=== PATIENT | male | born 1940 | race Caucasian/White ===

== ENCOUNTER 2023-11-01 04:02 | Emergency (ER) | payer MEDICARE, SELFPAY ==
[2023-11-01] VITALS (15 sets, daily range): BP systolic 126–143; BP diastolic 62–70; PULSE 60–68; RESP 14–20; TEMP 36.4–36.8; O2SAT 96–100
--- NOTE | ~2023-11-01 | XR_ITS ---
Supine and upright views of the abdomen Clinical history: Abdominal pain Findings: Bowel gas pattern is nonspecific. No evidence for obstruction or free air. No abnormal mass lesion or calcification is seen. Pelvic surgical clips are noted. Left hip arthroplasty in place. Impression: Nonspecific bowel gas pattern. Reviewed, dictated and finalized at [facility]. ET COVERER Impression: Nonspecific bowel gas pattern.
--- NOTE | ~2023-11-01 | XR_ITS ---
Clinical Indication: Chest pain AP and lateral views of the chest: Comparison: None Findings: The lungs are clear, without evidence of focal consolidation or pleural effusion. Cardiome diastinal silhouette is within normal limits. Bones and soft tissues are unremarkable. Impression: Clear lungs. Possible COPD. Reviewed, dictated and finalized at location . NING FRAME FIXER Impression: Clear lungs. Possible COPD.
--- NOTE | 2023-11-01 04:07 | ECG_ITS ---
Measurements Intervals [place] Rate: 66 P: 84 [place]: 183 QRS: 44 QRSD: 104 T: 67 QT: 358 QTc: 377 Interpretive Statements SINUS RHYTHM WITH OCCASIONAL SUPRAVENTRICULAR PREMATURE COMPLEXES NONSPECIFIC T-WAVE ABNORMALITY ABNORMAL ECG NO PREVIOUS ECG AVAILABLE FOR COMPARISON Electronically Signed On 11-01-2023 7:32:24 FIXED INCOME TRADING VICE PRESIDENT by Fabian Burch M.D.
[2023-11-01 04:43] LABS: Basophils Absolute Auto 0.1 K/mm3 (0.0-0.1); Basophils Percent Auto 1.1 % (0.2-1.2); Eosinophils Absolute Auto 0.2 K/mm3 (0-0.3); Eosinophils Percent Auto 2.3 % (0-4.4); Hematocrit 37.7 % (42.0-52.0); Hemoglobin 11.9 g/dL (14.0-18.0); Immature Granulocyte Absolute 0.06 K/mm3 (0.00-0.031); Immature Granulocyte Percent A 0.6 % (0-0.5); Lymphocytes Absolute Auto 1.16 K/mm3 (0.9-3.2); Lymphocytes Percent Auto 12.3 % (18.3-44.2); Mean Corpuscular HGB Conc 31.6 g/dl (32-36); Mean Corpuscular Hemoglobin 31.3 pg (26-34); Mean Corpuscular Volume 99.2 fl (80-100); Mean Platelet Volume 9.6 fl (7.4-10.4); Monocytes Absolute Auto 1.1 K/mm3 (0.1-0.6); Monocytes Percent Auto 11.1 % (2.6-8.5); Neutrophils Absolute Auto 6.9 K/mm3 (1.3-6.7); Neutrophils Percent Auto 72.6 % (45.5-73.1); Platelet Count Result 396 k/mm3 (150-375); Red Cell Distribution Width 14.5 % (11.5-14.5); White Blood Count 9.5 K/mm3 (4.5-10.0)
[2023-11-01 04:54] LABS: INR 1.2; Prothrombin Time 15.4 Seconds (11.1-14.7)
[2023-11-01 04:55] LABS: Partial Thromboplastin Time 32.6 SECONDS (22.3-36.8)
--- NOTE | 2023-11-01 05:08 | ED.GENADULT ---
HPI - General Adult General Chief complaint: Chest Pain <Prabhu Sigala MD - Last Filed: 11/01/23 07:29> Stated complaint: CHEST PAIN - NOW RESOLVED <Prabhu Sigala MD - Last Filed: 11/01/23 07:29> Time Seen by Provider: 11/01/23 04:04 <Prabhu Sigala MD - Last Filed: 11/01/23 07:29> History of Present Illness HPI narrative: patient is an 83-year-old male who presents ER with epigastric pain/chest pain. Began 2 hours prior to arrival. Resolved on its own. It was radiating to his back. Currently 02/01. No fevers or chills or sweats. Denies previous cardiac issues. Patient has felt quite gassy since then. Currently Having flatulence in the room. reports pain is continuing to improve. No diaphoresis/nausea/ vomiting/dyspnea. <Prabhu Sigala MD - Last Filed: 11/01/23 07:29> Related Data Allergies/adverse reactions: Allergies Allergy/AdvReac Type Severity Reaction Status Date / Time atorvastatin Allergy Unknown Verified 11/01/23 04:46 duloxetine Allergy Unknown Verified 11/01/23 04:46 <Prabhu Sigala MD - Last Filed: 11/01/23 07:29> Review of Systems Review of Systems: All systems reviewed & are unremarkable except as noted in HPI and below <Prabhu Sigala MD - Last Filed: 11/01/23 07:29> Constitutional: Constitutional: Denies chills, Denies fatigue and Denies fever(s) <Prabhu Sigala MD - Last Filed: 11/01/23 07:29> ENT: Reports system reviewed and no additional complaints, except as documented <Prabhu Sigala MD - Last Filed: 11/01/23 07:29> Cardiovascular: Cardiovascular: Reports chest pain, Denies rapid heart rate and Denies radiating jaw, neck or arm pain <Prabhu Sigala MD - Last Filed: 11/01/23 07:29> Respiratory: Respiratory: Reports no additional respiratory complaints <Prabhu Sigala MD - Last Filed: 11/01/23 07:29> Gastrointestinal: Gastrointestinal: Reports abdominal pain, Reports bloating, Denies diarrhea, Denies nausea and Denies vomiting <Prabhu Sigala MD - Last Filed: 11/01/23 07:29> Genitourinary: Genitourinary: Reports no additional male genitourinary complaints <Prabhu Sigala MD - Last Filed: 11/01/23 07:29> PMFSH Past Medical History Medical History: Medical History (Updated 11/01/23 @ 08:19 by Humberto Orellana MD) Chronic diastolic heart failure Hyperlipidemia Hypertension Paroxysmal A-fib Prostate cancer <Prabhu Sigala MD - Last Filed: 11/01/23 07:29> Surgical History Surgical History: Surgical History (Updated 11/01/23 @ 05:11 by Prabhu Sigala MD) History of hip replacement <Prabhu Sigala MD - Last Filed: 11/01/23 07:29> Exam Narrative: GENERAL: Well-appearing, well-nourished, and in no acute distress. HEAD: Normocephalic, atraumatic. ENT: Mucous membranes moist. NECK: Supple. CHEST: Clear to auscultation. No respiratory distress. HEART: Regular rate and rhythm. Normal peripheral pulses. ABDOMEN: Soft, nontender, nondistended. EXTREMITIES: Normal range of motion. No edema. SKIN: Warm, dry, no rash. NEURO: Alert and oriented x3. PSYCH: Normal mood and affect. <Prabhu Sigala MD - Last Filed: 11/01/23 07:29> Course Course Emergency Course: 0700: care transferred to Dr. Orellana. Awaiting 2nd troponin. First troponin negative. Patient seems to have a lot of flatulence that is likely causing his discomfort. He has no pain at this time. <Prabhu Sigala MD - Last Filed: 11/01/23 07:29> Reevaluation(s) Reevaluation #1: The patient care was signed out to me with a delta troponin pending. Repeat troponin was not elevated. Patient is afebrile with no leukocytosis and a stable hemoglobin. INR is 1.2. CMP is similar to his previous. Chest x-ray was cleared with evidence of COPD. Abdominal x-ray shows a nonspecific bowel gas pattern. Patient is currently pain free. Patient was encouraged close follow-up with his primary care physic
[2023-11-01 05:12] LABS: Troponin I 0.012 ng/mL (0.000-0.034)
[2023-11-01] MEDS: SIMETHICONE 125 MG CHEW TAB PO (05:22)
[2023-11-01 05:30] LABS: Alanine Aminotransferase 11 U/L (6-50); Albumin Level 4.1 g/dL (3.5-5.1); Alkaline Phosphatase 65 U/L (38-126); Anion Gap 9 mmol/L (8-16); Aspartate Amino Transferase 28 U/L (17-59); Bilirubin,Total 0.6 mg/dL (0.2-1.3); Blood Urea Nitrogen 28 mg/dL (9-20); Calcium 8.8 mg/dL (8.4-10.2); Carbon Dioxide 22 mmol/L (22-30); Chloride 104 mmol/L (98-107); Estimated CRCL calculation 43 ml/min; Estimated Glomerular Filt Rate 49; Glucose 108 mg/dL (65-110); Potassium 4.3 mmol/L (3.4-5.0); Sodium 135 mmol/L (137-145)
--- NOTE | 2023-11-01 07:12 | PC.NURSE ---
Report to ANGEL Hernandez
[2023-11-01 07:41] LABS: Troponin I < 0.012 ng/mL (0.000-0.034)
--- NOTE | 2023-11-01 08:38 | PC.NURSE ---
multiple attempts to call report to Dwight Chang answered phone and transferred call to nurses station, no answer
== END 2023-11-01 10:00 ==
PROVIDERS: Emergency Provider Emergency Medicine; PCP Family Medicine
DX: R07.9 Chest pain, unspecified (principal); R10.13 Epigastric pain; I11.0 Hypertensive heart disease with heart failure; I50.32 Chronic diastolic (congestive) heart failure; I48.0 Paroxysmal atrial fibrillation; E78.5 Hyperlipidemia, unspecified; Z85.46 Personal history of malignant neoplasm of prostate; Z96.649 Presence of unspecified artificial hip joint; R94.31 Abnormal electrocardiogram [ECG] [EKG]; R91.8 Other nonspecific abnormal finding of lung field
CPT/HCPCS: 36415; 71046; 74018; 80053; 84484; 85025; 85610; 85730; 93005; 99284; A9270

== ENCOUNTER 2025-01-27 01:01 | Day surgery (SDC) | payer MEDICARE, SELFPAY ==
[2025-01-26 10:26] VITALS: BMI 26.6
[2025-01-27 08:56] VITALS: BP 101/62; PULSE 72; RESP 18; TEMP 36.1; O2SAT 98
[2025-01-27] MEDS: LACTATED RINGERS 1,000 ML 150 ML IV CONT (09:13)
--- NOTE | 2025-01-27 09:23 | WPDANESEPPF ---
Anes - Initial Pre Proc Eval Procedure: Operation Date: 01/27/25 09:45 Proposed Procedures p Colonoscopy - Bulmaro Rand MD Date/Time: 01/27/25 09:23 Surgeon: Bulmaro Rand MD Pre Op Diagnosis: IBS Patient Data Age: 85 Gender: M Height: 1.88 m Weight: 92.2 kg Last Vital Signs Temp 36.1 C L 01/27/25 08:56 Pulse 72 01/27/25 08:56 Resp 18 01/27/25 08:56 BP 101/62 01/27/25 08:56 Pulse Ox 98 01/27/25 08:56 O2 Del Method Room Air 01/27/25 08:56 Allergies Allergy/AdvReac Type Severity Reaction Status Date / Time atorvastatin Allergy Unknown Verified 01/27/25 08:54 duloxetine Allergy Unknown Verified 01/27/25 08:54 Home Medications ?Medication ?Instructions ?Recorded ?Confirmed ?Type Acidophilus 1 cap PO DAILY 01/20/25 01/27/25 History STOOL SOFTNER 100 mg PO DAILY PRN constipation 01/20/25 01/20/25 History acetaminophen 650 mg 650 mg PO Q12H PRN pain 01/20/25 01/20/25 History tablet,extended release apixaban 5 mg tablet (Eliquis) 5 mg PO Q12H 01/20/25 01/27/25 History cyanocobalamin (vitamin B-12) 2,500 mcg PO DAILY 01/20/25 01/27/25 History 2,500 mcg sublingual lozenge ergocalciferol (vitamin D2) 1,250 1,250 mcg PO WEEKLY 01/20/25 01/27/25 History mcg (50,000 unit) capsule furosemide 40 mg tablet 40 mg PO DAILY 01/20/25 01/27/25 History loteprednol etabonate 0.5 % eye 1 drp EACH EYE TID 01/20/25 01/27/25 History drops,suspension magnesium oxide 400 mg PO DAILY 01/20/25 01/27/25 History melatonin 5 mg tablet 5 mg PO HS PRN sleep 01/20/25 01/20/25 History meloxicam 7.5 mg tablet 7.5 mg PO DAILY PRN pain 01/20/25 01/20/25 History metolazone 5 mg tablet 5 mg PO DAILY 01/20/25 01/27/25 History potassium chloride 20 mEq 80 meq PO DAILY 01/20/25 01/27/25 History tablet,extended release(part/cryst) riboflavin (vitamin B2) 100 mg 300 mg PO DAILY 01/20/25 01/27/25 History tablet sennosides 8.6 mg capsule (senna) 8.6 mg PO HS 01/20/25 01/27/25 History simethicone 125 mg chewable tablet 125 mg PO BID PRN EXCESSIVE 01/20/25 01/20/25 History (Gas Relief (simethicone)) FLATULENCE sodium chloride 0.65 % nasal spray 1 spray intranasal BID PRN dry 01/20/25 01/20/25 History aerosol (Deep Sea Nasal) nasal passages Patient hx anesthesia problems: none Family hx anesthesia problems: none Results Review: All pre-operative results and documents have been reviewed as part of the pre-operative evaluation. [facility] Past Medical History Medical History Chronic diastolic heart failure Prostate cancer Hyperlipidemia Hypertension Paroxysmal A-fib Surgical History Surgical History History of hip replacement Social History Social History Smoking status: Never smoker Alcohol intake: current Substance use: current Living arrangements: assisted living Spiritual care concerns: No Anes - Eval Final PreProcedure Day of Procedure 01/27/25 09:23 Patient weight: overweight Heart: tachycardia Lungs: clear to auscultation Airway: Mallampati scale class II Neurological: alert and oriented ASA classification: III Emergent: no Anesthetic plan: proceed Results Review: All pre-operative results and documents have been reviewed as part of the pre-operative evaluation. Informed Consent: The patient's anesthetic plan and its attendant risks and benefits were discussed with the patient/family-son. DNR wishes were discussed at length. Patient want no CPR or intubation or life-saving measures. Questions were solicited and answers provided to the satisfaction of the patient/family/POA.
--- NOTE | 2025-01-27 09:59 | PM.IMHP ---
H&P: HPI History of Present Illness Date/Time: 01/27/25 09:59 Chief Complaint: Abdominal pain. Narrative: The patient has a history of intermittent pressure-type abdominal pain preferably in the lower quadrants. There is no change in bowel habits, although he is chronically constipated requiring laxatives almost all his life. He had colonoscopy since the past but does not recall when was the last 1. Review of Systems Review of Systems: All systems reviewed & are unremarkable except as noted in HPI and below PMFSH Past Medical History Medical History Chronic diastolic heart failure Prostate cancer Hyperlipidemia Hypertension Paroxysmal A-fib Surgical History Surgical History History of hip replacement Social History Social History Smoking status: Never smoker Alcohol intake: current Substance use: current Living arrangements: assisted living Spiritual care concerns: No Meds Home Medications and Allergies Home Medications ?Medication ?Instructions ?Recorded ?Confirmed ?Type Acidophilus 1 cap PO DAILY 01/20/25 01/27/25 History STOOL SOFTNER 100 mg PO DAILY PRN constipation 01/20/25 01/20/25 History acetaminophen 650 mg 650 mg PO Q12H PRN pain 01/20/25 01/20/25 History tablet,extended release apixaban 5 mg tablet (Eliquis) 5 mg PO Q12H 01/20/25 01/27/25 History cyanocobalamin (vitamin B-12) 2,500 mcg PO DAILY 01/20/25 01/27/25 History 2,500 mcg sublingual lozenge ergocalciferol (vitamin D2) 1,250 1,250 mcg PO WEEKLY 01/20/25 01/27/25 History mcg (50,000 unit) capsule furosemide 40 mg tablet 40 mg PO DAILY 01/20/25 01/27/25 History loteprednol etabonate 0.5 % eye 1 drp EACH EYE TID 01/20/25 01/27/25 History drops,suspension magnesium oxide 400 mg PO DAILY 01/20/25 01/27/25 History melatonin 5 mg tablet 5 mg PO HS PRN sleep 01/20/25 01/20/25 History meloxicam 7.5 mg tablet 7.5 mg PO DAILY PRN pain 01/20/25 01/20/25 History metolazone 5 mg tablet 5 mg PO DAILY 01/20/25 01/27/25 History potassium chloride 20 mEq 80 meq PO DAILY 01/20/25 01/27/25 History tablet,extended release(part/cryst) riboflavin (vitamin B2) 100 mg 300 mg PO DAILY 01/20/25 01/27/25 History tablet sennosides 8.6 mg capsule (senna) 8.6 mg PO HS 01/20/25 01/27/25 History simethicone 125 mg chewable tablet 125 mg PO BID PRN EXCESSIVE 01/20/25 01/20/25 History (Gas Relief (simethicone)) FLATULENCE sodium chloride 0.65 % nasal spray 1 spray intranasal BID PRN dry 01/20/25 01/20/25 History aerosol (Deep Sea Nasal) nasal passages Allergies Allergy/AdvReac Type Severity Reaction Status Date / Time atorvastatin Allergy Unknown Verified 01/27/25 08:54 duloxetine Allergy Unknown Verified 01/27/25 08:54 Vital Signs Vital Signs - 24 hr 01/27/25 08:56 Temperature 97 F L Pulse Rate 72 Respiratory Rate 18 Blood Pressure 101/62 Pulse Oximetry 98 Oxygen Delivery Room Air Exam Const: General: cooperative and healthy appearing Resp: Effort & Inspection: normal respiratory effort and able to speak in complete sentences Auscultation: clear to auscultation bilaterally Cardio: Rate: regular rate Rhythm: regular rhythm GI: Inspection: normal to inspection GI Palp: No No hepatosplenomegaly present Auscultation: normal bowel sounds Rectal Exam: deferred Skin: General skin exam: normal color Psych: Appearance: grossly normal Mental Status: mental status grossly normal Assessment and Plan Assessment and plan (1) Abdominal pain: Code(s): R10.9 - Unspecified abdominal pain Status: Acute Assessment and Plan: The patient is deemed a good candidate for the procedure. Consent signed. Will proceed.
[2025-01-27 10:30] VITALS: BP 94/63; PULSE 107; RESP 23; O2SAT 95
[2025-01-27 10:40] VITALS: BP 101/67; PULSE 120; RESP 25; O2SAT 97
[2025-01-27 10:50] VITALS: BP 105/72; PULSE 102; RESP 26; O2SAT 95
== END 2025-01-27 11:09 | disposition home or self-care (01) ==
PROVIDERS: PCP Family Medicine; Visit Provider Internal Medicine Gastroenterology
PROC: 0DJD8ZZ Inspection of Lower Intestinal Tract, Via Natural or Artificial Opening Endoscopic (ICD-10-PCS; CPT 45378; principal; 2025-01-27 09:45)
DX: K64.8 Other hemorrhoids (principal); K57.30 Diverticulosis of large intestine without perforation or abscess without bleeding; E78.5 Hyperlipidemia, unspecified; I11.0 Hypertensive heart disease with heart failure; I50.30 Unspecified diastolic (congestive) heart failure; I48.91 Unspecified atrial fibrillation; Z79.01 Long term (current) use of anticoagulants; Z98.890 Other specified postprocedural states; Z85.46 Personal history of malignant neoplasm of prostate
CPT/HCPCS: 45378; J2003; J2704; J7120

== ENCOUNTER 2025-03-09 06:45 | Outpatient (CLI) | payer MEDICARE, SELFPAY ==
--- NOTE | ~2025-03-09 | CT_ITS ---
CT of the Abdomen and Pelvis: Indication: Abdominal pain Technique: 2.5 mm axial scans were obtained through the abdomen and pelvis following intravenous adm inistration of 100 cc of Omnipaque 350. Dose reduction technique was used on this scan by utilizing a utomated exposure control and iterative reconstruction technique. The dose-length product (DLP) was 6 20.62 mGy-cm. Findings: Scans through the lung bases are unremarkable. The liver, spleen, pancreas, gallbladder, adrenals and kidneys are within normal limits. There are atherosclerotic calcifications of the aorta. No lymphadenopathy. No bowel obstruction or bowel wall thickening. There is no evidence to suggest acute appendicitis. Images through the pelvis are degraded by streak artifact from left hip arthroplasty. Urinary bladder grossly unremarkable. No pelvic mass evident. No ascites. Impression: No significant abnormality seen. Reviewed, dictated and finalized at [facility]. Impression: No significant abnormality seen.
--- OUTSIDE RECORDS SUMMARY | 2025-03-09 06:49 | XMS_ITS | Encounter Summary ---
Author Organization [facility] Care Team Providers Care Editor Newspaper Name Role Phone Linn Mas MD Primary Care Provider [phone]- [phone] Encounter Details Date Type Department Care Team (Latest Contact Info) Description 01/21/2018 Orders Only [facility] ProviderJennifer MD [address] [place] [id number] Social History Tobacco Use Types Packs/Day Years Used Date Smoking Tobacco: Never Assessed Sex and Gender Information Value Date Recorded Sex Assigned at Not on file Legal Sex Male 8:17 PM COMMUNICATIONS PROFESSIONAL Gender Identity Not on file Sexual Orientation Not on file documented as of this encounter Plan of Treatment Not on file documented as of this encounter Procedures Procedure Name Priority Date/Time Associated Diagnosis Comments CARDIOLOGY REPORT 02/07/2018 12: 00 AM CDT CARDIOLOGY REPORT 01/17/2018 12: 00 AM COMMUNICATIONS PROFESSIONAL documented in this encounter Results * CARDIOLOGY REPORT (02/07/2018 12:00 AM CDT) Anatomical Region Laterality Modality Other Narrative 02/07/2018 12:00 AM CDT Ordered by an unspecified provider. Historical Provider [facility] PROCE DURES Final Result * CARDIOLOGY REPORT (01/17/2018 12:00 AM COMMUNICATIONS PROFESSIONAL) Anatomical Region Laterality Modality Other Narrative 01/17/2018 12:00 AM COMMUNICATIONS PROFESSIONAL Ordered by an unspecified provider. Historical Provider [facility] PROCE DURES Final Result documented in this encounter Visit Diagnoses Not on filedocumented in this encounter Additional Health Concerns Infection Onset Date Last Indicated Resolved Time COVID: Suspected 11/06/2021 11/06/2021 11/06/2021 1:29 PM COMMUNICATIONS PROFESSIONAL documented as of this encounter Care Teams Editor Newspaper Relationship Specialty Start Date End Date Linn Mas MD [address] [address] PCP - General 03/13/18 documented as of this encounter
--- OUTSIDE RECORDS SUMMARY | 2025-03-09 06:49 | XMS_ITS | Encounter Summary ---
Author Organization [facility] Facility Care Team Providers Care Biological Technician Name Role Phone Linn Mas MD Primary Care Provider [phone]- [phone] Encounter Details Date Type Department Care Team (Latest Contact Info) Description 11/07/2017 Orders Only [facility] ProviderJennifer MD [address] [place] [id number] Social History Tobacco Use Types Packs/Day Years Used Date Smoking Tobacco: Never Assessed Sex and Gender Information Value Date Recorded Sex Assigned at Not on file Legal Sex Male 8:17 PM BOOTH MANAGER Gender Identity Not on file Sexual Orientation Not on file documented as of this encounter Plan of Treatment Not on file documented as of this encounter Procedures Procedure Name Priority Date/Time Associated Diagnosis Comments CARDIOLOGY REPORT 12/27/2017 12: 00 AM BOOTH MANAGER documented in this encounter Results * CARDIOLOGY REPORT (12/27/2017 12:00 AM BOOTH MANAGER) Anatomical Region Laterality Modality Other Narrative 12/27/2017 12:00 AM BOOTH MANAGER Ordered by an unspecified provider. us Historical Provider [facility] CASIMIRO ARCEO Final Result documented in this encounter Visit Diagnoses Not on filedocumented in this encounter Additional Health Concerns Infection Onset Date Last Indicated Resolved Time COVID: Suspected 11/06/2021 11/06/2021 11/06/2021 1:29 PM BOOTH MANAGER documented as of this encounter Care Teams Biological Technician Relationship Specialty Start Date End Date Linn Mas MD [address] [place] [address] PCP - General 03/13/18 documented as of this encounter
--- OUTSIDE RECORDS SUMMARY | 2025-03-09 06:49 | XMS_ITS | Referral Summary ---
Author Organization [facility] at the [facility] Office Center Address [address] [place] [address] Care Team Providers Care Planner/Scheduler Name Role Phone Linn Mas MD Primary Care Provider [phone] Allergies Active Allergy Reactions Criticality Noted Date Comments Atorvastatin Hallucinations Medium 04/18/2021 Duloxetine Hallucinations Medium 07/15/2019 Medications amiodarone (PACERONE) 200 mg tabletIndications :Prevention of Recurrent Atrial Fibrillation Take 1 tablet (200 mg total) by mouth every morning 30 tablet 2 Active metoprolol XL (TOPROL-XL) 25 mg extended release tabletIndications :Atrial Arrhythmia Take 0.5 tablets (12.5 mg total) by mouth every morning 15 tablet 2 Active rosuvastatin (CRESTOR) 20 mg tabletIndications :hyperlipidemia Take 1 tablet (20 mg total) by mouth every morning 30 tablet 2 Active apixaban (Eliquis) 5 mg tabletIndications :atrial fibrillation Take 1 tablet (5 mg total) by mouth every 12 (twelve) hours 60 tablet 2 Active gabapentin (NEURONTIN) 300 mg capsuleIndication s:Neuropathic Pain Take 1 capsule (300 mg total) by mouth every morning 30 capsule 2 Active tamsulosin (FLOMAX) 0.4 mg extended release capsuleIndication s:benign prostatic hyperplasia with lower urinary tract sx Take 1 capsule (0.4 mg total) by mouth nightly 30 capsule 2 Active fluticasone propionate (FLONASE) 50 mcg/actuation nasal spray Administer 2 sprays into each nostril 2 (two) times a day 1 each 2 Active amoxicillin (AMOXIL) 500 mg tablet/capsuleInd ications:Prophyla xis, Medical Take 4 tablets one hour prior to procedure or dental cleaning. 4 tablet/capsu le 10 3 Active Active Problems Problem Noted Date Diagnosed Date Acute renal failure (ARF) 10/30/2021 Assessment & Plan (11/27/2021 10:42 AM DESIZING MACHINE OFFBEARER): Cr elevated from baseline - encouraged po fluid intake. Not on diuretics - monitor 11/07: Cr continues to improve, encouraged po intake 11/13: Cr now 1.2, improved. Continue to monitor 11/16: Cr stable at 1.2. monitor 11/27: Cr stable Anemia due to acute blood loss 10/30/2021 Assessment & Plan (11/27/2021 10:39 AM DESIZING MACHINE OFFBEARER): H/H is slowly improving - continue to montior with iron supplementation 11/07: h/h stable, monitor 11/13: H/H remains stable 11/16: Hg 9.5. monitor 11/27: stable, continue iron supplementation Throat dryness 10/25/2021 Back pain 10/16/2021 Assessment & Plan (11/18/2021 10:42 AM DESIZING MACHINE OFFBEARER): To left side. Likely from surgery. Will add lidoderm patch. 10/30: controlled - continue prn norco, scheduled tylenol 11/13: pain controlled, continue above regimen 11/16: back pain improved Closed left hip fracture, initial encounter 09/25 Lung nodule 06/20/2021 Carotid artery stenosis 06/20/2021 Family history of diabetes mellitus 06/20/2021 Benign neoplasm of colon 06/20/2021 Malignant tumor of prostate 06/20/2021 PAF (paroxysmal atrial fibrillation) 06/20/2021 Encounter for monitoring amiodarone therapy 05/26 Constipated 05/25/2021 Assessment & Plan (11/27/2021 10:38 AM DESIZING MACHINE OFFBEARER): Continue Miralax. Will give suppos if no BM by tonight. 10/25 BM regular 10/30: stable continue senna bid, miralax daily, MOM and suppository prn 11/07: pt has intermittant c/o, but does not always take the miralax - continue scheduled senna 11/13: Last BM documented 11/10, continue scheduled senna and prns available 11/16: had BM on 11/14 11/20: pt not happy with current bowel regimen - dc senna s, start colace, encouraged pt to take miralax daily as he does at home 11/27: improved, continue miralax Allergic rhinitis due to pollen 05/25/2021 Insomnia 02/22/2021 Assessment & Plan (11/27/2021 10:37 AM DESIZING MACHINE OFFBEARER): Will start Trazodone. Continue Ramelton. 10/30: pt sleeping better, continue scheduled trazodone 11/07: stable, continue trazodone 50mg and ramelteon nightly 11/13: overall stable. Continue above regimen 11/27/21: Pt wants to use only home melatonin at discharge Macrocytosis 07/21/2020 Serum creatinine raised 07/21/2020 Tattoo of skin 07/20/2020 Coronary arteriosclerosis 05/05/2020 Pleural plaque 05/05/2020 Fracture of pelvis 03/24/2020 Osteoarthritis of hip 03/24/2020 Closed nondisplaced fracture of left ilium 12/12 Idiopathic peripheral neuropathy 10/16/2019 Assessment & Plan (11/27/2021 10:38 AM DESIZING MACHINE OFFBEARER): Cont gabapentin 300 mg daily. F/u with neurology 10/30: overall stable, continue gabapentin 300mg daily 11/13: stable, continue gabapentin 300mg daily 11/20: stable, continue gabapentin 11/27/21: stable, continue gabapentin 300mg daily Headache 06/18/2019 Persistent atrial fibrillation 06/17/2019 Assessment & Plan (11/27/2021 10:36 AM DESIZING MACHINE OFFBEARER): S/P DC cardioversion, Dr. Odom in 2019. cont amiodarone 200mg, toprol XL 12.5 mg, crestor. On eliquis 5 mg bid. 10/30: HR controlled, continue amiodarone 200 mg daily, Toprol-XL 12.5 mg daily, Eliquis 11/07: HR lower but asymptomatic and unchanged. Continue amiodarone 200 mg daily, Toprol-XL 12.5 mg daily, Eliquis 11/13: HR high 50's-mid 60's. Continue amiodarone 200 mg daily, Toprol-XL 12.5 mg daily, Eliquis 11/16: cont amiodarone 200mg , toprol XL 12.5 mg, eliquis 11/20: HR lower but stable, pt asymptomatic. Continue amiodarone 200mg , toprol XL 12.5 mg, eliquis 11/27/21: HR controlled, continue amiodarone 200mg , toprol XL 12.5 mg, eliquis Assessment & Plan (06/17/2019 11:47 AM CDT): Maintaining sinus rhythm after remote cardioversion. Chads score 2. Continue Eliquis Essential hypertension 06/17/2019 Assessment & Plan (11/27/2021 10:38 AM DESIZING MACHINE OFFBEARER): BP controlled, pulse mildly low. Cont Toprol XL 12.5 mg daily. Monitor closely. 10/18: BP stable 10/23: BP stable, pulse fluctuates. No changes. 10/25: BP overall wnl, usually soft 10/30: BP stable - continue only low dose Toprol 11/07: BP controlled continue Toprol, amio 11/13: BP controlled, continue Toprol XL 12.5 mg daily, amiodarone 200mg daily 11/16: BP wnl. Cont same meds 11/20: stable, continue Toprol 11/27: stable, continue Toprol XL 12.5 mg daily, amiodarone 200mg daily Assessment & Plan (06/17/2019 11:47 AM CDT): Controlled. Continue current medication Aftercare following left hip joint replacement s urgery 06/17/2019 Assessment & Plan (11/27/2021 10:42 AM DESIZING MACHINE OFFBEARER): Pt is s/p Left total hip replacement per Dr. Patterson on 10/05/21. DVT prophylaxis with eliquis 5 mg bid. Cont pain mgx with Freeland 1 tab q4 prn. Wound care. PT/OT eval. 10/13: Staple removal 10/19. 10/16: Has been refusing therapy. Reports in too much pain but then not taking pain medication either. Have discussed importance of pain medication to help with ability to participate in therapy. Will schedule Tyl. Sarah to be removed 10/19, night nurse reports increased drainage but day nurse reports none when changed. Will monitor closely. If having increased drainage will hold off on removal. 10/18: Still having increased drainage from the incision site, will hold off staple removal foe couple of days. 10/23: No further drainage. Sarah can be removed from site today. Seems to be progressing therapy more. Pain more controlled. 10/25: sarah has been removed. Incision looks stable, with steri strips in place. Pain controlled. 10/30: stable, pain controlled with scheduled Tylenol, p.r.n. Freeland. Patient is making progress in therapy, we will monitor. Continues to have weight-bearing restrictions. F/U with Dr. Nick Post on 11/15/21 at 9:30am at [facility]: [facility] ([facility]), [address] [place] [address], [address], [place] [address]. 11/07: remains only 20 lbs. Pt feels he is getting depressed due to lack of progress that he contributes to WB restrictions. F/U with ortho rec after appt next week. Continue thera, pain control, DVT proph 11/13: pain controlled, continue in therapy. Hoping to get increased WB at f/u visit 11/15. Will f/u ortho rec 11/16: Had ortho f/u on 10/16, as per new orders can start ambulation, advance WBAT while using walker and when comfortable dc the walker or transition to cane. Cont hip strengthening exercises. F/u ortho prn or in 1 yr. 11/20: Pt now WBAT, will monitor progress in therapy. Pain is controlled. 11/27: Pt has been making progress, WBAT. The patient is ready for discharge 11/28. We will arrange home health PT, OT. F/U with surgeon prn Assessment & Plan (06/17/2019 11:47 AM CDT): Continue Eliquis 5 mg twice daily Overweight with body mass index (BMI) 25.0-29.9 01/06/2019 Vitamin B12 deficiency (non anemic) 09/30/2018 Parkinsonism 06/10/2018 Osteoarthritis 06/10/2018 Unsteady gait 06/10/2018 Impaired fasting glucose 03/19/2018 Asymmetric SNHL (sensorineural hearing loss) Imbalance 03/16/2018 Cardiomyopathy 03/11/2018 Microscopic hematuria 12/30/2017 Congestive heart failure 03/21/2017 Assessment & Plan (11/27/2021 10:39 AM DESIZING MACHINE OFFBEARER): Transthoracic echocardiogram, May 2019, preserved biventricular systolic function, no significant valvular disease. Continue Toprol XL 12.5 mg, Crestor 20 mg, amiodarone 200 mg[address] Follow[address] up with Dr. Lopez outpatient. 10/23: Remains compensated. No changes. 10/25: asymptomatic 10/30: compensated, no diuretics. Continue to monitor wt, lytes, renal function, edema 11/07: remains compensated, continue off diuretic 11/13: no edema/SOB. Continue to monitor wt, lytes, renal function, edema 11/16: compensating well 11/27: compensated, continue to monitor and f/u with cardiology Dyslipidemia 03/21/2017 Assessment & Plan (10/11/2021 8:11 AM DESIZING MACHINE OFFBEARER): Cont crestor Adenocarcinoma of prostate 07/14/2013 Assessment & Plan (10/12/2021 7:19 AM DESIZING MACHINE OFFBEARER): prostate ca with mets to ischium 2010 s/p rads and total prostatectomy. Is on Lupron IM every 6 months. Follows up with urologist Dr. Michele. Continue Flomax Resolved Problems Problem Noted Date Diagnosed Date Resolved Date Benign prostatic hyperplasia without urinary obstruction 06/20/2021 10/12/2021 Assessment & Plan (10/11/2021 8:10 AM DESIZING MACHINE OFFBEARER): Cont home med flomax 0.4 mg Vestibular migraine 10/15/2019 11/27/19 Assessment & Plan (11/20/2021 4:37 PM DESIZING MACHINE OFFBEARER): He was started per neurologist on Venlafaxine 37.5 mg, which he likely did not tolerated well due to dizziness SE. Started on Gabapentin 100mg and the plan was to increase the dose based on tolerance. Pt was also given Vit B2 400mg and Magnesium oxide, which pt considered was very effective. Asking now to be restarted on the same meds. Will start Mag oxide 400 mg daily and Vit B2 as non formulary, pt son will provide home supply. 10/25: Headache improved 10/30: Resolved. Scheduled mag-ox and vitamin b2 per patient request. Tolerating gabapentin 300mg q am 11/07: currently stable. Continue above regimen: mag-ox, vitamin b2, gabapentin 300mg q am 11/13: denies nj. Monitor 11/20: resolved Dizziness 06/17/2019 10/23/2021 Assessment & Plan (10/16/2021 11:03 AM DESIZING MACHINE OFFBEARER): Unsure of etiology. Labs stable. H&H mildly low. Continue to monitor closely. Will order orthostatics. 10/16: No reports today. Orthostats pending. Montior. Assessment & Plan (06/17/2019 11:46 AM CDT): Vestibular dizziness. Encouraged patient to try other non conventional therapies Immunizations Immunization Administration Dates Next Due Influenza, Quadrivalent, Hig h Dose, Preservative Free, Intrr 10/13/2021(),08/25/2021,08/23/2020 Influenza, Quadrivalent, Spl it, Intramuscular 08/17/2019,08/11/2018,08/01/2017,09/08 Influenza, Trivalent, Preser vative Free, Intramuscular 08/14/2016 Moderna SARS-CoV-2 Monovalen t Vaccination (12+ YRS) 2021,2021,12/27/2020 Pfizer SARS-CoV-2 Monovalent Vaccination (12+ Yrs) PURPLE 10/11/2021 Pneumococcal Conjugate PCV 13 09/08/2015 Pneumococcal Polysaccharide PPV23 01/18/2017 Tdap 03/17/2018 ZOSTER LIVE 05/21/2018,03/17/2018 ZOSTER Recombinant 05/21/2018,03/17/2018 Social History Tobacco Use Types Packs/Day Years Used Date Smoking Tobacco: Never Smokeless Tobacco: Never Alcohol Use Standard Drinks/Week Comments Not Currently 0 (1 standard drink = 0.6 oz pur e alcohol) In the past 4 to 5 per week AUDIT-C Answer Date Recorded Q1: How often do you have a drink containing alc ohol? Never 10/10/2021 Average Number of Drinks Not on file 021 Q3: How often do you have si x or more drinks on one occasion? Never 10/10/2021 Sex and Gender Information Value Date Recorded Sex Assigned at Not on file Legal Sex Male 8:17 PM DESIZING MACHINE OFFBEARER Gender Identity Not on file Sexual Orientation Not on file Occupation Industry Job Start Date Job End Date Retired Not on file Not on file Not on file Last Filed Vital Signs Vital Sign Reading Time Taken Comments Blood Pressure 155/80 11/28/2021 7:00 AM DESIZING MACHINE OFFBEARER Pulse 61 11/28/2021 7:00 AM DESIZING MACHINE OFFBEARER Temperature 36.4 C (97.6 F) 11/28/2021 7:00 AM DESIZING MACHINE OFFBEARER Respiratory Rate 20 11/28/2021 7:00 AM DESIZING MACHINE OFFBEARER Oxygen Saturation 93% 11/28/2021 7:00 AM DESIZING MACHINE OFFBEARER Inhaled Oxygen Concentration - - Weight 93.1 kg (205 lb 4 oz) 11/28/2021 5:21 AM DESIZING MACHINE OFFBEARER Height 188 cm (6' 2 ) 10/10/2021 5:10 PM DESIZING MACHINE OFFBEARER Body Mass Index 26.35 10/10/2021 5:10 PM DESIZING MACHINE OFFBEARER Plan of Treatment Not on file Medical Devices Implanted Type Area Jewel Hole Rough Opener Device Identifier Shelf Expiration Date Model / Serial / Lot [employer] [id number] 60mm Modular Cluster Hole Hip Cup Acetabular Trabecular Metal - S0 - [id number] Implanted:Qty: 1 on 10/05/2021 by Nick Post MD at [facility] Other - see comments Left: Hip [employer] [id number] 04/24/2023 [id number] / 0 / [id number] [employer] [id number] Trilogy 60mm 28mm 10.3mm Primary Modular Cup Liner Hip Standard - S0 - [id number] Implanted:Qty: 1 on 10/05/2021 by Nick Post MD at [facility] Other - see comments Left: Hip [employer] [id number] 04/24/2023 [id number] / 0 / [id number] [employer] [id number] Trilogy 6.5mm 35mm Self Tap Screw Bone - S0 - [id number] Implanted:Qty: 1 on 10/05/2021 by Nick Post MD at [facility] Screw Left: Hip [employer] [id number] 07/31/2031 [id number] / 0 / [id number] [employer] [id number] Trilogy 6.5mm 35mm Self Tap Screw Bone - S0 - [id number] Implanted:Qty: 1 on 10/05/2021 by Nick Post MD at [facility] Screw Left: Hip [employer] [id number] 08/24/2029 [id number] / 0 / [id number] [employer] [id number] 28mm Hip +3.5mm [place] Femoral Cocr - [id number] Implanted:Qty: 1 on 10/05/2021 by Nick Post MD at [facility] Left: Hip [employer] [id number] 12/17/2030 [id number] / / [id number] [employer] [id number] 15mm 160mm Primary Press Fit Hip 14 43mm Oblique Straight Stem - [id number] Implanted:Qty: 1 on 10/05/2021 by Nick Post MD at [facility] Left: Hip [employer] [id number] 02/22/2030 [id number] / / [id number] Insurance MEDICARE [facility] MEDICARE MEDICARE [facility] MEDICARE [facility] Advance Directives For more information, please contact: [phone] Documents on File Type Date Recorded Patient Vice President Of Consulting Services Expl anation ADVANCE DIRECTIVE 10/12/2021 9:16 AM POLS T - Phys Order for PT Preferences ADVANCE DIRECTIVE 10/05/2021 11:42 AM Pow er of Lpn Or Medical Assistant-Medical ADVANCE DIRECTIVE 02/02/2020 12:00 AM TIMOTHY NG WILL * Full Code (Latest Code Status on File) Date Activated Date Inactivated Comments 10/10/2021 5:11 PM 11/28/2021 5:59 PM * Full Code Date Activated Date Inactivated Comments 10/05/2021 6:37 PM 10/10/2021 4:33 PM Care Teams Planner/Scheduler Relationship Specialty Start Date End Date Linn Mas MD [address] [facility] [address] [place] [address] PCP - General 03/13/18
--- OUTSIDE RECORDS SUMMARY | 2025-03-09 06:49 | XMS_ITS | Clinical Summary ---
Author Organization [facility] Address [address] [place] [address] Care Team Providers Care Professional Skateboarder Name Role Phone Linn Mas MD Primary Care Provider [phone] Allergies Active Allergy Reactions Criticality Noted Date Comments Atorvastatin Hallucinations Medium 04/18/2021 Duloxetine Hallucinations Medium 07/15/2019 Medications ELIQUIS 5 MG tablet Take 1 tablet (5 mg total) by mouth 2 (two) times daily. Active amiodarone 200 MG tablet Take 1 tablet (200 mg total) by mouth daily. START AFTER FINISHING WEEK OF 400mg twice daily 60 tablet 3 0 Active Additional Information Patient taking differently:200 mg Oral Daily,(No instructions reported), Reported on 09/12/2023 gabapentin 300 MG capsule Take 1 capsule (300 mg total) by mouth nightly at bedtime. 0 Active rosuvastatin 20 MG tablet Take 1 tablet (20 mg total) by mouth daily. 1 Active acetaminophen 500 MG tablet Take 1 tablet (500 mg total) by mouth 2 (two) times daily. Active Cyanocobalamin [address] 2,500 mcg under the tongue daily. Active magnesium oxide (MAG-OX) 400 MG tablet Take 1 tablet (400 mg total) by mouth nightly at bedtime. Active Senna (SENOKOT) 8.6 MG tablet Take 1 tablet (8.6 mg total) by mouth nightly as needed for Constipation. Active vitamin B-2 (RIBOFLAVIN) 100 MG tablet 3 tablets (300 mg total) daily. Active fludrocortisone (FLORINEF) 0.1 MG tablet Take 1 tablet (0.1 mg total) by mouth daily. 30 tablet 1 3 Active docusate sodium (COLACE) 100 MG capsule Take 1 capsule (100 mg total) by mouth 2 (two) times daily. 20 capsule 3 Active polyethylene glycol (GLYCOLAX) packet Take 240 mLs (17 g total) by mouth 2 (two) times daily. Dissolve powder in 240 mL water 20 each 3 Active tamsulosin (FLOMAX) 0.4 MG Cap Take 1 capsule (0.4 mg total) by mouth daily. 30 capsule 1 3 Active Active Problems Problem Noted Date Diagnosed Date Orthostasis 09/13/2023 Near syncope 09/12/2023 Chronic hypotension 01/17/2023 Carotid artery stenosis 06/20/2021 Coronary arteriosclerosis 05/05/2020 Hyperlipidemia, unspecified 12/18/2019 Malignant tumor of prostate ([facility]) Closed nondisplaced fracture of left ilium ([facility]) 12/12/2019 Vestibular migraine 10/15/2019 Essential hypertension 06/17/2019 Overview (12/18/2019): Last Assessment & Plan: Controlled. Continue current medication Persistent atrial fibrillation ([facility]) 06/17/2019 Overview (12/18/2019): Last Assessment & Plan: Maintaining sinus rhythm after remote cardioversion. Chads score 2. Continue Eliquis Vertigo 06/17/2019 Overview (12/18/2019): Last Assessment & Plan: Vestibular dizziness. Encouraged patient to try other non conventional therapies Parkinsonism ([facility]) 06/10/2018 Cardiomyopathy ([facility]) 03/11/2018 Microscopic hematuria 12/30/2017 Congestive heart failure ([facility]) 03/21 Overview (12/21/2022): Last Assessment & Plan: Transthoracic echocardiogram, May 2019, preserved biventricular systolic [...] monitor and f/u with cardiology Dyslipidemia 03/21/2017 Overview (12/21/2022): Last Assessment & Plan: Cont crestor Adenocarcinoma of prostate ([facility]) Resolved Problems Problem Noted Date Diagnosed Date Resolved Date Femur fracture 12/12/2019 12/12/2019 Immunizations Immunization Administration Dates Next Due COVID-19 Vaccine (Generic) 10/25/2021 Fluzone 6 Months+ Quad (0.5 mL Prefilled Syringe) 09/13/2023 Fluzone High Dose - >Age 65 (Prefilled Syringe) 08/23/2020 Influenza (Generic) 08/14/2016 Influenza Adult (Generic) 10/11/2021,,08/11/2018,2016,09/08/2015 MODERNA COVID-19 (12+) MRNA, LNP-S, PF, 100 MCG/ 0.5 ML DOSE 2021 Pneumococcal (Pneumovax 23) 01/18/2017 Pneumococcal (Prevnar 13) 09/08/2015 Tdap (Generic) 03/17/2018 Zoster (Zostavax) 82091 Unt/0.65Ml 05/21/2018, Family History Medical History Relation Comments No Known Problems Father No Known Problems Maternal Aunt No Known Problems Maternal Grandfather No Known Problems Maternal Grandmother No Known Problems Maternal Uncle Hypertension Mother No Known Problems Paternal Aunt No Known Problems Paternal Grandfather No Known Problems Paternal Grandmother No Known Problems Paternal Uncle Relation Status Comments Father Maternal Aunt Maternal Grandfather Maternal Grandmother Maternal Uncle Mother Paternal Aunt Paternal Grandfather Paternal Grandmother Paternal Uncle Social History Tobacco Use Types Packs/Day Years Used Date Smoking Tobacco: Former Smokeless Tobacco: Never Tobacco Cessation:Counseling Given: Not Answered Alcohol Use Standard Drinks/Week Comments No 0 (1 standard drink = 0.6 oz pur e alcohol) quit one year prior Humiliation, Afraid, Rape, and Kick questionnair e Answer Date Recorded Within the last year, have y ou been afraid of your partner or ex-partner? No 09/12/2023 Within the last year, have y ou been humiliated or emotionally abused in other ways by your partner or ex-partner? No Within the last year, have y ou been kicked, hit, slapped, or otherwise physically hurt by your partner or ex-partner? No 09/12/2023 Within the last year, have y ou been raped or forced to have any kind of sexual activity by your partner or ex-partner? No 09/12/2023 AUDIT-C Answer Date Recorded Frequency of Alcohol Consumption Never 12/12/2019 Average Number of Drinks Not on file 020 Frequency of Binge Drinking Not on file 11/25 Overall Financial Resource Strain (CARDIA) Answe r Date Recorded How hard is it for you to pa y for the very basics like food, housing, medical care, and heating? Not hard at all 09/12/2023 PHQ-2 Answer Date Recorded Patient Health Questionnaire-2 Score 0 12/06/2022 Hunger Vital Sign Answer Date Recorded Within the past 12 months, y ou worried that your food would run out before you got the money to buy more. Never true 09/12/20 23 Within the past 12 months, t he food you bought just didn't last and you didn't have money to get more. Never true 09/12/2023 PRAPARE - Transportation Answer Date Re corded In the past 12 months, has l ack of transportation kept you from medical appointments or from getting medications? No 08/25 In the past 12 months, has l ack of transportation kept you from meetings, work, or from getting things needed for daily living? No 09/12/2023 Housing Stability Vital Sign Answer Arjun e Recorded In the last 12 months, was t here a time when you were not able to pay the mortgage or rent on time? No 09/12/2023 In the last 12 months, how many places have you lived? 1 09/12/2023 In the last 12 months, was t here a time when you did not have a steady place to sleep or slept in a detention (including now)? No 09/12/2023 Sex and Gender Information Value Date Recorded Sex Assigned at Not on file Legal Sex Male 7:18 PM CDT Gender Identity Not on file Sexual Orientation Not on file Last Filed Vital Signs Vital Sign Reading Time Taken Comments Blood Pressure 142/68 09/25/2023 4:00 PM CDT Pulse 73 09/25/2023 4:00 PM CDT Temperature 36.7 C (98.1 F) 09/25/2023 4:00 PM CDT Respiratory Rate 16 09/25/2023 4:00 PM CDT Oxygen Saturation 98% 09/25/2023 4:00 PM CDT Inhaled Oxygen Concentration - - Weight 89.1 kg (196 lb 6.9 oz) 09/25/2023 4:41 A M CDT Height 188 cm (6' 2 ) 09/23/2023 4:13 PM CDT Body Mass Index 25.22 09/23/2023 4:13 PM CDT Plan of Treatment Health Maintenance Due Date Last Done Comments Annual Medicare Wellness Visit 2006 ASCVD LDL 01/12/2016 01/12/2015, 07/07/2014 RSV Immunization or 60+ Years (1 - 1-dose 75+ series) 01/27/2016 Zoster Vaccines (2 of 3) 07/16/2018 05/21/2018, 02/24 COVID-19 Vaccine ( season) 2024 10/25/2021, 10/11/2021, 2021, Additional history exists PHQ-2 (Physician [place]) 11/25/2024 DTaP, Tdap and Td Vaccines (2 - Td or Tdap) 03/17/2028 03/17/2018 Pneumococcal Vaccine: 50+ Years Completed 01/18/2017, 09/08/2015 Meningococcal B Vaccine Aged Out No l onger eligible based on patient's age to complete this topic Meningococcal Vaccine Aged Out No [place] eligible based on patient's age to complete this topic RSV Immunizations Under 20 Months Aged Out No longer eligible based on patient's age to complete this topic Goals Goal Patient Goal Type Associated Problems Recent Progress Patient-Stated? 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 Procedure Name Priority Date/Time Associated Diagnosis Comments LIPID PANEL WITH DIRECT LDL Routine 01/12/2015 11:05 AM PEACE OFFICER from Last 3 Months or Most Recently Relevant to Health Maintenance Results * (ABNORMAL) LIPID PANEL WITH DIRECT LDL (01/12/2015 11:05 AM PEACE OFFICER) CHOLESTEROL 209(H) 125 - 200 mg/dL [facility] TO EPIC CONVERSION HDL 101 > OR = 40 mg/dL [facility] TO EPIC CONVERSION TRIGLYCERIDES 91 <150 mg/dL [facility] TO EPIC CONVERSION LDL (CALCULATED) 90 <130 [facility] TO EPIC CONVERSION Comment: Result Comment: UNITS: mg/dL (calc) Desirable range <100 mg/dL for patients with CHD or diabetes and <70 mg/dL for diabetic patients with known heart disease. CHOL/HDL RATIO 2.1 < OR = 5.0 (calc) [facility] TO EPIC CONVERSION NON HDL CHOLESTEROL 108 [facility] TO EPIC CONVERSION Comment: Result Comment: UNITS: mg/dL (calc) Target for non-HDL cholesterol is 30 mg/dL higher than LDL cholesterol target. Test Performed at: [facility] [address] [place] [address] REJI MONZON DO,MPH 01/12/2015 11:0 5 AM PEACE OFFICER 01/12/2015 11:05 AM PEACE OFFICER Narrative [facility] TO EPIC CONVERSION - 01/12/2015 11:06 AM PEACE OFFICER Result Communication: No patient communication needed at this time us Generic Conversion Md [facility] Final R esult [facility] TO EPIC CONVERSION from Last 3 Months or Most Recently Relevant to Health Maintenance Insurance MEDICARE [employer] [facility] MEDICARE Advance Directives * Full Code (Latest Code Status on File) Date Activated Date Inactivated Comments 09/12/2023 12:21 PM 09/25/2023 9:45 PM * Full Code Date Activated Date Inactivated Comments 12/12/2019 10:57 AM 12/18/2019 3:48 PM Care Teams Professional Skateboarder Relationship Specialty Start Date End Date Linn Mas MD PCP - General 06/19/17
--- OUTSIDE RECORDS SUMMARY | 2025-03-09 06:49 | XMS_ITS | Clinical Summary ---
Author Organization [facility] at [facility] Address [address] [place] [address] Care Team Providers Care Clothing Man Name Role Phone Linn Mas MD Primary Care Provider [phone] Allergies Active Allergy Reactions Criticality Noted Date [...] 10/30/2021 Assessment & Plan (11/27/2021 10:42 AM RETAIL SALESPERSON): Cr elevated from baseline - encouraged po fluid intake. Not on diuretics - monitor 11/07: Cr continues to improve, encouraged po intake 11/13: Cr now 1.2, improved. Continue to monitor 11/16: Cr stable at 1.2. monitor 11/27: Cr stable Anemia due to acute blood loss 10/30/2021 Assessment & Plan (11/27/2021 10:39 AM RETAIL SALESPERSON): H/H is slowly improving - continue to montior with iron supplementation 11/07: h/h stable, monitor 11/13: H/H remains stable 11/16: Hg 9.5. monitor 11/27: stable, continue iron supplementation Throat dryness 10/25/2021 Back pain 10/16/2021 Assessment & Plan (11/18/2021 10:42 AM RETAIL SALESPERSON): To left side. Likely from surgery. Will [...] 05/25/2021 Assessment & Plan (11/27/2021 10:38 AM RETAIL SALESPERSON): Continue Miralax. Will give suppos if no [...] 02/22/2021 Assessment & Plan (11/27/2021 10:37 AM RETAIL SALESPERSON): Will start Trazodone. Continue [place]. 10/30: pt [...] 10/16/2019 Assessment & Plan (11/27/2021 10:38 AM RETAIL SALESPERSON): Cont gabapentin 300 mg daily. F/u with neurology 10/30: overall stable, continue gabapentin 300mg daily 11/13: stable, continue gabapentin 300mg daily 11/20: stable, continue gabapentin 11/27/21: stable, continue gabapentin 300mg daily Headache 06/18/2019 Persistent atrial fibrillation 06/17/2019 Assessment & Plan (11/27/2021 10:36 AM RETAIL SALESPERSON): S/P DC cardioversion, Dr. Oodm in 2019. cont amiodarone 200mg, toprol XL [...] 06/17/2019 Assessment & Plan (11/27/2021 10:38 AM RETAIL SALESPERSON): BP controlled, pulse mildly low. Cont Toprol [...] 06/17/2019 Assessment & Plan (11/27/2021 10:42 AM RETAIL SALESPERSON): Pt is s/p Left total hip replacement per Dr. Patterson on 10/05/21. DVT prophylaxis with eliquis 5 mg bid. Cont pain mgx with [place] 1 tab q4 prn. Wound care. PT/OT [...] stable, pain controlled with scheduled Tylenol, p.r.n. [place]. Patient is making progress in therapy, we will monitor. Continues to have weight-bearing restrictions. F/U with Dr. Nick Post on 11/15/21 at 9:30am at [facility]: [facility] ([facility]), [address] [place] [address], [address], [place] [address]. 11/07: remains only 20 lbs. Pt feels [...] 03/21/2017 Assessment & Plan (11/27/2021 10:39 AM RETAIL SALESPERSON): Transthoracic echocardiogram, May 2019, preserved biventricular systolic [...] 03/21/2017 Assessment & Plan (10/11/2021 8:11 AM RETAIL SALESPERSON): Cont crestor Adenocarcinoma of prostate 07/14/2013 Assessment & Plan (10/12/2021 7:19 AM RETAIL SALESPERSON): prostate ca with mets to ischium 2010 s/p rads and total prostatectomy. Is on Lupron IM every 6 months. Follows up with urologist Dr. Michele. Continue Flomax Resolved Problems Problem Noted Date Diagnosed Date Resolved Date Benign prostatic hyperplasia without urinary obstruction 06/20/2021 10/12/2021 Assessment & Plan (10/11/2021 8:10 AM RETAIL SALESPERSON): Cont home med flomax 0.4 mg Vestibular migraine 10/15/2019 11/27/19 Assessment & Plan (11/20/2021 4:37 PM RETAIL SALESPERSON): He was started per neurologist on Venlafaxine [...] 10/23/2021 Assessment & Plan (10/16/2021 11:03 AM RETAIL SALESPERSON): Unsure of etiology. Labs stable. H&H mildly [...] 03/17/2018 ZOSTER LIVE 05/21/2018,03/17/2018 ZOSTER Recombinant 05/21/2018,03/17/2018 Surgical History Surgery Date Site/Laterality Comments PROSTATECTOMY CARDIOVERSION 11/25/2019 - 12/25/2019 WISDOM TOOTH EXTRACTION COLONOSCOPY SKIN CANCER EXCISION back Medical History Medical History Date Comments Atrial fibrillation (HCC) Prostate cancer (HCC) Hypertension Hyperlipidemia Skin cancer HTN (hypertension) Family History Medical History Relation Name Comments Diabetes Father Lung cancer Father Dementia Mother Pulmonary fibrosis Mother Migraines Son Anesthesia problems Neg Hx Relation Name Status Comments Father Mother Son Social History Tobacco Use Types Packs/Day Years [...] on file Legal Sex Male 8:17 PM RETAIL SALESPERSON Gender Identity Not on file Sexual Orientation Not on file Occupation Industry Job Start Date Job End Date Retired Not on file Not on file Not on file Obstetrics History Last Filed Vital Signs Vital Sign Reading Time Taken Comments Blood Pressure 155/80 11/28/2021 7:00 AM RETAIL SALESPERSON Pulse 61 11/28/2021 7:00 AM RETAIL SALESPERSON Temperature 36.4 C (97.6 F) 11/28/2021 7:00 AM RETAIL SALESPERSON Respiratory Rate 20 11/28/2021 7:00 AM RETAIL SALESPERSON Oxygen Saturation 93% 11/28/2021 7:00 AM RETAIL SALESPERSON Inhaled Oxygen Concentration - - Weight 93.1 kg (205 lb 4 oz) 11/28/2021 5:21 AM RETAIL SALESPERSON Height 188 cm (6' 2 ) 10/10/2021 5:10 PM RETAIL SALESPERSON Body Mass Index 26.35 10/10/2021 5:10 PM RETAIL SALESPERSON Plan of Treatment Health Maintenance Due Date Last Done Comments Depression Screening 1941 Hepatitis B Screening 1958 Well Visit 65+ 2006 Fall Risk Assessment 11/27/2022 11/27/2021 Covid-19 Vaccine (2023-2 5 season) 2024 10/11/2021, 2021, 2021, Additional history exists Influenza Vaccine (Season Ended) 2025 08/25/2021, 08/23/2020, 08/17/2019, Additional history exists DTaP/Tdap/Td Vaccine (2 - Td or Tdap) 03/17/2028 03/17/2018 Pneumococcal vaccine 65+ Completed 01/18/2017, 08/25 Zoster Vaccine Completed 05/21/2018, 04/26, 03/17/2018, Additional history exists Medical Devices Implanted Type Area Industrial Engineering Intern Device Identifier Shelf Expiration Date Model / Serial / Lot [employer] [id number] 60mm Modular Cluster Hole Hip Cup Acetabular Trabecular Metal - S0 - [id number] Implanted:Qty: 1 on 10/05/2021 by Nick Post MD at [facility] Other - see comments Left: Hip [employer] [id number] 04/24/2023 [id number] / 0 / [id number] [employer] [id number] Trilogy 60mm 28mm 10.3mm Primary Modular Cup Liner Hip Standard - S0 - [id number] Implanted:Qty: 1 on 10/05/2021 by Nick Post MD at [facility] Other - see comments Left: Hip [employer] [id number] 04/24/2023 [id number] / 0 / [id number] [employer] [id number] Trilogy 6.5mm 35mm Self Tap Screw Bone - S0 - [id number] Implanted:Qty: 1 on 10/05/2021 by Nick Post MD at [facility] Screw Left: Hip [employer] [id number] 07/31/2031 [id number] / 0 / [id number] [employer] [id number] Trilogy 6.5mm 35mm Self Tap Screw Bone - S0 - [id number] Implanted:Qty: 1 on 10/05/2021 by Nick Post MD at [facility] Screw Left: Hip [employer] [id number] 08/24/2029 [id number] / 0 / [id number] [employer] [id number] 28mm Hip +3.5mm [place] Head Femoral Cocr - [id number] Implanted:Qty: 1 on 10/05/2021 by Nick Post MD at [facility] Left: Hip [employer] [id number] 12/17/2030 [id number] / / [id number] [employer] [id number] 15mm 160mm Primary Press Fit Hip 11/07 43mm Oblique Straight Stem - [id number] Implanted:Qty: 1 on 10/05/2021 by Nick Post MD at [facility] Left: Hip [employer] [id number] 02/22/2030 [id number] / / [id number] Insurance MEDICARE [facility] MEDICARE MEDICARE [facility] MEDICARE [facility]LY [facility] Advance Directives For more information, please contact: [phone] Documents on File Type Date Recorded Patient Route Driver Salesperson Expl anation ADVANCE DIRECTIVE 10/12/2021 9:16 AM POLS T - Phys Order for PT Preferences ADVANCE DIRECTIVE 10/05/2021 11:42 AM Pow er of Online Project Manager-Medical ADVANCE DIRECTIVE 02/02/2020 12:00 AM TIMOTHY LAURA WILL * Full Code (Latest Code Status on File) Date Activated Date Inactivated Comments 10/10/2021 5:11 PM 11/28/2021 5:59 PM * Full Code Date Activated Date Inactivated Comments 10/05/2021 6:37 PM 10/10/2021 4:33 PM Care Teams Clothing Man Relationship Specialty Start Date End Date Linn Mas MD [address] [place] [address] [facility] - General 03/13/18
--- OUTSIDE RECORDS SUMMARY | 2025-03-09 06:49 | XMS_ITS | Encounter Summary ---
Author Organization [facility] Facility Care Team Providers Care Warp Yarn Sorter Name Role Phone Linn Mas MD Primary Care Provider [phone]- [phone] Encounter Details Date Type Department Care Team (Latest Contact Info) Description 04/03/2017 Orders Only [facility] CLINCONV ProviderJennifer MD [address] [place] [id number] Social History Tobacco Use Types Packs/Day Years Used Date Smoking Tobacco: Never Assessed Sex and Gender Information Value Date Recorded Sex Assigned at Not on file Legal Sex Male 8:17 PM INSTALLER Gender Identity Not on file Sexual Orientation Not on file documented as of this encounter Plan of Treatment Not on file documented as of this encounter Procedures Procedure Name Priority Date/Time Associated Diagnosis Comments CARDIOLOGY REPORT 12/27/2017 12: 00 AM INSTALLER documented in this encounter Results * CARDIOLOGY REPORT (12/27/2017 12:00 AM INSTALLER) Anatomical Region Laterality Modality Other Narrative 12/27/2017 12:00 AM INSTALLER Ordered by an unspecified provider. us Historical Provider [facility] ARCEO Final Result documented in this encounter Visit Diagnoses Not on filedocumented in this encounter Additional Health Concerns Infection Onset Date Last Indicated Resolved Time COVID: Suspected 11/06/2021 11/06/2021 11/06/2021 1:29 PM INSTALLER documented as of this encounter Care Teams Warp Yarn Sorter Relationship Specialty Start Date End Date Linn Mas MD [address] [place] [address] PCP - General 03/13/18 documented as of this encounter
--- OUTSIDE RECORDS SUMMARY | 2025-03-09 06:49 | XMS_ITS ---
Author Name Maxwell Lucio Address [address] [place] [address] Phone [phone] Organization [facility] [employer] [facility] ices Address [address] [place] [address] Phone [phone] Care Team Providers Care Special Delivery Carrier Name Role Phone Maxwell Lucio Unavailable Functional Status Mental Status Allergies and Intolerances Encounters Immunizations Medications Problems Vital Signs Reason for Referral Past Medical History
--- OUTSIDE RECORDS SUMMARY | 2025-03-09 06:49 | XMS_ITS | Encounter Summary ---
Author Organization [facility] Facility Care Team Providers Care Outdoor Illuminating Engineer Name Role Phone Linn Mas MD Primary Care Provider [phone]- [phone] Encounter Details Date Type Department Care Team (Latest Contact Info) Description 03/19/2017 Orders Only [facility] CLINCONV ProviderJennifer MD [address] [place] [address] Social History Tobacco Use Types Packs/Day Years Used Date Smoking Tobacco: Never Assessed Sex and Gender Information Value Date Recorded Sex Assigned at Not on file Legal Sex Male 8:17 PM COUNTY JUDGE Gender Identity Not on file Sexual Orientation Not on file documented as of this encounter Plan of Treatment Not on file documented as of this encounter Procedures Procedure Name Priority Date/Time Associated Diagnosis Comments CARDIOLOGY REPORT 12/27/2017 12: 00 AM COUNTY JUDGE documented in this encounter Results * CARDIOLOGY REPORT (12/27/2017 12:00 AM COUNTY JUDGE) Anatomical Region Laterality Modality Other Narrative 12/27/2017 12:00 AM COUNTY JUDGE Ordered by an unspecified provider. us Historical Provider [facility] CASIMIRO ARCEO Final Result documented in this encounter Visit Diagnoses Not on filedocumented in this encounter Additional Health Concerns Infection Onset Date Last Indicated Resolved Time COVID: Suspected 11/06/2021 11/06/2021 11/06/2021 1:29 PM COUNTY JUDGE documented as of this encounter Care Teams Outdoor Illuminating Engineer Relationship Specialty Start Date End Date Linn Mas MD [address] [place] [address] PCP - General 03/13/18 documented as of this encounter
--- OUTSIDE RECORDS SUMMARY | 2025-03-09 06:49 | XMS_ITS | Encounter Summary ---
Author Organization [facility] Facility Care Team Providers Care Engine Boss Name Role Phone Linn Mas MD Primary Care Provider +1- [phone] Encounter Details Date Type Department Care Team (Latest Contact Info) Description 01/24/2018 Orders Only [facility] CLINCONV ProviderJennifer MD [address] [place] [address] Social History Tobacco Use Types Packs/Day Years Used Date Smoking Tobacco: Never Assessed Sex and Gender Information Value Date Recorded Sex Assigned at Not on file Legal Sex Male 8:17 PM ASSEMBLY ADJUSTER Gender Identity Not on file Sexual Orientation Not on file documented as of this encounter Plan of Treatment Not on file documented as of this encounter Procedures Procedure Name Priority Date/Time Associated Diagnosis Comments CARDIOLOGY REPORT 01/24/2018 12: 00 AM ASSEMBLY ADJUSTER documented in this encounter Results * CARDIOLOGY REPORT (01/24/2018 12:00 AM ASSEMBLY ADJUSTER) Anatomical Region Laterality Modality Other Narrative 01/24/2018 12:00 AM ASSEMBLY ADJUSTER Ordered by an unspecified provider. us Historical Provider [facility] CASIMIRO ARCEO Final Result documented in this encounter Visit Diagnoses Not on filedocumented in this encounter Additional Health Concerns Infection Onset Date Last Indicated Resolved Time COVID: Suspected 11/06/2021 11/06/2021 11/06/2021 1:29 PM ASSEMBLY ADJUSTER documented as of this encounter Care Teams Engine Boss Relationship Specialty Start Date End Date Linn Mas MD [address] [place] [address] PCP - General 03/13/18 documented as of this encounter
--- OUTSIDE RECORDS SUMMARY | 2025-03-09 06:49 | XMS_ITS | Encounter Summary ---
Author Organization [facility] Facility Care Team Providers Care Occupational Rehabilitation Aide Name Role Phone Linn Mas MD Primary Care Provider +1- [phone] Encounter Details Date Type Department Care Team (Latest Contact Info) Description 12/12/2017 Orders Only [facility] CLINCONV Provider, MD Jennifer [address] [place] [address] Social History Tobacco Use Types Packs/Day Years Used Date Smoking Tobacco: Never Assessed Sex and Gender Information Value Date Recorded Sex Assigned at Not on file Legal Sex Male 8:17 PM CLOTHING PATTERN PREPARER Gender Identity Not on file Sexual Orientation Not on file documented as of this encounter Plan of Treatment Not on file documented as of this encounter Procedures Procedure Name Priority Date/Time Associated Diagnosis Comments SCAN - LABS 01/21/2018 12:00 AM CLOTHING PATTERN PREPARER documented in this encounter Results * SCAN - LABS (01/21/2018 12:00 AM CLOTHING PATTERN PREPARER) Narrative 01/21/2018 12:00 AM CLOTHING PATTERN PREPARER Ordered by an unspecified provider. us Historical Provider Final Res ult documented in this encounter Visit Diagnoses Not on filedocumented in this encounter Additional Health Concerns Infection Onset Date Last Indicated Resolved Time COVID: Suspected 11/06/2021 11/06/2021 11/06/2021 1:29 PM CLOTHING PATTERN PREPARER documented as of this encounter Care Teams Occupational Rehabilitation Aide Relationship Specialty Start Date End Date Linn Mas MD [address] [place] [address] PCP - General 03/13/18 documented as of this encounter
[2025-03-09 07:11] LABS: Estimated Glomerular Filt Rate 34
== END 2025-03-09 06:46 | disposition home or self-care (01) ==
LOC: ANHIMG 06:48
PROVIDERS: Visit Provider Nurse Practitioner
DX: K58.9 Irritable bowel syndrome, unspecified (principal)
CPT/HCPCS: 74177; Q9967

== ENCOUNTER 2025-05-03 10:02 | Inpatient (IN) | payer MEDICARE, SELFPAY ==
[2025-05-03] VITALS (37 sets, daily range): BP systolic 90–144; BP diastolic 62–104; PULSE 83–145; RESP 13–28; TEMP 36.4–36.8; O2SAT 91–100; BMI 25.3
--- NOTE | ~2025-05-03 | XR_ITS ---
XR abdomen/kub 1V 05/05/2025 10:48 Indication: Constipation Procedure: KUB Comparison: 11/01/2023 Findings: Nonobstructive bowel gas pattern. Bowel gas limits evaluation for renal stones. There is a left hip arthroplasty. There is sclerosis of the left ischium and right femoral head, suspicious for metastatic disease. Consider prostate cancer. There are surgical clips in the pelvis. Moderate lumbar spondylosis. Impression: 1: Sclerotic lesions of the left ischium and right femoral head, suspicious for metastatic disease. R ecommend correlation with nuclear bone scan. Further evaluation for possible prostate cancer recommen ded. Reviewed, dictated and finalized at location B. Impression: 1: Sclerotic lesions of the left ischium and right femoral head, suspicious for metastatic disease. Recommend correlation with nuclear bone scan. Further eval uation for possible prostate cancer recommended.
--- NOTE | ~2025-05-03 | NM_ITS ---
EXAMINATION: NM bone scan whole body DATE: 05/06/2025 14:54 INDICATION: Sclerotic bone lesion with history of prostate cancer TECHNIQUE: 24.5 mCi Tc-99m HDP was administered intravenously. Delayed whole-body scintigrams were o btained. COMPARISON: KUB dated 05/05/[address] abdomen and pelvis dated 03/09/2025 FINDINGS: Photopenic defect at the left hip corresponding to a total hip arthroplasty. There is prominent incre ased bone uptake in the adjacent left ischial tuberosity which corresponds to the sclerotic lesion on prior CT which is suspicious for metastatic prostate cancer. There there is mild uptake in the regio n of a second subtle sclerotic lesion at the T12 vertebral body also suspicious for metastatic diseas e. Are couple foci of mild uptake at the anterior right seventh rib and posterior left 11th rib, both with corresponding old healed fractures. No other suspicious foci of abnormal bone uptake. IMPRESSION: 1. Prominent increased bone uptake at the left ischial tuberosity consistent with metastatic prostate cancer. 2. Second region of less intense uptake in the region of subtle sclerotic lesion in the T12 vertebral body, also suspicious for metastatic disease. Reviewed, dictated and finalized at location A. IMPRESSION: 1. Prominent increased bone uptake at the left ischial tuberosity consistent wi th metastatic prostate cancer. 2. Second region of less intense uptake in the region of subtle sclerotic lesio n in the T12 vertebral body, also suspicious for metastatic disease.
--- NOTE | ~2025-05-03 | MR_ITS ---
EXAMINATION: MR brain/brain stem wo/w con DATE: 05/09/2025 16:18 INDICATION: Vertigo. New onset atrial fibrillation with rapid ventricular response TECHNIQUE: Magnetic resonance imaging (MRI) of the brain and brainstem was performed without intraven ous contrast, utilizing standard sequences. COMPARISON: None. Reference is made to a CT examination of the brain dated 05/03/2025 FINDINGS: Small focus of abnormal signal intensity within the periventricular white matter of the body of the l eft lateral ventricle demonstrating increased signal intensity on diffusion-weighted imaging with dec reased signal intensity on ADC mapping, consistent with acute cerebral infarction. No abnormal signal intensity on the gradient echo imaging to suggest acute or subacute hemorrhage. Incidental notation is made of cavum septum pellucidum. Ventricles are otherwise enlarged, unchanged from previous CT examination. Scattered areas of increased T2 weighted signal intensity within the periventricular white matter con sistent with (likely) microvascular ischemic disease, in a patient of this age. IMPRESSION: Acute cerebral infarction involving the distribution of a small branch of the left middle cerebral ar te, as detailed above. No acute or subacute hemorrhage. Reviewed, dictated and finalized at location A. IMPRESSION: Acute cerebral infarction involving the distribution of a small branch of the l eft middle cerebral artery, as detailed above. No acute or subacute hemorrhage.
--- NOTE | ~2025-05-03 | CT_ITS ---
EXAMINATION: CT brain wo con DATE: 05/03/2025 12:59 INDICATION: Dizziness TECHNIQUE: Computed tomography (CT) of the head was performed without intravenous contrast. Sagittal and coronal reconstructions were performed. The mA was adjusted according to patient size. Iterative reconstruction technique was employed. The dose-length product was 605.33 mGy-cm. COMPARISON: None FINDINGS: No acute intracranial hemorrhage, acute infarction or abnormal extra axial fluid collection. There is mild scattered white matter hypoattenuation consistent with chronic small vessel ischemic disease. S ymmetric prominence of the sulci and ventricles consistent with moderateage-appropriate diffuse cereb ral volume loss. Normal anatomic variant cavum septum pellucidum and vergae. No mass/mass effect. Muc ous retention cyst in the left maxillary sinus. The orbits and mastoid air cells are normal. IMPRESSION: 1. No acute intracranial process. 2. Age-related changes including moderate diffuse volume loss and mild to moderate scattered white ma tter hypoattenuation consistent with chronic small vessel ischemic disease. Reviewed, dictated and finalized at location A. IMPRESSION: 1. No acute intracranial process. 2. Age-related changes including moderate diffuse volume loss and mild to moder ate scattered white matter hypoattenuation consistent with chronic small vessel ischemic disease.
--- NOTE | ~2025-05-03 | US_ITS ---
Procedure: Duplex Doppler examination of the bilateral carotids. Indication: Dizziness Technique: Real time, color-flow and pulse wave Doppler examination of the bilateral carotids was performed. Findings: Lau scale ultrasonography of the right neck demonstrated small plaques at the mid and distal common carotid artery. There was demonstration of normal color-flow and Doppler waveforms within the right c ommon, internal and external carotid arteries. The peak systolic velocities in the right common, inte rnal and external carotid arteries were demonstrated to be 73 cm/sec, 73 cm/sec and 73 cm/sec respect ively. The right ICA/CCA ratio was 1.0.The proximal right internal carotid artery demonstrates 0% last nosis relative to the normal distal artery lumen diameter. Lau scale sonography of the left neck demonstrated moderate plaque at the mid common carotid artery. There was demonstration of normal color-flow and wave forms within the left common, internal and ext ernal carotid arteries. The peak systolic velocities in the left common, internal and external caroti d arteries were demonstrated to be 81cm/sec, 69 cm/sec and 76 cm/sec respectively. The left ICA/CCA r atio was 0.9. The proximal left internal carotid artery demonstrates 0% stenosis relative to the norm al distal artery lumen diameter. There was antegrade flow demonstrated in the bilateral vertebral arteries. Impression: No hemodynamically significant stenosis of the bilateral internal carotid arteries. Antegrade flow in the bilateral vertebral arteries. Note: The methodology used is an indirect measurement validated against a direct method (such as the NASCET criteria) that compares diameters at the stenosis to the distal ICA. Reviewed, dictated and finalized at location . Impression: No hemodynamically significant stenosis of the bilateral internal carotid arter ies. Antegrade flow in the bilateral vertebral arteries. Note: The methodology used is an indirect measurement validated against a direct meth od (such as the NASCET criteria) that compares diameters at the stenosis to the distal ICA.
--- NOTE | ~2025-05-03 | XR_ITS ---
EXAMINATION: XR chest 1V DATE: 05/03/2025 13:11 INDICATION: Atrial fibrillation TECHNIQUE: frontal view of the chest was obtained. COMPARISON: Chest radiograph dated 11/01/2023 FINDINGS: There are few small bilateral calcified pulmonary nodules consistent with old granulomatous disease. In addition there is more linear calcified pleural plaques at the lateral left mid to lower lung zone . Linear discoid atelectasis at the right lung base projecting over the right hemidiaphragm. No other airspace opacities, pulmonary edema, pleural effusion or pneumothorax. Heart size within normal limi ts for AP technique with small bilateral paracardial fat pads. IMPRESSION: 1. No acute cardiopulmonary disease. Reviewed, dictated and finalized at location A.
--- NOTE | ~2025-05-03 | CT_ITS ---
Non-contrast CT scan of the Abdomen and Pelvis Clinical indication: Abdominal pain Technique: 2.5 mm axial scans were obtained through the abdomen and pelvis without intravenous or or al contrast. Dose reduction technique was used on this scan by utilizing automated exposure control a nd iterative reconstruction technique. The dose-length product (DLP) was 683.39 mGy-cm. COMPARISON: 03/09/2025 Findings: Images through the lung bases reveal small bilateral pleural effusions, right greater than left. There is no evidence of renal or ureteral calculi. The kidneys and the ureters are nondilated. The liver, spleen, pancreas, gallbladder, and adrenals appear normal. There are atherosclerotic calci fications of the aorta. . There is no evidence of bowel obstruction. Images through the pelvis are mildly degraded by streak artifact from left hip arthroplasty. There is no evidence of ascites or lymphadenopathy. Urinary bladder appears unremarkable. No pelvic mass evid ent. Impression: No acute abnormality in the abdomen or pelvis. Small bilateral pleural effusions, right greater than left. Reviewed, dictated and finalized at location . Impression: No acute abnormality in the abdomen or pelvis. Small bilateral pleural effusions, right greater than left.
--- NOTE | 2025-05-03 10:08 | ECG_ITS ---
Test Date: 2025-05-03 10:10:45 Measurements Intervals [place] Rate: 110 P: 0 WV: 0 QRS: 37 QRSD: 113 T: 0 QT: 251 QTc: 341 Interpretive Statements ATRIAL FIBRILLATION WITH RAPID VENTRICULAR RESPONSE WITH ABERRANT CONDUCTION OR VENTRICULAR PREMATURE COMPLEXES INTRAVENTRICULAR CONDUCTION DELAY ST-T WAVE ABNORMALITY IN ANTEROLAT/INF LEADS- CONSIDER ISCHEMIA BASELINE ARTIFACT- I, II, III, AVR, AVL, AVF, V1-V2 ABNORMAL ECG No previous ECG available for comparison Electronically Signed On 05-03-2025 10:18:10 CDT by Tanvir Dumont D.O.
--- OUTSIDE RECORDS SUMMARY | 2025-05-03 11:07 | XMS_ITS | Encounter Summary ---
Author Organization [facility] Facility Care Team Providers Care Hris Coordinator Name Role Phone Linn Mas MD Primary Care Provider +1- [phone] Encounter Details Date Type Department Care Team (Latest Contact Info) Description 01/24/2018 Orders Only [facility] CLINCONV ProviderJennifer MD [address] [place] [address] Social History Tobacco Use Types Packs/Day Years Used Date Smoking Tobacco: Never Assessed Sex and Gender Information Value Date Recorded Sex Assigned at Not on file Legal Sex Male 8:17 PM ORACLE SQL DEVELOPER Gender Identity Not on file Sexual Orientation Not on file documented as of this encounter Plan of Treatment Not on file documented as of this encounter Procedures Procedure Name Priority Date/Time Associated Diagnosis Comments CARDIOLOGY REPORT 01/24/2018 12: 00 AM ORACLE SQL DEVELOPER documented in this encounter Results * CARDIOLOGY REPORT (01/24/2018 12:00 AM ORACLE SQL DEVELOPER) Anatomical Region Laterality Modality Other Narrative 01/24/2018 12:00 AM ORACLE SQL DEVELOPER Ordered by an unspecified provider. Historical Provider [facility] CASIMIRO ARCEO Final Result documented in this encounter Visit Diagnoses Not on filedocumented in this encounter Additional Health Concerns Infection Onset Date Last Indicated Resolved Time COVID: Suspected 11/06/2021 11/06/2021 11/06/2021 1:29 PM ORACLE SQL DEVELOPER documented as of this encounter Care Teams Hris Coordinator Relationship Specialty Start Date End Date Linn Mas MD [address] [place] [address] PCP - General 03/13/18 documented as of this encounter
--- OUTSIDE RECORDS SUMMARY | 2025-05-03 11:07 | XMS_ITS | Encounter Summary ---
Author Organization [facility] Facility Care Team Providers Care Color Grinder Name Role Phone Linn Mas MD Primary Care Provider +1- [phone] Encounter Details Date Type Department Care Team (Latest Contact Info) Description 01/21/2018 Orders Only [facility] CLINCONV ProviderJennifer MD [address] [place] [address] Social History Tobacco Use Types Packs/Day Years Used Date Smoking Tobacco: Never Assessed Sex and Gender Information Value Date Recorded Sex Assigned at Not on file Legal Sex Male 8:17 PM GRANTS DIRECTOR Gender Identity Not on file Sexual Orientation Not on file documented as of this encounter Plan of Treatment Not on file documented as of this encounter Procedures Procedure Name Priority Date/Time Associated Diagnosis Comments CARDIOLOGY REPORT 02/07/2018 12: 00 AM CDT CARDIOLOGY REPORT 01/17/2018 12: 00 AM GRANTS DIRECTOR documented in this encounter Results * CARDIOLOGY REPORT (02/07/2018 12:00 AM CDT) Anatomical Region Laterality Modality Other Narrative 02/07/2018 12:00 AM CDT Ordered by an unspecified provider. us Historical Provider [facility] PROCE ADIS Final Result * CARDIOLOGY REPORT (01/17/2018 12:00 AM GRANTS DIRECTOR) Anatomical Region Laterality Modality Other Narrative 01/17/2018 12:00 AM GRANTS DIRECTOR Ordered by an unspecified provider. us Historical Provider [facility] C[facility] PROCE DURES Final Result documented in this encounter Visit Diagnoses Not on filedocumented in this encounter Additional Health Concerns Infection Onset Date Last Indicated Resolved Time COVID: Suspected 11/06/2021 11/06/2021 11/06/2021 1:29 PM GRANTS DIRECTOR documented as of this encounter Care Teams Color Grinder Relationship Specialty Start Date End Date Linn Mas MD [address] [facility] [address] [place] [address] PCP - General 03/13/18 documented as of this encounter
--- OUTSIDE RECORDS SUMMARY | 2025-05-03 11:07 | XMS_ITS | Encounter Summary ---
Author Organization [facility] Facility Care Team Providers Care Extension Work Director Name Role Phone Linn Mas MD Primary Care Provider +1- [phone] Encounter Details Date Type Department Care Team (Latest Contact Info) Description 12/12/2017 Orders Only [facility] CLINCONV ProviderJennifer MD [address] [place] [address] Social History Tobacco Use Types Packs/Day Years Used Date Smoking Tobacco: Never Assessed Sex and Gender Information Value Date Recorded Sex Assigned at Not on file Legal Sex Male 8:17 PM REFUELING RAMP SUPERVISOR Gender Identity Not on file Sexual Orientation Not on file documented as of this encounter Plan of Treatment Not on file documented as of this encounter Procedures Procedure Name Priority Date/Time Associated Diagnosis Comments SCAN - LABS 01/21/2018 12:00 AM REFUELING RAMP SUPERVISOR documented in this encounter Results * SCAN - LABS (01/21/2018 12:00 AM REFUELING RAMP SUPERVISOR) Narrative 01/21/2018 12:00 AM REFUELING RAMP SUPERVISOR Ordered by an unspecified provider. Historical Provider Final Res ult documented in this encounter Visit Diagnoses Not on filedocumented in this encounter Additional Health Concerns Infection Onset Date Last Indicated Resolved Time COVID: Suspected 11/06/2021 11/06/2021 11/06/2021 1:29 PM REFUELING RAMP SUPERVISOR documented as of this encounter Care Teams Extension Work Director Relationship Specialty Start Date End Date Linn Mas MD [address] [place] [address] PCP - General 03/13/18 documented as of this encounter
--- OUTSIDE RECORDS SUMMARY | 2025-05-03 11:07 | XMS_ITS | Encounter Summary ---
Author Organization [facility] Facility Care Team Providers Care Occ Therapist Name Role Phone Linn Mas MD Primary Care Provider +1- [phone] Encounter Details Date Type Department Care Team (Latest Contact Info) Description 11/07/2017 Orders Only [facility]G CLINCONV ProviderJennifer MD [address] [place] [address] Social History Tobacco Use Types Packs/Day Years Used Date Smoking Tobacco: Never Assessed Sex and Gender Information Value Date Recorded Sex Assigned at Not on file Legal Sex Male 8:17 PM HEAD OF PRECISION TARGETING Gender Identity Not on file Sexual Orientation Not on file documented as of this encounter Plan of Treatment Not on file documented as of this encounter Procedures Procedure Name Priority Date/Time Associated Diagnosis Comments CARDIOLOGY REPORT 12/27/2017 12: 00 AM HEAD OF PRECISION TARGETING documented in this encounter Results * CARDIOLOGY REPORT (12/27/2017 12:00 AM HEAD OF PRECISION TARGETING) Anatomical Region Laterality Modality Other Narrative 12/27/2017 12:00 AM HEAD OF PRECISION TARGETING Ordered by an unspecified provider. Historical Provider [facility] CASIMIRO ARCEO Final Result documented in this encounter Visit Diagnoses Not on filedocumented in this encounter Additional Health Concerns Infection Onset Date Last Indicated Resolved Time COVID: Suspected 11/06/2021 11/06/2021 11/06/2021 1:29 PM HEAD OF PRECISION TARGETING documented as of this encounter Care Teams Occ Therapist Relationship Specialty Start Date End Date Linn Mas MD [address] [place] [address] PCP - General 03/13/18 documented as of this encounter
--- OUTSIDE RECORDS SUMMARY | 2025-05-03 11:07 | XMS_ITS | Clinical Summary ---
Author Organization [facility] Address [address] [place] [address] Care Team Providers Care Sprinkler Fitter Apprentice Name Role Phone Linn Mas MD Primary Care Provider +1- [phone] Allergies Active Allergy Reactions Criticality Noted Date [...] 10/30/2021 Assessment & Plan (11/27/2021 10:42 AM PRUNER): Cr elevated from baseline - encouraged po fluid intake. Not on diuretics - monitor 11/07: Cr continues to improve, encouraged po intake 11/13: Cr now 1.2, improved. Continue to monitor 11/16: Cr stable at 1.2. monitor 11/27: Cr stable Anemia due to acute blood loss 10/30/2021 Assessment & Plan (11/27/2021 10:39 AM PRUNER): H/H is slowly improving - continue to montior with iron supplementation 11/07: h/h stable, monitor 11/13: H/H remains stable 11/16: Hg 9.5. monitor 11/27: stable, continue iron supplementation Throat dryness 10/25/2021 Back pain 10/16/2021 Assessment & Plan (11/18/2021 10:42 AM PRUNER): To left side. Likely from surgery. Will [...] 05/25/2021 Assessment & Plan (11/27/2021 10:38 AM PRUNER): Continue Miralax. Will give suppos if no BM by tongamal. 10/25 BM regular 10/30: stable continue senna [...] 02/22/2021 Assessment & Plan (11/27/2021 10:37 AM PRUNER): Will start Trazodone. Continue [place]. 10/30: pt [...] 10/16/2019 Assessment & Plan (11/27/2021 10:38 AM PRUNER): Cont gabapentin 300 mg daily. F/u with neurology 10/30: overall stable, continue gabapentin 300mg daily 11/13: stable, continue gabapentin 300mg daily 11/20: stable, continue gabapentin 11/27/21: stable, continue gabapentin 300mg daily Headache 06/18/2019 Persistent atrial fibrillation 06/17/2019 Assessment & Plan (11/27/2021 10:36 AM PRUNER): S/P DC cardioversion, Dr. Odom in 2019. [...] 06/17/2019 Assessment & Plan (11/27/2021 10:38 AM PRUNER): BP controlled, pulse mildly low. Cont Toprol [...] 06/17/2019 Assessment & Plan (11/27/2021 10:42 AM PRUNER): Pt is s/p Left total hip replacement per Dr. Patterson on 10/05/21. DVT prophylaxis with eliquis 5 mg bid. Cont pain mgx with [place] 1 tab q4 prn. Wound care. PT/OT [...] stable, pain controlled with scheduled Tylenol, p.r.n. [place]. Patient is making progress in therapy, we will monitor. Continues to have weight-bearing restrictions. F/U with Dr. Nick Post on 11/15/21 at 9:30am at [facility] 6[facility]: [facility] ([facility]), [address] [place] [address], [address], [place] [address]. 11/07: remains only 20 lbs. 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 Is on Lupron IM every 6 months. Follows up with urologist Dr. Michele. Continue Flomax Resolved Problems Problem Noted Date Diagnosed Date Resolved Date Benign prostatic hyperplasia without urinary obstruction 06/20/2021 10/12/2021 Assessment & Plan (10/11/2021 8:10 AM PRUNER): Cont home med flomax 0.4 mg Vestibular migraine 10/15/2019 11/27/19 Assessment & Plan (11/20/2021 4:37 PM PRUNER): He was started per neurologist on Venlafaxine [...] 10/23/2021 Assessment & Plan (10/16/2021 11:03 AM PRUNER): Unsure of etiology. Labs stable. H&H mildly [...] on file Legal Sex Male 8:17 PM PRUNER Gender Identity Not on file Sexual Orientation Not on file Occupation Industry Job Start Date Job End Date Retired Not on file Not on file Not on file Obstetrics History Last Filed Vital Signs Vital Sign Reading Time Taken Comments Blood Pressure 155/80 11/28/2021 7:00 AM PRUNER Pulse 61 11/28/2021 7:00 AM PRUNER Temperature 36.4 C (97.6 F) 11/28/2021 7:00 AM PRUNER Respiratory Rate 20 11/28/2021 7:00 AM PRUNER Oxygen Saturation 93% 11/28/2021 7:00 AM PRUNER Inhaled Oxygen Concentration - - Weight 93.1 kg (205 lb 4 oz) 11/28/2021 5:21 AM PRUNER Height 188 cm (6' 2) 10/10/2021 5:10 PM PRUNER Body Mass Index 26.35 10/10/2021 5:10 PM PRUNER Plan of Treatment Health Maintenance Due Date Last Done Comments Depression Screening 1940 Hepatitis B Screening 1958 Well Visit 65+ 2006 Fall Risk Assessment 11/27/2022 11/27/2021 Covid-19 Vaccine (5 - 2023-2 5 season) 2024 10/11/2021, 2021, 2021, Additional history exists Influenza Vaccine (Season Ended) 2025 08/25/2021, 08/23/2020, 08/17/2019, Additional history exists DTaP/Tdap/Td Vaccine (2 - Td or Tdap) 03/17/2028 03/17/2018 Pneumococcal vaccine 65+ Completed 01/18/2017, 08/25 Zoster Vaccine Completed 05/21/2018, 04/26, 03/17/2018, Additional history exists Medical Devices Implanted Type Area Cracking And Fanning Machine Operator Device Identifier Shelf Expiration Date Model / Serial / Lot [employer] [id number] 60mm Modular Cluster Hole Hip Cup Acetabular Trabecular Metal - S0 - [id number] Implanted:Qty: 1 on 10/05/2021 by Nick Post MD at [facility] Other - see comments Left: Hip [employer] [id number] 04/24/2023 [id number] / 0 / [id number] [employer] [id number] Trilogy 60mm 28mm 10.3mm Primary Modular Cup Liner Hip Standard - S0 - [id number] Implanted:Qty: 1 on 10/05/2021 by Nick Post MD at [facility] Other - see comments Left: Hip [employer] [id number] 04/24/2023 [id number] / 0 / [id number] [employer] [id number] Trilogy 6.5mm 35mm Self Tap Screw Bone - S0 - [id number] Implanted:Qty: 1 on 10/05/2021 by Nick Post MD at [facility] Screw Left: Hip [employer] [id number] 07/31/2031 [id number] / 0 / [id number] [employer] [id number] Trilogy 6.5mm 35mm Self Tap Screw Bone - S0 - [id number] Implanted:Qty: 1 on 10/05/2021 by Nick Post MD at [facility] Screw Left: Hip [employer] [id number] 08/24/2029 [id number] / 0 / [id number] [employer] [id number] 28mm Hip +3.5mm [place] Femoral Cocr - [id number] Implanted:Qty: 1 on 10/05/2021 by Nick Post MD at [facility] Left: Hip [employer] [id number] 12/17/2030 [id number] / / [id number] [employer] [id number] 15mm 160mm Primary Press Fit Hip 11/07 43mm Oblique Straight Stem - [id number] Implanted:Qty: 1 on 10/05/2021 by Nick Post MD at [facility] Left: Hip [employer] [id number] 02/22/2030 [id number] / / [id number] [place] [address] MEDICARE [facility] MEDICARE MEDICARE [facility] MEDICARE [facility] Advance Directives For more information, please contact: [phone] Documents on File Type Date Recorded Patient Review Manager Expl anation ADVANCE DIRECTIVE 10/12/2021 9:16 AM POLS T - Phys Order for PT Preferences ADVANCE DIRECTIVE 10/05/2021 11:42 AM Pow er of Heating And Ventilating Worker-Medical ADVANCE DIRECTIVE 02/02/2020 12:00 AM TIMOTHY SANCHEZ WILL * Full Code (Latest Code Status on File) Date Activated Date Inactivated Comments 10/10/2021 5:11 PM 11/28/2021 5:59 PM * Full Code Date Activated Date Inactivated Comments 10/05/2021 6:37 PM 10/10/2021 4:33 PM Care Teams Sprinkler Fitter Apprentice Relationship Specialty Start Date End Date Linn Mas MD [address] [place] [address] PCP - General 03/13/18
--- OUTSIDE RECORDS SUMMARY | 2025-05-03 11:07 | XMS_ITS | Encounter Summary ---
Author Organization [facility] Facility Care Team Providers Care Yard Driver Name Role Phone Linn Mas MD Primary Care Provider +1- [phone] Encounter Details Date Type Department Care Team (Latest Contact Info) Description 04/03/2017 Orders Only [facility] CLINCONV ProviderJennifer MD [address] [place] [address] Social History Tobacco Use Types Packs/Day Years Used Date Smoking Tobacco: Never Assessed Sex and Gender Information Value Date Recorded Sex Assigned at Not on file Legal Sex Male 8:17 PM GROUP EXERCISE MANAGER Gender Identity Not on file Sexual Orientation Not on file documented as of this encounter Plan of Treatment Not on file documented as of this encounter Procedures Procedure Name Priority Date/Time Associated Diagnosis Comments CARDIOLOGY REPORT 12/27/2017 12: 00 AM GROUP EXERCISE MANAGER documented in this encounter Results * CARDIOLOGY REPORT (12/27/2017 12:00 AM GROUP EXERCISE MANAGER) Anatomical Region Laterality Modality Other Narrative 12/27/2017 12:00 AM GROUP EXERCISE MANAGER Ordered by an unspecified provider. Historical Provider [facility] C[facility] CASIMIRO ARCEO Final Result documented in this encounter Visit Diagnoses Not on filedocumented in this encounter Additional Health Concerns Infection Onset Date Last Indicated Resolved Time COVID: Suspected 11/06/2021 11/06/2021 11/06/2021 1:29 PM GROUP EXERCISE MANAGER documented as of this encounter Care Teams Yard Driver Relationship Specialty Start Date End Date Linn Mas MD [address] [place] [address] PCP - General 03/13/18 documented as of this encounter
--- OUTSIDE RECORDS SUMMARY | 2025-05-03 11:07 | XMS_ITS ---
Author Name Auto Generated, Auto Generated Organization [facility] Address [address] [place] [address] Phone [phone] Care Team Providers Care Tipple Boss Name Role Phone Maxwell Lucio Unavailable Functional Status No Results Mental Status No Results Allergies and Intolerances Name Onset Date Reaction Severity duloxetine (Allergy) SatSep 26 02:08:00 EDT 202 3 atorvastatin (Allergy) SatSep 26 02:08:00 EDT 2 023 Encounters Program Name Primary Diagnosis Admission Date/Time Dis charge Date/Time [facility] SatSep 03 20:00:00 EDT 2023Oct 24 18:59:00 EST 2023 Assisted Living Area Hypertensive heart disease with heart failure SatOct 21 08:30:00 EST 2022 Immunizations Name Dates Status influenza, trivalent, adjuvanted SatSep 03 01:0 0:00 EDT 2023 Completed Medications Medication Directions Start Date End Date lubiprostone 24 mcg capsule 1 cap CAPSUL E Oral 2 Times Daily Indication: constipation ROLL FORMING SUPERVISOR supervision X1, X4 SatApril 20 01:00:00 EDT 2024 lactulose 10 gram/15 mL oral solution 30ml SOLUTION, ORAL Oral 1 Time Daily Indication: constipation ROLL FORMING SUPERVISOR supervision X1 SatApril 20 01:00:00 EDT 2024 simethicone 125 mg chewable tablet 125 mg 1 tab Oral 4 Times Daily Indication: excessive Gas/bloating ROLL FORMING SUPERVISOR supervision x1 x2 x3 x4 SatApril 07 01:00:00 EDT 2024 lubiprostone 24 mcg capsule 1 cap CAPSUL E Oral 2 Times Daily Indication: constipation ROLL FORMING SUPERVISOR supervision X1, X4 SatApril 01 01:00:00 EDT 2024April 07 07:34:00 EDT 2024 lactulose 10 gram/15 mL oral solution 30ml SOLUTION, ORAL Oral 1 Time Daily Indication: constipation ROLL FORMING SUPERVISOR supervision X1 SatMarch 31 01:00:00 EDT 2024April 07 07:34:00 EDT 2024 Linzess 290 mcg capsule 1 cap CAPSULE Or al 1 Time Daily Indication: constipation ROLL FORMING SUPERVISOR Supervision x1Per Joy Crooki SatApril 08 01:00:00 EDT 2024April 06 07:03:00 EDT 2024 Linzess 145 mcg capsule 2 caps CAPSULE O ral 1 Time Daily for 14 Days Indication: constipation ROLL FORMING SUPERVISOR Supervision x1Per Joy Crooki SatMarch 25 01:00:00 EDT 2024April 06 09:49:00 EDT 2024 Gas Relief (simethicone) 250 mg capsule 1 CAPSULE Oral 2 Times Daily Indication: excessive flatulence ROLL FORMING SUPERVISOR supervision X1, X4 SatMar 19 01:00:00 EDT 2024April 07 07:34:00 EDT 2024 polyethylene glycoL 3350 17 gram oral powder packet 17 gram POWDER IN PACKET (EA) Oral PRN 1 Time Daily Indication: constipation SatFeb 24 14:20:00 EDT 2024 simethicone 125 mg chewable tablet 1 tablet TABLET,CHEWABLE Oral 4 Times Daily Indication: excessive flatulence ROLL FORMING SUPERVISOR supervision x1 x2, x3, x4 Okay to keep at bedside SatFeb 24 14:21:00 EDT 2024Mar 19 02:20:00 EDT 2024 Linzess 145 mcg capsule 1 cap CAPSULE Or al 1 Time Daily Indication: constipation ROLL FORMING SUPERVISOR Supervision x1Per Joy Crooki SatFeb 24 01:00:00 EDT 2024Mar 24 18:38:00 EDT 2024 dicyclomine 10 mg capsule 1 capsule CAPS ULE Oral 3 Times Daily for 20 Days Indication: Irritable bowel syndrome ROLL FORMING SUPERVISOR supervision x1, x2, x4 SatFeb 16 01:00:00 EDT 2024Feb 24 14:23:00 EDT 2024 dicyclomine 10 mg capsule 1 capsule CAPS ULE Oral 3 Times Daily for 7 Days Indication: Irritable bowel syndrome ROLL FORMING SUPERVISOR supervision x1, x2, x4 SatFeb 09 01:00:00 EDT 2024Feb 16 00:59:00 EDT 2024 dicyclomine 10 mg capsule 1 capsule CAPS ULE Oral 3 Times Daily for 28 Days Indication: Irritable bowel syndrome ROLL FORMING SUPERVISOR supervision x1, x2, x4 SatFeb 04 01:00:00 EDT 2024Feb 07 14:54:00 EDT 2024 polyethylene glycoL 3350 17 gram/dose oral powder 17 gram POWDER (GRAM) Oral 1 Time Daily Indication: colonoscopy prep SatJan 26 16:00:00 EST 2024Jan 27 15:16:00 EST 2024 bisacodyL 5 mg tablet,delayed release 4 tabs TABLET, DELAYED RELEASE (ENTERIC COATED) Oral 1 Time Daily for 1 Day Indication: colonoscopy prep SatJan 26 16:00:00 EST 2024Jan 27 15:59:00 EST 2024 naproxen 500 mg tablet 1 tablet TABLET O ral PRN 2 Times Daily Indication: FOR PAIN 1 tablet(500mg) by mouth two times daily NEEDED SatDec 17 07:00:00 EST 2024 Mucus Relief ER 600 mg tablet, extended release 2 tabs TABLET, EXTENDED RELEASE 12 HR Oral 2 Times Daily for 14 Days Indication: ROLL FORMING SUPERVISOR supervision x1 x4 congestion SatDec 07 01:00:00 EST 2024Dec 21 00:59:00 EST 2024 mometasone 50 mcg/actuation nasal spray 1 spray each nostril AEROSOL, SPRAY WITH PUMP (ML) Intranasal 1 Time Daily for 30 Days Indication: allergies Nurse admin SatNov 12 01:00:00 EST 2023Dec 12 00:59:00 EST 2024 acetaminophen 500 mg tablet 1 tab TABLET Oral PRN 2 Times Daily Indication: pain nurse admin 1 tab BID PRN do not exceed 3G in 24 hour period SatNov 11 13:13:00 EST 2023 acetaminophen 500 mg tablet 1 tab TABLET Oral PRN 2 Times Daily Indication: pain nurse admin 1 tab BID PRN do not exceed 3G in 24 hour period SatNov 06 19:00:00 EST 2023Nov 11 13:25:00 EST 2023 ergocalciferol (vitamin D2) 1,250 mcg (50,000 unit) capsule 1 cap CAPSULE Oral 1 Time Weekly Indication: Vitamin deficiency ROLL FORMING SUPERVISOR supervision x1 on MondaysOct 19 01:00:00 EST 2023 magnesium 400 mg (as magnesium oxide) tablet 1 tablet TABLET Oral 1 Time Daily Indication: supplement ROLL FORMING SUPERVISOR supervision x1 SatSep 05 13:21:00 EDT 2023 Fluad Triv 2023-25(65y up)(PF) 45 mcg (15 mcg x 3)/0.5 mL IM syringe 1 SYRINGE (ML) Intramuscular 1 Time Daily for 1 Day Indication: Vaccine Sonia Sep 03 01:00:00 EDT 2023Sep 04 00:59:00 EDT 2023 Acidophilus capsule 1 cap CAPSULE Oral 1 Time Daily Indication: Probiotic ROLL FORMING SUPERVISOR supervision x 1 SatAug 31 01:00:00 EDT 2023 cyanocobalamin (vitamin B-12) 2,500 mcg tablet 1 tablet TABLET Oral 1 Time Daily Indication: supplement ROLL FORMING SUPERVISOR supervision x1 SatSep 01 09:00:00 EDT 2023 Eliquis 5 mg tablet 1 tablet TABLET Oral 2 Times Daily Indication: blood thinner ROLL FORMING SUPERVISOR supervision x1, x4 SatAug 31 15:00:00 EDT 2023 magnesium 400 mg (as magnesium oxide) tablet 1 tablet TABLET Oral 1 Time Daily Indication: supplement ROLL FORMING SUPERVISOR supervision x4 SatSep 01 01:00:00 EDT 2023Sep 05 13:22:00 EDT 2023 senna 8.6 mg tablet 1 tablet TABLET Oral PRN Hour Of Sleep Indication: Constipation SatSep 01 01:00:00 EDT 2023Feb 24 14:23:00 EDT 2024 Vitamin B-2 100 mg tablet 3 tablets TABL ET Oral 1 Time Daily Indication: supplement ROLL FORMING SUPERVISOR supervision x1 SatSep 01 01:00:00 EDT 2023 simethicone 125 mg chewable tablet 1 tablet TABLET,CHEWABLE Oral 2 Times Daily Indication: excessive flatulence ROLL FORMING SUPERVISOR supervision x2, x4 Okay to keep at bedside SatAug 31 14:31:00 EDT 2023Feb 24 14:23:00 EDT 2024 Blood Pressure Kit 1 KIT Other 2 Times Monthly Indication: Vital signs ROLL FORMING SUPERVISOR to obtain. SatAug 31 14:32:00 EDT 2023 melatonin 5 mg tablet 1 tab TABLET Oral PRN (Max 1 Doses) Indication: may have an additional 5mg dose daily PRN insomnia. SatAug 31 14:32:00 EDT 2023 Deep Sea Nasal 0.65 % spray aerosol 1 spray AEROSOL, SPRAY (ML) Intranasal - Both Nostrils PRN Indication: Nasal Dryness Saline Nasal Randolph at bedside 1 spray to each nostril to self administer PRN SatAug 31 14:33:00 EDT 2023 T.E.D. Anti-Embolism Stocking 1 pair EACH Other 2 Times Daily Indication: edema ROLL FORMING SUPERVISOR to apply KALIE hose in the AM and take off in the PM. SatAug 31 14:33:00 EDT 2023 acetaminophen ER 650 mg tablet,extended release 1 tablet TABLET, EXTENDED RELEASE Oral 2 Times Daily Indication: knee pain ROLL FORMING SUPERVISOR supervision x1, x4 SatAug 31 14:33:00 EDT 2023 furosemide 40 mg tablet 1 tablet TABLET Oral 1 Time Daily Indication: [place] supervision x1 SatSep 01 01:00:00 EDT 2023 Stool Softener 100 mg tablet 1 tab TABLE T Oral 1 Time Daily Indication: constipation ROLL FORMING SUPERVISOR Supervision x1 SatSep 01 01:00:00 EDT 2023Feb 24 14:23:00 EDT 2024 polyethylene glycoL 3350 17 gram oral powder packet 17 gram POWDER IN PACKET (EA) Oral 1 Time Daily Indication: constipation ROLL FORMING SUPERVISOR Supervision x1 SatSep 01 01:00:00 EDT 2023Feb 24 14:23:00 EDT 2024 metOLazone 5 mg tablet 1 tab TABLET Oral 1 Time Daily Indication: fluid retention ROLL FORMING SUPERVISOR supervision x 1 SatSep 01 01:00:00 EDT 2023 meloxicam 7.5 mg tablet 1 tab TABLET Ora l PRN Every 24 Hours Indication: pain ROLL FORMING SUPERVISOR Supervision x1 SatSep 01 01:00:00 EDT 2023 potassium chloride ER 20 mEq tablet,extended release(part/cryst) 4 tabs TABLET, EXT RELEASE, PARTICLES/CRYSTALS Oral 1 Time Daily Indication: hypokalemia ROLL FORMING SUPERVISOR supervision x14 tabs= 80mEq SatSep 01 01:00:00 EDT 2023 melatonin 5 mg tablet 1 tablet TABLET Or al 1 Time Daily Indication: insomnia SatAug 31 14:44:00 EDT 2023 simethicone 125 mg chewable tablet 1 tablet TABLET,CHEWABLE Oral PRN Every 12 Hours Indication: excessive flatulence may leave at bedside. SatAug 31 14:45:00 EDT 2023Feb 24 14:23:00 EDT 2024 loteprednol etabonate 0.5 % eye gel drops 1 gtt DROPS, GEL (GRAM) Both Eyes 3 Times Daily Indication: Dry / itchy eye Nurse to administer x1, x2, x4 SatAug 31 14:45:00 EDT 2023 loteprednol etabonate 0.5 % eye gel drops 1 gtt DROPS, GEL (GRAM) Both Eyes 3 Times Daily Indication: Dry / itchy eye Nurse to administer x1, x2, x4 SatAug 30 01:00:00 EDT 2023Aug 31 14:46:00 EDT 2023 simethicone 125 mg chewable tablet 1 tablet TABLET,CHEWABLE Oral PRN Every 12 Hours Indication: excessive flatulence may leave at bedside. SatAug 21 10:00:00 EDT 2023Aug 31 14:45:00 EDT 2023 melatonin 5 mg tablet 1 tablet TABLET Or al 1 Time Daily Indication: insomnia SatJul 30 09:00:00 EDT 2023Aug 31 14:45:00 EDT 2023 triamcinolone acetonide 0.1 % topical cream apply to back CREAM (GRAM) Topical PRN 2 Times Daily Indication: For Itchy Skin Apply to back Sat Jul 18 01:00:00 EDT 2023Aug 31 14:44:00 EDT 2023 triamcinolone acetonide 0.1 % topical cream apply to back CREAM (GRAM) Topical 2 Times Daily for 14 Days Indication: For Itchy Skin Apply to back BID x 14 days for itchy skin. SatJul 03 08:30:00 EDT 2023Jul 17 08:29:00 EDT 2023 Acidophilus capsule 1 cap CAPSULE Oral 1 Time Daily Indication: Probiotic ROLL FORMING SUPERVISOR supervision x 1 SatJul 03 01:00:00 EDT 2023Aug 31 14:44:00 EDT 2023 potassium chloride ER 20 mEq tablet,extended release(part/cryst) 4 tabs TABLET, EXT RELEASE, PARTICLES/CRYSTALS Oral 1 Time Daily Indication: hypokalemia ROLL FORMING SUPERVISOR supervision x14 tabs= 80mEq SatJul 01 01:00:00 EDT 2023Aug 31 14:44:00 EDT 2023 meloxicam 7.5 mg tablet 1 tab TABLET Ora l PRN Every 24 Hours Indication: pain ROLL FORMING SUPERVISOR Supervision x1 SatJun 25 13:17:00 EDT 2023Aug 31 14:44:00 EDT 2023 potassium chloride ER 20 mEq tablet,extended release(part/cryst) 4 tabs TABLET, EXT RELEASE, PARTICLES/CRYSTALS Oral 1 Time Daily Indication: hypokalemia ROLL FORMING SUPERVISOR supervision x14 tabs= 80mEq SatMay 27 01:00:00 EDT 2023Jun 25 13:14:00 EDT 2023 potassium chloride ER 20 mEq tablet,extended release(part/cryst) 2 TABLET, EXT RELEASE, PARTICLES/CRYSTALS Oral 1 Time Daily Indication: hypokalemia ROLL FORMING SUPERVISOR supervision x1 SatMay 23 07:00:00 EDT 2023May 26 20:04:00 EDT 2023 metOLazone 5 mg tablet 1 tab TABLET Oral 1 Time Daily Indication: fluid retention ROLL FORMING SUPERVISOR supervision x 1 SatMay 12 01:00:00 EDT 2023Aug 31 14:44:00 EDT 2023 predniSONE 20 mg tablet 1.5 tabs TABLET Oral 1 Time Daily for 5 Days Indication: Left knee pain ROLL FORMING SUPERVISOR supervision x130 mg Prednisone x 5 days ends 05/11May 07 01:00:00 EDT 2023May 12 00:59:00 EDT 2023 ice bag 1 bag EACH Topical P RN Every 2 Hours for 14 Days Indication: knee pain Ice to knee PRN q2h x 2 weeks SatMay 06 16:00:00 EDT 2023May 20 15:59:00 EDT 2023 simethicone 125 mg chewable tablet 1 tablet TABLET,CHEWABLE Oral 2 Times Daily Indication: excessive flatulence ROLL FORMING SUPERVISOR supervision x2, x4 SatApril 16 11:00:00 EDT 2023Aug 31 14:44:00 EDT 2023 meloxicam 7.5 mg tablet 1 tab TABLET Ora l 1 Time Daily Indication: pain ROLL FORMING SUPERVISOR Supervision x1 SatApril 10 01:00:00 EDT 2023Jun 25 13:18:00 EDT 2023 Stool Softener 100 mg tablet 1 tab TABLE T Oral 1 Time Daily Indication: constipation ROLL FORMING SUPERVISOR Supervision x1 SatMarch 27 01:00:00 EDT 2023Aug 31 14:44:00 EDT 2023 polyethylene glycoL 3350 17 gram oral powder packet 17 gram POWDER IN PACKET (EA) Oral 1 Time Daily Indication: constipation ROLL FORMING SUPERVISOR Supervision x1 SatMarch 27 01:00:00 EDT 2023Aug 31 14:44:00 EDT 2023 DEPO-MedroL 80 mg/mL suspension for injection 1 inj VIAL (ML) Intramuscular 1 Time Daily for 1 Day Indication: Arthritis MD to administer SatMar 23 01:00:00 EDT 2023Mar 24 00:59:00 EDT 2023 methylPREDNISolone acetate 80 mg/mL suspension for injection 1 inj VIAL (ML) Intramuscular 1 Time Daily for 1 Day Indication: Arthritis MD to administer SatMar 15 01:00:00 EDT 2023Mar 16 00:59:00 EDT 2023 lidocaine (PF) 20 mg/mL (2 %) intravenous solution 1 vial VIAL (ML) Intravenous 1 Time Daily for 1 Day Indication: pair with Methylprednisolone SatMar 15 01:00:00 EDT 2023Mar 13 18:13:00 EDT 2023 lidocaine (PF) 20 mg/mL (2 %) intravenous solution 1 vial VIAL (ML) Intramuscular 1 Time Daily for 1 Day Indication: pair with Methylprednisolone SatMar 15 01:00:00 EDT 2023Mar 16 00:59:00 EDT 2023 furosemide 40 mg tablet 1 TABLET Oral Ev jus Morning Indication: Swollen legs SatMar 10 09:00:00 EDT 2023Aug 31 14:44:00 EDT 2023 cetirizine 5 mg-pseudoephedrine ER 120 mg tablet,extended release,12hr 5-120 mg 1 TABLET, EXTENDED RELEASE 12 HR Oral 1 Time Daily Indication: congestion-nasal Nurse to administer @ Sonia Feb 26 17:00:00 EDT 2023 [facility] Jun 25 13:18:00 EDT 2023 acetaminophen ER 650 mg tablet,extended release 1 tablet TABLET, EXTENDED RELEASE Oral 2 Times Daily Indication: knee pain ROLL FORMING SUPERVISOR supervision x1, x4 SatFeb 27 01:00:00 EDT 2023Aug 31 14:44:00 EDT 2023 T.E.D. Anti-Embolism Stocking 1 pair EACH Other 2 Times Daily Indication: edema ROLL FORMING SUPERVISOR to apply KALIE hose in the AM and take off in the PM. SatFeb 14 01:00:00 EDT 2023Aug 31 14:44:00 EDT 2023 gabapentin 100 mg capsule 1 capsule CAPS ULE Oral 1 Time Daily for 4 Days Indication: neuropathy ROLL FORMING SUPERVISOR supervision x4 SatFeb 13 01:00:00 EDT 2023Feb 17 00:59:00 EDT 2023 gabapentin 100 mg capsule 2 capsules CAP CYNTHIA Oral 1 Time Daily for 4 Days Indication: neuropathy ROLL FORMING SUPERVISOR supervision x4 2 [id number] mg total SatFeb 17 01:00:00 EDT 2023Feb 20 03:16:00 EDT 2023 gabapentin 300 mg capsule 1 capsule CAPS ULE Oral 1 Time Daily Indication: neuropathy ROLL FORMING SUPERVISOR supervision x4 SatFeb 21 01:00:00 EDT 2023Feb 20 03:16:00 EDT 2023 ZyrTEC-D 5 mg-120 mg tablet,extended release 1 TABLET, EXTENDED RELEASE 12 HR Oral 1 Time Daily Indication: congestion-nasal ROLL FORMING SUPERVISOR supervision x1 SatFeb 06 01:00:00 EDT 2023Feb 26 19:38:00 EDT 2023 omeprazole 20 mg tablet,delayed release 1 TABLET, DELAYED RELEASE (ENTERIC COATED) Oral 1 Time Daily Indication: acid reflex ROLL FORMING SUPERVISOR to supervise SatFeb 06 01:00:00 EDT 2023Jun 25 13:18:00 EDT 2023 melatonin 5 mg tablet 1 tablet TABLET Or al 1 Time Daily Indication: For: Insomnia Give 1 tablet po @ 9pm for insomniaCNA Supervision @ 9pm SatJan 28 07:00:00 2023Jul 16 15:39:00 EDT 2023 meclizine 25 mg tablet 1 tablet TABLET O ral 4 Times Daily Indication: For: Dizziness Give 1 tablet po 4 times daily for dizziness.ROLL FORMING SUPERVISOR Admin for x1 x2 x3 x4 SatJan 18 07:00:00 2023Feb 06 18:10:00 EDT 2023 cetirizine 10 mg tablet 1 tablet TABLET Oral 1 Time Daily Indication: For; Nasal Congestion. Give 1 tablet po once daily for nasal congestion.ROLL FORMING SUPERVISOR Admin x1 Sat Jan 18 07:00:00 EST 2023Feb 08 11:03:00 EDT 2023 Deep Sea Nasal 0.65 % spray aerosol 1 spray AEROSOL, SPRAY (ML) Intranasal - Both Nostrils PRN Indication: Nasal Dryness Saline Nasal Randolph at bedside 1 spray to each nostril to self administer PRN Sat Jan 18 11:36:00 EST 2023Aug 31 14:44:00 EDT 2023 melatonin 5 mg tablet 1 tab TABLET Oral Hour Of Sleep Indication: Insomnia ROLL FORMING SUPERVISOR supervision x4 Hour of sleep SatDec 26 13:11:00 EST 2023Jan 27 23:48:00 EST 2023 melatonin 5 mg tablet 1 tab TABLET Oral PRN (Max 1 Doses) Indication: may have an additional 5mg dose daily PRN insomnia. SatDec 26 20:00:00 EST 2023Aug 31 14:44:00 EDT 2023 predniSONE 20 mg tablet 1 tab TABLET Ora l 1 Time Daily for 5 Days Indication: eustachian tube [id number] +10mg =30mg totalCNA Supervision x1 Belt Fixer SatDec 27 01:00:00 EST 2023Jan 01 00:59:00 EST 2023 predniSONE 10 mg tablet 1 tab TABLET Ora l 1 Time Daily for 5 Days Indication: eustachian tube [id number] +10mg =30mg totalCNA Supervision x1 Belt Fixer SatDec 27 01:00:00 EST 2023Jan 01 00:59:00 EST 2023 Scopolamine 1.5 mg (transdermal patch) 1 patch Transdermal Every 3 Days for 2 Weeks Indication: apply 1 patch behind the ear Q72 H for dizziness.will try 1-2 wks hold meclizine while using patch. Nurse administer SatDec 27 01:00:00 EST 2023Dec 26 21:01:00 EST 2023 scopolamine 1 mg over 3 days transdermal patch 1 patch PATCH,TRANSDERMAL 3 DAY Transdermal Every 3 Days for 2 Weeks Indication: apply 1 patch behind the ear Q72 H for dizziness.will try 1-2 wks hold meclizine while using patch. Nurse administer SatDec 27 21:00:00 EST 2023Jan 10 20:59:00 EST 2023 amoxicillin 875 mg-potassium clavulanate 125 mg tablet 1 TABLET Oral 2 Times Daily for 7 Days Indication: Sinusitis ROLL FORMING SUPERVISOR Supervision x1 x4 SatDec 21 01:00:00 EST 2023Dec 28 00:59:00 EST 2023 ramelteon 8 mg tablet 1 tab TABLET Oral PRN Hour Of Sleep Indication: insomnia SatDec 21 01:00:00 EST 2023Dec 26 13:12:00 EST 2023 amiodarone 200 mg tablet 1 tablet TABLET Oral 1 Time Daily Indication: Antiarrhythmic ROLL FORMING SUPERVISOR supervision x4 SatDec 13 01:00:00 EST 2023Dec 20 16:57:00 EST 2023 Cepacol Sore Throat-Cough 5 mg-7.5 mg lozenges 1 atb LOZENGE Oral PRN Every 1 Hour for 7 Days Indication: Sore Throat SatNov 27 15:47:00 EST 2023Dec 04 15:46:00 EST 2023 Nasal Decongestant (oxymetazoline) 0.05 % spray 2 sprays SPRAY, NON-AEROSOL (ML) Intranasal PRN Every 2 Hours Indication: nasal congestion SatNov 27 16:04:00 EST 2023Aug 31 14:31:00 EDT 2023 Daytime Cold and Flu Relief (phenylephrine) 5 mg-10 mg-325 mg capsule 2 caps CAPSULE Oral 2 Times Daily for 7 Days Indication: URI ROLL FORMING SUPERVISOR Supervision X1 x4 SatNov 28 01:00:00 EST 2023Dec 05 00:59:00 EST 2023 escitalopram 10 mg tablet 1 tab TABLET O ral 1 Time Daily Indication: antidepressant ROLL FORMING SUPERVISOR supervision x1 SatNov 12 01:00:00 EST 2022Dec 09 16:23:00 2023 simethicone 125 mg chewable tablet 1 tab TABLET,CHEWABLE Oral PRN 3 Times Daily Indication: flatulence nurse admin TID PRN SatNov 11 18:00:00 2022April 16 11:04:00 EDT 2023 acetaminophen 500 mg tablet 1 tab TABLET Oral PRN 2 Times Daily Indication: pain nurse admin 1 tab BID PRN do not exceed 3G in 24 hour period SatNov 11 18:00:00 2022Aug 31 14:31:00 EDT 2023 docusate sodium 100 mg tablet 1 tab TABLET Oral PRN 2 Times Daily Indication: constipation nurse admin BID PRN SatNov 11 18:00:00 2022Aug 31 14:31:00 EDT 2023 polyethylene glycoL 3350 17 gram oral powder packet 17 gram POWDER IN PACKET (EA) Oral PRN 2 Times Daily Indication: constipation nurse admin BID PRN SatNov 11 18:00:00 EST 2022Aug 31 14:31:00 EDT 2023 acetaminophen 325 mg tablet 2 tablets TA BLET Oral PRN Every 6 Hours for 10 Days Indication: For: Pain Give Tylenol 325mg 2 tablets every 6 hours PRN for pain times 10 days ONLY. SatOct 23 04:30:00 EST 2022Nov 02 04:29:00 EST 2022 docusate sodium 100 mg capsule 1 capsule CAPSULE Oral 2 Times Daily Indication: constipation ROLL FORMING SUPERVISOR supervision x1, x4 SatOct 21 15:00:00 2022Nov 11 18:11:00 EST 2022 polyethylene glycoL 3350 (bulk) powder 17 gram POWDER (GRAM) Oral 2 Times Daily Indication: constipation ROLL FORMING SUPERVISOR supervision x1, x4 SatOct 21 15:00:00 EST 2022Nov 11 18:11:00 EST 2022 acetaminophen 500 mg tablet 1 tablet TAB LET Oral 2 Times Daily Indication: pain Do not exceed 3GM/day. ROLL FORMING SUPERVISOR supervision x1, x4 SatOct 21 15:00:00 EST 2022Nov 11 18:11:00 EST 2022 cyanocobalamin (vitamin B-12) 2,500 mcg tablet 1 tablet TABLET Oral 1 Time Daily Indication: supplement ROLL FORMING SUPERVISOR supervision x1 SatOct 21 15:00:00 EST 2022Aug 31 14:31:00 EDT 2023 Eliquis 5 mg tablet 1 tablet TABLET Oral 2 Times Daily Indication: blood thinner ROLL FORMING SUPERVISOR supervision x1, x4 SatOct 21 15:00:00 EST 2022Aug 31 14:31:00 EDT 2023 gabapentin 300 mg capsule 1 capsule CAPS ULE Oral 1 Time Daily Indication: nerve pain ROLL FORMING SUPERVISOR supervision x4 SatOct 21 15:00:00 EST 2022Dec 20 16:57:00 EST 2023 magnesium 400 mg (as magnesium oxide) tablet 1 tablet TABLET Oral 1 Time Daily Indication: supplement ROLL FORMING SUPERVISOR supervision x4 SatOct 21 15:00:00 EST 2022Aug 31 14:31:00 EDT 2023 rosuvastatin 20 mg tablet 1 tablet TABLE T Oral 1 Time Daily Indication: cholesterol ROLL FORMING SUPERVISOR supervision x4 SatOct 21 15:00:00 EST 2022Jan 13 13:02:00 EST 2023 senna 8.6 mg tablet 1 tablet TABLET Oral PRN Hour Of Sleep Indication: Constipation SatOct 21 15:00:00 EST 2022Aug 31 14:31:00 EDT 2023 amiodarone 200 mg tablet 1 tablet TABLET Oral 1 Time Daily Indication: Antiarrhythmic ROLL FORMING SUPERVISOR supervision x1 SatOct 21 15:00:00 EST 2022Dec 13 01:40:00 EST 2023 riboflavin (vitamin B2) 100 mg tablet 3 tablets TABLET Oral 1 Time Daily Indication: supplement ROLL FORMING SUPERVISOR supervision x1 SatOct 21 15:00:00 EST 2022Aug 31 14:31:00 EDT 2023 meclizine 25 mg tablet 1 tablet TABLET O ral PRN Every 8 Hours Indication: dizziness SatOct 21 15:00:00 EST 2022Aug 31 14:31:00 EDT 2023 midodrine 5 mg tablet 1 tablet TABLET Or al PRN 3 Times Daily Indication: Anti hypotensiveGive if BP is less than 90/60 SatOct 21 15:00:00 EST 2022Aug 31 14:31:00 EDT 2023 potassium chloride ER 10 mEq capsule,extended release 1 capsule CAPSULE, EXTENDED RELEASE Oral 1 Time Daily Indication: replacement ROLL FORMING SUPERVISOR supervision x1 SatOct 21 15:00:00 EST 2022 Sat May 23 07:30:00 EDT 2023 Blood Pressure Kit 1 KIT Other 2 Times Monthly Indication: Vital signs ROLL FORMING SUPERVISOR to obtain. SatOct 21 15:00:00 EST 2022Aug 31 14:44:00 EDT 2023 Blood Pressure Cuff 1 EACH Other 1 Time Daily for 14 Days Indication: Blood pressure ROLL FORMING SUPERVISOR to obtain SatOct 22 01:00:00 EST 2022Nov 05 00:59:00 EST 2022 potassium chloride ER 10 mEq capsule,extended release 1 tab CAPSULE, EXTENDED RELEASE Oral 1 Time Daily Indication: replacement SatOct 19 09:00:00 EST 2022Oct 21 01:00:00 EST 2022 midodrine 5 mg tablet 1 TAB TABLET Oral PRN 3 Times Daily Indication: Anti hypotensive Give if BP is less than 90/60 SatOct 17 14:12:00 EST 2022Oct 21 01:00:00 EST 2022 midodrine 5 mg tablet 1 TAB TABLET Oral 3 Times Daily for 30 Days Indication: Anti hypotensive Give if BP is less than 90/60 SatOct 16 13:14:00 EST 2022Oct 17 14:13:00 EST 2022 meclizine 25 mg tablet tab TABLET Oral P RN Every 8 Hours Indication: Dizziness SatOct 17 07:00:00 EST 2022Oct 21 01:00:00 EST 2022 cetirizine 10 mg tablet 1 tab TABLET Ora l PRN 1 Time Daily for 7 Days Indication: allergies SatOct 08 13:00:00 EST 2022Oct 15 12:59:00 EST 2022 acetaminophen 325 mg tablet 2 TABLET Ora l PRN Every 6 Hours for 10 Days Indication: pain SatOct 03 09:00:00 EST 2022Oct 13 08:59:00 EST 2022 amiodarone 200 mg tablet 1 tab TABLET Or al 1 Time Daily Indication: Antiarrhythmic SatSep 26 02:00:00 ED2022Oct 21 01:00:00 EST 2022 TubersoL 5 tub. unit/0.1 mL intradermal injection solution 0.1 ml VIAL (ML) Intradermal 1 Time Weekly for 2 Weeks Indication: TB test 1st injection on admission, then one week after. Read between 48 and 72 hours SatSep 26 01:00:00 EDT 2022Oct 10 00:59:00 EST 2022 TubersoL 5 tub. unit/0.1 mL intradermal injection solution Read Results VIAL (ML) Other 1 Time Weekly for 2 Weeks Indication: TB test Read results between 48-72 hours after 1st and 2nd (1 week apart). If positive do chest x-ray. SatSep 26 01:00:00 2022Oct 10 00:59:00 EST 2022 Vitamin B-2 100 mg tablet 3 tablets TABL ET Oral 1 Time Daily Indication: Supplement SatSep 26 11:00:00 T 2022Oct 21 01:00:00 EST 2022 docusate sodium 100 mg capsule 1 CAP CAPSULE Oral 2 Times Daily Indication: constipation SatSep 26 04:30:00 T 2022Oct 21 01:00:00 EST 2022 fludrocortisone 0.1 mg tablet 1 TAB TABLET Oral 1 Time Daily Indication: postural hypotension SatSep 25 20:30:00 2022Oct 16 13:13:00 EST 2022 polyethylene glycoL 3350 17 gram/dose oral powder 17 gram POWDER (GRAM) Oral 2 Times Daily Indication: constipation Mix 17 gram with 240 ml of water before giving SatSep 26 01:30:00 2022Oct 21 01:00:00 EST 2022 tamsulosin 0.4 mg capsule 1 CAP CAPSULE Oral 1 Time Daily Indication: retention SatSep 25 20:30:00 T 2022Oct 02 15:11:00 EST 2022 meclizine 25 mg tablet 1 TAB TABLET Oral 3 Times Daily for 10 Days Indication: antihistamine SatSep 26 02:00:00 EDT 2022Oct 06 01:59:00 EST 2022 midodrine 5 mg tablet 1 TAB TABLET Oral 3 Times Daily for 30 Days Indication: Anti hypotensive with meals SatSep 26 02:00:00 2022Oct 16 13:16:00 EST 2022 acetaminophen 500 mg tablet 1 TAB TABLET Oral 2 Times Daily Indication: pain * DO NOT EXCEED 3GM/DAY APAP FROM ALL SOURCES* SatSep 26 02:00:00 EDT 2022Oct 21 01:00:00 EST 2022 cyanocobalamin (vit B-12) 2,500 mcg sublingual tablet 1 TAB TABLET, SUBLINGUAL Sublingual 1 Time Daily Indication: supplement SatSep 25 20:30:00 EDT 2022Oct 21 01:00:00 EST 2022 Eliquis 5 mg tablet 1 TAB TABLET Oral 2 Times Daily Indication: blood thinner SatSep 26 02:00:00 EDT 2022Oct 21 01:00:00 EST 2022 gabapentin 300 mg capsule 1 CAP CAPSULE Oral Hour Of Sleep Indication: nerve pain SatSep 26 02:00:00 EDT 2022Oct 21 01:00:00 EST 2022 magnesium 400 mg (as magnesium oxide) tablet 1 TAB TABLET Oral Hour Of Sleep Indication: supplements SatSep 26 02:00:00 EDT 2022Oct 21 01:00:00 EST 2022 rosuvastatin 20 mg tablet 1 TAB TABLET O ral Hour Of Sleep Indication: cholesterol SatSep 26 02:30:00 EDT 2022Oct 21 01:00:00 EST 2022 senna 8.6 mg tablet 1 TAB TABLET Oral SC N Hour Of Sleep Indication: CONSTIPATON SatSep 25 20:30:00 EDT 2022Oct 21 01:00:00 EST 2022 Vitamin B-12 100 mcg tablet 3 TABS TABLE T Oral 1 Time Daily Indication: supplement 3 [id number]=852 MG SatSep 25 20:30:00 EDT 2022Sep 26 11:18:00 EDT 2022 Problems Active Concerns * Orthostatic hypotension* Code: * Start Date: SatSep 25 00:00:00 EDT 2022 * End Date: * Text: * Paroxysmal atrial fibrillation* Code: * Start Date: SatSep 25 00:00:00 EDT 2022 * End Date: * Text: * Hyperlipidemia, unspecified* Code: * Start Date: SatSep 25 00:00:00 EDT 2022 * End Date: * Text: * Personal history of malignant neoplasm of prostate* Code: * Start Date: SatSep 25 00:00:00 EDT 2022 * End Date: * Text: * Presence of left artificial hip joint* Code: * Start Date: SatSep 25 00:00:00 EDT 2022 * End Date: * Text: * Personal history of nicotine dependence* Code: * Start Date: SatSep 25 00:00:00 EDT 2022 * End Date: * Text: * guard chief (current) use of anticoagulants* Code: * Start Date: SatSep 25 00:00:00 EDT 2022 * End Date: * Text: * shelter (current) use of opiate analgesic* Code: * Start Date: SatSep 25 00:00:00 EDT 2022 * End Date: * Text: * Chronic diastolic (congestive) heart failure* Code: * Start Date: SatSep 25 00:00:00 EDT 2022 * End Date: * Text: * Hypertensive heart disease with heart failure* Code: * Start Date: SatSep 25 00:00:00 EDT 2022 * End Date: * Text: * Acquired absence of other genital organ(s)* Code: * Start Date: SatSep 25 00:00:00 EDT 2022 * End Date: * Text: * Retention of urine, unspecified* Code: * Start Date: SatSep 25 00:00:00 EDT 2022 * End Date: * Text: * Hereditary and idiopathic neuropathy, unspecified* Code: * Start Date: SatSep 25 00:00:00 EDT 2022 * End Date: * Text: * Other fatigue* Code: * Start Date: SatSep 04 00:00:00 EDT 2023 * End Date: * Text: * Need for assistance with personal care* Code: * Start Date: SatSep 04 00:00:00 EDT 2023 * End Date: * Text: * Pain in left knee* Code: * Start Date: SatSep 04 00:00:00 EDT 2023 * End Date: * Text: * Sacrococcygeal disorders, not elsewhere classified* Code: * Start Date: SatSep 04 00:00:00 EDT 2023 * End Date: * Text: * Sacroiliitis, not elsewhere classified* Code: * Start Date: SatSep 02 00:00:00 EDT 2023 * End Date: * Text: * Major depressive disorder, single episode, unspecified* Code: * Start Date: SatSep 02 00:00:00 EDT 2023 * End Date: * Text: * Slow transit constipation* Code: * Start Date: SatSep 02 00:00:00 EDT 2023 * End Date: * Text: * Hypokalemia* Code: * Start Date: SatOct 21 00:00:00 EST 2022 * End Date: * Text: * Adverse effect of loop [high-ceiling] diuretics, subsequent encounter* Code: * Start Date: SatSep 02 00:00:00 EDT 2023 * End Date: * Text: * Gastro-esophageal reflux disease without esophagitis* Code: * Start Date: SatOct 21 00:00:00 EST 2022 * End Date: * Text: * Insomnia, unspecified* Code: * Start Date: SatOct 17 00:00:00 EST 2023 * End Date: * Text: * Personal history of other diseases of the nervous system and sense organs* Code: * Start Date: SatOct 21 00:00:00 EST 2022 * End Date: * Text: * Vitamin D deficiency, unspecified* Code: * Start Date: SatOct 21 00:00:00 EST 2022 * End Date: * Text: Resolved Concerns * Problem Malignant neoplasm of prostate* Code: * Start Date: SatSep 25 00:00:00 EDT 2022 * End Date: SatOct 14 00:00:00 EST 2023 * Problem Presence of urogenital implants* Code: * Start Date: SatSep 25 00:00:00 EDT 2022 * End Date: SatOct 14 00:00:00 EST 2023 * Problem Weakness* Code: * Start Date: SatOct 22 00:00:00 EST 2022 * End Date: SatOct 14 00:00:00 EST 2023 * Problem Unsteadiness on feet* Code: * Start Date: SatOct 22 00:00:00 EST 2022 * End Date: SatOct 14 00:00:00 EST 2023 * Problem Other displaced fracture of lower end of right humerus, subsequent encounter for fracture with routine healing* Code: * Start Date: SatOct 22 00:00:00 EST 2022 * End Date: SatOct 14 00:00:00 EST 2023 * Problem Muscle weakness (generalized)* Code: * Start Date: SatFeb 11 00:00:00 EDT 2023 * End Date: SatOct 14 00:00:00 EST 2023 Vital Signs Vital Sign Measurement Date Systolic Blood Pressure 136.00 mm[Hg] SatApr 27 14:56:06 EDT 2024 Diastolic Blood Pressure 68.00 mm[Hg] SatApr 27 14:56:06 EDT 2024 Body weight 201.20 [lb_av] SatApr 27 14:56 :06 EDT 2024 Heart Rate 84.00 /min SatApr 27 14:56 :06 EDT 2024 Body temperature 98.40 [degF] SatApr 27 14:5 6:06 EDT 2024 Respiratory rate 18.00 /min SatApr 27 14:5 6:06 EDT 2024 Systolic Blood Pressure 131.00 mm[Hg] SatApril 10 13:32:25 EDT 2024 Diastolic Blood Pressure 65.00 mm[Hg] SatApril 10 13:32:25 EDT 2024 Body weight 200.00 [lb_av] SatApril 10 13:32 :25 EDT 2024 Heart Rate 109.00 /min SatApril 10 13:32 :25 EDT 2024 Body temperature 98.00 [degF] SatApril 10 13:3 2:25 EDT 2024 Respiratory rate 18.00 /min SatApril 10 13:3 2:25 EDT 2024 Systolic Blood Pressure 114.00 mm[Hg] SatMarch 27 15:44:26 EDT 2024 Diastolic Blood Pressure 75.00 mm[Hg] SatMarch 27 15:44:26 EDT 2024 Body weight 200.00 [lb_av] SatMarch 27 15:44 :26 EDT 2024 Heart Rate 101.00 /min SatMarch 27 15:44 :26 EDT 2024 Body temperature 97.80 [degF] SatMarch 27 15:4 4:26 EDT 2024 Respiratory rate 18.00 /min SatMarch 27 15:4 4:26 EDT 2024 Systolic Blood Pressure 115.00 mm[Hg] SatMar 11 11:14:22 EDT 2024 Diastolic Blood Pressure 70.00 mm[Hg] SatMar 11 11:14:22 EDT 2024 Body weight 200.00 [lb_av] SatMar 11 11:14 :22 EDT 2024 Heart Rate 81.00 /min SatMar 11 11:14 :22 EDT 2024 Body temperature 98.40 [degF] SatMar 11 11:1 4:22 EDT 2025 Respiratory rate 18.00 /min [facility] Mar 11 11:1 4:22 EDT 2024 Systolic Blood Pressure 105.00 mm[Hg] [facility] Feb 25 14:20:51 EDT 2024 Diastolic Blood Pressure 65.00 mm[Hg] [facility] Feb 25 14:20:51 EDT 2024 Body weight 198.80 [lb_av] [facility] Feb 25 14:20 :51 EDT 2024 Heart Rate 100.00 /min [facility] Feb 25 14:20 :51 EDT 2024 Body temperature 97.80 [degF] [facility] Feb 25 14:2 0:51 EDT 2024 Respiratory rate 18.00 /min [facility] Feb 25 14:2 0:51 EDT 2024 Systolic Blood Pressure 138.00 mm[Hg] SatFeb 08 18:24:41 EDT 2024 Diastolic Blood Pressure 87.00 mm[Hg] SatFeb 08 18:24:41 EDT 2024 Body weight 207.40 [lb_av] SatFeb 08 18:24 :41 EDT 2024 Heart Rate 119.00 /min SatFeb 08 18:24 :41 EDT 2024 Body temperature 97.60 [degF] SatFeb 08 18:2 4:41 EDT 2024 Respiratory rate 18.00 /min SatFeb 08 18:2 4:41 EDT 2024 Systolic Blood Pressure 103.00 mm[Hg] SatJan 25 13:54:26 EST 2024 Diastolic Blood Pressure 69.00 mm[Hg] SatJan 25 13:54:26 EST 2024 Body weight 207.40 [lb_av] SatJan 25 13:54 :26 EST 2024 Heart Rate 117.00 /min SatJan 25 13:54 :26 EST 2024 Body temperature 97.90 [degF] SatJan 25 13:5 4:26 EST 2024 Respiratory rate 20.00 /min SatJan 25 13:5 4:26 EST 2024 Body weight 207.40 [lb_av] [facility] Jan 21 16:15 :32 EST 2024 Systolic Blood Pressure 128.00 mm[Hg] SatJan 11 14:20:24 EST 2024 Diastolic Blood Pressure 76.00 mm[Hg] SatJan 11 14:20:24 EST 2024 Heart Rate 82.00 /min SatJan 11 14:20 :24 EST 2024 Body temperature 98.20 [degF] SatJan 11 14:2 0:24 EST 2024 Respiratory rate 18.00 /min SatJan 11 14:2 0:24 EST 2024 Systolic Blood Pressure 115.00 mm[Hg] SatDec 28 13:21:41 EST 2024 Diastolic Blood Pressure 72.00 mm[Hg] SatDec 28 13:21:41 EST 2024 Heart Rate 97.00 /min SatDec 28 13:21 :41 EST 2024 Body temperature 98.80 [degF] SatDec 28 13:2 1:41 EST 2024 Respiratory rate 18.00 /min SatDec 28 13:2 1:41 EST 2024 Systolic Blood Pressure 106.00 mm[Hg] SatDec 11 14:01:37 EST 2024 Diastolic Blood Pressure 78.00 mm[Hg] SatDec 11 14:01:37 EST 2024 Body weight 209.40 [lb_av] SatDec 11 14:01 :37 EST 2024 Heart Rate 98.00 /min SatDec 11 14:01 :37 EST 2024 Body temperature 97.80 [degF] SatDec 11 14:0 1:37 EST 2024 Respiratory rate 18.00 /min SatDec 11 14:0 1:37 EST 2024 Systolic Blood Pressure 118.00 mm[Hg] SatNov 27 18:28:21 EST 2024 Diastolic Blood Pressure 73.00 mm[Hg] SatNov 27 18:28:21 EST 2024 Body weight 201.00 [lb_av] SatNov 27 18:28 :21 EST 2024 Heart Rate 88.00 /min SatNov 27 18:28 :21 EST 2024 Body temperature 98.20 [degF] SatNov 27 18:2 8:21 EST 2024 Respiratory rate 18.00 /min SatNov 27 18:2 8:21 EST 2024 Systolic Blood Pressure 104.00 mm[Hg] SatNov 10 13:19:13 EST 2023 Diastolic Blood Pressure 69.00 mm[Hg] SatNov 10 13:19:13 EST 2023 Body weight 200.80 [lb_av] SatNov 10 13:19 :13 EST 2023 Heart Rate 89.00 /min SatNov 10 13:19 :13 EST 2023 Body temperature 98.40 [degF] SatNov 10 13:1 9:13 EST 2023 Respiratory rate 16.00 /min SatNov 10 13:1 9:13 EST 2023 Systolic Blood Pressure 100.00 mm[Hg] SatOct 11 19:01:49 EST 2023 Diastolic Blood Pressure 57.00 mm[Hg] SatOct 11 19:01:49 EST 2023 Heart Rate 122.00 /min SatOct 11 19:01 :49 EST 2023 Body temperature 98.20 [degF] SatOct 11 19:0 1:49 EST 2023 Respiratory rate 18.00 /min SatOct 11 19:0 1:49 EST 2023 Body weight 207.60 [lb_av] SatOct 11 19:01 :49 EST 2023 Systolic Blood Pressure 118.00 mm[Hg] SatSep 27 18:13:56 EST 2023 Diastolic Blood Pressure 72.00 mm[Hg] SatSep 27 18:13:56 EST 2023 Body weight 208.90 [lb_av] SatSep 27 18:13 :56 EST 2023 Heart Rate 84.00 /min SatSep 27 18:13 :56 EST 2023 Body temperature 98.20 [degF] SatSep 27 18:1 3:56 EST 2023 Respiratory rate 20.00 /min SatSep 27 18:1 3:56 EST 2023 Systolic Blood Pressure 128.00 mm[Hg] [facility] Sep 10 14:18:21 EDT 2023 Diastolic Blood Pressure 68.00 mm[Hg] [facility] Sep 10 14:18:21 EDT 2023 Body weight 208.20 [lb_av] [facility] Sep 10 14:18 :21 EDT 2023 Heart Rate 78.00 /min [facility] Sep 10 14:18 :21 EDT 2023 Body temperature 98.10 [degF] [facility] Sep 10 14:1 8:21 EDT 2023 Respiratory rate 18.00 /min [facility] Sep 10 14:1 8:21 EDT 2023 Body temperature 97.60 [degF] SatSep 06 13:2 5:03 EDT 2023 Body temperature 97.90 [degF] Sat Sep 05 18:0 0:43 EDT 2023 Body temperature 97.50 [degF] SatSep 05 16:0 1:06 EDT 2023 Body temperature 98.20 [degF] SatSep 04 21:3 8:19 EDT 2023 Body temperature 97.50 [degF] SatSep 04 14:2 5:15 EDT 2023 Body temperature 97.70 [degF] SatSep 04 03:0 7:59 EDT 2023 Systolic Blood Pressure 123.00 mm[Hg] [facility] Aug 27 14:50:20 EDT 2023 Diastolic Blood Pressure 70.00 mm[Hg] [facility] Aug 27 14:50:20 EDT 2023 Body weight 207.20 [lb_av] [facility] Aug 27 14:50 :20 EDT 2023 Heart Rate 82.00 /min [facility] Aug 27 14:50 :20 EDT 2023 Body temperature 98.40 [degF] [facility] Aug 27 14:5 0:20 EDT 2023 Respiratory rate 18.00 /min [facility] Aug 27 14:5 0:20 EDT 2023 Systolic Blood Pressure 115.00 mm[Hg] e Sep 17 18:00:40 EDT 2023 Diastolic Blood Pressure 72.00 mm[Hg] [facility] 17 18:00:40 EDT 2023 Body weight 210.20 [lb_av] [facility] 17 18:00 :40 EDT 2023 Heart Rate 86.00 /min [facility] 17 18:00 :40 EDT 2023 Body temperature 98.20 [degF] [facility] 17 18:0 0:40 EDT 2023 Respiratory rate 20.00 /min [facility] 17 18:0 0:40 EDT 2023 Systolic Blood Pressure 100.00 mm[Hg] [facility] 03 18:07:20 EDT 2023 Diastolic Blood Pressure 69.00 mm[Hg] [facility] 03 18:07:20 EDT 2023 Body weight 210.20 [lb_av] [facility] 03 18:07 :20 EDT 2023 Heart Rate 133.00 /min [facility] 03 18:07 :20 EDT 2023 Body temperature 97.70 [degF] [facility] 03 18:0 7:20 EDT 2023 Respiratory rate 20.00 /min [facility] 18:0 7:20 EDT 2023 Systolic Blood Pressure 95.00 mm[Hg] [facility] Jul 11 11:49:15 EDT 2023 Diastolic Blood Pressure 65.00 mm[Hg] [facility] Jul 11 11:49:15 EDT 2023 Body weight 204.60 [lb_av] [facility] Jul 11 11:49 :15 EDT 2023 Heart Rate 106.00 /min [facility] Jul 11 11:49 :15 EDT 2023 Body temperature 98.10 [degF] [facility] Jul 11 11:4 9:15 EDT 2023 Respiratory rate 18.00 /min [facility] Jul 11 11:4 9:15 EDT 2023 Systolic Blood Pressure 105.00 mm[Hg] [facility] Jun 27 12:52:50 EDT 2023 Diastolic Blood Pressure 71.00 mm[Hg] [facility] Jun 27 12:52:50 EDT 2023 Body weight 204.60 [lb_av] [facility] Jun 27 12:52 :50 EDT 2023 Heart Rate 100.00 /min [facility] Jun 27 12:52 :50 EDT 2023 Body temperature 98.10 [degF] [facility] Jun 27 12:5 2:50 EDT 2023 Respiratory rate 18.00 /min [facility] Jun 27 12:5 2:50 EDT 2023 Systolic Blood Pressure 97.00 mm[Hg] SatMay 27 10:54:44 EDT 2023 Diastolic Blood Pressure 65.00 mm[Hg] SatMay 27 10:54:44 EDT 2023 Heart Rate 95.00 /min SatMay 27 10:54 :44 EDT 2023 Body temperature 97.80 [degF] SatMay 27 10:5 4:44 EDT 2023 Respiratory rate 18.00 /min SatMay 27 10:5 4:44 EDT 2023 Systolic Blood Pressure 130.00 mm[Hg] SatMay 11 09:01:04 EDT 2023 Diastolic Blood Pressure 88.00 mm[Hg] SatMay 11 09:01:04 EDT 2023 Body weight 204.60 [lb_av] SatMay 11 09:01 :04 EDT 2023 Heart Rate 85.00 /min SatMay 11 09:01 :04 EDT 2023 Body temperature 97.40 [degF] SatMay 11 09:0 1:04 EDT 2023 Respiratory rate 20.00 /min SatMay 11 09:0 1:04 EDT 2023 Reason for Referral Past Medical History Resolved Concerns * Problem Malignant neoplasm of prostate* Code: * Start Date: SatSep 25 00:00:00 EDT 2022 * End Date: SatOct 14 00:00:00 EST 2023 * Problem Presence of urogenital implants* Code: * Start Date: SatSep 25 00:00:00 EDT 2022 * End Date: SatOct 14 00:00:00 EST 2023 * Problem Weakness* Code: * Start Date: SatOct 22 00:00:00 EST 2022 * End Date: SatOct 14 00:00:00 EST 2023 * Problem Unsteadiness on feet* Code: * Start Date: SatOct 22 00:00:00 EST 2022 * End Date: SatOct 14 00:00:00 EST 2023 * Problem Other displaced fracture of lower end of right humerus, subsequent encounter for fracture with routine healing* Code: * Start Date: SatOct 22 00:00:00 EST 2022 * End Date: SatOct 14 00:00:00 EST 2023 * Problem Muscle weakness (generalized)* Code: * Start Date: SatFeb 11 00:00:00 EDT 2023 * End Date: SatOct 14 00:00:00 EST 2023
--- OUTSIDE RECORDS SUMMARY | 2025-05-03 11:07 | XMS_ITS | Referral Summary ---
Author Organization [facility] at the [facility] Address [address] [place] [address] Care Team Providers Care Network Support Name Role Phone Linn Mas MD Primary Care Provider [phone] Allergies Active Allergy Reactions Criticality Noted Date [...] 10/30/2021 Assessment & Plan (11/27/2021 10:42 AM GAMES MANAGER): Cr elevated from baseline - encouraged po fluid intake. Not on diuretics - monitor 11/07: Cr continues to improve, encouraged po intake 11/13: Cr now 1.2, improved. Continue to monitor 11/16: Cr stable at 1.2. monitor 11/27: Cr stable Anemia due to acute blood loss 10/30/2021 Assessment & Plan (11/27/2021 10:39 AM GAMES MANAGER): H/H is slowly improving - continue to montior with iron supplementation 11/07: h/h stable, monitor 11/13: H/H remains stable 11/16: Hg 9.5. monitor 11/27: stable, continue iron supplementation Throat dryness 10/25/2021 Back pain 10/16/2021 Assessment & Plan (11/18/2021 10:42 AM GAMES MANAGER): To left side. Likely from surgery. Will [...] 05/25/2021 Assessment & Plan (11/27/2021 10:38 AM GAMES MANAGER): Continue Miralax. Will give suppos if no [...] 02/22/2021 Assessment & Plan (11/27/2021 10:37 AM GAMES MANAGER): Will start Trazodone. Continue [place]. 10/30: pt [...] 10/16/2019 Assessment & Plan (11/27/2021 10:38 AM GAMES MANAGER): Cont gabapentin 300 mg daily. F/u with neurology 10/30: overall stable, continue gabapentin 300mg daily 11/13: stable, continue gabapentin 300mg daily 11/20: stable, continue gabapentin 11/27/21: stable, continue gabapentin 300mg daily Headache 06/18/2019 Persistent atrial fibrillation 06/17/2019 Assessment & Plan (11/27/2021 10:36 AM GAMES MANAGER): S/P DC cardioversion, Dr. Odom in 2019. [...] 06/17/2019 Assessment & Plan (11/27/2021 10:38 AM GAMES MANAGER): BP controlled, pulse mildly low. Cont Toprol [...] 06/17/2019 Assessment & Plan (11/27/2021 10:42 AM GAMES MANAGER): Pt is s/p Left total hip replacement per Dr. Patterson on 10/05/21. DVT prophylaxis with eliquis 5 mg bid. Cont pain mgx with Hume 1 tab q4 prn. Wound care. PT/OT [...] stable, pain controlled with scheduled Tylenol, p.r.n. Hume. Patient is making progress in therapy, we will monitor. Continues to have weight-bearing restrictions. F/U with Dr. Nick Post on 11/15/21 at 9:30am at [facility]: [facility] ([facility]), [address] [place] [address], [address], [place] [address]. 11/07: remains only 20 lbs. 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 Is on Lupron IM every 6 months. Follows up with urologist Dr. Michele. Continue Flomax Resolved Problems Problem Noted Date Diagnosed Date Resolved Date Benign prostatic hyperplasia without urinary obstruction 06/20/2021 10/12/2021 Assessment & Plan (10/11/2021 8:10 AM GAMES MANAGER): Cont home med flomax 0.4 mg Vestibular migraine 10/15/2019 11/27/19 Assessment & Plan (11/20/2021 4:37 PM GAMES MANAGER): He was started per neurologist on Venlafaxine [...] 10/23/2021 Assessment & Plan (10/16/2021 11:03 AM GAMES MANAGER): Unsure of etiology. Labs stable. H&H mildly [...] on file Legal Sex Male 8:17 PM GAMES MANAGER Gender Identity Not on file Sexual Orientation Not on file Occupation Industry Job Start Date Job End Date Retired Not on file Not on file Not on file Last Filed Vital Signs Vital Sign Reading Time Taken Comments Blood Pressure 155/80 11/28/2021 7:00 AM GAMES MANAGER Pulse 61 11/28/2021 7:00 AM GAMES MANAGER Temperature 36.4 C (97.6 F) 11/28/2021 7:00 AM GAMES MANAGER Respiratory Rate 20 11/28/2021 7:00 AM GAMES MANAGER Oxygen Saturation 93% 11/28/2021 7:00 AM GAMES MANAGER Inhaled Oxygen Concentration - - Weight 93.1 kg (205 lb 4 oz) 11/28/2021 5:21 AM GAMES MANAGER Height 188 cm (6' 2) 10/10/2021 5:10 PM GAMES MANAGER Body Mass Index 26.35 10/10/2021 5:10 PM GAMES MANAGER Plan of Treatment Not on file Medical Devices Implanted Type Area Rope Rider Device Identifier Shelf Expiration Date Model / Serial / Lot [employer] [id number] 60mm Modular Cluster Hole Hip Cup Acetabular Trabecular Metal - S0 - [id number] Implanted:Qty: 1 on 10/05/2021 by Nick Post MD at [facility] Other - see comments Left: Hip [employer] [id number] 04/24/2023 [id number] / 0 / [id number] [employer] [id number] Trilogy 60mm 28mm 10.3mm Primary Modular Cup Liner Hip Standard - S0 - [id number] Implanted:Qty: 1 on 10/05/2021 by Nick Post MD at [facility] Other - see comments Left: Hip [employer] [id number] 04/24/2023 [id number] / 0 / [id number] [employer] [id number] Trilogy 6.5mm 35mm Self Tap Screw Bone - S0 - [id number] Implanted:Qty: 1 on 10/05/2021 by Nick Post MD at [facility] Screw Left: Hip [employer] [id number] 07/31/2031 [id number] / 0 / [id number] [employer] [id number] Trilogy 6.5mm 35mm Self Tap Screw Bone - S0 - [id number] Implanted:Qty: 1 on 10/05/2021 by Nick Post MD at [facility] Screw Left: Hip [employer] [id number] 08/24/2029 [id number] / 0 / [id number] [employer] [id number] 28mm Hip +3.5mm [place] Head Femoral Cocr - [id number] Implanted:Qty: 1 on 10/05/2021 by Nick Post MD at [facility] Left: Hip [employer] [id number] 12/17/2030 [id number] / / [id number] [employer] [id number] 15mm 160mm Primary Press Fit Hip /14 43mm Oblique Straight Stem - [id number] Implanted:Qty: 1 on 10/05/2021 by Nick Post MD at [facility] Left: Hip [employer] [id number] 02/22/2030 [id number] / / [id number] Insurance MEDICARE [facility] MEDICARE MEDICARE [facility] MEDICARE [facility] Advance Directives For more information, please contact: [phone] Documents on File Type Date Recorded Patient Trash Man Expl anation ADVANCE DIRECTIVE 10/12/2021 9:16 AM POLS T - Phys Order for PT Preferences ADVANCE DIRECTIVE 10/05/2021 11:42 AM Pow er of Assignment Editor-Medical ADVANCE DIRECTIVE 02/02/2020 12:00 AM TIMOTHY NG WILL * Full Code (Latest Code Status on File) Date Activated Date Inactivated Comments 10/10/2021 5:11 PM 11/28/2021 5:59 PM * Full Code Date Activated Date Inactivated Comments 10/05/2021 6:37 PM 10/10/2021 4:33 PM Care Teams Network Support Relationship Specialty Start Date End Date Linn Mas MD [address] [facility] [address] [place] [address] PCP - General 03/13/18
--- OUTSIDE RECORDS SUMMARY | 2025-05-03 11:07 | XMS_ITS ---
Author Name Auto Generated, Auto Generated Organization [facility] Address [address] [place] [address] Phone [phone] Care Team Providers Care Critical Care Physician Name Role Phone Maxwell Lucio Unavailable [phone] Functional Status No Results Mental Status No Results Allergies and Intolerances Name Onset Date Reaction Severity duloxetine (Allergy) SatSep 26 02:08:00 EDT 202 3 atorvastatin (Allergy) SatSep 26 02:08:00 EDT 2 023 Encounters Program Name Primary Diagnosis Admission Date/Time Dis charge Date/Time Assisted Living Area Hypertensive heart disease with heart failure SatOct 21 08:30:00 EST 2022 [facility] SatSep 03 20:00:00 EDT 2023 [facility] Oct 24 18:59:00 EST 2023 Immunizations Name Dates Status influenza, trivalent, adjuvanted SatSep 03 01:0 0:00 EDT 2023 Completed Medications Medication Directions Start Date End Date lubiprostone 24 mcg capsule 1 cap CAPSUL E Oral 2 Times Daily Indication: constipation MERCHANDISING CONSULTANT supervision X1, X4 SatApril 20 01:00:00 EDT 2024 lactulose 10 gram/15 mL oral solution 30ml SOLUTION, ORAL Oral 1 Time Daily Indication: constipation MERCHANDISING CONSULTANT supervision X1 SatApril 20 01:00:00 EDT 2024 simethicone 125 mg chewable tablet 125 mg 1 tab Oral 4 Times Daily Indication: excessive Gas/bloating MERCHANDISING CONSULTANT supervision x1 x2 x3 x4 SatApril 07 01:00:00 EDT 2024 lubiprostone 24 mcg capsule 1 cap CAPSUL E Oral 2 Times Daily Indication: constipation MERCHANDISING CONSULTANT supervision X1, X4 SatApril 01 01:00:00 EDT 2024April 07 07:34:00 EDT 2024 lactulose 10 gram/15 mL oral solution 30ml SOLUTION, ORAL Oral 1 Time Daily Indication: constipation MERCHANDISING CONSULTANT supervision X1 SatMarch 31 01:00:00 EDT 2024April 07 07:34:00 EDT 2024 Linzess 290 mcg capsule 1 cap CAPSULE Or al 1 Time Daily Indication: constipation MERCHANDISING CONSULTANT Supervision x1Per Joy Crooki SatApril 08 01:00:00 EDT 2024April 06 07:03:00 EDT 2024 Linzess 145 mcg capsule 2 caps CAPSULE O ral 1 Time Daily for 14 Days Indication: constipation MERCHANDISING CONSULTANT Supervision x1Per Joy Crooki SatMarch 25 01:00:00 EDT 2024April 06 09:49:00 EDT 2024 Gas Relief (simethicone) 250 mg capsule 1 CAPSULE Oral 2 Times Daily Indication: excessive flatulence MERCHANDISING CONSULTANT supervision X1, X4 SatMar 19 01:00:00 EDT 2024April 07 07:34:00 EDT 2024 polyethylene glycoL 3350 17 gram oral powder packet 17 gram POWDER IN PACKET (EA) Oral PRN 1 Time Daily Indication: constipation SatFeb 24 14:20:00 EDT 2024 simethicone 125 mg chewable tablet 1 tablet TABLET,CHEWABLE Oral 4 Times Daily Indication: excessive flatulence MERCHANDISING CONSULTANT supervision x1 x2, x3, x4 Okay to keep at bedside SatFeb 24 14:21:00 EDT 2024Mar 19 02:20:00 EDT 2024 Linzess 145 mcg capsule 1 cap CAPSULE Or al 1 Time Daily Indication: constipation MERCHANDISING CONSULTANT Supervision x1Per Joy Crooki SatFeb 24 01:00:00 EDT 2024Mar 24 18:38:00 EDT 2024 dicyclomine 10 mg capsule 1 capsule CAPS ULE Oral 3 Times Daily for 20 Days Indication: Irritable bowel syndrome MERCHANDISING CONSULTANT supervision x1, x2, x4 SatFeb 16 01:00:00 EDT 2024Feb 24 14:23:00 EDT 2024 dicyclomine 10 mg capsule 1 capsule CAPS ULE Oral 3 Times Daily for 7 Days Indication: Irritable bowel syndrome MERCHANDISING CONSULTANT supervision x1, x2, x4 SatFeb 09 01:00:00 EDT 2024Feb 16 00:59:00 EDT 2024 dicyclomine 10 mg capsule 1 capsule CAPS ULE Oral 3 Times Daily for 28 Days Indication: Irritable bowel syndrome MERCHANDISING CONSULTANT supervision x1, x2, x4 SatFeb 04 01:00:00 [...] 2 Times Daily for 14 Days Indication: MERCHANDISING CONSULTANT supervision x1 x4 congestion SatDec 07 01:00:00 [...] Oral 1 Time Weekly Indication: Vitamin deficiency MERCHANDISING CONSULTANT supervision x1 on MondaysOct 19 01:00:00 EST 2023 magnesium 400 mg (as magnesium oxide) tablet 1 tablet TABLET Oral 1 Time Daily Indication: supplement MERCHANDISING CONSULTANT supervision x1 SatSep 05 13:21:00 EDT 2023 Fluad Triv 2023-25(65y up)(PF) 45 mcg (15 mcg x 3)/0.5 mL IM syringe 1 SYRINGE (ML) Intramuscular 1 Time Daily for 1 Day Indication: Vaccine Sonia Sep 03 01:00:00 EDT 2023Sep 04 00:59:00 EDT 2023 Acidophilus capsule 1 cap CAPSULE Oral 1 Time Daily Indication: Probiotic MERCHANDISING CONSULTANT supervision x 1 SatAug 31 01:00:00 EDT 2023 cyanocobalamin (vitamin B-12) 2,500 mcg tablet 1 tablet TABLET Oral 1 Time Daily Indication: supplement MERCHANDISING CONSULTANT supervision x1 SatSep 01 09:00:00 EDT 2023 Eliquis 5 mg tablet 1 tablet TABLET Oral 2 Times Daily Indication: blood thinner MERCHANDISING CONSULTANT supervision x1, x4 SatAug 31 15:00:00 EDT 2023 magnesium 400 mg (as magnesium oxide) tablet 1 tablet TABLET Oral 1 Time Daily Indication: supplement MERCHANDISING CONSULTANT supervision x4 SatSep 01 01:00:00 EDT 2023Sep 05 13:22:00 EDT 2023 senna 8.6 mg tablet 1 tablet TABLET Oral PRN Hour Of Sleep Indication: Constipation SatSep 01 01:00:00 EDT 2023Feb 24 14:23:00 EDT 2024 Vitamin B-2 100 mg tablet 3 tablets TABL ET Oral 1 Time Daily Indication: supplement MERCHANDISING CONSULTANT supervision x1 SatSep 01 01:00:00 EDT 2023 simethicone 125 mg chewable tablet 1 tablet TABLET,CHEWABLE Oral 2 Times Daily Indication: excessive flatulence MERCHANDISING CONSULTANT supervision x2, x4 Okay to keep at bedside SatAug 31 14:31:00 EDT 2023Feb 24 14:23:00 EDT 2024 Blood Pressure Kit 1 KIT Other 2 Times Monthly Indication: Vital signs MERCHANDISING CONSULTANT to obtain. SatAug 31 14:32:00 EDT 2023 melatonin 5 mg tablet 1 tab TABLET Oral PRN (Max 1 Doses) Indication: may have an additional 5mg dose daily PRN insomnia. SatAug 31 14:32:00 EDT 2023 Deep Sea Nasal 0.65 % spray aerosol 1 spray AEROSOL, SPRAY (ML) Intranasal - Both Nostrils PRN Indication: Nasal Dryness Saline Nasal [place] at bedside 1 spray to each nostril to self administer PRN SatAug 31 14:33:00 EDT 2023 T.E.D. Anti-Embolism Stocking 1 pair EACH Other 2 Times Daily Indication: edema MERCHANDISING CONSULTANT to apply KALIE hose in the AM and take off in the PM. SatAug 31 14:33:00 EDT 2023 acetaminophen ER 650 mg tablet,extended release 1 tablet TABLET, EXTENDED RELEASE Oral 2 Times Daily Indication: knee pain MERCHANDISING CONSULTANT supervision x1, x4 SatAug 31 14:33:00 EDT 2023 furosemide 40 mg tablet 1 tablet TABLET Oral 1 Time Daily Indication: [place] supervision x1 SatSep 01 01:00:00 EDT 2023 Stool Softener 100 mg tablet 1 tab TABLE T Oral 1 Time Daily Indication: constipation MERCHANDISING CONSULTANT Supervision x1 SatSep 01 01:00:00 EDT 2023Feb 24 14:23:00 EDT 2024 polyethylene glycoL 3350 17 gram oral powder packet 17 gram POWDER IN PACKET (EA) Oral 1 Time Daily Indication: constipation MERCHANDISING CONSULTANT Supervision x1 SatSep 01 01:00:00 EDT 2023Feb 24 14:23:00 EDT 2024 metOLazone 5 mg tablet 1 tab TABLET Oral 1 Time Daily Indication: fluid retention MERCHANDISING CONSULTANT supervision x 1 SatSep 01 01:00:00 EDT 2023 meloxicam 7.5 mg tablet 1 tab TABLET Ora l PRN Every 24 Hours Indication: pain MERCHANDISING CONSULTANT Supervision x1 SatSep 01 01:00:00 EDT 2023 potassium chloride ER 20 mEq tablet,extended release(part/cryst) 4 tabs TABLET, EXT RELEASE, PARTICLES/CRYSTALS Oral 1 Time Daily Indication: hypokalemia MERCHANDISING CONSULTANT supervision x14 tabs= 80mEq SatSep 01 01:00:00 [...] CAPSULE Oral 1 Time Daily Indication: Probiotic MERCHANDISING CONSULTANT supervision x 1 SatJul 03 01:00:00 EDT 2023Aug 31 14:44:00 EDT 2023 potassium chloride ER 20 mEq tablet,extended release(part/cryst) 4 tabs TABLET, EXT RELEASE, PARTICLES/CRYSTALS Oral 1 Time Daily Indication: hypokalemia MERCHANDISING CONSULTANT supervision x14 tabs= 80mEq SatJul 01 01:00:00 EDT 2023Aug 31 14:44:00 EDT 2023 meloxicam 7.5 mg tablet 1 tab TABLET Ora l PRN Every 24 Hours Indication: pain MERCHANDISING CONSULTANT Supervision x1 SatJun 25 13:17:00 EDT 2023Aug 31 14:44:00 EDT 2023 potassium chloride ER 20 mEq tablet,extended release(part/cryst) 4 tabs TABLET, EXT RELEASE, PARTICLES/CRYSTALS Oral 1 Time Daily Indication: hypokalemia MERCHANDISING CONSULTANT supervision x14 tabs= 80mEq SatMay 27 01:00:00 EDT 2023Jun 25 13:14:00 EDT 2023 potassium chloride ER 20 mEq tablet,extended release(part/cryst) 2 TABLET, EXT RELEASE, PARTICLES/CRYSTALS Oral 1 Time Daily Indication: hypokalemia MERCHANDISING CONSULTANT supervision x1 SatMay 23 07:00:00 EDT 2023May 26 20:04:00 EDT 2023 metOLazone 5 mg tablet 1 tab TABLET Oral 1 Time Daily Indication: fluid retention MERCHANDISING CONSULTANT supervision x 1 SatMay 12 01:00:00 EDT 2023Aug 31 14:44:00 EDT 2023 predniSONE 20 mg tablet 1.5 tabs TABLET Oral 1 Time Daily for 5 Days Indication: Left knee pain MERCHANDISING CONSULTANT supervision x130 mg Prednisone x 5 days [...] Oral 2 Times Daily Indication: excessive flatulence MERCHANDISING CONSULTANT supervision x2, x4 SatApril 16 11:00:00 EDT 2023Aug 31 14:44:00 EDT 2023 meloxicam 7.5 mg tablet 1 tab TABLET Ora l 1 Time Daily Indication: pain MERCHANDISING CONSULTANT Supervision x1 SatApril 10 01:00:00 EDT 2023Jun 25 13:18:00 EDT 2023 Stool Softener 100 mg tablet 1 tab TABLE T Oral 1 Time Daily Indication: constipation MERCHANDISING CONSULTANT Supervision x1 SatMarch 27 01:00:00 EDT 2023Aug 31 14:44:00 EDT 2023 polyethylene glycoL 3350 17 gram oral powder packet 17 gram POWDER IN PACKET (EA) Oral 1 Time Daily Indication: constipation MERCHANDISING CONSULTANT Supervision x1 SatMarch 27 01:00:00 EDT 2023Aug [...] @ Sonia Feb 26 17:00:00 EDT 2023 [facility] Jun 25 13:18:00 EDT 2023 acetaminophen ER 650 mg tablet,extended release 1 tablet TABLET, EXTENDED RELEASE Oral 2 Times Daily Indication: knee pain MERCHANDISING CONSULTANT supervision x1, x4 SatFeb 27 01:00:00 EDT 2023Aug 31 14:44:00 EDT 2023 T.E.D. Anti-Embolism Stocking 1 pair EACH Other 2 Times Daily Indication: edema MERCHANDISING CONSULTANT to apply KALIE hose in the AM and take off in the PM. SatFeb 14 01:00:00 EDT 2023Aug 31 14:44:00 EDT 2023 gabapentin 100 mg capsule 1 capsule CAPS ULE Oral 1 Time Daily for 4 Days Indication: neuropathy MERCHANDISING CONSULTANT supervision x4 SatFeb 13 01:00:00 EDT 2023Feb 17 00:59:00 EDT 2023 gabapentin 100 mg capsule 2 capsules CAP CYNTHIA Oral 1 Time Daily for 4 Days Indication: neuropathy MERCHANDISING CONSULTANT supervision x4 2 [id number] mg total SatFeb 17 01:00:00 EDT 2023Feb 20 03:16:00 EDT 2023 gabapentin 300 mg capsule 1 capsule CAPS ULE Oral 1 Time Daily Indication: neuropathy MERCHANDISING CONSULTANT supervision x4 SatFeb 21 01:00:00 EDT 2023Feb 20 03:16:00 EDT 2023 ZyrTEC-D 5 mg-120 mg tablet,extended release 1 TABLET, EXTENDED RELEASE 12 HR Oral 1 Time Daily Indication: congestion-nasal MERCHANDISING CONSULTANT supervision x1 SatFeb 06 01:00:00 EDT 2023Feb 26 19:38:00 EDT 2023 omeprazole 20 mg tablet,delayed release 1 TABLET, DELAYED RELEASE (ENTERIC COATED) Oral 1 Time Daily Indication: acid reflex MERCHANDISING CONSULTANT to supervise SatFeb 06 01:00:00 EDT 2023Jun [...] 1 tablet po 4 times daily for dizziness.MERCHANDISING CONSULTANT Admin for x1 x2 x3 x4 SatJan 18 07:00:00 2023Feb 06 18:10:00 EDT 2023 cetirizine 10 mg tablet 1 tablet TABLET Oral 1 Time Daily Indication: For; Nasal Congestion. Give 1 tablet po once daily for nasal congestion.MERCHANDISING CONSULTANT Admin x1 Sat Jan 18 07:00:00 EST 2023Feb 08 11:03:00 EDT 2023 Deep Sea Nasal 0.65 % spray aerosol 1 spray AEROSOL, SPRAY (ML) Intranasal - Both Nostrils PRN Indication: Nasal Dryness Saline Nasal [place] at bedside 1 spray to each nostril to self administer PRN Sat Jan 18 11:36:00 EST 2023Aug 31 14:44:00 EDT 2023 melatonin 5 mg tablet 1 tab TABLET Oral Hour Of Sleep Indication: Insomnia MERCHANDISING CONSULTANT supervision x4 Hour of sleep SatDec 26 13:11:00 EST 2023Jan 27 23:48:00 EST 2023 melatonin 5 mg tablet 1 tab TABLET Oral PRN (Max 1 Doses) Indication: may have an additional 5mg dose daily PRN insomnia. SatDec 26 20:00:00 EST 2023Aug 31 14:44:00 EDT 2023 predniSONE 20 mg tablet 1 tab TABLET Ora l 1 Time Daily for 5 Days Indication: eustachian tube [id number] +10mg =30mg totalCNA Supervision x1 Stock Dealer SatDec 27 01:00:00 EST 2023Jan 01 00:59:00 EST 2023 predniSONE 10 mg tablet 1 tab TABLET Ora l 1 Time Daily for 5 Days Indication: eustachian tube [id number] +10mg =30mg totalCNA Supervision x1 Stock Dealer SatDec 27 01:00:00 EST 2023Jan 01 00:59:00 [...] Times Daily for 7 Days Indication: Sinusitis MERCHANDISING CONSULTANT Supervision x1 x4 SatDec 21 01:00:00 EST 2023Dec 28 00:59:00 EST 2023 ramelteon 8 mg tablet 1 tab TABLET Oral PRN Hour Of Sleep Indication: insomnia SatDec 21 01:00:00 EST 2023Dec 26 13:12:00 EST 2023 amiodarone 200 mg tablet 1 tablet TABLET Oral 1 Time Daily Indication: Antiarrhythmic MERCHANDISING CONSULTANT supervision x4 SatDec 13 01:00:00 EST 2023Dec [...] Times Daily for 7 Days Indication: URI MERCHANDISING CONSULTANT Supervision X1 x4 SatNov 28 01:00:00 EST 2023Dec 05 00:59:00 EST 2023 escitalopram 10 mg tablet 1 tab TABLET O ral 1 Time Daily Indication: antidepressant MERCHANDISING CONSULTANT supervision x1 SatNov 12 01:00:00 EST 2022Dec [...] CAPSULE Oral 2 Times Daily Indication: constipation MERCHANDISING CONSULTANT supervision x1, x4 SatOct 21 15:00:00 2022Nov 11 18:11:00 EST 2022 polyethylene glycoL 3350 (bulk) powder 17 gram POWDER (GRAM) Oral 2 Times Daily Indication: constipation MERCHANDISING CONSULTANT supervision x1, x4 SatOct 21 15:00:00 EST 2022Nov 11 18:11:00 EST 2022 acetaminophen 500 mg tablet 1 tablet TAB LET Oral 2 Times Daily Indication: pain Do not exceed 3GM/day. MERCHANDISING CONSULTANT supervision x1, x4 SatOct 21 15:00:00 EST 2022Nov 11 18:11:00 EST 2022 cyanocobalamin (vitamin B-12) 2,500 mcg tablet 1 tablet TABLET Oral 1 Time Daily Indication: supplement MERCHANDISING CONSULTANT supervision x1 SatOct 21 15:00:00 EST 2022Aug 31 14:31:00 EDT 2023 Eliquis 5 mg tablet 1 tablet TABLET Oral 2 Times Daily Indication: blood thinner MERCHANDISING CONSULTANT supervision x1, x4 SatOct 21 15:00:00 EST 2022Aug 31 14:31:00 EDT 2023 gabapentin 300 mg capsule 1 capsule CAPS ULE Oral 1 Time Daily Indication: nerve pain MERCHANDISING CONSULTANT supervision x4 SatOct 21 15:00:00 EST 2022Dec 20 16:57:00 EST 2023 magnesium 400 mg (as magnesium oxide) tablet 1 tablet TABLET Oral 1 Time Daily Indication: supplement MERCHANDISING CONSULTANT supervision x4 SatOct 21 15:00:00 EST 2022Aug 31 14:31:00 EDT 2023 rosuvastatin 20 mg tablet 1 tablet TABLE T Oral 1 Time Daily Indication: cholesterol MERCHANDISING CONSULTANT supervision x4 SatOct 21 15:00:00 EST 2022Jan 13 13:02:00 EST 2023 senna 8.6 mg tablet 1 tablet TABLET Oral PRN Hour Of Sleep Indication: Constipation SatOct 21 15:00:00 EST 2022Aug 31 14:31:00 EDT 2023 amiodarone 200 mg tablet 1 tablet TABLET Oral 1 Time Daily Indication: Antiarrhythmic MERCHANDISING CONSULTANT supervision x1 SatOct 21 15:00:00 EST 2022Dec 13 01:40:00 EST 2023 riboflavin (vitamin B2) 100 mg tablet 3 tablets TABLET Oral 1 Time Daily Indication: supplement MERCHANDISING CONSULTANT supervision x1 SatOct 21 15:00:00 EST 2022Aug [...] RELEASE Oral 1 Time Daily Indication: replacement MERCHANDISING CONSULTANT supervision x1 SatOct 21 15:00:00 EST 2022 Sat May 23 07:30:00 EDT 2023 Blood Pressure Kit 1 KIT Other 2 Times Monthly Indication: Vital signs MERCHANDISING CONSULTANT to obtain. SatOct 21 15:00:00 EST 2022Aug 31 14:44:00 EDT 2023 Blood Pressure Cuff 1 EACH Other 1 Time Daily for 14 Days Indication: Blood pressure MERCHANDISING CONSULTANT to obtain SatOct 22 01:00:00 EST 2022Nov [...] 8.6 mg tablet 1 TAB TABLET Oral OH N Hour Of Sleep Indication: CONSTIPATON SatSep 25 20:30:00 EDT 2022Oct 21 01:00:00 EST 2022 Vitamin B-12 100 mcg tablet 3 TABS TABLE T Oral 1 Time Daily Indication: supplement 3 [id number] MG SatSep 25 20:30:00 EDT 2022Sep 26 [...] 2022 * End Date: * Text: * long term care pharmacist (current) use of anticoagulants* Code: * Start Date: SatSep 25 00:00:00 EDT 2022 * End Date: * Text: * [facility] (current) use of opiate analgesic* Code: * [...] 4:22 EDT 2025 Respiratory rate 18.00 /min [facility] Mar 11 11:1 4:22 EDT 2024 Systolic Blood Pressure 105.00 mm[Hg] [facility] Feb 25 14:20:51 EDT 2024 Diastolic Blood Pressure 65.00 mm[Hg] [facility] Feb 25 14:20:51 EDT 2024 Body weight 198.80 [lb_av] [facility] Feb 25 14:20 :51 EDT 2024 Heart Rate 100.00 /min [facility] Feb 25 14:20 :51 EDT 2024 Body temperature 97.80 [degF] [facility] Feb 25 14:2 0:51 EDT 2024 Respiratory rate 18.00 /min [facility] Feb 25 14:2 0:51 EDT 2024 Systolic [...] 4:26 EST 2024 Body weight 207.40 [lb_av] [facility] Jan 21 16:15 :32 EST 2024 Systolic [...] :21 EDT 2023 Heart Rate 78.00 /min [facility] Sep 10 14:18 :21 EDT 2023 Body temperature 98.10 [degF] [facility] Sep 10 14:1 8:21 EDT 2023 Respiratory rate 18.00 /min [facility] Sep 10 14:1 8:21 EDT 2023 Body [...] EDT 2023 Systolic Blood Pressure 123.00 mm[Hg] [facility] Aug 27 14:50:20 EDT 2023 Diastolic Blood Pressure 70.00 mm[Hg] [facility] Aug 27 14:50:20 EDT 2023 Body weight 207.20 [lb_av] [facility] Aug 27 14:50 :20 EDT 2023 Heart Rate 82.00 /min [facility] Aug 27 14:50 :20 EDT 2023 Body temperature 98.40 [degF] [facility] Aug 27 14:5 0:20 EDT 2023 Respiratory rate 18.00 /min [facility] Aug 27 14:5 0:20 EDT 2023 Systolic Blood Pressure 115.00 mm[Hg] e Sep 17 18:00:40 EDT 2023 Diastolic Blood Pressure 72.00 mm[Hg] [facility] 17 18:00:40 EDT 2023 Body weight 210.20 [lb_av] [facility] 17 18:00 :40 EDT 2023 Heart Rate 86.00 /min [facility] 17 18:00 :40 EDT 2023 Body temperature 98.20 [degF] [facility] 17 18:0 0:40 EDT 2023 Respiratory rate 20.00 /min [facility] 17 18:0 0:40 EDT 2023 Systolic Blood Pressure 100.00 mm[Hg] [facility] 03 18:07:20 EDT 2023 Diastolic Blood Pressure 69.00 mm[Hg] [facility] 03 18:07:20 EDT 2023 Body weight 210.20 [lb_av] [facility] 03 18:07 :20 EDT 2023 Heart Rate 133.00 /min [facility] 03 18:07 :20 EDT 2023 Body temperature 97.70 [degF] [facility] 03 18:0 7:20 EDT 2023 Respiratory rate 20.00 /min [facility] 18:0 7:20 EDT 2023 Systolic Blood Pressure 95.00 mm[Hg] [facility] Jul 11 11:49:15 EDT 2023 Diastolic Blood Pressure 65.00 mm[Hg] [facility] Jul 11 11:49:15 EDT 2023 Body weight 204.60 [lb_av] [facility] Jul 11 11:49 :15 EDT 2023 Heart Rate 106.00 /min [facility] Jul 11 11:49 :15 EDT 2023 Body temperature 98.10 [degF] [facility] Jul 11 11:4 9:15 EDT 2023 Respiratory rate 18.00 /min [facility] Jul 11 11:4 9:15 EDT 2023 Systolic Blood Pressure 105.00 mm[Hg] [facility] Jun 27 12:52:50 EDT 2023 Diastolic Blood Pressure 71.00 mm[Hg] [facility] Jun 27 12:52:50 EDT 2023 Body weight 204.60 [lb_av] [facility] Jun 27 12:52 :50 EDT 2023 Heart Rate 100.00 /min [facility] Jun 27 12:52 :50 EDT 2023 Body temperature 98.10 [degF] [facility] Jun 27 12:5 2:50 EDT 2023 Respiratory rate 18.00 /min [facility] Jun 27 12:5 2:50 EDT 2023 Systolic [...]
--- OUTSIDE RECORDS SUMMARY | 2025-05-03 11:07 | XMS_ITS | Encounter Summary ---
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 Historical Provider [facility] CASIMIRO ARCEO Final Result documented in this encounter Visit Diagnoses Not on filedocumented in this encounter Additional Health Concerns Infection Onset Date Last Indicated Resolved Time COVID: Suspected 11/06/2021 11/06/2021 11/06/2021 1:29 PM JOINERY PATTERNMAKER documented as of this encounter Care Teams Bed Bug Exterminator Relationship Specialty Start Date End Date Linn Mas MD [address] [place] [address] PCP - General 03/13/18 documented as of this encounter
[2025-05-03] MEDS: SODIUM CHLORIDE 0.9% IV 1,000 ML 999 ML IV CONT (11:13)
--- NOTE | 2025-05-03 11:13 | ED_ITS ---
HPI - Dizziness General Chief Complaint: Dizziness Stated Complaint: dizzy Time Seen by Provider: 05/03/25 10:15 History of Present Illness HPI Narrative: Patient is a 85-year-old male who presents to the ER without dizziness. He reports he was at his gastroenterology appointment when he started experiencing severe dizziness. Patient reports the dizziness has been going on for ?months but today it was so bad that he felt as though he was going to fall out of his wheelchair. He endorses a history of AFib and is on a blood thinner. Patient reports when he moves the room is ?spinning and he is lightheaded. He denies any nausea, but endorses a daily headache for which he takes Tylenol. Patient denies any chest pain, shortness a breath, recent fevers. He also endorses daily abdominal pain, which alternately leads to diarrhea and constipation. Patient also endorses significant bilateral hip pain. He had a hip replacement on the left side but has not had any surgical interventions on his right hip. Related Data Home Medications ?Medication ?Instructions ?Recorded ?Confirmed ?Last Taken ?Type Acidophilus 1 cap PO DAILY 01/20/25 05/03/25 01/26/25 History acetaminophen 650 mg 650 mg PO Q12H PRN pain 01/20/25 05/03/25 Unknown History tablet,extended release apixaban 5 mg tablet (Eliquis) 5 mg PO Q12H 01/20/25 05/03/25 01/23/25 History cyanocobalamin (vitamin B-12) 2,500 mcg PO DAILY 01/20/25 05/03/25 01/26/25 History 2,500 mcg sublingual lozenge ergocalciferol (vitamin D2) 1,250 1,250 mcg PO WEEKLY 01/20/25 05/03/25 01/22/25 History mcg (50,000 unit) capsule furosemide 40 mg tablet 40 mg PO DAILY 01/20/25 05/03/25 01/26/25 History loteprednol etabonate 0.5 % eye 1 drp EACH EYE TID 01/20/25 05/03/25 01/26/25 History drops,suspension magnesium oxide 400 mg PO DAILY 01/20/25 05/03/25 01/26/25 History melatonin 5 mg tablet 5 mg PO HS PRN sleep 01/20/25 05/03/25 Unknown History meloxicam 7.5 mg tablet 7.5 mg PO DAILY PRN pain 01/20/25 05/03/25 Unknown History metolazone 5 mg tablet 5 mg PO DAILY 01/20/25 05/03/25 01/26/25 History potassium chloride 20 mEq 80 meq PO DAILY 01/20/25 05/03/25 01/26/25 History tablet,extended release(part/cryst) riboflavin (vitamin B2) 100 mg 300 mg PO DAILY 01/20/25 05/03/25 01/26/25 History tablet sodium chloride 0.65 % nasal spray 1 spray intranasal BID PRN dry 01/20/25 05/03/25 Unknown History aerosol (Deep Sea Nasal) nasal passages lactulose 10 gram/15 mL oral 10 g PO DAILY PRN constipation 05/03/25 05/03/25 Unknown History solution naproxen 500 mg tablet 500 mg PO BID PRN pain 05/03/25 05/03/25 Unknown History polyethylene glycol 3350 17 17 g PO DAILY PRN constipation 05/03/25 05/03/25 Unknown History gram/dose oral powder (Miralax) Allergies Allergy/AdvReac Type Severity Reaction Status Date / Time atorvastatin Allergy Unknown Verified 03/24/25 10:31 duloxetine Allergy Unknown Verified 03/24/25 10:31 [facility] Past Medical History Medical History Chronic diastolic heart failure Prostate cancer Hyperlipidemia Hypertension Paroxysmal A-fib Surgical History Surgical History History of hip replacement Social History Social History Smoking status: Former smoker Tobacco type: cigarettes Smoking end date: 11/25/99 Alcohol intake: former Substance use: never Do You Feel Safe in your Home?: Yes Lack of Transportation: No Lack of Food: Never True Current Housing: I Have Housing Concerned About Future Housing: No Difficulty Paying Gas/Electric Bills: No Difficulty Paying for Meds: No Currently Unemployed: No Education: Associate Degree Difficulty w/ Childcare or Family Care: No Living arrangements: assisted living Spiritual care concerns: No Course Vital Signs Vital signs: Vital Signs Pulse Rate 126 H 05/03/25 10:09 Respiratory Rate 20 05/03/25 10:09 Blood Pressure 115/85 05/03/25 10:09 Pulse Oximetry 98 05/03/25 10:09 Oxygen Delivery Room Air 05/03/25 10:09 Temperature 97.6 F 05/03/25 16:45 Pulse Rate 128 H 05/03/25 18:30 Respiratory Rate 20 05/03/25 16:45 Blood Pressure 99/72 L 05/03/25 16:45 Pulse Oximetry 100 05/03/25 17:32 Oxygen Delivery Room Air 05/03/25 17:32 MDM - Dizziness MDM Narrative Medical decision making narrative: Patient is a 85-year-old male who presents to the ER without dizziness. He reports he was at his gastroenterology appointment when he started experiencing severe dizziness. Patient reports the dizziness has been going on for ?months but today it was so bad that he felt as though he was going to fall out of his wheelchair. He endorses a history of AFib and is on a blood thinner. Patient reports when he moves the room is ?spinning and he is lightheaded. He denies any nausea, but endorses a daily headache for which he takes Tylenol. Patient denies any chest pain, shortness a breath, recent fevers. He also endorses daily abdominal pain, which alternately leads to diarrhea and constipation. Patient also endorses significant bilateral hip pain. He had a hip replacement on the left side but has not had any surgical interventions on his right hip. Labs Ordered: CBC, CMP, TSH, UA, coags, magnesium Imaging Ordered: CT head, chest x-ray Medications Ordered: Potassium chloride IV (x 2), Meclizine PO, 1L NS IV bolus Results: Pt's head CT scan indicates 1. No acute intracranial process. 2. Age-related changes including moderate diffuse volume loss and mild to moderate scattered white matter hypoattenuation consistent with chronic small vessel ischemic disease. Patient's CMP indicates a sodium of 126, potassium of 2.1, chloride of 85, carbon dioxide of 33, BUN of 22, creatinine of 1.49, GFR 45, glucose of 136. His magnesium is 2.9. Patient's CBC and coags indicate no acute abnormalities. His UA indicates no acute abnormalities. Diagnosis: Hypokalemia, dizziness, hyponatremia, atrial fibrillation Patient Education/Shared MDM: Results of lab work and imaging shared with patient and his son. It was advised patient be admitted to the hospital for his low potassium, low sodium, and further evaluation. Patient and his son are in agreement with plan. Spoke with hospitalist, Nghia Preston NP, who agreed to accept pt to the hospital. Pt will be admitted to the IMU. Differential Diagnosis Differential diagnosis: Likely benign paroxysmal positional vertigo, cerebrovascular accident and other (Hypokalemia, hyponatremia, atrial fibrillation) Lab Data Attestation: I reviewed the patient's lab results. 05/03/25 11:13 05/03/25 11:13 Labs: Lab Results 05/03/25 05/03/25 05/03/25 Range/Units 11:12 11:13 11:13 WBC 5.7 (4.5-10.0) K/mm3 RBC 4.47 L (4.6-6.20) M/mm3 Hgb 14.1 (14.0-18.0) g/dL Hct 40.4 L (42.0-52.0) % MCV 90.4 (80-100) fl MCH 31.5 (26-34) pg MCHC 34.9 (32-36) g/dl RDW 13.6 (11.5-14.5) % Plt Count 320 (150-375) k/mm3 MPV 9.1 (7.4-10.4) fl Immature Gran % (Auto) 0.9 H (0-0.5) % Neut % (Auto) 70.9 (45.5-73.1) % Lymph % (Auto) 10.8 L (18.3-44.2) % Arthur % (Auto) 16.0 H (2.6-8.5) % Eos % (Auto) 0.5 (0-4.4) % Baso % (Auto) 0.9 (0.2-1.2) % Lymph # (Auto) 0.61 L (0.9-3.2) K/mm3 Arthur # (Auto) 0.9 H (0.1-0.6) K/mm3 Eos # (Auto) 0.0 (0-0.3) K/mm3 Baso # (Auto) 0.1 (0.0-0.1) K/mm3 Abs Immat Gran (auto) 0.05 H (0.00-0.031) K/mm3 Absolute Neuts (auto) 4.0 (1.3-6.7) K/mm3 Absolute Nucleated RBC 0.000 (0.0-0.012) K/mm3 Nucleated RBC % 0.0 (0.0-0.2) % PT 16.1 H (11.1-14.7) Seconds INR 1.3 APTT 33.9 (22.3-36.8) Seconds Sodium Cancelled 126 L Potassium Cancelled Chloride Carbon Dioxide Anion Gap BUN Creatinine Estim Creat Clear Calc Estimated GFR Glucose POC Capillary Glucose (65-105) mg/dl Calcium Magnesium (1.6-2.3) mg/dL Total Bilirubin AST ALT Alkaline Phosphatase Troponin I 0.032 (0.000-0.034) ng/mL Total Protein Albumin TSH (Reflex) (0.465-4.68) uIU/mL Urine Color (Yellow) Urine Appearance (Clear) Urine pH (5.0-9.0) Ur Specific [place] (1.001-1.035) Urine Protein (Negative) mg/dL Urine Glucose (UA) (Negative) mg/dL Urine Ketones (Negative) mg/dL Ur Blood (Man) (Negative) Urine Nitrate (Negative) Urine Bilirubin (Negative) Urine Urobilinogen (<2.0) mg/dL Leukocyte Esterase Rfl (Negative) JULIO/UL 05/03/25 05/03/25 05/03/25 Range/Units 11:13 11:13 11:13 WBC (4.5-10.0) K/mm3 RBC (4.6-6.20) M/mm3 Hgb (14.0-18.0) g/dL Hct (42.0-52.0) % MCV (80-100) fl MCH (26-34) pg MCHC (32-36) g/dl RDW (11.5-14.5) % Plt Count (150-375) k/mm3 MPV (7.4-10.4) fl Immature Gran % (Auto) (0-0.5) % Neut % (Auto) (45.5-73.1) % Lymph % (Auto) (18.3-44.2) % Arthur % (Auto) (2.6-8.5) % Eos % (Auto) (0-4.4) % Baso % (Auto) (0.2-1.2) % Lymph # (Auto) (0.9-3.2) K/mm3 Arthur # (Auto) (0.1-0.6) K/mm3 Eos # (Auto) (0-0.3) K/mm3 Baso # (Auto) (0.0-0.1) K/mm3 Abs Immat Gran (auto) (0.00-0.031) K/mm3 Absolute Neuts (auto) (1.3-6.7) K/mm3 Absolute Nucleated RBC (0.0-0.012) K/mm3 Nucleated RBC % (0.0-0.2) % PT (11.1-14.7) Seconds INR APTT (22.3-36.8) Seconds Sodium Potassium 2.1 L* Chloride Cancelled 85 L Carbon Dioxide Cancelled 33 H Anion Gap Cancelled BUN Creatinine Estim Creat Clear Calc Estimated GFR Glucose POC Capillary Glucose (65-105) mg/dl Calcium Magnesium (1.6-2.3) mg/dL Total Bilirubin AST ALT Alkaline Phosphatase Troponin I (0.000-0.034) ng/mL Total Protein Albumin TSH (Reflex) (0.465-4.68) uIU/mL Urine Color (Yellow) Urine Appearance (Clear) Urine pH (5.0-9.0) Ur Specific [place] (1.001-1.035) Urine Protein (Negative) mg/dL Urine Glucose (UA) (Negative) mg/dL Urine Ketones (Negative) mg/dL Ur Blood (Man) (Negative) Urine Nitrate (Negative) Urine Bilirubin (Negative) Urine Urobilinogen (<2.0) mg/dL Leukocyte Esterase Rfl (Negative) JULIO/UL 05/03/25 05/03/25 05/03/25 Range/Units 11:13 11:13 11:13 WBC (4.5-10.0) K/mm3 RBC (4.6-6.20) M/mm3 Hgb (14.0-18.0) g/dL Hct (42.0-52.0) % MCV (80-100) fl MCH (26-34) pg MCHC (32-36) g/dl RDW (11.5-14.5) % Plt Count (150-375) k/mm3 MPV (7.4-10.4) fl Immature Gran % (Auto) (0-0.5) % Neut % (Auto) (45.5-73.1) % Lymph % (Auto) (18.3-44.2) % Arthur % (Auto) (2.6-8.5) % Eos % (Auto) (0-4.4) % Baso % (Auto) (0.2-1.2) % Lymph # (Auto) (0.9-3.2) K/mm3 Arthur # (Auto) (0.1-0.6) K/mm3 Eos # (Auto) (0-0.3) K/mm3 Baso # (Auto) (0.0-0.1) K/mm3 Abs Immat Gran (auto) (0.00-0.031) K/mm3 Absolute Neuts (auto) (1.3-6.7) K/mm3 Absolute Nucleated RBC (0.0-0.012) K/mm3 Nucleated RBC % (0.0-0.2) % PT (11.1-14.7) Seconds INR APTT (22.3-36.8) Seconds Sodium Potassium Chloride Carbon Dioxide Anion Gap 8 BUN Cancelled 22 H Creatinine Cancelled 1.49 H Estim Creat Clear Calc Cancelled Estimated GFR Glucose POC Capillary Glucose (65-105) mg/dl Calcium Magnesium (1.6-2.3) mg/dL Total Bilirubin AST ALT Alkaline Phosphatase Troponin I (0.000-0.034) ng/mL Total Protein Albumin TSH (Reflex) (0.465-4.68) uIU/mL Urine Color (Yellow) Urine Appearance (Clear) Urine pH (5.0-9.0) Ur Specific [place] (1.001-1.035) Urine Protein (Negative) mg/dL Urine Glucose (UA) (Negative) mg/dL Urine Ketones (Negative) mg/dL Ur Blood (Man) (Negative) Urine Nitrate (Negative) Urine Bilirubin (Negative) Urine Urobilinogen (<2.0) mg/dL Leukocyte Esterase Rfl (Negative) JULIO/UL 05/03/25 05/03/25 05/03/25 Range/Units 11:13 11:13 11:13 WBC (4.5-10.0) K/mm3 RBC (4.6-6.20) M/mm3 Hgb (14.0-18.0) g/dL Hct (42.0-52.0) % MCV (80-100) fl MCH (26-34) pg MCHC (32-36) g/dl RDW (11.5-14.5) % Plt Count (150-375) k/mm3 MPV (7.4-10.4) fl Immature Gran % (Auto) (0-0.5) % Neut % (Auto) (45.5-73.1) % Lymph % (Auto) (18.3-44.2) % Arthur % (Auto) (2.6-8.5) % Eos % (Auto) (0-4.4) % Baso % (Auto) (0.2-1.2) % Lymph # (Auto) (0.9-3.2) K/mm3 Arthur # (Auto) (0.1-0.6) K/mm3 Eos # (Auto) (0-0.3) K/mm3 Baso # (Auto) (0.0-0.1) K/mm3 Abs Immat Gran (auto) (0.00-0.031) K/mm3 Absolute Neuts (auto) (1.3-6.7) K/mm3 Absolute Nucleated RBC (0.0-0.012) K/mm3 Nucleated RBC % (0.0-0.2) % PT (11.1-14.7) Seconds INR APTT (22.3-36.8) Seconds Sodium Potassium Chloride Carbon Dioxide Anion Gap BUN Creatinine Estim Creat Clear Calc 39 Estimated GFR Cancelled 45 L Glucose Cancelled 136 H POC Capillary Glucose (65-105) mg/dl Calcium Cancelled Magnesium (1.6-2.3) mg/dL Total Bilirubin AST ALT Alkaline Phosphatase Troponin I (0.000-0.034) ng/mL Total Protein Albumin TSH (Reflex) (0.465-4.68) uIU/mL Urine Color (Yellow) Urine Appearance (Clear) Urine pH (5.0-9.0) Ur Specific [place] (1.001-1.035) Urine Protein (Negative) mg/dL Urine Glucose (UA) (Negative) mg/dL Urine Ketones (Negative) mg/dL Ur Blood (Man) (Negative) Urine Nitrate (Negative) Urine Bilirubin (Negative) Urine Urobilinogen (<2.0) mg/dL Leukocyte Esterase Rfl (Negative) JULIO/UL 05/03/25 05/03/25 05/03/25 Range/Units 11:13 11:13 11:13 WBC (4.5-10.0) K/mm3 RBC (4.6-6.20) M/mm3 Hgb (14.0-18.0) g/dL Hct (42.0-52.0) % MCV (80-100) fl MCH (26-34) pg MCHC (32-36) g/dl RDW (11.5-14.5) % Plt Count (150-375) k/mm3 MPV (7.4-10.4) fl Immature Gran % (Auto) (0-0.5) % Neut % (Auto) (45.5-73.1) % Lymph % (Auto) (18.3-44.2) % Arthur % (Auto) (2.6-8.5) % Eos % (Auto) (0-4.4) % Baso % (Auto) (0.2-1.2) % Lymph # (Auto) (0.9-3.2) K/mm3 Arthur # (Auto) (0.1-0.6) K/mm3 Eos # (Auto) (0-0.3) K/mm3 Baso # (Auto) (0.0-0.1) K/mm3 Abs Immat Gran (auto) (0.00-0.031) K/mm3 Absolute Neuts (auto) (1.3-6.7) K/mm3 Absolute Nucleated RBC (0.0-0.012) K/mm3 Nucleated RBC % (0.0-0.2) % PT (11.1-14.7) Seconds INR APTT (22.3-36.8) Seconds Sodium Potassium Chloride Carbon Dioxide Anion Gap BUN Creatinine Estim Creat Clear Calc Estimated GFR Glucose POC Capillary Glucose (65-105) mg/dl Calcium 9.0 Magnesium 2.9 H (1.6-2.3) mg/dL Total Bilirubin Cancelled 0.8 AST Cancelled 30 ALT Cancelled Alkaline Phosphatase Troponin I (0.000-0.034) ng/mL Total Protein Albumin TSH (Reflex) (0.465-4.68) uIU/mL Urine Color (Yellow) Urine Appearance (Clear) Urine pH (5.0-9.0) Ur Specific [place] (1.001-1.035) Urine Protein (Negative) mg/dL Urine Glucose (UA) (Negative) mg/dL Urine Ketones (Negative) mg/dL Ur Blood (Man) (Negative) Urine Nitrate (Negative) Urine Bilirubin (Negative) Urine Urobilinogen (<2.0) mg/dL Leukocyte Esterase Rfl (Negative) JULIO/UL 05/03/25 05/03/25 05/03/25 Range/Units 11:13 11:13 11:13 WBC (4.5-10.0) K/mm3 RBC (4.6-6.20) M/mm3 Hgb (14.0-18.0) g/dL Hct (42.0-52.0) % MCV (80-100) fl MCH (26-34) pg MCHC (32-36) g/dl RDW (11.5-14.5) % Plt Count (150-375) k/mm3 MPV (7.4-10.4) fl Immature Gran % (Auto) (0-0.5) % Neut % (Auto) (45.5-73.1) % Lymph % (Auto) (18.3-44.2) % Arthur % (Auto) (2.6-8.5) % Eos % (Auto) (0-4.4) % Baso % (Auto) (0.2-1.2) % Lymph # (Auto) (0.9-3.2) K/mm3 Arthur # (Auto) (0.1-0.6) K/mm3 Eos # (Auto) (0-0.3) K/mm3 Baso # (Auto) (0.0-0.1) K/mm3 Abs Immat Gran (auto) (0.00-0.031) K/mm3 Absolute Neuts (auto) (1.3-6.7) K/mm3 Absolute Nucleated RBC (0.0-0.012) K/mm3 Nucleated RBC % (0.0-0.2) % PT (11.1-14.7) Seconds INR APTT (22.3-36.8) Seconds Sodium Potassium Chloride Carbon Dioxide Anion Gap BUN Creatinine Estim Creat Clear Calc Estimated GFR Glucose POC Capillary Glucose (65-105) mg/dl Calcium Magnesium (1.6-2.3) mg/dL Total Bilirubin AST ALT 14 Alkaline Phosphatase Cancelled 74 Troponin I (0.000-0.034) ng/mL Total Protein Cancelled 7.1 Albumin Cancelled TSH (Reflex) (0.465-4.68) uIU/mL Urine Color (Yellow) Urine Appearance (Clear) Urine pH (5.0-9.0) Ur Specific [place] (1.001-1.035) Urine Protein (Negative) mg/dL Urine Glucose (UA) (Negative) mg/dL Urine Ketones (Negative) mg/dL Ur Blood (Man) (Negative) Urine Nitrate (Negative) Urine Bilirubin (Negative) Urine Urobilinogen (<2.0) mg/dL Leukocyte Esterase Rfl (Negative) JULIO/UL 05/03/25 05/03/25 05/03/25 Range/Units 11:13 11:47 11:51 WBC (4.5-10.0) K/mm3 RBC (4.6-6.20) M/mm3 Hgb (14.0-18.0) g/dL Hct (42.0-52.0) % MCV (80-100) fl MCH (26-34) pg MCHC (32-36) g/dl RDW (11.5-14.5) % Plt Count (150-375) k/mm3 MPV (7.4-10.4) fl Immature Gran % (Auto) (0-0.5) % Neut % (Auto) (45.5-73.1) % Lymph % (Auto) (18.3-44.2) % Arthur % (Auto) (2.6-8.5) % Eos % (Auto) (0-4.4) % Baso % (Auto) (0.2-1.2) % Lymph # (Auto) (0.9-3.2) K/mm3 Arthur # (Auto) (0.1-0.6) K/mm3 Eos # (Auto) (0-0.3) K/mm3 Baso # (Auto) (0.0-0.1) K/mm3 Abs Immat Gran (auto) (0.00-0.031) K/mm3 Absolute Neuts (auto) (1.3-6.7) K/mm3 Absolute Nucleated RBC (0.0-0.012) K/mm3 Nucleated RBC % (0.0-0.2) % PT (11.1-14.7) Seconds INR APTT (22.3-36.8) Seconds Sodium Potassium Chloride Carbon Dioxide Anion Gap BUN Creatinine Estim Creat Clear Calc Estimated GFR Glucose POC Capillary Glucose 118 H (65-105) mg/dl Calcium Magnesium (1.6-2.3) mg/dL Total Bilirubin AST ALT Alkaline Phosphatase Troponin I (0.000-0.034) ng/mL Total Protein Albumin 4.1 TSH (Reflex) 1.710 (0.465-4.68) uIU/mL Urine Color Yellow (Yellow) Urine Appearance Clear (Clear) Urine pH 8.0 (5.0-9.0) Ur Specific [place] 1.006 (1.001-1.035) Urine Protein Negative (Negative) mg/dL Urine Glucose (UA) Negative (Negative) mg/dL Urine Ketones Negative (Negative) mg/dL Ur Blood (Man) Negative (Negative) Urine Nitrate Negative (Negative) Urine Bilirubin Negative (Negative) Urine Urobilinogen 0.2 (<2.0) mg/dL Leukocyte Esterase Rfl Negative (Negative) JULIO/UL Imaging Data Attestation: I personally reviewed and interpreted this imaging study as follows: Radiologist's impression: Impressions Head CT 05/03/25 13:10 IMPRESSION: 1. No acute intracranial process. 2. Age-related changes including moderate diffuse volume loss and mild to moderate scattered white matter hypoattenuation consistent with chronic small vessel ischemic disease. Chest X-Ray 05/03/25 13:16 IMPRESSION: 1. No acute cardiopulmonary disease. Discharge Plan Discharge Clinical Impression: Acute hypokalemia, Acute hyponatremia, Atrial fibrillation with RVR, Irregular heart rhythm Patient Disposition: Still a Patient Condition: Guarded Prognosis
[2025-05-03] MEDS: MECLIZINE HCL 12.5 MG TABLET PO (11:18)
[2025-05-03 11:20] LABS: Basophils Absolute Auto 0.1 K/mm3 (0.0-0.1); Basophils Percent Auto 0.9 % (0.2-1.2); Eosinophils Percent Auto 0.5 % (0-4.4); Hematocrit 40.4 % (42.0-52.0); Hemoglobin 14.1 g/dL (14.0-18.0); Immature Granulocyte Absolute 0.05 K/mm3 (0.00-0.031); Immature Granulocyte Percent A 0.9 % (0-0.5); Lymphocytes Absolute Auto 0.61 K/mm3 (0.9-3.2); Lymphocytes Percent Auto 10.8 % (18.3-44.2); Mean Corpuscular HGB Conc 34.9 g/dl (32-36); Mean Corpuscular Hemoglobin 31.5 pg (26-34); Mean Corpuscular Volume 90.4 fl (80-100); Mean Platelet Volume 9.1 fl (7.4-10.4); Monocytes Absolute Auto 0.9 K/mm3 (0.1-0.6); Neutrophils Percent Auto 70.9 % (45.5-73.1); Platelet Count Result 320 k/mm3 (150-375); Red Blood Count 4.47 M/mm3 (4.6-6.20); Red Cell Distribution Width 13.6 % (11.5-14.5); White Blood Count 5.7 K/mm3 (4.5-10.0)
[2025-05-03 11:31] LABS: INR 1.3; Partial Thromboplastin Time 33.9 Seconds (22.3-36.8); Prothrombin Time 16.1 Seconds (11.1-14.7)
--- NOTE | 2025-05-03 11:31 | PC.NURSE ---
assumed care of pt from ANGEL tobias. pt resting on stretcher, visitor at bedside. pt informed we are waiting on lab work and a urine sample, verbalized understanding. no questions at this time
--- OUTSIDE RECORDS SUMMARY | 2025-05-03 11:40 | XMS_ITS ---
Author Name Auto Generated, Auto Generated Organization [facility] Address [address] [place] [address] Phone [phone] Care Team Providers Care Geographic Information Scientist Name Role Phone Maxwell Lucio Unavailable [phone] Functional Status No Results Mental Status [...] [facility] SatSep 03 20:00:00 EDT 2023 [facility] Oct 24 18:59:00 EST 2023 Immunizations Name Dates Status influenza, trivalent, adjuvanted SatSep 03 01:0 0:00 EDT 2023 Completed Medications Medication Directions Start Date End Date lubiprostone 24 mcg capsule 1 cap CAPSUL E Oral 2 Times Daily Indication: constipation TERRAZZO JOURNEYMAN supervision X1, X4 SatApril 20 01:00:00 EDT 2024 lactulose 10 gram/15 mL oral solution 30ml SOLUTION, ORAL Oral 1 Time Daily Indication: constipation TERRAZZO JOURNEYMAN supervision X1 SatApril 20 01:00:00 EDT 2024 simethicone 125 mg chewable tablet 125 mg 1 tab Oral 4 Times Daily Indication: excessive Gas/bloating TERRAZZO JOURNEYMAN supervision x1 x2 x3 x4 SatApril 07 01:00:00 EDT 2024 lubiprostone 24 mcg capsule 1 cap CAPSUL E Oral 2 Times Daily Indication: constipation TERRAZZO JOURNEYMAN supervision X1, X4 SatApril 01 01:00:00 EDT 2024April 07 07:34:00 EDT 2024 lactulose 10 gram/15 mL oral solution 30ml SOLUTION, ORAL Oral 1 Time Daily Indication: constipation TERRAZZO JOURNEYMAN supervision X1 SatMarch 31 01:00:00 EDT 2024April 07 07:34:00 EDT 2024 Linzess 290 mcg capsule 1 cap CAPSULE Or al 1 Time Daily Indication: constipation TERRAZZO JOURNEYMAN Supervision x1Per Joy Crooki SatApril 08 01:00:00 EDT 2024April 06 07:03:00 EDT 2024 Linzess 145 mcg capsule 2 caps CAPSULE O ral 1 Time Daily for 14 Days Indication: constipation TERRAZZO JOURNEYMAN Supervision x1Per Joy Crooki SatMarch 25 01:00:00 EDT 2024April 06 09:49:00 EDT 2024 Gas Relief (simethicone) 250 mg capsule 1 CAPSULE Oral 2 Times Daily Indication: excessive flatulence TERRAZZO JOURNEYMAN supervision X1, X4 SatMar 19 01:00:00 EDT 2024April 07 07:34:00 EDT 2024 polyethylene glycoL 3350 17 gram oral powder packet 17 gram POWDER IN PACKET (EA) Oral PRN 1 Time Daily Indication: constipation SatFeb 24 14:20:00 EDT 2024 simethicone 125 mg chewable tablet 1 tablet TABLET,CHEWABLE Oral 4 Times Daily Indication: excessive flatulence TERRAZZO JOURNEYMAN supervision x1 x2, x3, x4 Okay to keep at bedside SatFeb 24 14:21:00 EDT 2024Mar 19 02:20:00 EDT 2024 Linzess 145 mcg capsule 1 cap CAPSULE Or al 1 Time Daily Indication: constipation TERRAZZO JOURNEYMAN Supervision x1Per Joy Crooki SatFeb 24 01:00:00 EDT 2024Mar 24 18:38:00 EDT 2024 dicyclomine 10 mg capsule 1 capsule CAPS ULE Oral 3 Times Daily for 20 Days Indication: Irritable bowel syndrome TERRAZZO JOURNEYMAN supervision x1, x2, x4 SatFeb 16 01:00:00 EDT 2024Feb 24 14:23:00 EDT 2024 dicyclomine 10 mg capsule 1 capsule CAPS ULE Oral 3 Times Daily for 7 Days Indication: Irritable bowel syndrome TERRAZZO JOURNEYMAN supervision x1, x2, x4 SatFeb 09 01:00:00 EDT 2024Feb 16 00:59:00 EDT 2024 dicyclomine 10 mg capsule 1 capsule CAPS ULE Oral 3 Times Daily for 28 Days Indication: Irritable bowel syndrome TERRAZZO JOURNEYMAN supervision x1, x2, x4 SatFeb 04 01:00:00 [...] 2 Times Daily for 14 Days Indication: TERRAZZO JOURNEYMAN supervision x1 x4 congestion SatDec 07 01:00:00 [...] Oral 1 Time Weekly Indication: Vitamin deficiency TERRAZZO JOURNEYMAN supervision x1 on MondaysOct 19 01:00:00 EST 2023 magnesium 400 mg (as magnesium oxide) tablet 1 tablet TABLET Oral 1 Time Daily Indication: supplement TERRAZZO JOURNEYMAN supervision x1 SatSep 05 13:21:00 EDT 2023 Fluad Triv 2023-25(65y up)(PF) 45 mcg (15 mcg x 3)/0.5 mL IM syringe 1 SYRINGE (ML) Intramuscular 1 Time Daily for 1 Day Indication: Vaccine Sonia Sep 03 01:00:00 EDT 2023Sep 04 00:59:00 EDT 2023 Acidophilus capsule 1 cap CAPSULE Oral 1 Time Daily Indication: Probiotic TERRAZZO JOURNEYMAN supervision x 1 SatAug 31 01:00:00 EDT 2023 cyanocobalamin (vitamin B-12) 2,500 mcg tablet 1 tablet TABLET Oral 1 Time Daily Indication: supplement TERRAZZO JOURNEYMAN supervision x1 SatSep 01 09:00:00 EDT 2023 Eliquis 5 mg tablet 1 tablet TABLET Oral 2 Times Daily Indication: blood thinner TERRAZZO JOURNEYMAN supervision x1, x4 SatAug 31 15:00:00 EDT 2023 magnesium 400 mg (as magnesium oxide) tablet 1 tablet TABLET Oral 1 Time Daily Indication: supplement TERRAZZO JOURNEYMAN supervision x4 SatSep 01 01:00:00 EDT 2023Sep 05 13:22:00 EDT 2023 senna 8.6 mg tablet 1 tablet TABLET Oral PRN Hour Of Sleep Indication: Constipation SatSep 01 01:00:00 EDT 2023Feb 24 14:23:00 EDT 2024 Vitamin B-2 100 mg tablet 3 tablets TABL ET Oral 1 Time Daily Indication: supplement TERRAZZO JOURNEYMAN supervision x1 SatSep 01 01:00:00 EDT 2023 simethicone 125 mg chewable tablet 1 tablet TABLET,CHEWABLE Oral 2 Times Daily Indication: excessive flatulence TERRAZZO JOURNEYMAN supervision x2, x4 Okay to keep at bedside SatAug 31 14:31:00 EDT 2023Feb 24 14:23:00 EDT 2024 Blood Pressure Kit 1 KIT Other 2 Times Monthly Indication: Vital signs TERRAZZO JOURNEYMAN to obtain. SatAug 31 14:32:00 EDT 2023 melatonin 5 mg tablet 1 tab TABLET Oral PRN (Max 1 Doses) Indication: may have an additional 5mg dose daily PRN insomnia. SatAug 31 14:32:00 EDT 2023 Deep Sea Nasal 0.65 % spray aerosol 1 spray AEROSOL, SPRAY (ML) Intranasal - Both Nostrils PRN Indication: Nasal Dryness Saline Nasal [place] at bedside 1 spray to each nostril to self administer PRN SatAug 31 14:33:00 EDT 2023 T.E.D. Anti-Embolism Stocking 1 pair EACH Other 2 Times Daily Indication: edema TERRAZZO JOURNEYMAN to apply KALIE hose in the AM and take off in the PM. SatAug 31 14:33:00 EDT 2023 acetaminophen ER 650 mg tablet,extended release 1 tablet TABLET, EXTENDED RELEASE Oral 2 Times Daily Indication: knee pain TERRAZZO JOURNEYMAN supervision x1, x4 SatAug 31 14:33:00 EDT 2023 furosemide 40 mg tablet 1 tablet TABLET Oral 1 Time Daily Indication: [place] supervision x1 SatSep 01 01:00:00 EDT 2023 Stool Softener 100 mg tablet 1 tab TABLE T Oral 1 Time Daily Indication: constipation TERRAZZO JOURNEYMAN Supervision x1 SatSep 01 01:00:00 EDT 2023Feb 24 14:23:00 EDT 2024 polyethylene glycoL 3350 17 gram oral powder packet 17 gram POWDER IN PACKET (EA) Oral 1 Time Daily Indication: constipation TERRAZZO JOURNEYMAN Supervision x1 SatSep 01 01:00:00 EDT 2023Feb 24 14:23:00 EDT 2024 metOLazone 5 mg tablet 1 tab TABLET Oral 1 Time Daily Indication: fluid retention TERRAZZO JOURNEYMAN supervision x 1 SatSep 01 01:00:00 EDT 2023 meloxicam 7.5 mg tablet 1 tab TABLET Ora l PRN Every 24 Hours Indication: pain TERRAZZO JOURNEYMAN Supervision x1 SatSep 01 01:00:00 EDT 2023 potassium chloride ER 20 mEq tablet,extended release(part/cryst) 4 tabs TABLET, EXT RELEASE, PARTICLES/CRYSTALS Oral 1 Time Daily Indication: hypokalemia TERRAZZO JOURNEYMAN supervision x14 tabs= 80mEq SatSep 01 01:00:00 [...] CAPSULE Oral 1 Time Daily Indication: Probiotic TERRAZZO JOURNEYMAN supervision x 1 SatJul 03 01:00:00 EDT 2023Aug 31 14:44:00 EDT 2023 potassium chloride ER 20 mEq tablet,extended release(part/cryst) 4 tabs TABLET, EXT RELEASE, PARTICLES/CRYSTALS Oral 1 Time Daily Indication: hypokalemia TERRAZZO JOURNEYMAN supervision x14 tabs= 80mEq SatJul 01 01:00:00 EDT 2023Aug 31 14:44:00 EDT 2023 meloxicam 7.5 mg tablet 1 tab TABLET Ora l PRN Every 24 Hours Indication: pain TERRAZZO JOURNEYMAN Supervision x1 SatJun 25 13:17:00 EDT 2023Aug 31 14:44:00 EDT 2023 potassium chloride ER 20 mEq tablet,extended release(part/cryst) 4 tabs TABLET, EXT RELEASE, PARTICLES/CRYSTALS Oral 1 Time Daily Indication: hypokalemia TERRAZZO JOURNEYMAN supervision x14 tabs= 80mEq SatMay 27 01:00:00 EDT 2023Jun 25 13:14:00 EDT 2023 potassium chloride ER 20 mEq tablet,extended release(part/cryst) 2 TABLET, EXT RELEASE, PARTICLES/CRYSTALS Oral 1 Time Daily Indication: hypokalemia TERRAZZO JOURNEYMAN supervision x1 SatMay 23 07:00:00 EDT 2023May 26 20:04:00 EDT 2023 metOLazone 5 mg tablet 1 tab TABLET Oral 1 Time Daily Indication: fluid retention TERRAZZO JOURNEYMAN supervision x 1 SatMay 12 01:00:00 EDT 2023Aug 31 14:44:00 EDT 2023 predniSONE 20 mg tablet 1.5 tabs TABLET Oral 1 Time Daily for 5 Days Indication: Left knee pain TERRAZZO JOURNEYMAN supervision x130 mg Prednisone x 5 days [...] Oral 2 Times Daily Indication: excessive flatulence TERRAZZO JOURNEYMAN supervision x2, x4 SatApril 16 11:00:00 EDT 2023Aug 31 14:44:00 EDT 2023 meloxicam 7.5 mg tablet 1 tab TABLET Ora l 1 Time Daily Indication: pain TERRAZZO JOURNEYMAN Supervision x1 SatApril 10 01:00:00 EDT 2023Jun 25 13:18:00 EDT 2023 Stool Softener 100 mg tablet 1 tab TABLE T Oral 1 Time Daily Indication: constipation TERRAZZO JOURNEYMAN Supervision x1 SatMarch 27 01:00:00 EDT 2023Aug 31 14:44:00 EDT 2023 polyethylene glycoL 3350 17 gram oral powder packet 17 gram POWDER IN PACKET (EA) Oral 1 Time Daily Indication: constipation TERRAZZO JOURNEYMAN Supervision x1 SatMarch 27 01:00:00 EDT 2023Aug [...] @ Sonia Feb 26 17:00:00 EDT 2023 [facility] Jun 25 13:18:00 EDT 2023 acetaminophen ER 650 mg tablet,extended release 1 tablet TABLET, EXTENDED RELEASE Oral 2 Times Daily Indication: knee pain TERRAZZO JOURNEYMAN supervision x1, x4 SatFeb 27 01:00:00 EDT 2023Aug 31 14:44:00 EDT 2023 T.E.D. Anti-Embolism Stocking 1 pair EACH Other 2 Times Daily Indication: edema TERRAZZO JOURNEYMAN to apply KALIE hose in the AM and take off in the PM. SatFeb 14 01:00:00 EDT 2023Aug 31 14:44:00 EDT 2023 gabapentin 100 mg capsule 1 capsule CAPS ULE Oral 1 Time Daily for 4 Days Indication: neuropathy TERRAZZO JOURNEYMAN supervision x4 SatFeb 13 01:00:00 EDT 2023Feb 17 00:59:00 EDT 2023 gabapentin 100 mg capsule 2 capsules CAP CYNTHIA Oral 1 Time Daily for 4 Days Indication: neuropathy TERRAZZO JOURNEYMAN supervision x4 2 [id number] mg total SatFeb 17 01:00:00 EDT 2023Feb 20 03:16:00 EDT 2023 gabapentin 300 mg capsule 1 capsule CAPS ULE Oral 1 Time Daily Indication: neuropathy TERRAZZO JOURNEYMAN supervision x4 SatFeb 21 01:00:00 EDT 2023Feb 20 03:16:00 EDT 2023 ZyrTEC-D 5 mg-120 mg tablet,extended release 1 TABLET, EXTENDED RELEASE 12 HR Oral 1 Time Daily Indication: congestion-nasal TERRAZZO JOURNEYMAN supervision x1 SatFeb 06 01:00:00 EDT 2023Feb 26 19:38:00 EDT 2023 omeprazole 20 mg tablet,delayed release 1 TABLET, DELAYED RELEASE (ENTERIC COATED) Oral 1 Time Daily Indication: acid reflex TERRAZZO JOURNEYMAN to supervise SatFeb 06 01:00:00 EDT 2023Jun [...] 1 tablet po 4 times daily for dizziness.TERRAZZO JOURNEYMAN Admin for x1 x2 x3 x4 SatJan 18 07:00:00 2023Feb 06 18:10:00 EDT 2023 cetirizine 10 mg tablet 1 tablet TABLET Oral 1 Time Daily Indication: For; Nasal Congestion. Give 1 tablet po once daily for nasal congestion.TERRAZZO JOURNEYMAN Admin x1 Sat Jan 18 07:00:00 EST 2023Feb 08 11:03:00 EDT 2023 Deep Sea Nasal 0.65 % spray aerosol 1 spray AEROSOL, SPRAY (ML) Intranasal - Both Nostrils PRN Indication: Nasal Dryness Saline Nasal [place] at bedside 1 spray to each nostril to self administer PRN Sat Jan 18 11:36:00 EST 2023Aug 31 14:44:00 EDT 2023 melatonin 5 mg tablet 1 tab TABLET Oral Hour Of Sleep Indication: Insomnia TERRAZZO JOURNEYMAN supervision x4 Hour of sleep SatDec 26 13:11:00 EST 2023Jan 27 23:48:00 EST 2023 melatonin 5 mg tablet 1 tab TABLET Oral PRN (Max 1 Doses) Indication: may have an additional 5mg dose daily PRN insomnia. 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 SatDec 27 01:00:00 EST 2023Jan 01 00:59:00 [...] Times Daily for 7 Days Indication: Sinusitis TERRAZZO JOURNEYMAN Supervision x1 x4 SatDec 21 01:00:00 EST 2023Dec 28 00:59:00 EST 2023 ramelteon 8 mg tablet 1 tab TABLET Oral PRN Hour Of Sleep Indication: insomnia SatDec 21 01:00:00 EST 2023Dec 26 13:12:00 EST 2023 amiodarone 200 mg tablet 1 tablet TABLET Oral 1 Time Daily Indication: Antiarrhythmic TERRAZZO JOURNEYMAN supervision x4 SatDec 13 01:00:00 EST 2023Dec [...] Times Daily for 7 Days Indication: URI TERRAZZO JOURNEYMAN Supervision X1 x4 SatNov 28 01:00:00 EST 2023Dec 05 00:59:00 EST 2023 escitalopram 10 mg tablet 1 tab TABLET O ral 1 Time Daily Indication: antidepressant TERRAZZO JOURNEYMAN supervision x1 SatNov 12 01:00:00 EST 2022Dec [...] CAPSULE Oral 2 Times Daily Indication: constipation TERRAZZO JOURNEYMAN supervision x1, x4 SatOct 21 15:00:00 2022Nov 11 18:11:00 EST 2022 polyethylene glycoL 3350 (bulk) powder 17 gram POWDER (GRAM) Oral 2 Times Daily Indication: constipation TERRAZZO JOURNEYMAN supervision x1, x4 SatOct 21 15:00:00 EST 2022Nov 11 18:11:00 EST 2022 acetaminophen 500 mg tablet 1 tablet TAB LET Oral 2 Times Daily Indication: pain Do not exceed 3GM/day. TERRAZZO JOURNEYMAN supervision x1, x4 SatOct 21 15:00:00 EST 2022Nov 11 18:11:00 EST 2022 cyanocobalamin (vitamin B-12) 2,500 mcg tablet 1 tablet TABLET Oral 1 Time Daily Indication: supplement TERRAZZO JOURNEYMAN supervision x1 SatOct 21 15:00:00 EST 2022Aug 31 14:31:00 EDT 2023 Eliquis 5 mg tablet 1 tablet TABLET Oral 2 Times Daily Indication: blood thinner TERRAZZO JOURNEYMAN supervision x1, x4 SatOct 21 15:00:00 EST 2022Aug 31 14:31:00 EDT 2023 gabapentin 300 mg capsule 1 capsule CAPS ULE Oral 1 Time Daily Indication: nerve pain TERRAZZO JOURNEYMAN supervision x4 SatOct 21 15:00:00 EST 2022Dec 20 16:57:00 EST 2023 magnesium 400 mg (as magnesium oxide) tablet 1 tablet TABLET Oral 1 Time Daily Indication: supplement TERRAZZO JOURNEYMAN supervision x4 SatOct 21 15:00:00 EST 2022Aug 31 14:31:00 EDT 2023 rosuvastatin 20 mg tablet 1 tablet TABLE T Oral 1 Time Daily Indication: cholesterol TERRAZZO JOURNEYMAN supervision x4 SatOct 21 15:00:00 EST 2022Jan 13 13:02:00 EST 2023 senna 8.6 mg tablet 1 tablet TABLET Oral PRN Hour Of Sleep Indication: Constipation SatOct 21 15:00:00 EST 2022Aug 31 14:31:00 EDT 2023 amiodarone 200 mg tablet 1 tablet TABLET Oral 1 Time Daily Indication: Antiarrhythmic TERRAZZO JOURNEYMAN supervision x1 SatOct 21 15:00:00 EST 2022Dec 13 01:40:00 EST 2023 riboflavin (vitamin B2) 100 mg tablet 3 tablets TABLET Oral 1 Time Daily Indication: supplement TERRAZZO JOURNEYMAN supervision x1 SatOct 21 15:00:00 EST 2022Aug [...] RELEASE Oral 1 Time Daily Indication: replacement TERRAZZO JOURNEYMAN supervision x1 SatOct 21 15:00:00 EST 2022 Sat May 23 07:30:00 EDT 2023 Blood Pressure Kit 1 KIT Other 2 Times Monthly Indication: Vital signs TERRAZZO JOURNEYMAN to obtain. 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* Code: * Start Date: SatSep 25 00:00:00 EDT 2022 * End Date: * Text: * [facility] (current) use of opiate analgesic* Code: * [...] 4:22 EDT 2025 Respiratory rate 18.00 /min [facility] Mar 11 11:1 4:22 EDT 2024 Systolic Blood Pressure 105.00 mm[Hg] [facility] Feb 25 14:20:51 EDT 2024 Diastolic Blood Pressure 65.00 mm[Hg] [facility] Feb 25 14:20:51 EDT 2024 Body weight 198.80 [lb_av] [facility] Feb 25 14:20 :51 EDT 2024 Heart Rate 100.00 /min [facility] Feb 25 14:20 :51 EDT 2024 Body temperature 97.80 [degF] [facility] Feb 25 14:2 0:51 EDT 2024 Respiratory rate 18.00 /min [facility] Feb 25 14:2 0:51 EDT 2024 [...] 4:26 EST 2024 Body weight 207.40 [lb_av] [facility] Jan 21 16:15 :32 EST 2024 [...] :21 EDT 2023 Heart Rate 78.00 /min [facility] Sep 10 14:18 :21 EDT 2023 Body temperature 98.10 [degF] [facility] Sep 10 14:1 8:21 EDT 2023 Respiratory rate 18.00 /min [facility] Sep 10 14:1 8:21 EDT 2023 [...] EDT 2023 Systolic Blood Pressure 123.00 mm[Hg] [facility] Aug 27 14:50:20 EDT 2023 Diastolic Blood Pressure 70.00 mm[Hg] [facility] Aug 27 14:50:20 EDT 2023 Body weight 207.20 [lb_av] [facility] Aug 27 14:50 :20 EDT 2023 Heart Rate 82.00 /min [facility] Aug 27 14:50 :20 EDT 2023 Body temperature 98.40 [degF] [facility] Aug 27 14:5 0:20 EDT 2023 Respiratory rate 18.00 /min [facility] Aug 27 14:5 0:20 EDT 2023 Systolic Blood Pressure 115.00 mm[Hg] e Sep 17 18:00:40 EDT 2023 Diastolic Blood Pressure 72.00 mm[Hg] [facility] 17 18:00:40 EDT 2023 Body weight 210.20 [lb_av] [facility] 17 18:00 :40 EDT 2023 Heart Rate 86.00 /min [facility] 17 18:00 :40 EDT 2023 Body temperature 98.20 [degF] [facility] 17 18:0 0:40 EDT 2023 Respiratory rate 20.00 /min [facility] 17 18:0 0:40 EDT 2023 Systolic Blood Pressure 100.00 mm[Hg] [facility] 03 18:07:20 EDT 2023 Diastolic Blood Pressure 69.00 mm[Hg] [facility] 03 18:07:20 EDT 2023 Body weight 210.20 [lb_av] [facility] 03 18:07 :20 EDT 2023 Heart Rate 133.00 /min [facility] 03 18:07 :20 EDT 2023 Body temperature 97.70 [degF] [facility] 03 18:0 7:20 EDT 2023 Respiratory rate 20.00 /min [facility] 18:0 7:20 EDT 2023 Systolic Blood Pressure 95.00 mm[Hg] [facility] Jul 11 11:49:15 EDT 2023 Diastolic Blood Pressure 65.00 mm[Hg] [facility] Jul 11 11:49:15 EDT 2023 Body weight 204.60 [lb_av] [facility] Jul 11 11:49 :15 EDT 2023 Heart Rate 106.00 /min [facility] Jul 11 11:49 :15 EDT 2023 Body temperature 98.10 [degF] [facility] Jul 11 11:4 9:15 EDT 2023 Respiratory rate 18.00 /min [facility] Jul 11 11:4 9:15 EDT 2023 Systolic Blood Pressure 105.00 mm[Hg] [facility] Jun 27 12:52:50 EDT 2023 Diastolic Blood Pressure 71.00 mm[Hg] [facility] Jun 27 12:52:50 EDT 2023 Body weight 204.60 [lb_av] [facility] Jun 27 12:52 :50 EDT 2023 Heart Rate 100.00 /min [facility] Jun 27 12:52 :50 EDT 2023 Body temperature 98.10 [degF] [facility] Jun 27 12:5 2:50 EDT 2023 Respiratory rate 18.00 /min [facility] Jun 27 12:5 2:50 EDT [...]
--- OUTSIDE RECORDS SUMMARY | 2025-05-03 11:41 | XMS_ITS | Encounter Summary ---
Author Organization [facility] Facility Care Team Providers Care Topology Teacher Name Role Phone Linn Mas MD Primary Care Provider [phone] Encounter Details Date Type Department Care Team (Latest Contact Info) Description 04/03/2017 Orders Only [facility] ProviderJennifer MD [address] [place] [id number] Social History Tobacco Use Types Packs/Day Years Used Date Smoking Tobacco: Never Assessed Sex and Gender Information Value Date Recorded Sex Assigned at Not on file Legal Sex Male 8:17 PM REGULATORY SPECIALIST Gender Identity Not on file Sexual Orientation Not on file documented as of this encounter Plan of Treatment Not on file documented as of this encounter Procedures Procedure Name Priority Date/Time Associated Diagnosis Comments CARDIOLOGY REPORT 12/27/2017 12: 00 AM REGULATORY SPECIALIST documented in this encounter Results * CARDIOLOGY REPORT (12/27/2017 12:00 AM REGULATORY SPECIALIST) Anatomical Region Laterality Modality Other Narrative 12/27/2017 12:00 AM REGULATORY SPECIALIST Ordered by an unspecified provider. Historical Provider [facility] CASIMIRO ARCEO Final Result documented in this encounter Visit Diagnoses Not on filedocumented in this encounter Additional Health Concerns Infection Onset Date Last Indicated Resolved Time COVID: Suspected 11/06/2021 11/06/2021 11/06/2021 1:29 PM REGULATORY SPECIALIST documented as of this encounter Care Teams Topology Teacher Relationship Specialty Start Date End Date Linn Mas MD [address] [place] [address] PCP - General 03/13/18 documented as of this encounter
--- OUTSIDE RECORDS SUMMARY | 2025-05-03 11:41 | XMS_ITS ---
Author Name Auto Generated, Auto Generated Organization [facility] Address [address] [place] [address] Phone [phone] Care Team Providers Care Process Chemist Name Role Phone Maxwell Lucio Unavailable Functional [...] E Oral 2 Times Daily Indication: constipation PRODUCTION RECOVERY OPERATOR supervision X1, X4 SatApril 20 01:00:00 EDT 2024 lactulose 10 gram/15 mL oral solution 30ml SOLUTION, ORAL Oral 1 Time Daily Indication: constipation PRODUCTION RECOVERY OPERATOR supervision X1 SatApril 20 01:00:00 EDT 2024 simethicone 125 mg chewable tablet 125 mg 1 tab Oral 4 Times Daily Indication: excessive Gas/bloating PRODUCTION RECOVERY OPERATOR supervision x1 x2 x3 x4 SatApril 07 01:00:00 EDT 2024 lubiprostone 24 mcg capsule 1 cap CAPSUL E Oral 2 Times Daily Indication: constipation PRODUCTION RECOVERY OPERATOR supervision X1, X4 SatApril 01 01:00:00 EDT 2024April 07 07:34:00 EDT 2024 lactulose 10 gram/15 mL oral solution 30ml SOLUTION, ORAL Oral 1 Time Daily Indication: constipation PRODUCTION RECOVERY OPERATOR supervision X1 SatMarch 31 01:00:00 EDT 2024April 07 07:34:00 EDT 2024 Linzess 290 mcg capsule 1 cap CAPSULE Or al 1 Time Daily Indication: constipation PRODUCTION RECOVERY OPERATOR Supervision x1Per Joy Crooki SatApril 08 01:00:00 EDT 2024April 06 07:03:00 EDT 2024 Linzess 145 mcg capsule 2 caps CAPSULE O ral 1 Time Daily for 14 Days Indication: constipation PRODUCTION RECOVERY OPERATOR Supervision x1Per Joy Crooki SatMarch 25 01:00:00 EDT 2024April 06 09:49:00 EDT 2024 Gas Relief (simethicone) 250 mg capsule 1 CAPSULE Oral 2 Times Daily Indication: excessive flatulence PRODUCTION RECOVERY OPERATOR supervision X1, X4 SatMar 19 01:00:00 EDT 2024April 07 07:34:00 EDT 2024 polyethylene glycoL 3350 17 gram oral powder packet 17 gram POWDER IN PACKET (EA) Oral PRN 1 Time Daily Indication: constipation SatFeb 24 14:20:00 EDT 2024 simethicone 125 mg chewable tablet 1 tablet TABLET,CHEWABLE Oral 4 Times Daily Indication: excessive flatulence PRODUCTION RECOVERY OPERATOR supervision x1 x2, x3, x4 Okay to keep at bedside SatFeb 24 14:21:00 EDT 2024Mar 19 02:20:00 EDT 2024 Linzess 145 mcg capsule 1 cap CAPSULE Or al 1 Time Daily Indication: constipation PRODUCTION RECOVERY OPERATOR Supervision x1Per Joy Crooki SatFeb 24 01:00:00 EDT 2024Mar 24 18:38:00 EDT 2024 dicyclomine 10 mg capsule 1 capsule CAPS ULE Oral 3 Times Daily for 20 Days Indication: Irritable bowel syndrome PRODUCTION RECOVERY OPERATOR supervision x1, x2, x4 SatFeb 16 01:00:00 EDT 2024Feb 24 14:23:00 EDT 2024 dicyclomine 10 mg capsule 1 capsule CAPS ULE Oral 3 Times Daily for 7 Days Indication: Irritable bowel syndrome PRODUCTION RECOVERY OPERATOR supervision x1, x2, x4 SatFeb 09 01:00:00 EDT 2024Feb 16 00:59:00 EDT 2024 dicyclomine 10 mg capsule 1 capsule CAPS ULE Oral 3 Times Daily for 28 Days Indication: Irritable bowel syndrome PRODUCTION RECOVERY OPERATOR supervision x1, x2, x4 SatFeb 04 01:00:00 [...] 2 Times Daily for 14 Days Indication: PRODUCTION RECOVERY OPERATOR supervision x1 x4 congestion SatDec 07 01:00:00 [...] Oral 1 Time Weekly Indication: Vitamin deficiency PRODUCTION RECOVERY OPERATOR supervision x1 on MondaysOct 19 01:00:00 EST 2023 magnesium 400 mg (as magnesium oxide) tablet 1 tablet TABLET Oral 1 Time Daily Indication: supplement PRODUCTION RECOVERY OPERATOR supervision x1 SatSep 05 13:21:00 EDT 2023 Fluad Triv 2023-25(65y up)(PF) 45 mcg (15 mcg x 3)/0.5 mL IM syringe 1 SYRINGE (ML) Intramuscular 1 Time Daily for 1 Day Indication: Vaccine Sonia Sep 03 01:00:00 EDT 2023Sep 04 00:59:00 EDT 2023 Acidophilus capsule 1 cap CAPSULE Oral 1 Time Daily Indication: Probiotic PRODUCTION RECOVERY OPERATOR supervision x 1 SatAug 31 01:00:00 EDT 2023 cyanocobalamin (vitamin B-12) 2,500 mcg tablet 1 tablet TABLET Oral 1 Time Daily Indication: supplement PRODUCTION RECOVERY OPERATOR supervision x1 SatSep 01 09:00:00 EDT 2023 Eliquis 5 mg tablet 1 tablet TABLET Oral 2 Times Daily Indication: blood thinner PRODUCTION RECOVERY OPERATOR supervision x1, x4 SatAug 31 15:00:00 EDT 2023 magnesium 400 mg (as magnesium oxide) tablet 1 tablet TABLET Oral 1 Time Daily Indication: supplement PRODUCTION RECOVERY OPERATOR supervision x4 SatSep 01 01:00:00 EDT 2023Sep 05 13:22:00 EDT 2023 senna 8.6 mg tablet 1 tablet TABLET Oral PRN Hour Of Sleep Indication: Constipation SatSep 01 01:00:00 EDT 2023Feb 24 14:23:00 EDT 2024 Vitamin B-2 100 mg tablet 3 tablets TABL ET Oral 1 Time Daily Indication: supplement PRODUCTION RECOVERY OPERATOR supervision x1 SatSep 01 01:00:00 EDT 2023 simethicone 125 mg chewable tablet 1 tablet TABLET,CHEWABLE Oral 2 Times Daily Indication: excessive flatulence PRODUCTION RECOVERY OPERATOR supervision x2, x4 Okay to keep at bedside SatAug 31 14:31:00 EDT 2023Feb 24 14:23:00 EDT 2024 Blood Pressure Kit 1 KIT Other 2 Times Monthly Indication: Vital signs PRODUCTION RECOVERY OPERATOR to obtain. SatAug 31 14:32:00 EDT 2023 melatonin 5 mg tablet 1 tab TABLET Oral PRN (Max 1 Doses) Indication: may have an additional 5mg dose daily PRN insomnia. SatAug 31 14:32:00 EDT 2023 Deep Sea Nasal 0.65 % spray aerosol 1 spray AEROSOL, SPRAY (ML) Intranasal - Both Nostrils PRN Indication: Nasal Dryness Saline Nasal [place] at bedside 1 spray to each nostril to self administer PRN SatAug 31 14:33:00 EDT 2023 T.E.D. Anti-Embolism Stocking 1 pair EACH Other 2 Times Daily Indication: edema PRODUCTION RECOVERY OPERATOR to apply KALIE hose in the AM and take off in the PM. SatAug 31 14:33:00 EDT 2023 acetaminophen ER 650 mg tablet,extended release 1 tablet TABLET, EXTENDED RELEASE Oral 2 Times Daily Indication: knee pain PRODUCTION RECOVERY OPERATOR supervision x1, x4 SatAug 31 14:33:00 EDT 2023 furosemide 40 mg tablet 1 tablet TABLET Oral 1 Time Daily Indication: [place] supervision x1 SatSep 01 01:00:00 EDT 2023 Stool Softener 100 mg tablet 1 tab TABLE T Oral 1 Time Daily Indication: constipation PRODUCTION RECOVERY OPERATOR Supervision x1 SatSep 01 01:00:00 EDT 2023Feb 24 14:23:00 EDT 2024 polyethylene glycoL 3350 17 gram oral powder packet 17 gram POWDER IN PACKET (EA) Oral 1 Time Daily Indication: constipation PRODUCTION RECOVERY OPERATOR Supervision x1 SatSep 01 01:00:00 EDT 2023Feb 24 14:23:00 EDT 2024 metOLazone 5 mg tablet 1 tab TABLET Oral 1 Time Daily Indication: fluid retention PRODUCTION RECOVERY OPERATOR supervision x 1 SatSep 01 01:00:00 EDT 2023 meloxicam 7.5 mg tablet 1 tab TABLET Ora l PRN Every 24 Hours Indication: pain PRODUCTION RECOVERY OPERATOR Supervision x1 SatSep 01 01:00:00 EDT 2023 potassium chloride ER 20 mEq tablet,extended release(part/cryst) 4 tabs TABLET, EXT RELEASE, PARTICLES/CRYSTALS Oral 1 Time Daily Indication: hypokalemia PRODUCTION RECOVERY OPERATOR supervision x14 tabs= 80mEq SatSep 01 01:00:00 [...] CAPSULE Oral 1 Time Daily Indication: Probiotic PRODUCTION RECOVERY OPERATOR supervision x 1 SatJul 03 01:00:00 EDT 2023Aug 31 14:44:00 EDT 2023 potassium chloride ER 20 mEq tablet,extended release(part/cryst) 4 tabs TABLET, EXT RELEASE, PARTICLES/CRYSTALS Oral 1 Time Daily Indication: hypokalemia PRODUCTION RECOVERY OPERATOR supervision x14 tabs= 80mEq SatJul 01 01:00:00 EDT 2023Aug 31 14:44:00 EDT 2023 meloxicam 7.5 mg tablet 1 tab TABLET Ora l PRN Every 24 Hours Indication: pain PRODUCTION RECOVERY OPERATOR Supervision x1 SatJun 25 13:17:00 EDT 2023Aug 31 14:44:00 EDT 2023 potassium chloride ER 20 mEq tablet,extended release(part/cryst) 4 tabs TABLET, EXT RELEASE, PARTICLES/CRYSTALS Oral 1 Time Daily Indication: hypokalemia PRODUCTION RECOVERY OPERATOR supervision x14 tabs= 80mEq SatMay 27 01:00:00 EDT 2023Jun 25 13:14:00 EDT 2023 potassium chloride ER 20 mEq tablet,extended release(part/cryst) 2 TABLET, EXT RELEASE, PARTICLES/CRYSTALS Oral 1 Time Daily Indication: hypokalemia PRODUCTION RECOVERY OPERATOR supervision x1 SatMay 23 07:00:00 EDT 2023May 26 20:04:00 EDT 2023 metOLazone 5 mg tablet 1 tab TABLET Oral 1 Time Daily Indication: fluid retention PRODUCTION RECOVERY OPERATOR supervision x 1 SatMay 12 01:00:00 EDT 2023Aug 31 14:44:00 EDT 2023 predniSONE 20 mg tablet 1.5 tabs TABLET Oral 1 Time Daily for 5 Days Indication: Left knee pain PRODUCTION RECOVERY OPERATOR supervision x130 mg Prednisone x 5 days [...] Oral 2 Times Daily Indication: excessive flatulence PRODUCTION RECOVERY OPERATOR supervision x2, x4 SatApril 16 11:00:00 EDT 2023Aug 31 14:44:00 EDT 2023 meloxicam 7.5 mg tablet 1 tab TABLET Ora l 1 Time Daily Indication: pain PRODUCTION RECOVERY OPERATOR Supervision x1 SatApril 10 01:00:00 EDT 2023Jun 25 13:18:00 EDT 2023 Stool Softener 100 mg tablet 1 tab TABLE T Oral 1 Time Daily Indication: constipation PRODUCTION RECOVERY OPERATOR Supervision x1 SatMarch 27 01:00:00 EDT 2023Aug 31 14:44:00 EDT 2023 polyethylene glycoL 3350 17 gram oral powder packet 17 gram POWDER IN PACKET (EA) Oral 1 Time Daily Indication: constipation PRODUCTION RECOVERY OPERATOR Supervision x1 SatMarch 27 01:00:00 EDT 2023Aug [...] @ Sonia Feb 26 17:00:00 EDT 2023 [facility] Jun 25 13:18:00 EDT 2023 acetaminophen ER 650 mg tablet,extended release 1 tablet TABLET, EXTENDED RELEASE Oral 2 Times Daily Indication: knee pain PRODUCTION RECOVERY OPERATOR supervision x1, x4 SatFeb 27 01:00:00 EDT 2023Aug 31 14:44:00 EDT 2023 T.E.D. Anti-Embolism Stocking 1 pair EACH Other 2 Times Daily Indication: edema PRODUCTION RECOVERY OPERATOR to apply KALIE hose in the AM and take off in the PM. SatFeb 14 01:00:00 EDT 2023Aug 31 14:44:00 EDT 2023 gabapentin 100 mg capsule 1 capsule CAPS ULE Oral 1 Time Daily for 4 Days Indication: neuropathy PRODUCTION RECOVERY OPERATOR supervision x4 SatFeb 13 01:00:00 EDT 2023Feb 17 00:59:00 EDT 2023 gabapentin 100 mg capsule 2 capsules CAP CYNTHIA Oral 1 Time Daily for 4 Days Indication: neuropathy PRODUCTION RECOVERY OPERATOR supervision x4 2 [id number] mg total SatFeb 17 01:00:00 EDT 2023Feb 20 03:16:00 EDT 2023 gabapentin 300 mg capsule 1 capsule CAPS ULE Oral 1 Time Daily Indication: neuropathy PRODUCTION RECOVERY OPERATOR supervision x4 SatFeb 21 01:00:00 EDT 2023Feb 20 03:16:00 EDT 2023 ZyrTEC-D 5 mg-120 mg tablet,extended release 1 TABLET, EXTENDED RELEASE 12 HR Oral 1 Time Daily Indication: congestion-nasal PRODUCTION RECOVERY OPERATOR supervision x1 SatFeb 06 01:00:00 EDT 2023Feb 26 19:38:00 EDT 2023 omeprazole 20 mg tablet,delayed release 1 TABLET, DELAYED RELEASE (ENTERIC COATED) Oral 1 Time Daily Indication: acid reflex PRODUCTION RECOVERY OPERATOR to supervise SatFeb 06 01:00:00 EDT 2023Jun [...] 1 tablet po 4 times daily for dizziness.PRODUCTION RECOVERY OPERATOR Admin for x1 x2 x3 x4 SatJan 18 07:00:00 2023Feb 06 18:10:00 EDT 2023 cetirizine 10 mg tablet 1 tablet TABLET Oral 1 Time Daily Indication: For; Nasal Congestion. Give 1 tablet po once daily for nasal congestion.PRODUCTION RECOVERY OPERATOR Admin x1 Sat Jan 18 07:00:00 EST 2023Feb 08 11:03:00 EDT 2023 Deep Sea Nasal 0.65 % spray aerosol 1 spray AEROSOL, SPRAY (ML) Intranasal - Both Nostrils PRN Indication: Nasal Dryness Saline Nasal [place] at bedside 1 spray to each nostril to self administer PRN Sat Jan 18 11:36:00 EST 2023Aug 31 14:44:00 EDT 2023 melatonin 5 mg tablet 1 tab TABLET Oral Hour Of Sleep Indication: Insomnia PRODUCTION RECOVERY OPERATOR supervision x4 Hour of sleep SatDec 26 13:11:00 EST 2023Jan 27 23:48:00 EST 2023 melatonin 5 mg tablet 1 tab TABLET Oral PRN (Max 1 Doses) Indication: may have an additional 5mg dose daily PRN insomnia. SatDec 26 20:00:00 EST 2023Aug 31 14:44:00 EDT 2023 predniSONE 20 mg tablet 1 tab TABLET Ora l 1 Time Daily for 5 Days Indication: eustachian tube [id number] +10mg =30mg totalCNA Supervision x1 Station Tender SatDec 27 01:00:00 EST 2023Jan 01 00:59:00 EST 2023 predniSONE 10 mg tablet 1 tab TABLET Ora l 1 Time Daily for 5 Days Indication: eustachian tube [id number] +10mg =30mg totalCNA Supervision x1 Station Tender SatDec 27 01:00:00 EST 2023Jan 01 00:59:00 [...] Times Daily for 7 Days Indication: Sinusitis PRODUCTION RECOVERY OPERATOR Supervision x1 x4 SatDec 21 01:00:00 EST 2023Dec 28 00:59:00 EST 2023 ramelteon 8 mg tablet 1 tab TABLET Oral PRN Hour Of Sleep Indication: insomnia SatDec 21 01:00:00 EST 2023Dec 26 13:12:00 EST 2023 amiodarone 200 mg tablet 1 tablet TABLET Oral 1 Time Daily Indication: Antiarrhythmic PRODUCTION RECOVERY OPERATOR supervision x4 SatDec 13 01:00:00 EST 2023Dec [...] Times Daily for 7 Days Indication: URI PRODUCTION RECOVERY OPERATOR Supervision X1 x4 SatNov 28 01:00:00 EST 2023Dec 05 00:59:00 EST 2023 escitalopram 10 mg tablet 1 tab TABLET O ral 1 Time Daily Indication: antidepressant PRODUCTION RECOVERY OPERATOR supervision x1 SatNov 12 01:00:00 EST 2022Dec [...] CAPSULE Oral 2 Times Daily Indication: constipation PRODUCTION RECOVERY OPERATOR supervision x1, x4 SatOct 21 15:00:00 2022Nov 11 18:11:00 EST 2022 polyethylene glycoL 3350 (bulk) powder 17 gram POWDER (GRAM) Oral 2 Times Daily Indication: constipation PRODUCTION RECOVERY OPERATOR supervision x1, x4 SatOct 21 15:00:00 EST 2022Nov 11 18:11:00 EST 2022 acetaminophen 500 mg tablet 1 tablet TAB LET Oral 2 Times Daily Indication: pain Do not exceed 3GM/day. PRODUCTION RECOVERY OPERATOR supervision x1, x4 SatOct 21 15:00:00 EST 2022Nov 11 18:11:00 EST 2022 cyanocobalamin (vitamin B-12) 2,500 mcg tablet 1 tablet TABLET Oral 1 Time Daily Indication: supplement PRODUCTION RECOVERY OPERATOR supervision x1 SatOct 21 15:00:00 EST 2022Aug 31 14:31:00 EDT 2023 Eliquis 5 mg tablet 1 tablet TABLET Oral 2 Times Daily Indication: blood thinner PRODUCTION RECOVERY OPERATOR supervision x1, x4 SatOct 21 15:00:00 EST 2022Aug 31 14:31:00 EDT 2023 gabapentin 300 mg capsule 1 capsule CAPS ULE Oral 1 Time Daily Indication: nerve pain PRODUCTION RECOVERY OPERATOR supervision x4 SatOct 21 15:00:00 EST 2022Dec 20 16:57:00 EST 2023 magnesium 400 mg (as magnesium oxide) tablet 1 tablet TABLET Oral 1 Time Daily Indication: supplement PRODUCTION RECOVERY OPERATOR supervision x4 SatOct 21 15:00:00 EST 2022Aug 31 14:31:00 EDT 2023 rosuvastatin 20 mg tablet 1 tablet TABLE T Oral 1 Time Daily Indication: cholesterol PRODUCTION RECOVERY OPERATOR supervision x4 SatOct 21 15:00:00 EST 2022Jan 13 13:02:00 EST 2023 senna 8.6 mg tablet 1 tablet TABLET Oral PRN Hour Of Sleep Indication: Constipation SatOct 21 15:00:00 EST 2022Aug 31 14:31:00 EDT 2023 amiodarone 200 mg tablet 1 tablet TABLET Oral 1 Time Daily Indication: Antiarrhythmic PRODUCTION RECOVERY OPERATOR supervision x1 SatOct 21 15:00:00 EST 2022Dec 13 01:40:00 EST 2023 riboflavin (vitamin B2) 100 mg tablet 3 tablets TABLET Oral 1 Time Daily Indication: supplement PRODUCTION RECOVERY OPERATOR supervision x1 SatOct 21 15:00:00 EST 2022Aug [...] RELEASE Oral 1 Time Daily Indication: replacement PRODUCTION RECOVERY OPERATOR supervision x1 SatOct 21 15:00:00 EST 2022 Sat May 23 07:30:00 EDT 2023 Blood Pressure Kit 1 KIT Other 2 Times Monthly Indication: Vital signs PRODUCTION RECOVERY OPERATOR to obtain. 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* Code: * Start Date: SatSep 25 00:00:00 EDT 2022 * End Date: * Text: * prison (current) use of opiate analgesic* Code: * [...] 4:22 EDT 2025 Respiratory rate 18.00 /min [facility] Mar 11 11:1 4:22 EDT 2024 Systolic Blood Pressure 105.00 mm[Hg] [facility] Feb 25 14:20:51 EDT 2024 Diastolic Blood Pressure 65.00 mm[Hg] [facility] Feb 25 14:20:51 EDT 2024 Body weight 198.80 [lb_av] [facility] Feb 25 14:20 :51 EDT 2024 Heart Rate 100.00 /min [facility] Feb 25 14:20 :51 EDT 2024 Body temperature 97.80 [degF] [facility] Feb 25 14:2 0:51 EDT 2024 Respiratory rate 18.00 /min [facility] Feb 25 14:2 0:51 EDT 2024 Systolic [...] 4:26 EST 2024 Body weight 207.40 [lb_av] [facility] Jan 21 16:15 :32 EST 2024 Systolic [...] :21 EDT 2023 Heart Rate 78.00 /min [facility] Sep 10 14:18 :21 EDT 2023 Body temperature 98.10 [degF] [facility] Sep 10 14:1 8:21 EDT 2023 Respiratory rate 18.00 /min [facility] Sep 10 14:1 8:21 EDT 2023 Body [...] EDT 2023 Systolic Blood Pressure 123.00 mm[Hg] [facility] Aug 27 14:50:20 EDT 2023 Diastolic Blood Pressure 70.00 mm[Hg] [facility] Aug 27 14:50:20 EDT 2023 Body weight 207.20 [lb_av] [facility] Aug 27 14:50 :20 EDT 2023 Heart Rate 82.00 /min [facility] Aug 27 14:50 :20 EDT 2023 Body temperature 98.40 [degF] [facility] Aug 27 14:5 0:20 EDT 2023 Respiratory rate 18.00 /min [facility] Aug 27 14:5 0:20 EDT 2023 Systolic Blood Pressure 115.00 mm[Hg] e Sep 17 18:00:40 EDT 2023 Diastolic Blood Pressure 72.00 mm[Hg] [facility] 17 18:00:40 EDT 2023 Body weight 210.20 [lb_av] [facility] 17 18:00 :40 EDT 2023 Heart Rate 86.00 /min [facility] 17 18:00 :40 EDT 2023 Body temperature 98.20 [degF] [facility] 17 18:0 0:40 EDT 2023 Respiratory rate 20.00 /min [facility] 17 18:0 0:40 EDT 2023 Systolic Blood Pressure 100.00 mm[Hg] [facility] 03 18:07:20 EDT 2023 Diastolic Blood Pressure 69.00 mm[Hg] [facility] 03 18:07:20 EDT 2023 Body weight 210.20 [lb_av] [facility] 03 18:07 :20 EDT 2023 Heart Rate 133.00 /min [facility] 03 18:07 :20 EDT 2023 Body temperature 97.70 [degF] [facility] 03 18:0 7:20 EDT 2023 Respiratory rate 20.00 /min [facility] 18:0 7:20 EDT 2023 Systolic Blood [...]
--- OUTSIDE RECORDS SUMMARY | 2025-05-03 11:41 | XMS_ITS | Encounter Summary ---
Author Organization [facility] Facility Care Team Providers Care Level Vial Grinder Name Role Phone Linn Mas MD Primary Care Provider [phone] Encounter Details Date Type Department Care Team (Latest Contact Info) Description 01/24/2018 Orders Only [facility] ProviderJennifer MD [address] [place] [id number] Social History Tobacco Use Types Packs/Day Years Used Date Smoking Tobacco: Never Assessed Sex and Gender Information Value Date Recorded Sex Assigned at Not on file Legal Sex Male 8:17 PM HAND CLOTH EXAMINER Gender Identity Not on file Sexual Orientation Not on file documented as of this encounter Plan of Treatment Not on file documented as of this encounter Procedures Procedure Name Priority Date/Time Associated Diagnosis Comments CARDIOLOGY REPORT 01/24/2018 12: 00 AM HAND CLOTH EXAMINER documented in this encounter Results * CARDIOLOGY REPORT (01/24/2018 12:00 AM HAND CLOTH EXAMINER) Anatomical Region Laterality Modality Other Narrative 01/24/2018 12:00 AM HAND CLOTH EXAMINER Ordered by an unspecified provider. Historical Provider [facility] Final Result documented in this encounter Visit Diagnoses Not on filedocumented in this encounter Additional Health Concerns Infection Onset Date Last Indicated Resolved Time COVID: Suspected 11/06/2021 11/06/2021 11/06/2021 1:29 PM HAND CLOTH EXAMINER documented as of this encounter Care Teams Level Vial Grinder Relationship Specialty Start Date End Date Linn Mas MD [address] [place] [address] PCP - General 03/13/18 documented as of this encounter
--- OUTSIDE RECORDS SUMMARY | 2025-05-03 11:41 | XMS_ITS | Clinical Summary ---
Author Organization [facility] at the [facility] Office Center Address [address] [place] [address] Care Team Providers Care Cell Tender Helper Name Role Phone Linn Mas MD Primary Care Provider +1- [phone] Allergies Active Allergy Reactions Criticality Noted Date [...] 10/30/2021 Assessment & Plan (11/27/2021 10:42 AM PLUMBING DESIGNER): Cr elevated from baseline - encouraged po fluid intake. Not on diuretics - monitor 11/07: Cr continues to improve, encouraged po intake 11/13: Cr now 1.2, improved. Continue to monitor 11/16: Cr stable at 1.2. monitor 11/27: Cr stable Anemia due to acute blood loss 10/30/2021 Assessment & Plan (11/27/2021 10:39 AM PLUMBING DESIGNER): H/H is slowly improving - continue to montior with iron supplementation 11/07: h/h stable, monitor 11/13: H/H remains stable 11/16: Hg 9.5. monitor 11/27: stable, continue iron supplementation Throat dryness 10/25/2021 Back pain 10/16/2021 Assessment & Plan (11/18/2021 10:42 AM PLUMBING DESIGNER): To left side. Likely from surgery. Will [...] 05/25/2021 Assessment & Plan (11/27/2021 10:38 AM PLUMBING DESIGNER): Continue Miralax. Will give suppos if no [...] 02/22/2021 Assessment & Plan (11/27/2021 10:37 AM PLUMBING DESIGNER): Will start Trazodone. Continue [place]. 10/30: pt [...] 10/16/2019 Assessment & Plan (11/27/2021 10:38 AM PLUMBING DESIGNER): Cont gabapentin 300 mg daily. F/u with neurology 10/30: overall stable, continue gabapentin 300mg daily 11/13: stable, continue gabapentin 300mg daily 11/20: stable, continue gabapentin 11/27/21: stable, continue gabapentin 300mg daily Headache 06/18/2019 Persistent atrial fibrillation 06/17/2019 Assessment & Plan (11/27/2021 10:36 AM PLUMBING DESIGNER): S/P DC cardioversion, Dr. Odom in 2019. [...] 06/17/2019 Assessment & Plan (11/27/2021 10:38 AM PLUMBING DESIGNER): BP controlled, pulse mildly low. Cont Toprol [...] 06/17/2019 Assessment & Plan (11/27/2021 10:42 AM PLUMBING DESIGNER): Pt is s/p Left total hip replacement per Dr. Patterson on 10/05/21. DVT prophylaxis with eliquis 5 mg bid. Cont pain mgx with [place] 1 tab q4 prn. Wound care. PT/OT [...] stable, pain controlled with scheduled Tylenol, p.r.n. [place]. Patient is making progress in therapy, we will monitor. Continues to have weight-bearing restrictions. F/U with Dr. Nick Post on 11/15/21 at 9:30am at [facility] 6A: [facility] ([facility]), [address] [place] [address], [address], [place] [address]. 11/07: remains only 20 lbs. 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 Is on Lupron IM every 6 months. Follows up with urologist Dr. Michele. Continue Flomax Resolved Problems Problem Noted Date Diagnosed Date Resolved Date Benign prostatic hyperplasia without urinary obstruction 06/20/2021 10/12/2021 Assessment & Plan (10/11/2021 8:10 AM PLUMBING DESIGNER): Cont home med flomax 0.4 mg Vestibular migraine 10/15/2019 11/27/19 Assessment & Plan (11/20/2021 4:37 PM PLUMBING DESIGNER): He was started per neurologist on Venlafaxine [...] 10/23/2021 Assessment & Plan (10/16/2021 11:03 AM PLUMBING DESIGNER): Unsure of etiology. Labs stable. H&H mildly [...] on file Legal Sex Male 8:17 PM PLUMBING DESIGNER Gender Identity Not on file Sexual Orientation Not on file Occupation Industry Job Start Date Job End Date Retired Not on file Not on file Not on file Obstetrics History Last Filed Vital Signs Vital Sign Reading Time Taken Comments Blood Pressure 155/80 11/28/2021 7:00 AM PLUMBING DESIGNER Pulse 61 11/28/2021 7:00 AM PLUMBING DESIGNER Temperature 36.4 C (97.6 F) 11/28/2021 7:00 AM PLUMBING DESIGNER Respiratory Rate 20 11/28/2021 7:00 AM PLUMBING DESIGNER Oxygen Saturation 93% 11/28/2021 7:00 AM PLUMBING DESIGNER Inhaled Oxygen Concentration - - Weight 93.1 kg (205 lb 4 oz) 11/28/2021 5:21 AM PLUMBING DESIGNER Height 188 cm (6' 2) 10/10/2021 5:10 PM PLUMBING DESIGNER Body Mass Index 26.35 10/10/2021 5:10 PM PLUMBING DESIGNER Plan of Treatment Health Maintenance Due Date [...] history exists Medical Devices Implanted Type Area [place] Device Identifier Shelf Expiration Date Model / Serial / Lot [employer] [id number] 60mm Modular Cluster Hole Hip Cup Acetabular Trabecular Metal - S0 - [id number] Implanted:Qty: 1 on 10/05/2021 by Nick Post MD at [facility] Other - see comments Left: Hip [employer] [id number] 04/24/2023 [id number] / 0 / [id number] [employer] [id number] Trilogy 60mm 28mm 10.3mm Primary Modular Cup Liner Hip Standard - S0 - [id number] Implanted:Qty: 1 on 10/05/2021 by Nick Post MD at [facility] Other - see comments Left: Hip [employer] [id number] 04/24/2023 [id number] / 0 / [id number] [employer] [id number] Trilogy 6.5mm 35mm Self Tap Screw Bone - S0 - [id number] Implanted:Qty: 1 on 10/05/2021 by Nick Post MD at [facility] Screw Left: Hip [employer] [id number] 07/31/2031 [id number] / 0 / [id number] [employer] [id number] Trilogy 6.5mm 35mm Self Tap Screw Bone - S0 - [id number] Implanted:Qty: 1 on 10/05/2021 by Nick Post MD at [facility] Screw Left: Hip [employer] [id number] 08/24/2029 [id number] / 0 / [id number] [employer] [id number] 28mm Hip +3.5mm [place] Head Femoral Cocr - [id number] Implanted:Qty: 1 on 10/05/2021 by Nick Post MD at [facility] Left: Hip [employer] [id number] 12/17/2030 [id number] / / [id number] [employer] [id number] 15mm 160mm Primary Press Fit Hip 11/07 43mm Oblique Straight Stem - [id number] Implanted:Qty: 1 on 10/05/2021 by Nick Post MD at [facility] Left: Hip [employer] [id number] 02/22/2030 [id number] / / [id number] [place] [address] MEDICARE [facility] MEDICARE MEDICARE [facility] MEDICARE [facility] Advance Directives For more information, please contact: [phone] Documents on File Type Date Recorded Patient Sorter Laundry Articles Expl anation ADVANCE DIRECTIVE 10/12/2021 9:16 AM POLS T - Phys Order for PT Preferences ADVANCE DIRECTIVE 10/05/2021 11:42 AM Pow er of Surgical Brace Maker-Medical ADVANCE DIRECTIVE 02/02/2020 12:00 AM ITMOTHY SANCHEZ WILL * Full Code (Latest Code Status on File) Date Activated Date Inactivated Comments 10/10/2021 5:11 PM 11/28/2021 5:59 PM * Full Code Date Activated Date Inactivated Comments 10/05/2021 6:37 PM 10/10/2021 4:33 PM Care Teams Cell Tender Helper Relationship Specialty Start Date End Date Linn Mas MD [address] [place] [address] PCP - General 03/13/18
--- OUTSIDE RECORDS SUMMARY | 2025-05-03 11:41 | XMS_ITS | Encounter Summary ---
Author Organization [facility] Facility Care Team Providers Care Relay Man Name Role Phone Linn Mas MD Primary Care Provider +1- [phone] Encounter Details Date Type Department Care Team (Latest Contact Info) Description 01/21/2018 Orders Only [facility] CLINCONV ProviderJennifer MD [address] [place] [address] Social History Tobacco Use Types Packs/Day Years Used Date Smoking Tobacco: Never Assessed Sex and Gender Information Value Date Recorded Sex Assigned at Not on file Legal Sex Male 8:17 PM SUPPORT SPECIALIST Gender Identity Not on file Sexual Orientation Not on file documented as of this encounter Plan of Treatment Not on file documented as of this encounter Procedures Procedure Name Priority Date/Time Associated Diagnosis Comments CARDIOLOGY REPORT 02/07/2018 12: 00 AM CDT CARDIOLOGY REPORT 01/17/2018 12: 00 AM SUPPORT SPECIALIST documented in this encounter Results * CARDIOLOGY REPORT (02/07/2018 12:00 AM CDT) Anatomical Region Laterality Modality Other Narrative 02/07/2018 12:00 AM CDT Ordered by an unspecified provider. us Historical Provider CV CARDIAC SERVICES PROCE ADIS Final Result * CARDIOLOGY REPORT (01/17/2018 12:00 AM SUPPORT SPECIALIST) Anatomical Region Laterality Modality Other Narrative 01/17/2018 12:00 AM SUPPORT SPECIALIST Ordered by an unspecified provider. us Historical Provider CV CARDIAC SERVICES PROCE DURES Final Result documented in this encounter Visit Diagnoses Not on filedocumented in this encounter Additional Health Concerns Infection Onset Date Last Indicated Resolved Time COVID: Suspected 11/06/2021 11/06/2021 11/06/2021 1:29 PM SUPPORT SPECIALIST documented as of this encounter Care Teams Relay Man Relationship Specialty Start Date End Date Linn Mas MD [address] [facility] [address] [place] [address] PCP - General 03/13/18 documented as of this encounter
--- OUTSIDE RECORDS SUMMARY | 2025-05-03 11:41 | XMS_ITS | Encounter Summary ---
Author Organization [facility] Facility Care Team Providers Care Centerless Grinder Set Up Operator Name Role Phone Linn Mas MD Primary Care Provider +1- [phone] Encounter Details Date Type Department Care Team (Latest Contact Info) Description 12/12/2017 Orders Only [facility] CLINCONV ProviderJennifer MD [address] [place] [address] Social History Tobacco Use Types Packs/Day Years Used Date Smoking Tobacco: Never Assessed Sex and Gender Information Value Date Recorded Sex Assigned at Not on file Legal Sex Male 8:17 PM MACHINE BINDER STRIPPER Gender Identity Not on file Sexual Orientation Not on file documented as of this encounter Plan of Treatment Not on file documented as of this encounter Procedures Procedure Name Priority Date/Time Associated Diagnosis Comments SCAN - LABS 01/21/2018 12:00 AM MACHINE BINDER STRIPPER documented in this encounter Results * SCAN - LABS (01/21/2018 12:00 AM MACHINE BINDER STRIPPER) Narrative 01/21/2018 12:00 AM MACHINE BINDER STRIPPER Ordered by an unspecified provider. Historical Provider Final Res ult documented in this encounter Visit Diagnoses Not on filedocumented in this encounter Additional Health Concerns Infection Onset Date Last Indicated Resolved Time COVID: Suspected 11/06/2021 11/06/2021 11/06/2021 1:29 PM MACHINE BINDER STRIPPER documented as of this encounter Care Teams Centerless Grinder Set Up Operator Relationship Specialty Start Date End Date Linn Mas MD [address] [place] [address] PCP - General 03/13/18 documented as of this encounter
--- OUTSIDE RECORDS SUMMARY | 2025-05-03 11:41 | XMS_ITS | Referral Summary ---
Author Organization [facility] at the [facility] Office Center Address [address] [place] [address] Care Team Providers Care Music Coordinator Name Role Phone Linn Mas MD Primary Care Provider +1- [phone] Allergies Active Allergy Reactions Criticality Noted Date [...] 10/30/2021 Assessment & Plan (11/27/2021 10:42 AM CAR TRACER): Cr elevated from baseline - encouraged po fluid intake. Not on diuretics - monitor 11/07: Cr continues to improve, encouraged po intake 11/13: Cr now 1.2, improved. Continue to monitor 11/16: Cr stable at 1.2. monitor 11/27: Cr stable Anemia due to acute blood loss 10/30/2021 Assessment & Plan (11/27/2021 10:39 AM CAR TRACER): H/H is slowly improving - continue to montior with iron supplementation 11/07: h/h stable, monitor 11/13: H/H remains stable 11/16: Hg 9.5. monitor 11/27: stable, continue iron supplementation Throat dryness 10/25/2021 Back pain 10/16/2021 Assessment & Plan (11/18/2021 10:42 AM CAR TRACER): To left side. Likely from surgery. Will [...] 05/25/2021 Assessment & Plan (11/27/2021 10:38 AM CAR TRACER): Continue Miralax. Will give suppos if no [...] 02/22/2021 Assessment & Plan (11/27/2021 10:37 AM CAR TRACER): Will start Trazodone. Continue [place]. 10/30: pt [...] 10/16/2019 Assessment & Plan (11/27/2021 10:38 AM CAR TRACER): Cont gabapentin 300 mg daily. F/u with neurology 10/30: overall stable, continue gabapentin 300mg daily 11/13: stable, continue gabapentin 300mg daily 11/20: stable, continue gabapentin 11/27/21: stable, continue gabapentin 300mg daily Headache 06/18/2019 Persistent atrial fibrillation 06/17/2019 Assessment & Plan (11/27/2021 10:36 AM CAR TRACER): S/P DC cardioversion, Dr. Odom in 2019. [...] 06/17/2019 Assessment & Plan (11/27/2021 10:38 AM CAR TRACER): BP controlled, pulse mildly low. Cont Toprol [...] 06/17/2019 Assessment & Plan (11/27/2021 10:42 AM CAR TRACER): Pt is s/p Left total hip replacement per Dr. Patterson on 10/05/21. DVT prophylaxis with eliquis 5 mg bid. Cont pain mgx with [place] 1 tab q4 prn. Wound care. PT/OT [...] stable, pain controlled with scheduled Tylenol, p.r.n. [place]. Patient is making progress in therapy, we will monitor. Continues to have weight-bearing restrictions. F/U with Dr. Nick Post on 11/15/21 at 9:30am at [facility] 6A: [facility] ([facility]), [address] [place] [address], [address], [place] [address]. 11/07: remains only 20 lbs. 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 Is on Lupron IM every 6 months. Follows up with urologist Dr. Michele. Continue Flomax Resolved Problems Problem Noted Date Diagnosed Date Resolved Date Benign prostatic hyperplasia without urinary obstruction 06/20/2021 10/12/2021 Assessment & Plan (10/11/2021 8:10 AM CAR TRACER): Cont home med flomax 0.4 mg Vestibular migraine 10/15/2019 11/27/19 Assessment & Plan (11/20/2021 4:37 PM CAR TRACER): He was started per neurologist on Venlafaxine [...] 10/23/2021 Assessment & Plan (10/16/2021 11:03 AM CAR TRACER): Unsure of etiology. Labs stable. H&H mildly [...] on file Legal Sex Male 8:17 PM CAR TRACER Gender Identity Not on file Sexual Orientation Not on file Occupation Industry Job Start Date Job End Date Retired Not on file Not on file Not on file Last Filed Vital Signs Vital Sign Reading Time Taken Comments Blood Pressure 155/80 11/28/2021 7:00 AM CAR TRACER Pulse 61 11/28/2021 7:00 AM CAR TRACER Temperature 36.4 C (97.6 F) 11/28/2021 7:00 AM CAR TRACER Respiratory Rate 20 11/28/2021 7:00 AM CAR TRACER Oxygen Saturation 93% 11/28/2021 7:00 AM CAR TRACER Inhaled Oxygen Concentration - - Weight 93.1 kg (205 lb 4 oz) 11/28/2021 5:21 AM CAR TRACER Height 188 cm (6' 2) 10/10/2021 5:10 PM CAR TRACER Body Mass Index 26.35 10/10/2021 5:10 PM CAR TRACER Plan of Treatment Not on file Medical Devices Implanted Type Area Stock Unloader Device Identifier Shelf Expiration Date Model / Serial / Lot [employer] [id number] 60mm Modular Cluster Hole Hip Cup Acetabular Trabecular Metal - S0 - [id number] Implanted:Qty: 1 on 10/05/2021 by Nick Post MD at [facility] Other - see comments Left: Hip [employer] [id number] 04/24/2023 [id number] / 0 / [id number] [employer] [id number] Trilogy 60mm 28mm 10.3mm Primary Modular Cup Liner Hip Standard - S0 - [id number] Implanted:Qty: 1 on 10/05/2021 by Nick Post MD at [facility] Other - see comments Left: Hip [employer] [id number] 04/24/2023 [id number] / 0 / [id number] [employer] [id number] Trilogy 6.5mm 35mm Self Tap Screw Bone - S0 - [id number] Implanted:Qty: 1 on 10/05/2021 by Nick Post MD at [facility] Screw Left: Hip [employer] [id number] 07/31/2031 [id number] / 0 / [id number] [employer] [id number] Trilogy 6.5mm 35mm Self Tap Screw Bone - S0 - [id number] Implanted:Qty: 1 on 10/05/2021 by Nick Post MD at [facility] Screw Left: Hip [employer] [id number] 08/24/2029 [id number] / 0 / [id number] [employer] [id number] 28mm Hip +3.5mm [place] Femoral Cocr - [id number] Implanted:Qty: 1 on 10/05/2021 by Nick Post MD at [facility] Left: Hip [employer] [id number] 12/17/2030 [id number] / / [id number] [employer] [id number] 15mm 160mm Primary Press Fit Hip /14 43mm Oblique Straight Stem - [id number] Implanted:Qty: 1 on 10/05/2021 by Nick Post MD at [facility] Left: Hip [employer] [id number] 02/22/2030 [id number] / / [id number] Insurance MEDICARE [facility] MEDICARE MEDICARE [facility] MEDICARE [facility] Advance Directives For more information, please contact: [phone] Documents on File Type Date Recorded Patient C Wpf Developer Expl anation ADVANCE DIRECTIVE 10/12/2021 9:16 AM POLS T - Phys Order for PT Preferences ADVANCE DIRECTIVE 10/05/2021 11:42 AM Pow er of Technical Writing Lead/Mgr-Medical ADVANCE DIRECTIVE 02/02/2020 12:00 AM TIMOTHY NG WILL * Full Code (Latest Code Status on File) Date Activated Date Inactivated Comments 10/10/2021 5:11 PM 11/28/2021 5:59 PM * Full Code Date Activated Date Inactivated Comments 10/05/2021 6:37 PM 10/10/2021 4:33 PM Care Teams Music Coordinator Relationship Specialty Start Date End Date Linn Mas MD [address] [facility] [address] [place] [address] PCP - General 03/13/18
--- OUTSIDE RECORDS SUMMARY | 2025-05-03 11:41 | XMS_ITS | Encounter Summary ---
Author Organization [facility] Facility Care Team Providers Care Meat Counter Clerk Name Role Phone Linn Mas MD Primary Care Provider +1- [phone] Encounter Details Date Type Department Care Team (Latest Contact Info) Description 11/07/2017 Orders Only [facility] CLINCONV ProviderJennifer MD [address] [place] [address] Social History Tobacco Use Types Packs/Day Years Used Date Smoking Tobacco: Never Assessed Sex and Gender Information Value Date Recorded Sex Assigned at Not on file Legal Sex Male 8:17 PM AIR QUALITY CONSULTANT Gender Identity Not on file Sexual Orientation Not on file documented as of this encounter Plan of Treatment Not on file documented as of this encounter Procedures Procedure Name Priority Date/Time Associated Diagnosis Comments CARDIOLOGY REPORT 12/27/2017 12: 00 AM AIR QUALITY CONSULTANT documented in this encounter Results * CARDIOLOGY REPORT (12/27/2017 12:00 AM AIR QUALITY CONSULTANT) Anatomical Region Laterality Modality Other Narrative 12/27/2017 12:00 AM AIR QUALITY CONSULTANT Ordered by an unspecified provider. Historical Provider CV CARDIAC SERVICES CASIMIRO ARCEO Final Result documented in this encounter Visit Diagnoses Not on filedocumented in this encounter Additional Health Concerns Infection Onset Date Last Indicated Resolved Time COVID: Suspected 11/06/2021 11/06/2021 11/06/2021 1:29 PM AIR QUALITY CONSULTANT documented as of this encounter Care Teams Meat Counter Clerk Relationship Specialty Start Date End Date Linn Mas MD [address] [place] [address] PCP - General 03/13/18 documented as of this encounter
--- OUTSIDE RECORDS SUMMARY | 2025-05-03 11:41 | XMS_ITS | Encounter Summary ---
Author Organization [facility] Facility Care Team Providers Care Sugar Chipper Machine Operator Name Role Phone Linn Mas MD Primary Care Provider +1- [phone] Encounter Details Date Type Department Care Team (Latest Contact Info) Description 03/19/2017 Orders Only [facility] CLINCONV ProviderJennifer MD [address] [place] [address] Social History Tobacco Use Types Packs/Day Years Used Date Smoking Tobacco: Never Assessed Sex and Gender Information Value Date Recorded Sex Assigned at Not on file Legal Sex Male 8:17 PM CHAIN MAKER LOOM CONTROL Gender Identity Not on file Sexual Orientation Not on file documented as of this encounter Plan of Treatment Not on file documented as of this encounter Procedures Procedure Name Priority Date/Time Associated Diagnosis Comments CARDIOLOGY REPORT 12/27/2017 12: 00 AM CHAIN MAKER LOOM CONTROL documented in this encounter Results * CARDIOLOGY REPORT (12/27/2017 12:00 AM CHAIN MAKER LOOM CONTROL) Anatomical Region Laterality Modality Other Narrative 12/27/2017 12:00 AM CHAIN MAKER LOOM CONTROL Ordered by an unspecified provider. Historical Provider CV CARDIAC SERVICES CASIMIRO ARCEO Final Result documented in this encounter Visit Diagnoses Not on filedocumented in this encounter Additional Health Concerns Infection Onset Date Last Indicated Resolved Time COVID: Suspected 11/06/2021 11/06/2021 11/06/2021 1:29 PM CHAIN MAKER LOOM CONTROL documented as of this encounter Care Teams Sugar Chipper Machine Operator Relationship Specialty Start Date End Date Linn Mas MD [address] [place] [address] PCP - General 03/13/18 documented as of this encounter
[2025-05-03 11:49] LABS: Troponin I 0.032 ng/mL (0.000-0.034)
[2025-05-03 11:50] LABS: Glucose Point of Care 118 mg/dl (65-105)
[2025-05-03 12:02] LABS: Alanine Aminotransferase 14 U/L (6-50); Albumin Level 4.1 g/dL (3.5-5.1); Alkaline Phosphatase 74 U/L (38-126); Anion Gap 8 mmol/L (4-12); Aspartate Amino Transferase 30 U/L (17-59); Bilirubin,Total 0.8 mg/dL (0.2-1.3); Blood Urea Nitrogen 22 mg/dL (9-20); Carbon Dioxide 33 mmol/L (22-30); Chloride 85 mmol/L (98-107); Estimated CRCL calculation 39 ml/min; Estimated Glomerular Filt Rate 45; Glucose 136 mg/dL (65-110); Magnesium 2.9 mg/dL (1.6-2.3); Potassium 2.1 mmol/L (3.4-5.0); Sodium 126 mmol/L (137-145); Total Protein 7.1 g/dL (6.3-8.2)
[2025-05-03 12:05] LABS: Add Urine Microscopic? NO; Appearance Urine Clear (Clear); Bilirubin Urine Negative (Negative); Blood Urine Negative (Negative); Color Urine Yellow (Yellow); Glucose Urine UA Negative (Negative); Ketones Urine Negative (Negative); Leukocyte Esterase Ur Negative LEU/UL (Negative); Nitrate Urine Negative (Negative); Protein Urine Negative (Negative); Specific Grav Ur 1.006 (1.001-1.035); Urobilinogen Urine 0.2 mg/dL (<2.0)
[2025-05-03] MEDS: POTASSIUM CHLORIDE INJ 40 MEQ in SODIUM CHLORIDE 0.9% IV 500 ML 130 MEQ IVPB ×3 (12:26→22:45)
--- NOTE | 2025-05-03 15:12 | P.HP_ITS ---
H&P: HPI History of Present Illness Date/Time: 05/03/25 15:12 Chief Complaint: Dizziness, abnormal labs, chronic abdominal pain with IBS Narrative: This is an 85-year-old male patient who is admitted to the hospital for dizziness, atrial fibrillation with rapid ventricular rate and severely low potassium. Patient was at GI office today for follow-up regarding irritable bowel syndrome with chronic abdominal pain and intermittent constipation versus diarrhea. While he was at the office he could not participate in exam because he was experiencing too much pain and dizziness. He was sent to the emergency department though he protested going. In the ER patient found to have hyponatremia of 126 and severe hypokalemia of 2.1. Treatment started with IV fluids/IV potassium replacement and patient admitted for further management. Patient states that he has constant chronic abdominal pain and nothing that GI has been giving him has helped. He reports throwing out his potassium pills for a while. He states that they don't help his belly pain. Patient has past history of atrial fibrillation and is on Eliquis. Magnesium was slightly elevated, likely due to magnesium containing products to help with his constipation as well as daily prescribed magnesium oxide. Patient reports that the only thing that really helps him have a bowel movement it is when he takes MiraLax mixed with prune juice. We offered this and he stated that he wanted to do it in the morning so he was not up all night having stools. Review of Systems Review of Systems: All systems reviewed & are unremarkable except as noted in HPI and below PMFSH Past Medical History Medical History Chronic diastolic heart failure Prostate cancer Hyperlipidemia Hypertension Paroxysmal A-fib Surgical History Surgical History History of hip replacement Social History Social History Smoking status: Former smoker Tobacco type: cigarettes Smoking end date: 11/25/99 Alcohol intake: former Substance use: never Do You Feel Safe in your Home?: Yes Lack of Transportation: No Lack of Food: Never True Current Housing: I Have Housing Concerned About Future Housing: No Difficulty Paying Gas/Electric Bills: No Difficulty Paying for Meds: No Currently Unemployed: No Education: Associate Degree Difficulty w/ Childcare or Family Care: No Living arrangements: assisted living Spiritual care concerns: No Meds Home Medications and Allergies Home Medications ?Medication ?Instructions ?Recorded ?Confirmed ?Type Acidophilus 1 cap PO DAILY 01/20/25 05/03/25 History acetaminophen 650 mg 650 mg PO Q12H PRN pain 01/20/25 05/03/25 History tablet,extended release apixaban 5 mg tablet (Eliquis) 5 mg PO Q12H 01/20/25 05/03/25 History cyanocobalamin (vitamin B-12) 2,500 mcg PO DAILY 01/20/25 05/03/25 History 2,500 mcg sublingual lozenge ergocalciferol (vitamin D2) 1,250 1,250 mcg PO WEEKLY 01/20/25 05/03/25 History mcg (50,000 unit) capsule furosemide 40 mg tablet 40 mg PO DAILY 01/20/25 05/03/25 History loteprednol etabonate 0.5 % eye 1 drp EACH EYE TID 01/20/25 05/03/25 History drops,suspension magnesium oxide 400 mg PO DAILY 01/20/25 05/03/25 History melatonin 5 mg tablet 5 mg PO HS PRN sleep 01/20/25 05/03/25 History meloxicam 7.5 mg tablet 7.5 mg PO DAILY PRN pain 01/20/25 05/03/25 History metolazone 5 mg tablet 5 mg PO DAILY 01/20/25 05/03/25 History potassium chloride 20 mEq 80 meq PO DAILY 01/20/25 05/03/25 History tablet,extended release(part/cryst) riboflavin (vitamin B2) 100 mg 300 mg PO DAILY 01/20/25 05/03/25 History tablet sodium chloride 0.65 % nasal spray 1 spray intranasal BID PRN dry 01/20/25 0 05/03/25 History aerosol (Deep Sea Nasal) nasal passages lactulose 10 gram/15 mL oral 10 g PO DAILY PRN constipation 05/03/25 05/03/25 History solution naproxen 500 mg tablet 500 mg PO BID PRN pain 05/03/25 05/03/25 History polyethylene glycol 3350 17 17 g PO DAILY PRN constipation 05/03/25 05/03/25 History gram/dose oral powder (Miralax) simethicone 125 mg chewable tablet 250 mg (2 x 125 mg) PO ACHS 05/03/25 05/03/25 Rx (Gas Relief (simethicone)) excessive bloating and gas 90 days #720 tabs Allergies Allergy/AdvReac Type Severity Reaction Status Date / Time atorvastatin Allergy Unknown Verified 03/24/25 10:31 duloxetine Allergy Unknown Verified 03/24/25 10:31 Vital Signs Vital Signs - 24 hr 05/03/25 10:09 05/03/25 10:27 05/03/25 10:30 Temperature Pulse Rate 126 H 109 H 107 H Respiratory Rate 20 25 H 24 H Blood Pressure 115/85 111/83 Pulse Oximetry 98 99 91 Oxygen Delivery Room Air 05/03/25 10:31 05/03/25 10:45 05/03/25 10:46 Temperature Pulse Rate 104 H 89 91 Respiratory Rate 23 H 19 14 Blood Pressure 106/71 Pulse Oximetry 99 93 95 Oxygen Delivery 05/03/25 10:51 05/03/25 11:23 05/03/25 11:30 Temperature Pulse Rate 115 H 127 H 99 Respiratory Rate 23 H 23 H 28 H Blood Pressure 106/71 127/95 H Pulse Oximetry 98 98 98 Oxygen Delivery 05/03/25 11:31 05/03/25 11:33 05/03/25 11:45 Temperature 36.8 C Pulse Rate 103 H 104 H 124 H Respiratory Rate 23 H 20 20 Blood Pressure 127/95 H 144/88 H Pulse Oximetry 96 98 94 Oxygen Delivery 05/03/25 11:46 05/03/25 12:03 05/03/25 12:32 Temperature Pulse Rate 91 101 H 136 H Respiratory Rate 22 H 21 H Blood Pressure Pulse Oximetry 99 98 100 Oxygen Delivery 05/03/25 12:33 05/03/25 12:34 05/03/25 12:34 Temperature Pulse Rate 112 H 145 H 125 H Respiratory Rate 18 Blood Pressure 123/104 H 100/73 123/90 Pulse Oximetry 99 Oxygen Delivery 05/03/25 12:36 05/03/25 12:38 05/03/25 12:45 Temperature Pulse Rate 139 H 129 H 126 H Respiratory Rate 21 H 21 H 21 H Blood Pressure 100/73 111/83 108/76 Pulse Oximetry 98 99 95 Oxygen Delivery 05/03/25 12:46 05/03/25 13:06 05/03/25 13:15 Temperature Pulse Rate 121 H 133 H 114 H Respiratory Rate 18 13 17 Blood Pressure Pulse Oximetry 100 98 100 Oxygen Delivery 05/03/25 13:34 05/03/25 13:45 05/03/25 14:00 Temperature Pulse Rate 100 105 H 122 H Respiratory Rate 15 19 25 H Blood Pressure Pulse Oximetry 97 96 96 Oxygen Delivery 05/03/25 14:16 05/03/25 14:30 05/03/25 14:31 Temperature Pulse Rate 120 H 125 H 126 H Respiratory Rate 18 20 19 Blood Pressure 98/79 L Pulse Oximetry Oxygen Delivery Exam Narrative: GENERAL: Well-appearing, well-nourished, mild to moderate pain distress, very hard of hearing HEAD: Normocephalic, atraumatic. ENT:? Mucous membranes moist. CHEST: Clear to auscultation.? No respiratory distress. HEART: tachycardic rate, irregularly irregular rhythm, atrial fibrillation RVR on bedside telemetry ABDOMEN: Generally tender to palpation, no rebound or guarding, mildly protuberant, hyperactive bowel sounds EXTREMITIES: Normal range of motion. No peripheral edema. SKIN: Warm dry normal color NEURO: Alert and oriented x3. H&P: Results Labs Labs: Short CBC 05/03/25 Range/Units 11:13 WBC 5.7 (4.5-10.0) K/mm3 Hgb 14.1 (14.0-18.0) g/dL Hct 40.4 L (42.0-52.0) % Plt Count 320 (150-375) k/mm3 BMP 05/03/25 05/03/25 05/03/25 11:13 11:13 11:13 Sodium Cancelled 126 L Potassium Cancelled 2.1 L* Chloride Cancelled Carbon Dioxide BUN Creatinine Glucose Calcium 05/03/25 05/03/25 05/03/25 11:13 11:13 11:13 Sodium Potassium Chloride 85 L Carbon Dioxide Cancelled 33 H BUN Cancelled 22 H Creatinine Cancelled Glucose Calcium 05/03/25 05/03/25 05/03/25 11:13 11:13 11:13 Sodium Potassium Chloride Carbon Dioxide BUN Creatinine 1.49 H Glucose Cancelled 136 H Calcium Cancelled 9.0 Cardiac Enzymes 05/03/25 Range/Units 11:12 Troponin I 0.032 (0.000-0.034) ng/mL Liver Function 06/08/1905/03/25 05/03/25 Range/Units 11:13 11:13 11:13 Total Bilirubin Cancelled 0.8 AST Cancelled 30 ALT Cancelled Alkaline Phosphatase Albumin 05/03/25 05/03/25 05/03/25 Range/Units 11:13 11:13 11:13 Total Bilirubin AST ALT 14 Alkaline Phosphatase Cancelled 74 Albumin Cancelled 4.1 Urine 05/03/25 Range/Units 11:51 Urine Color Yellow (Yellow) Urine Appearance Clear (Clear) Urine pH 8.0 (5.0-9.0) Ur Specific [place] 1.006 (1.001-1.035) Urine Protein Negative (Negative) mg/dL Urine Glucose (UA) Negative (Negative) mg/dL Pulse Oximetry SpO2 results: 93-98% sats on room air Attestation: I personally reviewed and interpreted this pulse oximetry as follows: Interpretation: No need for supplemental oxygenation at this time ECG Attestation: I personally reviewed and interpreted this ECG as follows: ECG completion date: 05/03/25 ECG completion time: 10:10 Prior ECG tracings: not available for review Interpretation: atrial fibrillation with rapid ventricular response, rate 110, QRSd 113, QTC 341, QRS axis 37, ST depression in Lead 2, V4 and V5, no STEMI Imaging Chest x-ray: Radiologist's impression: EXAMINATION: XR chest 1V DATE: 05/03/2025 13:11 INDICATION: Atrial fibrillation TECHNIQUE: frontal view of the chest was obtained. COMPARISON: Chest radiograph dated 11/01/2023 FINDINGS: There are few small bilateral calcified pulmonary nodules consistent with old granulomatous disease. In addition there is more linear calcified pleural plaques at the lateral left mid to lower lung zone. Linear discoid atelectasis at the right lung base projecting over the right hemidiaphragm. No other airspace opacities, pulmonary edema, pleural effusion or pneumothorax. Heart size within normal limits for AP technique with small bilateral paracardial fat pads. IMPRESSION: 1. No acute cardiopulmonary disease. Reviewed, dictated and finalized at location A. CT scan - head: Radiologist's impression: EXAMINATION: CT brain wo con DATE: 05/03/2025 12:59 INDICATION: Dizziness TECHNIQUE: Computed tomography (CT) of the head was performed without intravenous contrast. Sagittal and coronal reconstructions were performed. The mA was adjusted according to patient size. Iterative reconstruction technique was employed. The dose-length product was 605.33 mGy-cm. COMPARISON: None FINDINGS: No acute intracranial hemorrhage, acute infarction or abnormal extra axial fluid collection. There is mild scattered white matter hypoattenuation consistent with chronic small vessel ischemic disease. Symmetric prominence of the sulci and ventricles consistent with moderateage-appropriate diffuse cerebral volume loss. Normal anatomic variant cavum septum pellucidum and vergae. No mass/mass effect. Mucous retention cyst in the left maxillary sinus. The orbits and mastoid air cells are normal. IMPRESSION: 1. No acute intracranial process. 2. Age-related changes including moderate diffuse volume loss and mild to moderate scattered white matter hypoattenuation consistent with chronic small vessel ischemic disease. Reviewed, dictated and finalized at location A. Assessment and Plan Assessment and plan (1) Acute hypokalemia: Code(s): E87.6 - Hypokalemia Status: Acute Assessment and Plan: -Severe hypokalemia with K of 2.1 on ER visit -Prescribed potassium tablets but has not been taking them for unknown amount of time -Magnesium 2.9 -IV replacement 80 mEq total ordered in ER -Repeat metabolic panel this evening and again in the morning -Alternating constipation and diarrhea (IBS) undergoing treatment by GI -Potassium rechecked after 80 mEQ IV --> 2.4 now -Ordered additional 40 mEq IV and 60 mEq oral -Patient is prescribed 80 mEq oral daily, has been throwing them away for unknown length of time (2) Dizziness: Code(s): R42 - Dizziness and giddiness Status: Acute Assessment and Plan: -Presenting complaint was dizziness, near syncope at GI office -Found to be in A-fib with RVR and severely low potassium (3) Acute hyponatremia: Code(s): E87.1 - Hypo-osmolality and hyponatremia Status: Acute Assessment and Plan: -Na 126 on admission -May be dehydration related -IV potassium 80 meq in 1000 mL plus 1000 mL normal fluids given in ER -Will recheck this evening and in the morning -Chronic kidney disease appears to be at baseline -May be SIADH due to persistent pain of chronic abdominal bloating/pain syndrome -Sodium improved with fluids from 126 --> 131 (4) Atrial fibrillation with RVR: Code(s): I48.91 - Unspecified atrial fibrillation Status: Acute Assessment and Plan: -Afib with RVR with HR 110-145 in ER -Severely depleted potassium being corrected -IV fluid replacement given in ER -No rate controlling medications noted on prior home med list -Oral metoprolol ordered x1 for rate control with mild improvement -Blood pressure soft -Continue Eliquis (5) Chronic diastolic heart failure: Code(s): I50.32 - Chronic diastolic (congestive) heart failure Status: Acute Assessment and Plan: -Noted in history, no Echocardiogram on file -No hypoxia or major swelling -Does not appear fluid overloaded at this time (6) Symptoms consistent with irritable bowel syndrome: Code(s): K58.9 - Irritable bowel syndrome, unspecified Status: Acute Assessment and Plan: -Chronic and recurrent symptoms of alternating constipation and diarrhea -Was on Linzess but this has been changed by GI to Amitiza -Patient reports prune juice with Miralax makes him go but several bouts of diarrhea follow -Simethicone and Bentyl have not helped pain -CT on 03/09/25 no acute abnormality -Patient wanted Maalox tonight and Miralax with prune juice in the morning (7) Lower abdominal pain: Code(s): R10.30 - Lower abdominal pain, unspecified Status: Acute Assessment and Plan: See IBS above Quality VTE Prophylaxis VTE prophylaxis: pharmacologic ordered (Eliquis) Hospitalist [facility] Advance Care Plan I have confirmed that the patient's Advanced Care Plan is present, code status is documented, or surrogate decision maker is listed in patient medical record.: Yes Medication Reconciliation I have utilized all available resources to obtain, update and review the patients current medications (includes all prescriptions, OTC, herbals, cannabis, and nutritional supplements).: Yes
--- NOTE | 2025-05-03 16:57 | ADMGEN ---
This patient, Shane Mahoney, was admitted to IMU Room 203-01. Patient/family oriented to hospital policies and general routines including ID bracelet, bed and alarms, visiting hours, pain management, procedures, bathroom and other care routines, personal items, smoking policy, room service/diet, and visiting hours. Information on how to activate the Rapid Response Team has been discussed. Patient/Family are encouraged to report perceived risks to care and to ask questions if they do not understand what they are told or what they should do.
[2025-05-03] MEDS: METOPROLOL TARTRATE 25 MG TABLET PO (18:30)
[2025-05-03] MEDS: ACETAMINOPHEN 325 MG TABLET 650 MG PO ×2 (18:33→22:43)
[2025-05-03] MEDS: MAG HYDROX/AL HYDROX/SIMETH 30 ML UDC PO (21:30)
[2025-05-03 22:04] LABS: Anion Gap 7 mmol/L (4-12); Blood Urea Nitrogen 22 mg/dL (9-20); Calcium 8.2 mg/dL (8.4-10.2); Carbon Dioxide 31 mmol/L (22-30); Chloride 93 mmol/L (98-107); Estimated CRCL calculation 39 ml/min; Estimated Glomerular Filt Rate 45; Glucose 97 mg/dL (65-110); Potassium 2.4 mmol/L (3.4-5.0); Sodium 131 mmol/L (137-145)
[2025-05-03] MEDS: POTASSIUM CHLORIDE 20 MEQ ER TABLET 60 MEQ PO (22:42)
[2025-05-03] MEDS: MELATONIN 5 MG TABLET PO (23:01)
[2025-05-03] MEDS: APIXABAN 5 MG TABLET PO (23:01)
[2025-05-04] VITALS (13 sets, daily range): BP systolic 90–99; BP diastolic 53–75; PULSE 84–118; RESP 18–20; TEMP 36.5–36.7; O2SAT 97–99
[2025-05-04 01:39] LABS: Sodium Urine Random 52 meq/L
[2025-05-04] MEDS: polyethylene glycoL 3350 17 GM POWD.PACK PO (02:58)
[2025-05-04 04:52] LABS: Alanine Aminotransferase 13 U/L (6-50); Albumin Level 3.6 g/dL (3.5-5.1); Alkaline Phosphatase 57 U/L (38-126); Anion Gap 4 mmol/L (4-12); Aspartate Amino Transferase 27 U/L (17-59); Bilirubin,Total 0.6 mg/dL (0.2-1.3); Blood Urea Nitrogen 21 mg/dL (9-20); Calcium 8.2 mg/dL (8.4-10.2); Carbon Dioxide 32 mmol/L (22-30); Chloride 94 mmol/L (98-107); Estimated CRCL calculation 40 ml/min; Estimated Glomerular Filt Rate 47; Glucose 120 mg/dL (65-110); Magnesium 2.8 mg/dL (1.6-2.3); Phosphorus 1.7 mg/dL (2.5-4.5); Potassium 2.8 mmol/L (3.4-5.0); Sodium 130 mmol/L (137-145); Total Protein 6.2 g/dL (6.3-8.2)
[2025-05-04] MEDS: POTASSIUM PHOS/SODIUM PHOS 250 MG TABLET 500 MG PO (05:51)
[2025-05-04] MEDS: ACETAMINOPHEN 325 MG TABLET 650 MG PO ×3 (05:55→21:07)
[2025-05-04] MEDS: CYANOCOBALAMIN 500 MCG TABLET 2500 MCG PO (09:21)
[2025-05-04] MEDS: APIXABAN 5 MG TABLET PO ×2 (09:22→21:02)
[2025-05-04] MEDS: metOLazone 5 MG TABLET PO (09:22)
[2025-05-04] MEDS: POTASSIUM CHLORIDE 20 MEQ ER TABLET 40 MEQ PO ×3 (09:22→16:30)
[2025-05-04] MEDS: SIMETHICONE 125 MG CHEW TAB 250 MG PO ×4 (09:28→21:02)
[2025-05-04] MEDS: LOTEPREDNOL ETABONATE 0.5% OPH 5 ML BOTTLE 1 DROP EACH EYE ×3 (09:28→16:30)
[2025-05-04 12:33] LABS: Anion Gap 5 mmol/L (4-12); Blood Urea Nitrogen 19 mg/dL (9-20); Calcium 7.8 mg/dL (8.4-10.2); Carbon Dioxide 29 mmol/L (22-30); Chloride 94 mmol/L (98-107); Estimated CRCL calculation 43 ml/min; Estimated Glomerular Filt Rate 52; Glucose 94 mg/dL (65-110); Sodium 128 mmol/L (137-145)
[2025-05-04] MEDS: LACTULOSE 20 GM/30 ML UDC 10 GM PO (12:48)
--- NOTE | 2025-05-04 13:48 | PC.NURSE ---
This patient, Shane Mahoney, was transferred to [ [id number]] on 05/04/25 at 1348. Personal belongings sent with patient. Report given to [ Joaquin ORTIZ]. Appropriate documentation sent with patient.
[2025-05-04 14:16] LABS: Magnesium 2.8 mg/dL (1.6-2.3)
--- NOTE | 2025-05-04 14:18 | PC.NURSE ---
This patient, Shane Mahoney, was received from [[id number]] on 05/04/25 at 1350. Patient/family oriented to unit policies and routines. Report received from ANGEL Mir.
--- NOTE | 2025-05-04 16:10 | PM.IMPN ---
Progress Note: A&P Assessment and Plan (1) Acute hypokalemia: Code(s): E87.6 - Hypokalemia Status: Acute Assessment and Plan: -Severe hypokalemia with K of 2.1 on ER visit -Prescribed potassium tablets but has not been taking them for unknown amount of time -Magnesium 2.9 -IV replacement 80 mEq total ordered in ER -Repeat metabolic panel this evening and again in the morning -Alternating constipation and diarrhea (IBS) undergoing treatment by GI -Potassium rechecked after 80 mEQ IV --> 2.4 now -Ordered additional 40 mEq IV and 60 mEq oral -Patient is prescribed 80 mEq oral daily, has been throwing them away for unknown length of time (2) Dizziness: Code(s): R42 - Dizziness and giddiness Status: Acute Assessment and Plan: -Presenting complaint was dizziness, near syncope at GI office -Found to be in A-fib with RVR and severely low potassium (3) Acute hyponatremia: Code(s): E87.1 - Hypo-osmolality and hyponatremia Status: Acute Assessment and Plan: -Na 126 on admission -May be dehydration related -IV potassium 80 meq in 1000 mL plus 1000 mL normal fluids given in ER -Will recheck this evening and in the morning -Chronic kidney disease appears to be at baseline -May be SIADH due to persistent pain of chronic abdominal bloating/pain syndrome -Sodium improved with fluids from 126 --> 131 (4) Atrial fibrillation with RVR: Code(s): I48.91 - Unspecified atrial fibrillation Status: Acute Assessment and Plan: -Afib with RVR with HR 110-145 in ER -Severely depleted potassium being corrected -IV fluid replacement given in ER -No rate controlling medications noted on prior home med list -Oral metoprolol ordered x1 for rate control with mild improvement -Blood pressure soft -Continue Eliquis (5) Chronic diastolic heart failure: Code(s): I50.32 - Chronic diastolic (congestive) heart failure Status: Acute Assessment and Plan: -Noted in history, no Echocardiogram on file -No hypoxia or major swelling -Does not appear fluid overloaded at this time (6) Symptoms consistent with irritable bowel syndrome: Code(s): K58.9 - Irritable bowel syndrome, unspecified Status: Acute Assessment and Plan: -Chronic and recurrent symptoms of alternating constipation and diarrhea -Was on Linzess but this has been changed by GI to Amitiza -Patient reports prune juice with Miralax makes him go but several bouts of diarrhea follow -Simethicone and Bentyl have not helped pain -CT on 03/09/25 no acute abnormality -Patient wanted Maalox tonight and Miralax with prune juice in the morning (7) Lower abdominal pain: Code(s): R10.30 - Lower abdominal pain, unspecified Status: Acute Assessment and Plan: See IBS above Plan patient with abdominal pain and off and on diarrhea, was very weak at his GI office was sent to the ER, he was found to have hypokalemia and hyponatremia most likely 2/2 diarrhea and not eating and taking supplemental potassium, will supplement and monitor, Patient is present in the room and gave updates. will have PT/OT evaluate the patient and patient benefit going to rehab. Subjective Date/time seen: 05/04/25 16:10 Interval history: Dizziness, abnormal labs, chronic abdominal pain with IBS Narrative: This is an 85-year-old male patient who is admitted to the hospital for dizziness, atrial fibrillation with rapid ventricular rate and severely low potassium. Patient was at GI office today for follow-up regarding irritable bowel syndrome with chronic abdominal pain and intermittent constipation versus diarrhea. While he was at the office he could not participate in exam because he was experiencing too much pain and dizziness. He was sent to the emergency department though he protested going. In the ER patient found to have hyponatremia of 126 and severe hypokalemia of 2.1. Treatment started with IV fluids/IV potassium replacement and patient admitted for further management. Patient states that he has constant chronic abdominal pain and nothing that GI has been giving him has helped. He reports throwing out his potassium pills for a while. He states that they don't help his belly pain. Patient has past history of atrial fibrillation and is on Eliquis. Magnesium was slightly elevated, likely due to magnesium containing products to help with his constipation as well as daily prescribed magnesium oxide. Patient reports that the only thing that really helps him have a bowel movement it is when he takes MiraLax mixed with prune juice. We offered this and he stated that he wanted to do it in the morning so he was not up all night having stools. patient with abdominal pain and off and on diarrhea, was very weak at his GI office was sent to the ER, he was found to have hypokalemia and hyponatremia most likely 2/2 diarrhea and not eating and taking supplemental potassium, will supplement and monitor, Patient is present in the room and gave updates. will have PT/OT evaluate the patient and patient benefit going to rehab. Review of Systems Review of Systems: All systems reviewed & are unremarkable except as noted in HPI and below Exam Narrative: Patient is comfortable, NAD HEENT: eyes are clear and none icteric LUNGS:CTA HEART: RR S1S2 ABD: BS+, Soft and nontender Lower extremities: no edema SKIN: nonjaundiced Neuro: grossly intact. Objective Data Vital Signs Vital Signs: Vital Signs - 24 hr 05/03/25 16:32 05/03/25 16:45 05/03/25 17:32 Temperature 36.7 C 36.4 C Pulse Rate 108 H 123 H Respiratory Rate 20 20 Blood Pressure 108/62 99/72 L Pulse Oximetry 98 100 100 Oxygen Delivery Room Air 05/03/25 18:00 05/03/25 18:30 05/03/25 20:00 Temperature 36.7 C Pulse Rate 106 H 128 H 107 H Respiratory Rate 20 Blood Pressure 90/65 L Pulse Oximetry 98 Oxygen Delivery 05/03/25 20:00 05/03/25 20:00 05/03/25 22:00 Temperature Pulse Rate 85 95 83 Respiratory Rate Blood Pressure Pulse Oximetry Oxygen Delivery Room Air 05/03/25 23:12 05/04/25 00:00 05/04/25 00:00 Temperature 36.6 C Pulse Rate 92 104 H 104 H Respiratory Rate 18 Blood Pressure 90/65 L Pulse Oximetry 98 Oxygen Delivery Room Air 05/04/25 02:00 05/04/25 03:24 05/04/25 04:00 Temperature 36.7 C Pulse Rate 91 94 92 Respiratory Rate 18 Blood Pressure 90/63 L Pulse Oximetry 97 Oxygen Delivery Room Air 05/04/25 04:00 05/04/25 06:07 05/04/25 08:00 Temperature 36.6 C Pulse Rate 87 84 99 Respiratory Rate 20 Blood Pressure 99/53 L Pulse Oximetry 98 Oxygen Delivery 05/04/25 08:00 05/04/25 10:00 05/04/25 11:50 Temperature 36.7 C Pulse Rate 109 H 103 H 118 H Respiratory Rate 20 Blood Pressure 95/73 L Pulse Oximetry 99 Oxygen Delivery 05/04/25 11:51 05/04/25 11:51 05/04/25 12:00 Temperature Pulse Rate 108 H 103 H 92 Respiratory Rate Blood Pressure 96/61 L 94/73 L Pulse Oximetry Oxygen Delivery 05/04/25 14:11 Temperature 36.5 C Pulse Rate 104 H Respiratory Rate 18 Blood Pressure 91/75 L Pulse Oximetry 98 Oxygen Delivery Intake/Output Intake/Output: Intake & Output 05/01/25 05/02/25 05/03/25 05/04/25 23:59 23:59 23:59 23:59 Intake Total 1860 1830 Output Total 200 500 Balance 1660 1330 Meds/Results Medications: Active Medications Generic Name Dose Route Start Last Admin Trade Name Felizq PRN Reason Stop Dose Admin Acetaminophen 650 mg 05/03/25 14:27 05/04/25 05:55 Acetaminophen 325 Mg Tablet PO 650 mg Q4H PRN Administration Mild Pain (1-3) or Fever Apixaban 5 mg 05/03/25 22:45 05/04/25 09:22 Apixaban 5 Mg Tablet PO 5 mg Q12HR ILENE Administration Cyanocobalamin 2,500 mcg 05/04/25 09:00 05/04/25 09:21 Cyanocobalamin 500 Mcg Tablet PO 2,500 mcg DAILY ILENE Administration Furosemide 40 mg 05/04/25 09:00 05/04/25 08:32 Furosemide 40 Mg Tablet PO Not Given DAILY ILENE Lactulose 10 gm 05/03/25 22:43 05/04/25 12:48 Lactulose 20 Gm/30 Ml Udc PO 10 gm DAILY PRN Administration constipation Loteprednol Etabonate 1 drop 05/04/25 09:00 05/04/25 12:49 Loteprednol Etabonate 0.5% Oph 5 Ml Bottle EACH EYE 1 drop TID ILENE Administration Melatonin 5 mg 05/03/25 22:45 05/03/25 23:01 Melatonin 5 Mg Tablet PO 5 mg HS PRN Administration sleep Metolazone 5 mg 05/04/25 09:00 05/04/25 09:22 Metolazone 5 Mg Tablet PO 5 mg DAILY ILENE Administration Riboflavin (Vitamin 1 each 05/04/25 09:00 05/04/25 10:39 B2) 100 Mg Tablet XX 05/05/25 08:59 Not Given DAILY ILENE Polyethylene Glycol 17 gm 05/03/25 22:43 05/04/25 02:58 Polyethylene Glycol 3350 17 Gm Powd.Pack PO 17 gm DAILY PRN Administration constipation Potassium Chloride 40 meq 05/04/25 08:00 05/04/25 09:22 Potassium Chloride 20 Meq Er Tablet PO 40 meq BIDWM ILENE Administration Simethicone 250 mg 05/04/25 08:00 05/04/25 12:49 Simethicone 125 Mg Chew Tab PO 250 mg 0800,1200,1700,2100 ILENE Administration Sodium Chloride 1 spray 05/03/25 22:43 Saline 0.65% Kenji Soln 44 Ml Btl NASAL BID PRN dry nasal passages Radiology Results: ITS Impressions Head CT 05/03/25 13:10 IMPRESSION: 1. No acute intracranial process. 2. Age-related changes including moderate diffuse volume loss and mild to moderate scattered white matter hypoattenuation consistent with chronic small vessel ischemic disease. Chest X-Ray 05/03/25 13:16 IMPRESSION: 1. No acute cardiopulmonary disease. Labs Labs: Laboratory Results - last 24 hr 05/03/25 05/03/25 05/04/25 21:39 22:51 04:10 Sodium 131 L Potassium 2.4 L* Chloride 93 L Carbon Dioxide 31 H Anion Gap 7 BUN 22 H Creatinine 1.48 H Estim Creat Clear Calc 39 Estimated GFR 45 L Glucose 97 Calcium 8.2 L Phosphorus Magnesium 2.8 H Total Bilirubin AST ALT Alkaline Phosphatase Total Protein Albumin Ur Random Sodium 52 05/04/25 05/04/25 04:13 12:11 Sodium 130 L 128 L Potassium 2.8 L* 3.0 L Chloride 94 L 94 L Carbon Dioxide 32 H 29 Anion Gap 4 5 BUN 21 H 19 Creatinine 1.44 H 1.32 H Estim Creat Clear Calc 40 43 Estimated GFR 47 L 52 L Glucose 120 H 94 Calcium 8.2 L 7.8 L Phosphorus 1.7 L Magnesium 2.8 H Total Bilirubin 0.6 AST 27 ALT 13 Alkaline Phosphatase 57 Total Protein 6.2 L Albumin 3.6 Ur Random Sodium Quality VTE Prophylaxis VTE prophylaxis: pharmacologic ordered (Eliquis)
[2025-05-04] MEDS: SALINE 0.65% NAS SOLN 44 ML BTL 1 SPRAY NASAL (16:36)
--- NOTE | 2025-05-04 17:17 | P.CONGI_ITS ---
Assessment and Plan Assessment and plan (1) Symptoms consistent with irritable bowel syndrome: Code(s): K58.9 - Irritable bowel syndrome, unspecified Status: Acute Assessment and Plan: Patient with chronic constipation, stable from a GI standpoint. We should continue to follow him in GI clinic. In this admission, the priority is the fact that he was found with atrial fibrillation and rapid ventricular rate and suggest a cardiology evaluation before discharge. GI Consult Note Consult date/time: 05/04/25 17:17 Reason for consult: Chronic idiopathic constipation HPI: Shane Mahoney, an 85-year-old male, was admitted yesterday after experiencing dizziness and weakness during a GI office appointment. He was noted to have a fast, irregular pulse and was sent to the emergency room. There, he was found to have and subsequently had corrected hyponatremia (sodium 128) and hypokalemia (potassium 2.1). The reason for this consultation is his chronic constipation, which he manages with a mix of prune juice and MiraLax. With this regimen, he typically achieves soft bowel movements every 2-3 days, usually without abdominal pain. A colonoscopy performed on January 27, 2025, revealed only diverticulosis, with no masses or polyps. Review of Systems 2 Review of Systems: All systems reviewed & are unremarkable except as noted in HPI and below PMFSH Past Medical History Medical History Chronic diastolic heart failure Prostate cancer Hyperlipidemia Hypertension Paroxysmal A-fib Surgical History Surgical History History of hip replacement Social History Social History Smoking status: Former smoker Tobacco type: cigarettes Smoking end date: 11/25/99 Alcohol intake: former Substance use: never Do You Feel Safe in your Home?: Yes Lack of Transportation: No Lack of Food: Never True Current Housing: I Have Housing Concerned About Future Housing: No Difficulty Paying Gas/Electric Bills: No Difficulty Paying for Meds: No Currently Unemployed: No Education: Associate Degree Difficulty w/ Childcare or Family Care: No Living arrangements: assisted living Spiritual care concerns: No Meds Home Medications and Allergies Home Medications ?Medication ?Instructions ?Recorded ?Confirmed ?Type Acidophilus 1 cap PO DAILY 01/20/25 05/03/25 History acetaminophen 650 mg 650 mg PO Q12H PRN pain 01/20/25 05/03/25 History tablet,extended release apixaban 5 mg tablet (Eliquis) 5 mg PO Q12H 01/20/25 05/03/25 History cyanocobalamin (vitamin B-12) 2,500 mcg PO DAILY 01/20/25 05/03/25 History 2,500 mcg sublingual lozenge ergocalciferol (vitamin D2) 1,250 1,250 mcg PO WEEKLY 01/20/25 05/03/25 History mcg (50,000 unit) capsule furosemide 40 mg tablet 40 mg PO DAILY 01/20/25 05/03/25 History loteprednol etabonate 0.5 % eye 1 drp EACH EYE TID 01/20/25 05/03/25 History drops,suspension magnesium oxide 400 mg PO DAILY 01/20/25 05/03/25 History melatonin 5 mg tablet 5 mg PO HS PRN sleep 01/20/25 05/03/25 History meloxicam 7.5 mg tablet 7.5 mg PO DAILY PRN pain 01/20/25 05/03/25 History metolazone 5 mg tablet 5 mg PO DAILY 01/20/25 05/03/25 History potassium chloride 20 mEq 80 meq PO DAILY 01/20/25 05/03/25 History tablet,extended release(part/cryst) riboflavin (vitamin B2) 100 mg 300 mg PO DAILY 01/20/25 05/03/25 History tablet sodium chloride 0.65 % nasal spray 1 spray intranasal BID PRN dry 01/20/25 05/03/25 History aerosol (Deep Sea Nasal) nasal passages lactulose 10 gram/15 mL oral 10 g PO DAILY PRN constipation 05/03/25 05/03/25 History solution naproxen 500 mg tablet 500 mg PO BID PRN pain 05/03/25 05/03/25 History polyethylene glycol 3350 17 17 g PO DAILY PRN constipation 05/03/25 05/03/25 History gram/dose oral powder (Miralax) simethicone 125 mg chewable tablet 250 mg (2 x 125 mg) PO ACHS 05/03/25 05/03/25 Rx (Gas Relief (simethicone)) excessive bloating and gas 90 days #720 tabs Allergies Allergy/AdvReac Type Severity Reaction Status Date / Time atorvastatin Allergy Unknown Verified 03/24/25 10:31 duloxetine Allergy Unknown Verified 03/24/25 10:31 Vital Signs Vital Signs - 24 hr 05/03/25 17:32 05/03/25 18:00 05/03/25 18:30 Temperature Pulse Rate 106 H 128 H Respiratory Rate Blood Pressure Pulse Oximetry 100 Oxygen Delivery Room Air 05/03/25 20:00 05/03/25 20:00 05/03/25 20:00 Temperature 98.0 F Pulse Rate 107 H 85 95 Respiratory Rate 20 Blood Pressure 90/65 L Pulse Oximetry 98 Oxygen Delivery Room Air 05/03/25 22:00 05/03/25 23:12 05/04/25 00:00 Temperature 97.8 F Pulse Rate 83 92 104 H Respiratory Rate 18 Blood Pressure 90/65 L Pulse Oximetry 98 Oxygen Delivery Room Air 05/04/25 00:00 05/04/25 02:00 05/04/25 03:24 Temperature Pulse Rate 104 H 91 94 Respiratory Rate Blood Pressure Pulse Oximetry Oxygen Delivery Room Air 05/04/25 04:00 05/04/25 04:00 05/04/25 06:07 Temperature 98.0 F Pulse Rate 92 87 84 Respiratory Rate 18 Blood Pressure 90/63 L Pulse Oximetry 97 Oxygen Delivery 05/04/25 08:00 05/04/25 08:00 05/04/25 10:00 Temperature 97.9 F Pulse Rate 99 109 H 103 H Respiratory Rate 20 Blood Pressure 99/53 L Pulse Oximetry 98 Oxygen Delivery 05/04/25 11:50 05/04/25 11:51 05/04/25 11:51 Temperature 98.0 F Pulse Rate 118 H 108 H 103 H Respiratory Rate 20 Blood Pressure 95/73 L 96/61 L 94/73 L Pulse Oximetry 99 Oxygen Delivery 05/04/25 12:00 05/04/25 14:11 05/04/25 16:00 Temperature 97.7 F Pulse Rate 92 104 H 98 Respiratory Rate 18 Blood Pressure 91/75 L Pulse Oximetry 98 Oxygen Delivery Exam 2 Const: General: cooperative and healthy appearing Resp: Effort & Inspection: normal respiratory effort and able to speak in complete sentences Auscultation: clear to auscultation bilaterally Cardio: Rate: regular rate Rhythm: regular rhythm GI: Inspection: normal to inspection GI Palp: No No hepatosplenomegaly present Auscultation: normal bowel sounds Rectal Exam: deferred Skin: General skin exam: normal color Psych: Appearance: grossly normal Mental Status: mental status grossly normal Results Labs 05/03/25 11:13 05/04/25 12:11 Labs: [facility] 05/03/25 05/04/25 05/04/25 21:39 04:13 12:11 Sodium 131 L 130 L 128 L Potassium 2.4 L* 2.8 L* 3.0 L Chloride 93 L 94 L 94 L Carbon Dioxide 31 H 32 H 29 BUN 22 H 21 H 19 Creatinine 1.48 H 1.44 H 1.32 H Glucose 97 120 H 94 Calcium 8.2 L 8.2 L 7.8 L Liver Function 05/04/25 Range/Units 04:13 Total Bilirubin 0.6 (0.2-1.3) mg/dL AST 27 (17-59) U/L ALT 13 (6-50) U/L Alkaline Phosphatase 57 (38-126) U/L Albumin 3.6 (3.5-5.1) g/dL
[2025-05-04] MEDS: MELATONIN 5 MG TABLET PO (21:02)
[2025-05-05] VITALS (8 sets, daily range): BP systolic 93–108; BP diastolic 52–92; PULSE 51–148; RESP 16–20; TEMP 36.2–36.7; O2SAT 97–100
[2025-05-05 05:33] LABS: Hematocrit 41.3 % (42.0-52.0); Hemoglobin 13.9 g/dL (14.0-18.0); Mean Corpuscular HGB Conc 33.7 g/dl (32-36); Mean Corpuscular Hemoglobin 31.6 pg (26-34); Mean Corpuscular Volume 93.9 fl (80-100); Mean Platelet Volume 9.1 fl (7.4-10.4); Platelet Count Result 295 k/mm3 (150-375); Red Cell Distribution Width 14.5 % (11.5-14.5)
[2025-05-05 05:53] LABS: Alanine Aminotransferase 17 U/L (6-50); Albumin Level 4.2 g/dL (3.5-5.1); Alkaline Phosphatase 87 U/L (38-126); Anion Gap 8 mmol/L (4-12); Aspartate Amino Transferase 41 U/L (17-59); Bilirubin,Total 0.7 mg/dL (0.2-1.3); Blood Urea Nitrogen 16 mg/dL (9-20); Calcium 8.8 mg/dL (8.4-10.2); Carbon Dioxide 29 mmol/L (22-30); Chloride 95 mmol/L (98-107); Estimated CRCL calculation 41 ml/min; Estimated Glomerular Filt Rate 48; Glucose 106 mg/dL (65-110); Magnesium 2.8 mg/dL (1.6-2.3); Phosphorus 1.7 mg/dL (2.5-4.5); Sodium 132 mmol/L (137-145); Total Protein 7.3 g/dL (6.3-8.2)
--- NOTE | 2025-05-05 08:26 | ECG_ITS ---
Test Date: 2025-05-05 09:50:31 Measurements Intervals [place] Rate: 129 P: 0 OR: 0 QRS: 16 QRSD: 101 T: 22 QT: 352 QTc: 516 Interpretive Statements ATRIAL FIBRILLATION WITH RAPID VENTRICULAR RESPONSE BORDERLINE ST-T WAVE ABNORMALITY- ANT/INF LEADS ABNORMAL ECG Compared to ECG 05/03/2025 10:10:45 NO SIGNIFICANT CHANGE Electronically Signed On 05-05-2025 10:11:15 CDT by Tanvir Dumont D.O.
[2025-05-05] MEDS: metOLazone 5 MG TABLET PO (08:31)
[2025-05-05] MEDS: APIXABAN 5 MG TABLET PO ×2 (08:31→19:39)
[2025-05-05] MEDS: POTASSIUM CHLORIDE 20 MEQ ER TABLET 40 MEQ PO ×2 (08:31→16:30)
[2025-05-05] MEDS: polyethylene glycoL 3350 17 GM POWD.PACK PO (08:31)
[2025-05-05] MEDS: CYANOCOBALAMIN 500 MCG TABLET 2500 MCG PO (08:31)
[2025-05-05] MEDS: LACTULOSE 20 GM/30 ML UDC 10 GM PO (08:33)
[2025-05-05] MEDS: SIMETHICONE 125 MG CHEW TAB 250 MG PO ×4 (08:38→19:40)
[2025-05-05] MEDS: LOTEPREDNOL ETABONATE 0.5% OPH 5 ML BOTTLE 1 DROP EACH EYE ×3 (08:39→16:30)
[2025-05-05] MEDS: POTASSIUM CHLORIDE 20 MEQ PACKET (FOR LIQUID) 40 MEQ PO (09:40)
[2025-05-05] MEDS: POTASSIUM/PHOSPHORUS/SODIUM 1.5 GM PACKET 1 PACKET PO (09:41)
[2025-05-05] MEDS: dilTIAZem HCL 30 MG TABLET PO ×2 (10:26→19:39)
--- NOTE | 2025-05-05 11:25 | PCPTNOTE ---
Attempted PT evaluation, Pt resting HR 130-140's. Per hospitalist, hold on therapy until HR controlled. Per nursing HR increases with transfers to commode and recommending waiting to see pt until HR more stable. Will follow.
--- NOTE | 2025-05-05 14:54 | PCOTNOTE ---
Pt currently with an elevated HR at rest (120s-140s). Will hold on occupational therapy evaluation at this time until more medically appropriate. Will continue to follow.
--- NOTE | 2025-05-05 15:39 | P.PNIM_ITS ---
Progress Note: A&P Assessment and Plan (1) Acute hypokalemia: Code(s): E87.6 - Hypokalemia Status: Acute Assessment and Plan: -Severe hypokalemia with K of 2.1 on ER visit -Prescribed potassium tablets but has not been taking them for unknown amount of time -Magnesium 2.9 -IV replacement 80 mEq total ordered in ER -Repeat metabolic panel this evening and again in the morning -Alternating constipation and diarrhea (IBS) undergoing treatment by GI -Potassium rechecked after 80 mEQ IV --> 2.4 now -Ordered additional 40 mEq IV and 60 mEq oral -Patient is prescribed 80 mEq oral daily, has been throwing them away for unknown length of time (2) Dizziness: Code(s): R42 - Dizziness and giddiness Status: Acute Assessment and Plan: -Presenting complaint was dizziness, near syncope at GI office -Found to be in A-fib with RVR and severely low potassium (3) Acute hyponatremia: Code(s): E87.1 - Hypo-osmolality and hyponatremia Status: Acute Assessment and Plan: -Na 126 on admission -May be dehydration related -IV potassium 80 meq in 1000 mL plus 1000 mL normal fluids given in ER -Will recheck this evening and in the morning -Chronic kidney disease appears to be at baseline -May be SIADH due to persistent pain of chronic abdominal bloating/pain syndrome -Sodium improved with fluids from 126 --> 131 (4) Atrial fibrillation with RVR: Code(s): I48.91 - Unspecified atrial fibrillation Status: Acute Assessment and Plan: -Afib with RVR with HR 110-145 in ER -Severely depleted potassium being corrected -IV fluid replacement given in ER -No rate controlling medications noted on prior home med list -Oral metoprolol ordered x1 for rate control with mild improvement -Blood pressure soft -Continue Eliquis (5) Chronic diastolic heart failure: Code(s): I50.32 - Chronic diastolic (congestive) heart failure Status: Acute Assessment and Plan: -Noted in history, no Echocardiogram on file -No hypoxia or major swelling -Does not appear fluid overloaded at this time (6) Symptoms consistent with irritable bowel syndrome: Code(s): K58.9 - Irritable bowel syndrome, unspecified Status: Acute Assessment and Plan: -Chronic and recurrent symptoms of alternating constipation and diarrhea -Was on Linzess but this has been changed by GI to Amitiza -Patient reports prune juice with Miralax makes him go but several bouts of diarrhea follow -Simethicone and Bentyl have not helped pain -CT on 03/09/25 no acute abnormality -Patient wanted Maalox tonight and Miralax with prune juice in the morning (7) Lower abdominal pain: Code(s): R10.30 - Lower abdominal pain, unspecified Status: Acute Assessment and Plan: See IBS above Plan patient with abdominal pain and off and on diarrhea, was very weak at his GI office was sent to the ER, he was found to have hypokalemia and hyponatremia most likely 2/2 diarrhea and not eating and taking supplemental potassium, will supplement and monitor, on 05/04 Patient's son was present in the room and gave updates. patient potassium and magnesium are close to normal, patient still has not had a BM, to further evaluate patient KUB which did not show any obstruction but did show patient has possible metastatic prostate cancer, will consult oncologist for further recommendation, will have PT/OT evaluate the patient and patient benefit going to rehab. Subjective Date/time seen: 05/05/25 15:39 Interval history: Dizziness, abnormal labs, chronic abdominal pain with IBS Narrative: This is an 85-year-old male patient who is admitted to the hospital for dizziness, atrial fibrillation with rapid ventricular rate and severely low potassium. Patient was at GI office today for follow-up regarding irritable bowel syndrome with chronic abdominal pain and intermittent constipation versus diarrhea. While he was at the office he could not participate in exam because he was experiencing too much pain and dizziness. He was sent to the emergency department though he protested going. In the ER patient found to have hyponatremia of 126 and severe hypokalemia of 2.1. Treatment started with IV fluids/IV potassium replacement and patient admitted for further management. Patient states that he has constant chronic abdominal pain and nothing that GI has been giving him has helped. He reports throwing out his potassium pills for a while. He states that they don't help his belly pain. Patient has past history of atrial fibrillation and is on Eliquis. Magnesium was slightly elevated, likely due to magnesium containing products to help with his constipation as well as daily prescribed magnesium oxide. Patient reports that the only thing that really helps him have a bowel movement it is when he takes MiraLax mixed with prune juice. We offered this and he stated that he wanted to do it in the morning so he was not up all night having stools. patient with abdominal pain and off and on diarrhea, was very weak at his GI office was sent to the ER, he was found to have hypokalemia and hyponatremia most likely 2/2 diarrhea and not eating and taking supplemental potassium, will supplement and monitor, on 05/04 Patient's son was present in the room and gave updates. patient potassium and magnesium are close to normal, patient still has not had a BM, to further evaluate patient KUB which did not show any obstruction but did show patient has possible metastatic prostate cancer, will consult oncologist for further recommendation, will have PT/OT evaluate the patient and patient benefit going to rehab. Review of Systems Review of Systems: All systems reviewed & are unremarkable except as noted in HPI and below Exam Narrative: Patient is comfortable, NAD HEENT: eyes are clear and none icteric LUNGS:CTA HEART: RR S1S2 ABD: BS+, Soft and nontender Lower extremities: no edema SKIN: nonjaundiced Neuro: grossly intact. Objective Data Vital Signs Vital Signs: Vital Signs - 24 hr 05/04/25 16:00 05/04/25 20:00 05/05/25 00:00 Temperature 36.7 C Pulse Rate 98 118 H 51 L Respiratory Rate 18 Blood Pressure 105/63 Pulse Oximetry 100 05/05/25 00:00 05/05/25 04:00 05/05/25 04:00 Temperature 36.6 C Pulse Rate 120 H 131 H 108 H Respiratory Rate 20 Blood Pressure 102/79 Pulse Oximetry 99 05/05/25 08:00 05/05/25 08:00 05/05/25 12:00 Temperature 36.3 C L 36.2 C L Pulse Rate 133 H 133 H 148 H Respiratory Rate 18 18 Blood Pressure 93/67 L 108/92 H Pulse Oximetry 98 100 05/05/25 12:00 Temperature Pulse Rate 123 H Respiratory Rate Blood Pressure Pulse Oximetry Intake/Output Intake/Output: Intake & Output 05/02/25 05/03/25 05/04/25 05/05/25 23:59 23:59 23:59 23:59 Intake Total 1860 2070 840 Output Total 200 500 Balance 1660 1570 840 Meds/Results Medications: Active Medications Generic Name Dose Route Start Last Admin Trade Name Felizq PRN Reason Stop Dose Admin Acetaminophen 650 mg 05/03/25 14:27 05/04/25 21:07 Acetaminophen 325 Mg Tablet PO 650 mg Q4H PRN Administration Mild Pain (1-3) or Fever Apixaban 5 mg 05/03/25 22:45 05/05/25 08:31 Apixaban 5 Mg Tablet PO 5 mg Q12HR ILENE Administration Cyanocobalamin 2,500 mcg 05/04/25 09:00 05/05/25 08:31 Cyanocobalamin 500 Mcg Tablet PO 2,500 mcg DAILY ILENE Administration Diltiazem HCl 30 mg 05/05/25 10:00 05/05/25 10:26 Diltiazem Hcl 30 Mg Tablet PO 30 mg Q12HR ILENE Administration Furosemide 40 mg 05/04/25 09:00 05/04/25 08:32 Furosemide 40 Mg Tablet PO Not Given DAILY ILENE Lactulose 10 gm 05/03/25 22:43 05/05/25 08:33 Lactulose 20 Gm/30 Ml Udc PO 10 gm DAILY PRN Administration constipation Loteprednol Etabonate 1 drop 05/04/25 09:00 05/05/25 12:52 Loteprednol Etabonate 0.5% Oph 5 Ml Bottle EACH EYE 1 drop TID ILENE Administration Melatonin 5 mg 05/03/25 22:45 05/04/25 21:02 Melatonin 5 Mg Tablet PO 5 mg HS PRN Administration sleep Metolazone 5 mg 05/04/25 09:00 05/05/25 08:31 Metolazone 5 Mg Tablet PO 5 mg DAILY ILENE Administration Polyethylene Glycol 17 gm 05/03/25 22:43 05/05/25 08:31 Polyethylene Glycol 3350 17 Gm Powd.Pack PO 17 gm DAILY PRN Administration constipation Potassium Chloride 40 meq 05/04/25 08:00 05/05/25 08:31 Potassium Chloride 20 Meq Er Tablet PO 40 meq BIDWM ILENE Administration Simethicone 250 mg 05/04/25 08:00 05/05/25 12:52 Simethicone 125 Mg Chew Tab PO 250 mg 0800,1200,1700,2100 ILENE Administration Sodium Chloride 1 spray 05/03/25 22:43 05/04/25 16:36 Saline 0.65% Kenji Soln 44 Ml Btl NASAL 1 spray BID PRN Administration dry nasal passages Radiology Results: ITS Impressions Head CT 05/03/25 13:10 IMPRESSION: 1. No acute intracranial process. 2. Age-related changes including moderate diffuse volume loss and mild to moderate scattered white matter hypoattenuation consistent with chronic small vessel ischemic disease. Chest X-Ray 05/03/25 13:16 IMPRESSION: 1. No acute cardiopulmonary disease. Abdomen X-Ray 05/05/25 11:12 Impression: 1: Sclerotic lesions of the left ischium and right femoral head, suspicious for metastatic disease. Recommend correlation with nuclear bone scan. Further evalu ation for possible prostate cancer recommended. Labs Labs: Laboratory Results - last 24 hr 05/05/25 05:17 WBC 8.0 RBC 4.40 L Hgb 13.9 L Hct 41.3 L MCV 93.9 MCH 31.6 MCHC 33.7 RDW 14.5 Plt Count 295 MPV 9.1 Sodium 132 L Potassium 3.0 L Chloride 95 L Carbon Dioxide 29 Anion Gap 8 BUN 16 Creatinine 1.40 H Estim Creat Clear Calc 41 Estimated GFR 48 L Glucose 106 Calcium 8.8 Phosphorus 1.7 L Magnesium 2.8 H Total Bilirubin 0.7 AST 41 ALT 17 Alkaline Phosphatase 87 Total Protein 7.3 Albumin 4.2 Quality VTE Prophylaxis VTE prophylaxis: pharmacologic ordered (Eliquis)
[2025-05-05] MEDS: ACETAMINOPHEN 325 MG TABLET 650 MG PO (17:10)
--- NOTE | 2025-05-05 18:19 | PC.NURSE ---
Report called to ANGEL Mir in IMU This patient, Shane Mahoney, was transferred to IMU on 05/05/25 at 1820. Personal belongings sent with patient. Report given to [Adeloa ]. Appropriate documentation sent with patient.
--- NOTE | 2025-05-05 18:29 | P.CONONC_ITS ---
Assessment and Plan Assessment and plan (1) Prostate cancer: Code(s): C61 - Malignant neoplasm of prostate Status: Acute Assessment and Plan: This is a pleasant 85-year-old male with history of prostate cancer status post prostatectomy and then adjuvant radiation therapy more than 10 years ago. Patient is a poor historian and does not remember much about his prostate cancer history. He came into the hospital with abdominal distention and found to have hyponatremia and hypokalemia. He has been dealing with chronic abdominal pain with history of irritable bowel syndrome. Patient had abdominal x-ray done to evaluate abdominal pain that showed sclerotic bone lesion in the left is came in the right femoral head. These findings are suspicious for metastatic disease. I will order the bone scan as well as the PSA. I have provided him my office information for follow-up. I have answered all the questions to patient's satisfaction. [facility] Data of Consult Date/Time: 05/05/25 18:29 Requesting Physician: Nydia Helton MD Primary Care Provider: Maxwell Lucio MD Consult Narrative Narrative: Shane Mahoney is a 85 year old male with history of prostate cancer more than 10 years ago status post prostatectomy and radiation therapy along with history of atrial fibrillation came into the hospital with lightheadedness and dizziness along with abdominal pain and low potassium. Patient has been dealing with chronic abdominal pain with IBS. He has been followed by the GI service. Abdominal x-ray done for the constipation showed sclerotic lesion of the left is came and the right femoral head suspicious for metastatic disease. He has been getting treatment for hypokalemia and hyponatremia. Denies any bone pain other than abdominal discomfort. Review of Systems 2 Review of Systems: Review of system as per HPI [facility] Past Medical History Medical History (Updated 05/05/25 @ 18:31 by Joey Patel MD) Chronic diastolic heart failure Prostate cancer Hyperlipidemia Hypertension Paroxysmal A-fib Surgical History Surgical History History of hip replacement Social History Social History Smoking status: Former smoker Tobacco type: cigarettes Smoking end date: 11/25/99 Alcohol intake: former Substance use: never Do You Feel Safe in your Home?: Yes Lack of Transportation: No Lack of Food: Never True Current Housing: I Have Housing Concerned About Future Housing: No Difficulty Paying Gas/Electric Bills: No Difficulty Paying for Meds: No Currently Unemployed: No Education: Associate Degree Difficulty w/ Childcare or Family Care: No Living arrangements: assisted living Spiritual care concerns: No Meds Home Medications and Allergies Home Medications ?Medication ?Instructions ?Recorded ?Confirmed ?Type Acidophilus 1 cap PO DAILY 01/20/25 05/03/25 History acetaminophen 650 mg 650 mg PO Q12H PRN pain 01/20/25 05/03/25 History tablet,extended release apixaban 5 mg tablet (Eliquis) 5 mg PO Q12H 01/20/25 05/03/25 History cyanocobalamin (vitamin B-12) 2,500 mcg PO DAILY 01/20/25 05/03/25 History 2,500 mcg sublingual lozenge ergocalciferol (vitamin D2) 1,250 1,250 mcg PO WEEKLY 01/20/25 05/03/25 History mcg (50,000 unit) capsule furosemide 40 mg tablet 40 mg PO DAILY 01/20/25 05/03/25 History loteprednol etabonate 0.5 % eye 1 drp EACH EYE TID 01/20/25 05/03/25 History drops,suspension magnesium oxide 400 mg PO DAILY 01/20/25 05/03/25 History melatonin 5 mg tablet 5 mg PO HS PRN sleep 01/20/25 05/03/25 History meloxicam 7.5 mg tablet 7.5 mg PO DAILY PRN pain 01/20/25 05/03/25 History metolazone 5 mg tablet 5 mg PO DAILY 01/20/25 05/03/25 History potassium chloride 20 mEq 80 meq PO DAILY 01/20/25 05/03/25 History tablet,extended release(part/cryst) riboflavin (vitamin B2) 100 mg 300 mg PO DAILY 01/20/25 05/03/25 History tablet sodium chloride 0.65 % nasal spray 1 spray intranasal BID PRN dry 01/20/25 05/03/25 History aerosol (Deep Sea Nasal) nasal passages lactulose 10 gram/15 mL oral 10 g PO DAILY PRN constipation 05/03/25 05/03/25 History solution naproxen 500 mg tablet 500 mg PO BID PRN pain 05/03/25 05/03/25 History polyethylene glycol 3350 17 17 g PO DAILY PRN constipation 05/03/25 05/03/25 History gram/dose oral powder (Miralax) simethicone 125 mg chewable tablet 250 mg (2 x 125 mg) PO ACHS 05/03/25 05/03/25 Rx (Gas Relief (simethicone)) excessive bloating and gas 90 days #720 tabs Allergies Allergy/AdvReac Type Severity Reaction Status Date / Time atorvastatin Allergy Unknown Verified 03/24/25 10:31 duloxetine Allergy Unknown Verified 03/24/25 10:31 Vital Signs Vital Signs - 24 hr 05/04/25 20:00 05/05/25 00:00 05/05/25 00:00 Temperature 36.7 C Pulse Rate 118 H 51 L 120 H Respiratory Rate 18 Blood Pressure 105/63 Pulse Oximetry 100 05/05/25 04:00 05/05/25 04:00 05/05/25 08:00 Temperature 36.6 C 36.3 C L Pulse Rate 131 H 108 H 133 H Respiratory Rate 20 18 Blood Pressure 102/79 93/67 L Pulse Oximetry 99 98 05/05/25 08:00 05/05/25 12:00 05/05/25 12:00 Temperature 36.2 C L Pulse Rate 133 H 148 H 123 H Respiratory Rate 18 Blood Pressure 108/92 H Pulse Oximetry 100 05/05/25 16:00 05/05/25 16:00 Temperature Pulse Rate 99 132 H Respiratory Rate 16 Blood Pressure 96/69 L Pulse Oximetry Exam 2 Narrative: Lungs are clear to auscultation bilaterally Cardiovascular regular rate rhythm no murmurs Abdomen is slightly distended bowel sounds are positive, diffuse tenderness Extremities no edema Results Labs 05/05/25 05:17 05/05/25 05:17 Labs: Short CBC 05/05/25 Range/Units 05:17 WBC 8.0 (4.5-10.0) K/mm3 Hgb 13.9 L (14.0-18.0) g/dL Hct 41.3 L (42.0-52.0) % Plt Count 295 (150-375) k/mm3 BMP 05/05/25 05:17 Sodium 132 L Potassium 3.0 L Chloride 95 L Carbon Dioxide 29 BUN 16 Creatinine 1.40 H Glucose 106 Calcium 8.8 Liver Function 06/11/25 Range/Units 05:17 Total Bilirubin 0.7 (0.2-1.3) mg/dL AST 41 (17-59) U/L ALT 17 (6-50) U/L Alkaline Phosphatase 87 (38-126) U/L Albumin 4.2 (3.5-5.1) g/dL
[2025-05-05 21:37] LABS: Prostate Specific Antigen 44.4 ng/mL (< OR = 4.0)
[2025-05-06] VITALS (15 sets, daily range): BP systolic 97–129; BP diastolic 67–98; PULSE 91–156; RESP 16–20; TEMP 36.6–37; O2SAT 96–100
[2025-05-06 05:04] LABS: Hematocrit 42.7 % (42.0-52.0); Hemoglobin 14.1 g/dL (14.0-18.0); Mean Corpuscular Hemoglobin 31.3 pg (26-34); Mean Corpuscular Volume 94.9 fl (80-100); Mean Platelet Volume 9.2 fl (7.4-10.4); Platelet Count Result 279 k/mm3 (150-375); Red Cell Distribution Width 14.7 % (11.5-14.5); White Blood Count 8.1 K/mm3 (4.5-10.0)
[2025-05-06 05:25] LABS: Alanine Aminotransferase 19 U/L (6-50); Albumin Level 4.3 g/dL (3.5-5.1); Alkaline Phosphatase 102 U/L (38-126); Anion Gap 11 mmol/L (4-12); Aspartate Amino Transferase 44 U/L (17-59); Bilirubin,Total 0.9 mg/dL (0.2-1.3); Blood Urea Nitrogen 12 mg/dL (9-20); Calcium 8.8 mg/dL (8.4-10.2); Carbon Dioxide 26 mmol/L (22-30); Chloride 98 mmol/L (98-107); Estimated CRCL calculation 43 ml/min; Estimated Glomerular Filt Rate 51; Glucose 108 mg/dL (65-110); Magnesium 2.7 mg/dL (1.6-2.3); Phosphorus 2.2 mg/dL (2.5-4.5); Potassium 3.4 mmol/L (3.4-5.0); Sodium 135 mmol/L (137-145); Total Protein 7.3 g/dL (6.3-8.2)
[2025-05-06] MEDS: CYANOCOBALAMIN 500 MCG TABLET 2500 MCG PO (09:22)
[2025-05-06] MEDS: dilTIAZem HCL 12 HR 60 MG CAP.12HR PO ×2 (09:22→18:07)
[2025-05-06] MEDS: SIMETHICONE 125 MG CHEW TAB 250 MG PO ×3 (09:22→20:48)
[2025-05-06] MEDS: POTASSIUM CHLORIDE 20 MEQ ER TABLET 40 MEQ PO ×2 (09:23→20:48)
[2025-05-06] MEDS: POTASSIUM/PHOSPHORUS/SODIUM 1.5 GM PACKET 2 PACKET PO (09:23)
[2025-05-06] MEDS: metOLazone 5 MG TABLET PO (09:23)
[2025-05-06] MEDS: APIXABAN 5 MG TABLET PO ×2 (09:23→20:47)
[2025-05-06] MEDS: LOTEPREDNOL ETABONATE 0.5% OPH 5 ML BOTTLE 1 DROP EACH EYE ×3 (09:28→18:01)
--- NOTE | 2025-05-06 09:53 | PCPTNOTE ---
Spoke with Dr. Helton - hold pt for therapy until HR is better controlled. Will follow.
[2025-05-06] MEDS: METOPROLOL TARTRATE INJ 5 MG/5 ML VIAL IV PUSH (11:20)
--- NOTE | 2025-05-06 11:22 | P.CONCA_ITS ---
Assessment and Plan Assessment and plan (1) Atrial fibrillation with RVR: Code(s): I48.91 - Unspecified atrial fibrillation Status: Acute Assessment and Plan: He does have a history of atrial fibrillation which per patient report has been quiescent since cardioversion many years ago. Initial EKG here shows atrial fibrillation with rapid ventricular response. Heart rates somewhat improved with diltiazem but still in 120's - 130's. * Because of soft BP, will give a dose of digoxin 0.125 mcg and observe his response * Could also start amiodarone, however, would need HIEN first to rule out thrombus because of unclear compliance with Eliquis. * Check echo * Continue eliquis 5mg p.o. b.i.d. * Offered HIEN/CV but he wishes to try medication first (2) Chronic diastolic heart failure: Code(s): I50.32 - Chronic diastolic (congestive) heart failure Status: Acute Assessment and Plan: Does not appear to be in heart failure currently. No echo in our system, will order 2D echo with Doppler. History of Present Illness History of Present Illness Consult date/time: 05/06/25 11:22 Requesting physician: Nydia Helton MD Consult reason: atrial fibrillation Reason For Visit: hypokalemia,atrial fibrillation,hyponatremia Narrative: Shane Mahoney is an 85 year old male with history of prostate cancer and atrial fibrillation. He comes to the hospital because of abdominal pain. Cardiology is consulted for atrial fibrillation with rapid ventricular response. Patient reports a 10-12 year history of atrial fibrillation initially treated with cardioversion and to his knowledge he has not had a recurrence since that time. He has been started on diltiazem but his heart rate remains above goal. He responded well to IV metoprolol. He denies any chest pain, palpitations, shortness of breath. Resting comfortably in bed and does not have any specific complaints. Review of Systems 2 Review of Systems: All systems reviewed & are unremarkable except as noted in HPI and below PMFSH Past Medical History Medical History Chronic diastolic heart failure Prostate cancer Hyperlipidemia Hypertension Paroxysmal A-fib Surgical History Surgical History History of hip replacement Social History Social History Smoking status: Former smoker Tobacco type: cigarettes Smoking end date: 11/25/99 Alcohol intake: former Substance use: never Do You Feel Safe in your Home?: Yes Lack of Transportation: No Lack of Food: Never True Current Housing: I Have Housing Concerned About Future Housing: No Difficulty Paying Gas/Electric Bills: No Difficulty Paying for Meds: No Currently Unemployed: No Education: Associate Degree Difficulty w/ Childcare or Family Care: No Living arrangements: assisted living Spiritual care concerns: No Meds Home Medications and Allergies Home Medications ?Medication ?Instructions ?Recorded ?Confirmed ?Type Acidophilus 1 cap PO DAILY 01/20/25 05/03/25 History acetaminophen 650 mg 650 mg PO Q12H PRN pain 01/20/25 05/03/25 History tablet,extended release apixaban 5 mg tablet (Eliquis) 5 mg PO Q12H 01/20/25 05/03/25 History cyanocobalamin (vitamin B-12) 2,500 mcg PO DAILY 01/20/25 05/03/25 History 2,500 mcg sublingual lozenge ergocalciferol (vitamin D2) 1,250 1,250 mcg PO WEEKLY 01/20/25 05/03/25 History mcg (50,000 unit) capsule furosemide 40 mg tablet 40 mg PO DAILY 01/20/25 05/03/25 History loteprednol etabonate 0.5 % eye 1 drp EACH EYE TID 01/20/25 05/03/25 History drops,suspension magnesium oxide 400 mg PO DAILY 01/20/25 05/03/25 History melatonin 5 mg tablet 5 mg PO HS PRN sleep 01/20/25 05/03/25 History meloxicam 7.5 mg tablet 7.5 mg PO DAILY PRN pain 01/20/25 05/03/25 History metolazone 5 mg tablet 5 mg PO DAILY 01/20/25 05/03/25 History potassium chloride 20 mEq 80 meq PO DAILY 01/20/25 05/03/25 History tablet,extended release(part/cryst) riboflavin (vitamin B2) 100 mg 300 mg PO DAILY 01/20/25 05/03/25 History tablet sodium chloride 0.65 % nasal spray 1 spray intranasal BID PRN dry 01/20/25 05/03/25 History aerosol (Deep Sea Nasal) nasal passages lactulose 10 gram/15 mL oral 10 g PO DAILY PRN constipation 05/03/25 05/03/25 History solution naproxen 500 mg tablet 500 mg PO BID PRN pain 05/03/25 05/03/25 History polyethylene glycol 3350 17 17 g PO DAILY PRN constipation 05/03/25 05/03/25 History gram/dose oral powder (Miralax) simethicone 125 mg chewable tablet 250 mg (2 x 125 mg) PO ACHS 05/03/25 05/03/25 Rx (Gas Relief (simethicone)) excessive bloating and gas 90 days #720 tabs Allergies Allergy/AdvReac Type Severity Reaction Status Date / Time atorvastatin Allergy Unknown Verified 03/24/25 10:31 duloxetine Allergy Unknown Verified 03/24/25 10:31 Vital Signs Vital Signs - 24 hr 05/05/25 12:00 05/05/25 12:00 05/05/25 16:00 Temperature 36.2 C L Pulse Rate 148 H 123 H 99 Respiratory Rate 18 Blood Pressure 108/92 H Pulse Oximetry 100 Oxygen Delivery 05/05/25 16:00 05/05/25 18:56 05/05/25 19:44 Temperature 36.6 C 36.6 C Pulse Rate 132 H 116 H 115 H Respiratory Rate 16 20 20 Blood Pressure 96/69 L 94/52 L 102/66 Pulse Oximetry 98 97 Oxygen Delivery 05/05/25 20:00 05/05/25 20:00 05/06/25 00:00 Temperature Pulse Rate 115 H 115 H 127 H Respiratory Rate 20 20 Blood Pressure Pulse Oximetry 97 97 Oxygen Delivery Room Air Room Air 05/06/25 00:00 05/06/25 00:00 05/06/25 03:41 Temperature 36.6 C Pulse Rate 127 H 143 H 91 Respiratory Rate 20 20 Blood Pressure 106/70 Pulse Oximetry 96 97 Oxygen Delivery Room Air 05/06/25 03:41 05/06/25 04:00 05/06/25 07:47 Temperature 36.7 C 36.8 C Pulse Rate 91 110 H 136 H Respiratory Rate 20 16 Blood Pressure 127/74 115/76 Pulse Oximetry 100 99 Oxygen Delivery 05/06/25 11:20 Temperature Pulse Rate 139 H Respiratory Rate Blood Pressure Pulse Oximetry Oxygen Delivery Exam 2 Const: General: comfortable, no acute distress, alert and awake O rientation/consciousness: patient oriented x3 HENMT: Head: normal to inspection Eyes: General: appearance normal, both eyes and all related structures P upils: Equal, round and reactive pupils present Neck: Neck: normal visual inspection, supple and no JVD Resp: Effort & Inspection: normal respiratory effort Auscultation: clear to auscultation bilaterally Cardio: Rate: tachycardic Rhythm: abnormal rhythm irregularly irregular Heart sounds: S1 normal heart sound present, S2 normal heart sound present and Murmur heart sound present systolic GI: Auscultation: normal bowel sounds Skin: General skin exam: normal color Neuro: General: patient oriented x3 Cranial nerves: Yes Equal, round and reactive pupils present Extrem: General: normal to inspection Other: no edema Psych: Appearance: grossly normal Mental Status: mental status grossly normal Results Labs and Meds 05/06/25 04:40 05/06/25 04:40 Lab results: Cardiac Enzymes 05/06/25 Range/Units 04:40 AST 44 (17-59) U/L CBC 05/06/25 Range/Units 04:40 WBC 8.1 (4.5-10.0) K/mm3 RBC 4.50 L (4.6-6.20) M/mm3 Hgb 14.1 (14.0-18.0) g/dL Hct 42.7 (42.0-52.0) % Plt Count 279 (150-375) k/mm3 Comprehensive Metabolic Panel 05/06/25 Range/Units 04:40 Sodium 135 L (137-145) mmol/L Potassium 3.4 (3.4-5.0) mmol/L Chloride 98 (98-107) mmol/L Carbon Dioxide 26 (22-30) mmol/L BUN 12 (9-20) mg/dL Creatinine 1.33 H (0.7-1.3) mg/dL Glucose 108 (65-110) mg/dL Calcium 8.8 (8.4-10.2) mg/dL AST 44 (17-59) U/L ALT 19 (6-50) U/L Alkaline Phosphatase 102 (38-126) U/L Total Protein 7.3 (6.3-8.2) g/dL Albumin 4.3 (3.5-5.1) g/dL Intake and Output 05/05/25 05/06/25 05/06/25 23:59 07:59 15:59 Intake Total 480 240 Output Total 300 801 200 Balance 180 -801 40 Intake: Oral 480 240 Output: Urine 300 800 200 Stool 1 Other: # Unmeasured Voids 1 1 Number of Bowel Movements Today 1 Patient Weight 05/06/25 23:59 Weight 87.8 kg
[2025-05-06] MEDS: POTASSIUM CHLORIDE 20 MEQ PACKET (FOR LIQUID) 40 MEQ PO (12:46)
[2025-05-06] MEDS: DIGOXIN INJ 250 MCG/ML 2 ML AMP (*BKC) 125 MCG IV PUSH (15:54)
--- NOTE | 2025-05-06 17:43 | P.PNIM_ITS ---
Progress Note: A&P Assessment and Plan (1) Acute hypokalemia: Code(s): E87.6 - Hypokalemia Status: Acute Assessment and Plan: -Severe hypokalemia with K of 2.1 on ER visit -Prescribed potassium tablets but has not been taking them for unknown amount of time -Magnesium 2.9 -IV replacement 80 mEq total ordered in ER -Repeat metabolic panel this evening and again in the morning -Alternating constipation and diarrhea (IBS) undergoing treatment by GI -Potassium rechecked after 80 mEQ IV --> 2.4 now -Ordered additional 40 mEq IV and 60 mEq oral -Patient is prescribed 80 mEq oral daily, has been throwing them away for unknown length of time (2) Dizziness: Code(s): R42 - Dizziness and giddiness Status: Acute Assessment and Plan: -Presenting complaint was dizziness, near syncope at GI office -Found to be in A-fib with RVR and severely low potassium (3) Acute hyponatremia: Code(s): E87.1 - Hypo-osmolality and hyponatremia Status: Acute Assessment and Plan: -Na 126 on admission -May be dehydration related -IV potassium 80 meq in 1000 mL plus 1000 mL normal fluids given in ER -Will recheck this evening and in the morning -Chronic kidney disease appears to be at baseline -May be SIADH due to persistent pain of chronic abdominal bloating/pain syndrome -Sodium improved with fluids from 126 --> 131 (4) Atrial fibrillation with RVR: Code(s): I48.91 - Unspecified atrial fibrillation Status: Acute Assessment and Plan: -Afib with RVR with HR 110-145 in ER -Severely depleted potassium being corrected -IV fluid replacement given in ER -No rate controlling medications noted on prior home med list -Oral metoprolol ordered x1 for rate control with mild improvement -Blood pressure soft -Continue Eliquis (5) Chronic diastolic heart failure: Code(s): I50.32 - Chronic diastolic (congestive) heart failure Status: Acute Assessment and Plan: -Noted in history, no Echocardiogram on file -No hypoxia or major swelling -Does not appear fluid overloaded at this time (6) Symptoms consistent with irritable bowel syndrome: Code(s): K58.9 - Irritable bowel syndrome, unspecified Status: Acute Assessment and Plan: -Chronic and recurrent symptoms of alternating constipation and diarrhea -Was on Linzess but this has been changed by GI to Amitiza -Patient reports prune juice with Miralax makes him go but several bouts of diarrhea follow -Simethicone and Bentyl have not helped pain -CT on 03/09/25 no acute abnormality -Patient wanted Maalox tonight and Miralax with prune juice in the morning (7) Lower abdominal pain: Code(s): R10.30 - Lower abdominal pain, unspecified Status: Acute Assessment and Plan: See IBS above Plan patient with abdominal pain and off and on diarrhea, was very weak at his GI office was sent to the ER, he was found to have hypokalemia and hyponatremia most likely 2/2 diarrhea and not eating and taking supplemental potassium, will supplement and monitor, on 05/04 Patient's son was present in the room and gave updates. 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 Subjective Date/time seen: 05/06/25 17:43 Interval history: Dizziness, abnormal labs, chronic abdominal pain with IBS Narrative: This is an 85-year-old male patient who is admitted to the hospital for dizziness, atrial fibrillation with rapid ventricular rate and severely low potassium. Patient was at GI office today for follow-up regarding irritable bowel syndrome with chronic abdominal pain and intermittent constipation versus diarrhea. While he was at the office he could not participate in exam because he was experiencing too much pain and dizziness. He was sent to the emergency department though he protested going. In the ER patient found to have hyponatremia of 126 and severe hypokalemia of 2.1. Treatment started with IV fluids/IV potassium replacement and patient admitted for further management. Patient states that he has constant chronic abdominal pain and nothing that GI has been giving him has helped. He reports throwing out his potassium pills for a while. He states that they don't help his belly pain. Patient has past history of atrial fibrillation and is on Eliquis. Magnesium was slightly elevated, likely due to magnesium containing products to help with his constipation as well as daily prescribed magnesium oxide. Patient reports that the only thing that really helps him have a bowel movement it is when he takes MiraLax mixed with prune juice. We offered this and he stated that he wanted to do it in the morning so he was not up all night having stools. patient with abdominal pain and off and on diarrhea, was very weak at his GI office was sent to the ER, he was found to have hypokalemia and hyponatremia most likely 2/2 diarrhea and not eating and taking supplemental potassium, will supplement and monitor, on 05/04 Patient's son was present in the room and gave updates. 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 Review of Systems Review of Systems: All systems reviewed & are unremarkable except as noted in HPI and below Exam Narrative: Patient is comfortable, NAD HEENT: eyes are clear and none icteric LUNGS:CTA HEART: RR S1S2 ABD: BS+, Soft and nontender Lower extremities: no edema SKIN: nonjaundiced Neuro: grossly intact. Objective Data Vital Signs Vital Signs: Vital Signs - 24 hr 05/05/25 18:56 05/05/25 19:44 05/05/25 20:00 Temperature 36.6 C 36.6 C Pulse Rate 116 H 115 H 115 H Respiratory Rate 20 20 20 Blood Pressure 94/52 L 102/66 Pulse Oximetry 98 97 97 Oxygen Delivery Room Air 05/05/25 20:00 05/06/25 00:00 05/06/25 00:00 Temperature Pulse Rate 115 H 127 H 127 H Respiratory Rate 20 Blood Pressure Pulse Oximetry 97 Oxygen Delivery Room Air 05/06/25 00:00 05/06/25 03:41 05/06/25 03:41 Temperature 36.6 C Pulse Rate 143 H 91 91 Respiratory Rate 20 20 Blood Pressure 106/70 Pulse Oximetry 96 97 Oxygen Delivery Room Air 05/06/25 04:00 05/06/25 07:47 05/06/25 08:00 Temperature 36.7 C 36.8 C Pulse Rate 110 H 136 H 152 H Respiratory Rate 20 16 Blood Pressure 127/74 115/76 Pulse Oximetry 100 99 Oxygen Delivery 05/06/25 10:00 05/06/25 11:20 05/06/25 11:45 Temperature 36.9 C Pulse Rate 127 H 139 H 149 H Respiratory Rate 20 Blood Pressure 97/68 L Pulse Oximetry 98 Oxygen Delivery 05/06/25 12:00 05/06/25 15:48 05/06/25 15:54 Temperature 37.0 C Pulse Rate 156 H 121 H 119 H Respiratory Rate 16 Blood Pressure 116/67 Pulse Oximetry 100 Oxygen Delivery 05/06/25 16:00 Temperature Pulse Rate 115 H Respiratory Rate Blood Pressure Pulse Oximetry Oxygen Delivery Intake/Output Intake/Output: Intake & Output 05/03/25 05/04/25 05/05/25 05/06/25 23:59 23:59 23:59 23:59 Intake Total 1860 2070 1320 1270 Output Total 200 526 065 4279 Balance 1660 1570 1020 269 Meds/Results Medications: Active Medications Generic Name Dose Route Start Last Admin Trade Name Freq PRN Reason Stop Dose Admin Acetaminophen 650 mg 05/03/25 14:27 05/05/25 17:10 Acetaminophen 325 Mg Tablet PO 650 mg Q4H PRN Administration Mild Pain (1-3) or Fever Apixaban 5 mg 05/03/25 22:45 05/06/25 09:23 Apixaban 5 Mg Tablet PO 5 mg Q12HR ILENE Administration Cyanocobalamin 2,500 mcg 05/04/25 09:00 05/06/25 09:22 Cyanocobalamin 500 Mcg Tablet PO 2,500 mcg DAILY ILENE Administration Diltiazem HCl 60 mg 05/06/25 09:00 05/06/25 09:22 Diltiazem Hcl 12 Hr 60 Mg Cap.12hr PO 60 mg Q12HR ILENE Administration Furosemide 40 mg 05/04/25 09:00 05/04/25 08:32 Furosemide 40 Mg Tablet PO Not Given DAILY ILENE Lactulose 10 gm 05/03/25 22:43 05/05/25 08:33 Lactulose 20 Gm/30 Ml Udc PO 10 gm DAILY PRN Administration constipation Loteprednol Etabonate 1 drop 05/04/25 09:00 05/06/25 12:47 Loteprednol Etabonate 0.5% Oph 5 Ml Bottle EACH EYE 1 drop TID ILENE Administration Melatonin 5 mg 05/03/25 22:45 05/04/25 21:02 Melatonin 5 Mg Tablet PO 5 mg HS PRN Administration sleep Metolazone 5 mg 05/04/25 09:00 05/06/25 09:23 Metolazone 5 Mg Tablet PO 5 mg DAILY ILENE Administration Perflutren Lipid Microsphere 0 ml 05/06/25 12:55 Perflutren Lipid Microspheres 1.5 Ml Vial Diluted To 10 Ml Total Volume IV PUSH 05/09/25 12:55 ONCE PRN adequate visualization Protocol Polyethylene Glycol 17 gm 05/03/25 22:43 05/05/25 08:31 Polyethylene Glycol 3350 17 Gm Powd.Pack PO 17 gm DAILY PRN Administration constipation Potassium Chloride 40 meq 05/04/25 08:00 05/06/25 09:23 Potassium Chloride 20 Meq Er Tablet PO 40 meq BIDWM ILENE Administration Simethicone 250 mg 05/04/25 08:00 05/06/25 12:47 Simethicone 125 Mg Chew Tab PO 250 mg 0800,1200,1700,2100 ILENE Administration Sodium Chloride 1 spray 05/03/25 22:43 05/04/25 16:36 Saline 0.65% Kenji Soln 44 Ml Btl NASAL 1 spray BID PRN Administration dry nasal passages Radiology Results: ITS Impressions Head CT 05/03/25 13:10 IMPRESSION: 1. No acute intracranial process. 2. Age-related changes including moderate diffuse volume loss and mild to moderate scattered white matter hypoattenuation consistent with chronic small vessel ischemic disease. Chest X-Ray 05/03/25 13:16 IMPRESSION: 1. No acute cardiopulmonary disease. Abdomen X-Ray 05/05/25 11:12 Impression: 1: Sclerotic lesions of the left ischium and right femoral head, suspicious for metastatic disease. Recommend correlation with nuclear bone scan. Further evaluation for possible prostate cancer recommended. Bone Scan Nuclear Medicine 05/06/25 16:31 IMPRESSION: 1. Prominent increased bone uptake at the left ischial tuberosity consistent with metastatic prostate cancer. 2. Second region of less intense uptake in the region of subtle sclerotic lesion in the T12 vertebral body, also suspicious for metastatic disease. Labs Labs: Laboratory Results - last 24 hr 05/05/25 05/06/25 05:13 04:40 WBC 8.1 RBC 4.50 L Hgb 14.1 Hct 42.7 MCV 94.9 MCH 31.3 MCHC 33.0 RDW 14.7 H Plt Count 279 MPV 9.2 Sodium 135 L Potassium 3.4 Chloride 98 Carbon Dioxide 26 Anion Gap 11 BUN 12 Creatinine 1.33 H Estim Creat Clear Calc 43 Estimated GFR 51 L Glucose 108 Calcium 8.8 Phosphorus 2.2 L Magnesium 2.7 H Total Bilirubin 0.9 AST 44 ALT 19 Alkaline Phosphatase 102 Total Protein 7.3 Albumin 4.3 Prostate Specific Ag 44.4 H Quality VTE Prophylaxis VTE prophylaxis: pharmacologic ordered (Eliquis)
[2025-05-06 19:19] LABS: Anion Gap 8 mmol/L (4-12); Blood Urea Nitrogen 17 mg/dL (9-20); Calcium 8.4 mg/dL (8.4-10.2); Carbon Dioxide 24 mmol/L (22-30); Chloride 97 mmol/L (98-107); Estimated CRCL calculation 40 ml/min; Estimated Glomerular Filt Rate 47; Glucose 176 mg/dL (65-110); Potassium 3.7 mmol/L (3.4-5.0); Sodium 129 mmol/L (137-145)
[2025-05-07] VITALS (22 sets, daily range): BP systolic 92–135; BP diastolic 60–97; PULSE 78–138; RESP 17–22; TEMP 36.6–36.9; O2SAT 95–100
--- NOTE | 2025-05-07 | ECHO_ITS ---
Patient Info Name: Shane Mahoney Age: 85 years : 1940 Gender: Male Ht: 74 in Wt: 193 lbs BSA: 2.14 m2 HR: 104 bpm BP: 103 / 87 mmHg Heart Rhythm: Atrial Fibrillation Technical Quality: Fair Exam Date: 05/07/2025 1:50 PM Patient Status: I Admit Date: 05/03/2025 Exam Type: CA echo dop color flow w con Complete two-dimensional, color flow and Doppler transthoracic echocardiogram is performed with contrast to opacify the left ventricle and to improve the deliniation of the left ventricle endocardial borders. Staff Referring Physician: Joey Patel MD Fern Gatherer: Ellen Raya Attending Provider: Nydia Helton MD Contrast/Agitated Saline Contrast/Ag. Saline: Definity Amount: 2.00 ml Administered By: Ellen Raya Existing IV Access: Yes IV Access Condition: patent with no signs of infiltration Summary 1. The left ventricle is normal in size with mildly reduced systolic function. The left ventricular ejection fraction is visually estimated to be 45-50%. There are no regional wall motion abnormalities. The mild reduction in systolic function may be affected by the rapid ventricular rates while patient is in atrial fibrillation. 2. The aortic valve is trileaflet and calcified. There is mild aortic stenosis. There is no aortic regurgitation. Left Ventricle The left ventricle is normal in size with mildly reduced systolic function. The left ventricular ejection fraction is visually estimated to be 45-50%. There are no regional wall motion abnormalities. The mild reduction in systolic function may be affected by the rapid ventricular rates while patient is in atrial fibrillation. Right Ventricle The right ventricle is normal in size and systolic function. Left Atria The left atrium is severely dilated. Right Atria The right atrium is normal size. Atrial Septum The atrial septum is not well visualized. Aortic Valve The aortic valve is trileaflet and calcified. There is mild aortic stenosis. There is no aortic regurgitation. Pulmonic Valve The pulmonic valve is not well visualized. There is no color Doppler evidence of pulmonic valve regurgitation. Mitral Valve The mitral valve leaflets are sclerotic. There is no mitral stenosis. There is no significant mitral regurgitation. Tricuspid Valve The tricuspid valve is sclerotic. There is no tricuspid stenosis. There is mild tricuspid regurgitation. Pericardium/Pleural The pericardium is not well visualized. Inferior Vena Cava Inferior vena cava is not well visualized. Left Ventricular Outflow Tract Name Value Normal LVOT 2D LVOT Diameter 2.1 cm LVOT Doppler LVOT Peak Velocity 67 cm/s LVOT Peak Gradient 1 mmHg LVOT Mean Gradient 1 mmHg LVOT VTI 11 cm LVOT VTI/AV VTI Ratio 0.4 LVOT Stroke Volume 37 ml LVOT CO 2.0 l/min LVOT CI 1.0 l/min/m2 Pulmonic Valve Name Value Normal RVOT Doppler RVOT Peak Velocity 69 cm/s RVOT Peak Gradient 1 mmHg PV Doppler PV Peak Velocity 122 cm/s PV Peak Gradient 6 mmHg Mitral Valve Name Value Normal MV Diastolic Function MV E Peak Velocity 88 cm/s MV A Peak Velocity 2 cm/s MV E/A 52.0 MV Decel Time (PW) 225 ms MV Annular TDI MV E/e' (Septal) 9.6 MV E/e' (Lateral) 9.2 MV E/e' (Average) 9.4 Tricuspid Valve Name Value Normal TV Regurgitation Doppler TR Peak Velocity 243 cm/s TR Peak Gradient 24 mmHg Estimated PAP/RSVP RA Pressure 10 mmHg <=5 PA Systolic Pressure 34 mmHg <36 RV Systolic Pressure 34 mmHg <36 TV Annular TDI TV Lateral Martha s' Velocity 8.6 cm/s >=9.5 Aortic Valve Name Value Normal AV Doppler AV Peak Velocity 154 cm/s AV Peak Gradient 9 mmHg AV Mean Gradient 6 mmHg AV VTI 30 cm AV Area (Cont Eq VTI) 1.2 cm2 >=3.0 AV Area (Cont Eq Donte) 1.5 cm2 AV DI (Donte) 0.43 AV Regurgitation 2D LVOT Area 3.5 cm2 Ventricles Name Value Normal LV Dimensions 2D/MM IVS Diastolic Thickness (2D) 1.2 cm 0.6-1.0 LVID Diastole (2D) 4.7 cm 4.2-5.8 LVIW Diastolic Thickness (2D) 1.0 cm 0.6-1.0 LVID Systole (2D) 4.1 cm 2.5-4.0 LVOT Diameter 2.1 cm LV Mass (2D Cubed) 187.66 g 88.00-224.00 LV Mass Index (2D Cubed) 88 g/m2 49-115 Relative Wall Thickness (2D) 0.43 <=0.42 LV Fractional Shortening/Ejection Fraction 2D/MM LV Fractional Shortening (2D) 12 % 25-43 LV EF (2D Teichholz) 26 % LV Diastolic Volume (4C MOD) 100 ml LV EF (4C MOD) 57 % LV Diastolic Volume (2C MOD) 61 ml LV EF (2C MOD) 55 % LV Diastolic Volume (BP MOD) 84 ml 62-150 LV Diastolic Volume Index (BP MOD) 39 ml/m2 34-74 LV Systolic Volume (BP MOD) 35 ml 21-61 LV Systolic Volume Index (BP MOD) 16 ml/m2 11-31 LV EF (BP MOD) 58 % 52-72 LV Diastolic Length (4C) 8.1 cm LV Systolic Length (4C) 6.5 cm LV Stroke Volume (4C MOD) 58 ml Atria Name Value Normal LA Dimensions LA Volume (4C A-L) 105 ml LA Volume (BP A-L) 112 ml RA Dimensions RA Area (4C) 13.5 cm2 <=18.0 Report Signatures
[2025-05-07 05:08] LABS: Hematocrit 37.1 % (42.0-52.0); Hemoglobin 12.3 g/dL (14.0-18.0); Mean Corpuscular HGB Conc 33.2 g/dl (32-36); Mean Corpuscular Hemoglobin 31.3 pg (26-34); Mean Corpuscular Volume 94.4 fl (80-100); Mean Platelet Volume 9.6 fl (7.4-10.4); Platelet Count Result 258 k/mm3 (150-375); Red Blood Count 3.93 M/mm3 (4.6-6.20); Red Cell Distribution Width 14.7 % (11.5-14.5); White Blood Count 7.6 K/mm3 (4.5-10.0)
[2025-05-07 05:24] LABS: Alanine Aminotransferase 14 U/L (6-50); Albumin Level 3.6 g/dL (3.5-5.1); Alkaline Phosphatase 87 U/L (38-126); Anion Gap 6 mmol/L (4-12); Aspartate Amino Transferase 38 U/L (17-59); Bilirubin,Total 0.9 mg/dL (0.2-1.3); Blood Urea Nitrogen 15 mg/dL (9-20); Calcium 8.5 mg/dL (8.4-10.2); Carbon Dioxide 26 mmol/L (22-30); Chloride 100 mmol/L (98-107); Estimated CRCL calculation 41 ml/min; Estimated Glomerular Filt Rate 48; Glucose 102 mg/dL (65-110); Magnesium 2.4 mg/dL (1.6-2.3); Phosphorus 2.1 mg/dL (2.5-4.5); Potassium 3.6 mmol/L (3.4-5.0); Sodium 132 mmol/L (137-145); Total Protein 6.2 g/dL (6.3-8.2)
[2025-05-07] MEDS: LOTEPREDNOL ETABONATE 0.5% OPH 5 ML BOTTLE 1 DROP EACH EYE ×3 (08:32→17:37)
[2025-05-07] MEDS: metOLazone 5 MG TABLET PO (08:32)
[2025-05-07] MEDS: dilTIAZem HCL 12 HR 60 MG CAP.12HR PO (08:32)
[2025-05-07] MEDS: APIXABAN 5 MG TABLET PO ×2 (08:32→20:06)
[2025-05-07] MEDS: POTASSIUM CHLORIDE 20 MEQ ER TABLET 40 MEQ PO ×2 (08:32→17:37)
[2025-05-07] MEDS: CYANOCOBALAMIN 500 MCG TABLET 2500 MCG PO (08:32)
[2025-05-07] MEDS: SIMETHICONE 125 MG CHEW TAB 250 MG PO ×4 (08:33→20:06)
--- NOTE | 2025-05-07 08:48 | P.PNIM_ITS ---
Progress Note: A&P Assessment and Plan (1) Acute hypokalemia: Code(s): E87.6 - Hypokalemia Status: Acute Assessment and Plan: -Severe hypokalemia with K of 2.1 on ER visit -Prescribed potassium tablets but has not been taking them for unknown amount of time -Magnesium 2.9 -IV replacement 80 mEq total ordered in ER -Alternating constipation and diarrhea (IBS) undergoing treatment by GI Replace and monitor (2) Dizziness: Code(s): R42 - Dizziness and giddiness Status: Acute Assessment and Plan: -Presenting complaint was dizziness, near syncope at GI office -Found to be in A-fib with RVR and severely low potassium (3) Acute hyponatremia: Code(s): E87.1 - Hypo-osmolality and hyponatremia Status: Acute Assessment and Plan: -Na 126 on admission -May be dehydration related -Chronic kidney disease appears to be at baseline -May be SIADH due to persistent pain of chronic abdominal bloating/pain syndrome -Sodium improved with fluids (4) Atrial fibrillation with RVR: Code(s): I48.91 - Unspecified atrial fibrillation Status: Acute Assessment and Plan: -Afib with RVR with HR 110-145 in ER -Severely depleted potassium which has now been corrected -IV fluid replacement given in ER -No rate controlling medications noted on prior home med list -Oral metoprolol ordered x1 for rate control with mild improvement -Blood pressure soft -Continue Eliquis Cardiology on board Diltiazem started also received digoxin 05/06/2025 and IV metoprolol 05/06/2025 Check echo which is pending (5) Chronic diastolic heart failure: Code(s): I50.32 - Chronic diastolic (congestive) heart failure Status: Acute Assessment and Plan: -Noted in history, no Echocardiogram on file -No hypoxia or major swelling -Does not appear fluid overloaded at this time On metolazone, Lasix on hold (6) Symptoms consistent with irritable bowel syndrome: Code(s): K58.9 - Irritable bowel syndrome, unspecified Status: Acute Assessment and Plan: -Chronic and recurrent symptoms of alternating constipation and diarrhea -Was on Linzess but this has been changed by GI to Amitiza -Patient reports prune juice with Miralax makes him go but several bouts of diarrhea follow -Simethicone and Bentyl have not helped pain -CT on 4/15/25 no acute abnormality -Patient wanted Maalox tonight and Miralax with prune juice in the morning (7) Lower abdominal pain: Code(s): R10.30 - Lower abdominal pain, unspecified Status: Acute Assessment and Plan: See IBS above X-ray abdomen with sclerotic lesions of the left S Latonya and right femoral head suspicious for metastatic disease. Bone scan: Prominent increased bone uptake at the left ischial yessica tuberosity consistent with metastatic prostate cancer. Second region of less intense uptake in the region of subtle sclerotic lesion in the T12 vertebral body also suspicious for metastatic disease He has a history of prostate cancer status post prostatectomy and followed by adjuvant radiation therapy more than 10 years ago. Repeat PSA came elevated at 44.4 He will need to follow up with Oncology as outpatient basis Plan patient with abdominal pain and off and on diarrhea, was very weak at his GI office was sent to the ER, he was found to have hypokalemia and hyponatremia most likely 2/2 diarrhea and not eating and taking supplemental potassium, Subjective Date/time seen: 05/07/25 08:48 Interval history: Reports patient does not feel good. Heart rate reviewed telemetry. Feels dizzy. No chest pain or shortness of breath reported. Review of Systems Review of Systems: All systems reviewed & are unremarkable except as noted in HPI and below Exam Narrative: Patient is comfortable, NAD HEENT: eyes are clear and none icteric LUNGS:CTA HEART: Tachycardia irregular irregular S1S2 ABD: BS+, Soft and nontender Lower extremities: no edema SKIN: nonjaundiced Neuro: grossly intact. Objective Data Vital Signs Vital Signs: Vital Signs - 24 hr 05/06/25 10:00 05/06/25 11:20 05/06/25 11:45 Temperature 98.4 F Pulse Rate 127 H 139 H 149 H Respiratory Rate 20 Blood Pressure 97/68 L Pulse Oximetry 98 Oxygen Delivery 05/06/25 12:00 05/06/25 15:48 05/06/25 15:54 Temperature 98.6 F Pulse Rate 156 H 121 H 119 H Respiratory Rate 16 Blood Pressure 116/67 Pulse Oximetry 100 Oxygen Delivery 05/06/25 16:00 05/06/25 18:00 05/06/25 19:51 Temperature 98.3 F Pulse Rate 115 H 138 H 127 H Respiratory Rate 20 Blood Pressure 129/98 H Pulse Oximetry 98 Oxygen Delivery 05/06/25 20:00 05/06/25 20:00 05/07/25 00:00 Temperature Pulse Rate 114 H 114 H 125 H Respiratory Rate 20 20 Blood Pressure Pulse Oximetry 98 96 Oxygen Delivery Room Air Room Air 05/07/25 00:00 05/07/25 00:07 05/07/25 04:00 Temperature 97.8 F Pulse Rate 125 H 125 H 94 Respiratory Rate 20 20 Blood Pressure 112/82 Pulse Oximetry 96 98 Oxygen Delivery Room Air 05/07/25 04:00 05/07/25 04:33 05/07/25 07:53 Temperature 98.0 F 98.4 F Pulse Rate 94 104 H 111 H Respiratory Rate 20 21 H Blood Pressure 103/87 103/67 Pulse Oximetry 98 97 Oxygen Delivery 05/07/25 08:00 Temperature Pulse Rate 111 H Respiratory Rate 21 H Blood Pressure Pulse Oximetry 97 Oxygen Delivery Room Air Intake/Output Intake/Output: Intake & Output 05/04/25 05/05/25 05/06/25 05/07/25 23:59 23:59 23:59 23:59 Intake Total 2070 1320 1270 1340 Output Total 563 444 0763 701 Balance 1570 1020 169 639 Meds/Results Medications: Active Medications Generic Name Dose Route Start Last Admin Trade Name Freq PRN Reason Stop Dose Admin Acetaminophen 650 mg 05/07/25 04:04 Acetaminophen 325 Mg Tablet PO Q6H PRN Mild Pain (1-3) or Fever Apixaban 5 mg 05/03/25 22:45 05/07/25 08:32 Apixaban 5 Mg Tablet PO 5 mg Q12HR ILENE Administration Cyanocobalamin 2,500 mcg 05/04/25 09:00 05/07/25 08:32 Cyanocobalamin 500 Mcg Tablet PO 2,500 mcg DAILY ILENE Administration Diltiazem HCl 60 mg 05/06/25 09:00 05/07/25 08:32 Diltiazem Hcl 12 Hr 60 Mg Cap.12hr PO 60 mg Q12HR ILENE Administration Furosemide 40 mg 05/04/25 09:00 05/04/25 08:32 Furosemide 40 Mg Tablet PO Not Given DAILY ILENE Lactulose 10 gm 05/03/25 22:43 05/05/25 08:33 Lactulose 20 Gm/30 Ml Udc PO 10 gm DAILY PRN Administration constipation Loteprednol Etabonate 1 drop 05/04/25 09:00 05/07/25 08:32 Loteprednol Etabonate 0.5% Oph 5 Ml Bottle EACH EYE 1 drop TID ILENE Administration Melatonin 5 mg 05/03/25 22:45 05/04/25 21:02 Melatonin 5 Mg Tablet PO 5 mg HS PRN Administration sleep Metolazone 5 mg 05/04/25 09:00 05/07/25 08:32 Metolazone 5 Mg Tablet PO 5 mg DAILY ILENE Administration Perflutren Lipid Microsphere 0 ml 05/06/25 12:55 Perflutren Lipid Microspheres 1.5 Ml Vial Diluted To 10 Ml Total Volume IV PUSH 05/09/25 12:55 ONCE PRN adequate visualization Protocol Polyethylene Glycol 17 gm 05/03/25 22:43 05/05/25 08:31 Polyethylene Glycol 3350 17 Gm Powd.Pack PO 17 gm DAILY PRN Administration constipation Potassium Chloride 40 meq 05/04/25 08:00 05/07/25 08:32 Potassium Chloride 20 Meq Er Tablet PO 40 meq BIDWM ILENE Administration Simethicone 250 mg 05/04/25 08:00 05/07/25 08:33 Simethicone 125 Mg Chew Tab PO 250 mg 0800,1200,1700,2100 ILENE Administration Sodium Chloride 1 spray 05/03/25 22:43 05/04/25 16:36 Saline 0.65% Kenji Soln 44 Ml Btl NASAL 1 spray BID PRN Administration dry nasal passages Radiology Results: ITS Impressions Head CT 05/03/25 13:10 IMPRESSION: 1. No acute intracranial process. 2. Age-related changes including moderate diffuse volume loss and mild to moderate scattered white matter hypoattenuation consistent with chronic small vessel ischemic disease. Chest X-Ray 05/03/25 13:16 IMPRESSION: 1. No acute cardiopulmonary disease. Abdomen X-Ray 05/05/25 11:12 Impression: 1: Sclerotic lesions of the left ischium and right femoral head, suspicious for metastatic disease. Recommend correlation with nuclear bone scan. Further evaluation for possible prostate cancer recommended. Bone Scan Nuclear Medicine 05/06/25 16:31 IMPRESSION: 1. Prominent increased bone uptake at the left ischial tuberosity consistent wit h metastatic prostate cancer. 2. Second region of less intense uptake in the region of subtle sclerotic lesion in the T12 vertebral body, also suspicious for metastatic disease. Labs Labs: Laboratory Results - last 24 hr 05/06/25 05/07/25 18:42 04:29 WBC 7.6 RBC 3.93 L Hgb 12.3 L Hct 37.1 L MCV 94.4 MCH 31.3 MCHC 33.2 RDW 14.7 H Plt Count 258 MPV 9.6 Sodium 129 L 132 L Potassium 3.7 3.6 Chloride 97 L 100 Carbon Dioxide 24 26 Anion Gap 8 6 BUN 17 15 Creatinine 1.44 H 1.40 H Estim Creat Clear Calc 40 41 Estimated GFR 47 L 48 L Glucose 176 H 102 Calcium 8.4 8.5 Phosphorus 2.1 L Magnesium 2.4 H Total Bilirubin 0.9 AST 38 ALT 14 Alkaline Phosphatase 87 Total Protein 6.2 L Albumin 3.6
[2025-05-07] MEDS: POTASSIUM PHOS/SODIUM PHOS 250 MG TABLET PO (09:41)
--- NOTE | 2025-05-07 10:05 | PCPTNOTE ---
Spoke with current hospitalist and Hand Wood Sander regarding pt's HR. Will hold therapy per both their recommendations until HR is better controlled. Will follow.
--- NOTE | 2025-05-07 10:17 | P.PNCA_ITS ---
Progress Note: A&P Assessment and Plan (1) Atrial fibrillation with RVR: Code(s): I48.91 - Unspecified atrial fibrillation Status: Acute Assessment and Plan: He does have a history of atrial fibrillation which per patient report has been quiescent since cardioversion many years ago. Initial EKG here shows atrial fibrillation with rapid ventricular response. Heart rates somewhat improved with diltiazem but still in 120's - 130's. * Heart rates improved somewhat yesterday with digoxin * Could also start amiodarone, however, would need HIEN first to rule out thrombus because of unclear compliance with Eliquis. * Echo pending * Continue eliquis 5mg p.o. b.i.d. * He has changed his mind about HIEN/DCCV, however, he already ate today. Therefore, we can plan for HIEN/CV Saturday if heart rates remain uncontrolled. In the meantime, will start p.o. digoxin and increase diltiazem. Will need digoxin level in 1 week. Closely monitor blood pressure. (2) Chronic diastolic heart failure: Code(s): I50.32 - Chronic diastolic (congestive) heart failure Status: Acute Assessment and Plan: Does not appear to be in heart failure currently. No echo in our system, will order 2D echo with Doppler. Subjective Date/time seen: 05/07/25 10:17 Interval history: Cardiology follow up visit Remains in atrial fibrillation with uncontrolled heart rates Review of Systems Review of Systems: All systems reviewed & are unremarkable except as noted in HPI and below Exam Const: General: comfortable, no acute distress, alert and awake Orientation/consciousness: patient oriented x3 HENMT: Head: normal to inspection Eyes: General: appearance normal, both eyes and all related structures Pupils: Equal, round and reactive pupils present Neck: Neck: normal visual inspection, supple and no JVD Resp: Effort & Inspection: normal respiratory effort Auscultation: clear to auscultation bilaterally Cardio: Rate: tachycardic Rhythm: abnormal rhythm irregularly irregular Heart sounds: S1 normal heart sound present, S2 normal heart sound present and Murmur heart sound present systolic GI: Auscultation: normal bowel sounds Skin: General skin exam: normal color Neuro: General: patient oriented x3 Cranial nerves: Yes Equal, round and reactive pupils present Extrem: General: normal to inspection Other: no edema Psych: Appearance: grossly normal Mental Status: mental status grossly normal Objective Data Vital Signs Vital Signs: Vital Signs - 24 hr 05/06/25 11:20 05/06/25 11:45 05/06/25 12:00 Temperature 36.9 C Pulse Rate 139 H 149 H 156 H Respiratory Rate 20 Blood Pressure 97/68 L Pulse Oximetry 98 Oxygen Delivery 05/06/25 15:48 05/06/25 15:54 05/06/25 16:00 Temperature 37.0 C Pulse Rate 121 H 119 H 115 H Respiratory Rate 16 Blood Pressure 116/67 Pulse Oximetry 100 Oxygen Delivery 05/06/25 18:00 05/06/25 19:51 05/06/25 20:00 Temperature 36.8 C Pulse Rate 138 H 127 H 114 H Respiratory Rate 20 20 Blood Pressure 129/98 H Pulse Oximetry 98 98 Oxygen Delivery Room Air 05/06/25 20:00 05/07/25 00:00 05/07/25 00:00 Temperature Pulse Rate 114 H 125 H 125 H Respiratory Rate 20 Blood Pressure Pulse Oximetry 96 Oxygen Delivery Room Air 05/07/25 00:07 05/07/25 04:00 05/07/25 04:00 Temperature 36.6 C Pulse Rate 125 H 94 94 Respiratory Rate 20 20 Blood Pressure 112/82 Pulse Oximetry 96 98 Oxygen Delivery Room Air 05/07/25 04:33 05/07/25 07:53 05/07/25 08:00 Temperature 36.7 C 36.9 C Pulse Rate 104 H 111 H 111 H Respiratory Rate 20 21 H 21 H Blood Pressure 103/87 103/67 Pulse Oximetry 98 97 97 Oxygen Delivery Room Air Intake/Output Intake/Output: Intake & Output 05/04/25 05/05/25 05/06/25 05/07/25 23:59 23:59 23:59 23:59 Intake Total 2070 1320 1270 1340 Output Total 046 213 5759 701 Balance 1570 1020 169 639 Meds/Results Medications: Active Medications Generic Name Dose Route Start Last Admin Trade Name Freq PRN Reason Stop Dose Admin Acetaminophen 650 mg 05/07/25 04:04 Acetaminophen 325 Mg Tablet PO Q6H PRN Mild Pain (1-3) or Fever Apixaban 5 mg 05/03/25 22:45 05/07/25 08:32 Apixaban 5 Mg Tablet PO 5 mg Q12HR ILENE Administration Cyanocobalamin 2,500 mcg 05/04/25 09:00 05/07/25 08:32 Cyanocobalamin 500 Mcg Tablet PO 2,500 mcg DAILY ILENE Administration Diltiazem HCl 60 mg 05/06/25 09:00 05/07/25 08:32 Diltiazem Hcl 12 Hr 60 Mg Cap.12hr PO 60 mg Q12HR ILENE Administration Furosemide 40 mg 05/04/25 09:00 05/04/25 08:32 Furosemide 40 Mg Tablet PO Not Given DAILY ILENE Lactulose 10 gm 05/03/25 22:43 05/05/25 08:33 Lactulose 20 Gm/30 Ml Udc PO 10 gm DAILY PRN Administration constipation Loteprednol Etabonate 1 drop 05/04/25 09:00 05/07/25 08:32 Loteprednol Etabonate 0.5% Oph 5 Ml Bottle EACH EYE 1 drop TID ILENE Administration Melatonin 5 mg 05/03/25 22:45 05/04/25 21:02 Melatonin 5 Mg Tablet PO 5 mg HS PRN Administration sleep Metolazone 5 mg 05/04/25 09:00 05/07/25 08:32 Metolazone 5 Mg Tablet PO 5 mg DAILY ILENE Administration Perflutren Lipid Microsphere 0 ml 05/06/25 12:55 Perflutren Lipid Microspheres 1.5 Ml Vial Diluted To 10 Ml Total Volume IV PUSH 05/09/25 12:55 ONCE PRN adequate visualization Protocol Polyethylene Glycol 17 gm 05/03/25 22:43 05/05/25 08:31 Polyethylene Glycol 3350 17 Gm Powd.Pack PO 17 gm DAILY PRN Administration constipation Potassium Chloride 40 meq 05/04/25 08:00 05/07/25 08:32 Potassium Chloride 20 Meq Er Tablet PO 40 meq BIDWM ILENE Administration Simethicone 250 mg 05/04/25 08:00 05/07/25 08:33 Simethicone 125 Mg Chew Tab PO 250 mg 0800,1200,1700,2100 ILENE Administration Sodium Chloride 1 spray 05/03/25 22:43 05/04/25 16:36 Saline 0.65% Kenji Soln 44 Ml Btl NASAL 1 spray BID PRN Administration dry nasal passages Radiology Results: ITS Impressions Head CT 05/03/25 13:10 IMPRESSION: 1. No acute intracranial process. 2. Age-related changes including moderate diffuse volume loss and mild to moderate scattered white matter hypoattenuation consistent with chronic small vessel ischemic disease. Chest X-Ray 05/03/25 13:16 IMPRESSION: 1. No acute cardiopulmonary disease. Abdomen X-Ray 05/05/25 11:12 Impression: 1: Sclerotic lesions of the left ischium and right femoral head, suspicious for metastatic disease. Recommend correlation with nuclear bone scan. Further evaluation for possible prostate cancer recommended. Bone Scan Nuclear Medicine 05/06/25 16:31 IMPRESSION: 1. Prominent increased bone uptake at the left ischial tuberosity consistent wit h metastatic prostate cancer. 2. Second region of less intense uptake in the region of subtle sclerotic lesion in the T12 vertebral body, also suspicious for metastatic disease. Labs Labs: Laboratory Results - last 24 hr 05/06/25 05/07/25 18:42 04:29 WBC 7.6 RBC 3.93 L Hgb 12.3 L Hct 37.1 L MCV 94.4 MCH 31.3 MCHC 33.2 RDW 14.7 H Plt Count 258 MPV 9.6 Sodium 129 L 132 L Potassium 3.7 3.6 Chloride 97 L 100 Carbon Dioxide 24 26 Anion Gap 8 6 BUN 17 15 Creatinine 1.44 H 1.40 H Estim Creat Clear Calc 40 41 Estimated GFR 47 L 48 L Glucose 176 H 102 Calcium 8.4 8.5 Phosphorus 2.1 L Magnesium 2.4 H Total Bilirubin 0.9 AST 38 ALT 14 Alkaline Phosphatase 87 Total Protein 6.2 L Albumin 3.6 Quality VTE Prophylaxis VTE prophylaxis: pharmacologic ordered (Eliquis)
[2025-05-07] MEDS: DIGOXIN INJ 250 MCG/ML 2 ML AMP (*BKC) 125 MCG IV PUSH (10:47)
[2025-05-07] MEDS: dilTIAZem HCL 60 MG TABLET PO ×3 (12:39→23:52)
[2025-05-07] MEDS: PERFLUTREN LIPID MICROSPHERES 1.5 ML VIAL DILUTED TO 10 ML TOTAL VOLUME IV PUSH (14:00)
--- NOTE | 2025-05-07 15:19 | IVDEFINITY ---
Prior to administration of IV Definity the patient was educated on the risks and benefits of the imaging enhancing agent including potential adverse side effects. The patient verbalized understanding. Allergies were verified. No exclusion criteria were identified and at least one of the following inclusion criteria were met: 1) physician request, 2) patient technically difficult to image (per the [place] [employer] guidelines of two or more segments not discernable within the apical view), or 3) questionable left ventricular function. ?
[2025-05-07] MEDS: MELATONIN 5 MG TABLET PO (20:06)
[2025-05-07] MEDS: ACETAMINOPHEN 325 MG TABLET 650 MG PO (23:52)
[2025-05-08] VITALS (15 sets, daily range): BP systolic 101–122; BP diastolic 54–89; PULSE 56–131; RESP 17–24; TEMP 36.5–36.8; O2SAT 94–100
[2025-05-08 05:20] LABS: Hemoglobin 12.3 g/dL (14.0-18.0); Mean Corpuscular HGB Conc 33.2 g/dl (32-36); Mean Corpuscular Hemoglobin 31.6 pg (26-34); Mean Corpuscular Volume 95.1 fl (80-100); Mean Platelet Volume 9.6 fl (7.4-10.4); Platelet Count Result 254 k/mm3 (150-375); Red Blood Count 3.89 M/mm3 (4.6-6.20); White Blood Count 7.8 K/mm3 (4.5-10.0)
[2025-05-08 05:37] LABS: Alanine Aminotransferase 15 U/L (6-50); Albumin Level 3.7 g/dL (3.5-5.1); Alkaline Phosphatase 84 U/L (38-126); Anion Gap 8 mmol/L (4-12); Aspartate Amino Transferase 35 U/L (17-59); Blood Urea Nitrogen 16 mg/dL (9-20); Calcium 8.5 mg/dL (8.4-10.2); Carbon Dioxide 22 mmol/L (22-30); Chloride 100 mmol/L (98-107); Estimated CRCL calculation 47 ml/min; Estimated Glomerular Filt Rate 57; Glucose 111 mg/dL (65-110); Magnesium 2.4 mg/dL (1.6-2.3); Phosphorus 2.9 mg/dL (2.5-4.5); Potassium 3.4 mmol/L (3.4-5.0); Sodium 130 mmol/L (137-145); Total Protein 6.5 g/dL (6.3-8.2)
[2025-05-08] MEDS: dilTIAZem HCL 60 MG TABLET PO ×3 (06:15→21:10)
[2025-05-08] MEDS: ACETAMINOPHEN 325 MG TABLET 650 MG PO ×2 (06:15→17:41)
[2025-05-08] MEDS: CYANOCOBALAMIN 500 MCG TABLET 2500 MCG PO (08:34)
[2025-05-08] MEDS: POTASSIUM CHLORIDE 20 MEQ ER TABLET 40 MEQ PO ×3 (08:34→17:40)
[2025-05-08] MEDS: DIGOXIN TAB 125 MCG TABLET PO (08:34)
[2025-05-08] MEDS: LOTEPREDNOL ETABONATE 0.5% OPH 5 ML BOTTLE 1 DROP EACH EYE ×3 (08:37→17:40)
[2025-05-08] MEDS: SIMETHICONE 125 MG CHEW TAB 250 MG PO ×4 (08:37→21:19)
[2025-05-08] MEDS: metOLazone 5 MG TABLET PO (08:37)
[2025-05-08] MEDS: APIXABAN 5 MG TABLET PO ×2 (08:37→21:10)
--- NOTE | 2025-05-08 11:32 | P.PNCA_ITS ---
Progress Note: A&P Assessment and Plan (1) Atrial fibrillation with RVR: Code(s): I48.91 - Unspecified atrial fibrillation Status: Acute Assessment and Plan: He does have a history of atrial fibrillation which per patient report has been quiescent since cardioversion many years ago. Initial EKG here shows atrial fibrillation with rapid ventricular response. Heart rates somewhat improved with diltiazem but still in 120's - 130's. * Heart rates improved but still spike with activity. He feels dizzy/lightheaded today. May be related to medications. Will change his diltiazem dosing to 60 mg p.o. Q 8 hours. Transition to long-acting oral diltiazem or transition to metoprolol given his mild cardiomyopathy upon discharge. He is on digoxin now but would not discharge with digoxin if he converts given his age * Could also start amiodarone, however, would need HIEN first to rule out thrombus because of unclear compliance with Eliquis. * * Continue eliquis 5mg p.o. b.i.d. * He has changed his mind about HIEN/DCCV, however, he already ate today. Plan is for HIEN guided cardioversion Saturday (2) Chronic diastolic heart failure: Code(s): I50.32 - Chronic diastolic (congestive) heart failure Status: Acute Assessment and Plan: Does not appear to be in heart failure currently. EF mildly impaired at 45-50%. May be related age atrial fibrillation (3) Hypokalemia: Code(s): E87.6 - Hypokalemia Status: Acute Assessment and Plan: Another 40 mEq of oral potassium given today (4) Cardiomyopathy: Code(s): I42.9 - Cardiomyopathy, unspecified Status: Acute Assessment and Plan: Mildly reduced EF by echo. May be related to AFib with RVR. Subjective Date/time seen: 05/08/25 11:32 Interval history: 85-year-old with cardio is a consultation for atrial fibrillation. Date of service 05/08/2025: Heart rate is better but does spike up with activity. He now complains of some dizziness. Has no chest pain, shortness of breath Review of Systems Review of Systems: All systems reviewed & are unremarkable except as noted in HPI and below Constitutional: Constitutional: Denies body ache(s) ENT: Reports Normal hearing present Cardiovascular: Cardiovascular: Denies chest pain and Reports lightheadedness Respiratory: Respiratory: Denies hemoptysis Psychiatric: Psychiatric: Denies behavioral changes Exam Narrative: Appears stated age Const: General: comfortable, no acute distress, alert and awake HENMT: Head: normal to inspection Face/Nose/Sinus: Normal nares present Eyes: General: appearance normal, both eyes and all related structures Sclera: sclerae normal Neck: Neck: normal visual inspection, supple and no JVD Resp: Effort & Inspection: normal respiratory effort Auscultation: clear to auscultation bilaterally Cardio: Rate: regular rate Rhythm: abnormal rhythm irregularly irregular Heart sounds: S1 normal heart sound present, S2 normal heart sound present and Murmur heart sound present systolic GI: Auscultation: normal bowel sounds Skin: General skin exam: normal color Neuro: General: patient oriented x3 Speech: normal speech Other: Hard of hearing Extrem: General: normal to inspection Other: no edema Psych: Appearance: grossly normal Mental Status: mental status grossly normal Objective Data Vital Signs Vital Signs: Vital Signs - 24 hr 05/07/25 11:36 05/07/25 12:00 05/07/25 12:00 Temperature 36.8 C Pulse Rate 92 92 138 H Respiratory Rate 20 20 Blood Pressure 109/73 Pulse Oximetry 100 100 Oxygen Delivery Room Air 05/07/25 14:00 05/07/25 15:52 05/07/25 16:00 Temperature 36.8 C Pulse Rate 88 78 95 Respiratory Rate 22 H Blood Pressure 92/60 L Pulse Oximetry 95 Oxygen Delivery 05/07/25 16:00 05/07/25 17:35 05/07/25 18:00 Temperature Pulse Rate 95 101 H Respiratory Rate 22 H Blood Pressure 135/97 H Pulse Oximetry 95 Oxygen Delivery Room Air 05/07/25 19:33 05/07/25 19:34 05/07/25 19:45 Temperature 36.9 C Pulse Rate 90 90 112 H Respiratory Rate 20 20 Blood Pressure 107/69 Pulse Oximetry 95 97 Oxygen Delivery Room Air 05/07/25 21:27 05/07/25 23:47 05/07/25 23:49 Temperature 36.8 C Pulse Rate 81 103 H 102 H Respiratory Rate 17 17 Blood Pressure 115/72 Pulse Oximetry 100 100 Oxygen Delivery Room Air 05/07/25 23:51 05/08/25 03:38 05/08/25 04:00 Temperature 36.5 C Pulse Rate 102 H 98 79 Respiratory Rate 17 Blood Pressure 106/61 Pulse Oximetry 94 Oxygen Delivery 05/08/25 04:00 05/08/25 06:00 05/08/25 08:00 Temperature 36.7 C Pulse Rate 79 78 102 H Respiratory Rate 17 20 Blood Pressure 114/63 Pulse Oximetry 94 99 Oxygen Delivery Room Air 05/08/25 08:00 05/08/25 08:00 05/08/25 08:34 Temperature Pulse Rate 102 H 64 100 Respiratory Rate 20 Blood Pressure Pulse Oximetry 99 Oxygen Delivery Room Air 05/08/25 10:00 Temperature Pulse Rate 109 H Respiratory Rate Blood Pressure Pulse Oximetry Oxygen Delivery Intake/Output Intake/Output: Intake & Output 05/05/25 05/06/25 05/07/25 05/08/25 23:59 23:59 23:59 23:59 Intake Total 1320 1270 2820 240 Output Total 300 1101 1101 400 Balance 0250 276 1532 -160 Meds/Results Medications: Active Medications Generic Name Dose Route Start Last Admin Trade Name Freq PRN Reason Stop Dose Admin Acetaminophen 650 mg 05/07/25 04:04 05/08/25 06:15 Acetaminophen 325 Mg Tablet PO 650 mg Q6H PRN Administration Mild Pain (1-3) or Fever Apixaban 5 mg 05/03/25 22:45 05/08/25 08:37 Apixaban 5 Mg Tablet PO 5 mg Q12HR ILENE Administration Cyanocobalamin 2,500 mcg 05/04/25 09:00 05/08/25 08:34 Cyanocobalamin 500 Mcg Tablet PO 2,500 mcg DAILY ILENE Administration Digoxin 125 mcg 05/08/25 09:00 05/08/25 08:34 Digoxin Tab 125 Mcg Tablet PO 125 mcg QAM ILENE Administration Diltiazem HCl 60 mg 05/07/25 12:00 05/08/25 06:15 Diltiazem Hcl 60 Mg Tablet PO 60 mg Q6HR ILENE Administration Furosemide 40 mg 05/04/25 09:00 05/04/25 08:32 Furosemide 40 Mg Tablet PO Not Given DAILY ILENE Lactulose 10 gm 05/03/25 22:43 05/05/25 08:33 Lactulose 20 Gm/30 Ml Udc PO 10 gm DAILY PRN Administration constipation Loteprednol Etabonate 1 drop 05/04/25 09:00 05/08/25 08:37 Loteprednol Etabonate 0.5% Oph 5 Ml Bottle EACH EYE 1 drop TID ILENE Administration Melatonin 5 mg 05/03/25 22:45 05/07/25 20:06 Melatonin 5 Mg Tablet PO 5 mg HS PRN Administration sleep Metolazone 5 mg 05/04/25 09:00 05/08/25 08:37 Metolazone 5 Mg Tablet PO 5 mg DAILY ILENE Administration Polyethylene Glycol 17 gm 05/03/25 22:43 05/05/25 08:31 Polyethylene Glycol 3350 17 Gm Powd.Pack PO 17 gm DAILY PRN Administration constipation Potassium Chloride 40 meq 05/04/25 08:00 05/08/25 08:34 Potassium Chloride 20 Meq Er Tablet PO 40 meq BIDWM ILENE Administration Potassium Chloride 40 meq 05/08/25 12:00 Potassium Chloride 20 Meq Er Tablet PO 05/08/25 12:01 ONCE ONE Simethicone 250 mg 05/04/25 08:00 05/08/25 08:37 Simethicone 125 Mg Chew Tab PO 250 mg 0800,1200,1700,2100 ILENE Administration Sodium Chloride 1 spray 05/03/25 22:43 05/04/25 16:36 Saline 0.65% Kenji Soln 44 Ml Btl NASAL 1 spray BID PRN Administration dry nasal passages Radiology Results: ITS Impressions Head CT 05/03/25 13:10 IMPRESSION: 1. No acute intracranial process. 2. Age-related changes including moderate diffuse volume loss and mild to moderate scattered white matter hypoattenuation consistent with chronic small vessel ischemic disease. Chest X-Ray 05/03/25 13:16 IMPRESSION: 1. No acute cardiopulmonary disease. Abdomen X-Ray 05/05/25 11:12 Impression: 1: Sclerotic lesions of the left ischium and right femoral head, suspicious for metastatic disease. Recommend correlation with nuclear bone scan. Further evaluation for possible prostate cancer recommended. Bone Scan Nuclear Medicine 05/06/25 16:31 IMPRESSION: 1. Prominent increased bone uptake at the left ischial tuberosity consistent with metastatic prostate cancer. 2. Second region of less intense uptake in the region of subtle sclerotic lesion in the T12 vertebral body, also suspicious for metastatic disease. Labs Labs: Laboratory Results - last 24 hr 05/08/25 04:31 WBC 7.8 RBC 3.89 L Hgb 12.3 L Hct 37.0 L MCV 95.1 MCH 31.6 MCHC 33.2 RDW 15.0 H Plt Count 254 MPV 9.6 Sodium 130 L Potassium 3.4 Chloride 100 Carbon Dioxide 22 Anion Gap 8 BUN 16 Creatinine 1.21 Estim Creat Clear Calc 47 Estimated GFR 57 L Glucose 111 H Calcium 8.5 Phosphorus 2.9 Magnesium 2.4 H Total Bilirubin 1.0 AST 35 ALT 15 Alkaline Phosphatase 84 Total Protein 6.5 Albumin 3.7 Echo 05/08/2025 1. The left ventricle is normal in size with mildly reduced systolic function. The left ventricular ejection fraction is visually estimated to be 45-50%. There are no regional wall motion abnormalities. The mild reduction in systolic function may be affected by the rapid ventricular rates while patient is in atrial fibrillation. 2. The aortic valve is trileaflet and calcified. There is mild aortic stenosis. There is no aortic regurgitation.
--- NOTE | 2025-05-08 14:27 | PM.IMPN ---
Progress Note: A&P Assessment and Plan (1) Acute hypokalemia: Code(s): E87.6 - Hypokalemia Status: Acute Assessment and Plan: -Severe hypokalemia with K of 2.1 on ER visit -Prescribed potassium tablets but has not been taking them for unknown amount of time -Magnesium 2.9 -IV replacement 80 mEq total ordered in ER -Alternating constipation and diarrhea (IBS) undergoing treatment by GI Replace and monitor (2) Dizziness: Code(s): R42 - Dizziness and giddiness Status: Acute Assessment and Plan: -Presenting complaint was dizziness, near syncope at GI office -Found to be in A-fib with RVR and severely low potassium Unclear etiology for his dizziness. Will further evaluate with MRI brain and carotid ultrasound (3) Acute hyponatremia: Code(s): E87.1 - Hypo-osmolality and hyponatremia Status: Acute Assessment and Plan: -Na 126 on admission -May be dehydration related -Chronic kidney disease appears to be at baseline -May be SIADH due to persistent pain of chronic abdominal bloating/pain syndrome -Sodium improved with fluids (4) Atrial fibrillation with RVR: Code(s): I48.91 - Unspecified atrial fibrillation Status: Acute Assessment and Plan: -Afib with RVR with HR 110-145 in ER -Severely depleted potassium which has now been corrected -IV fluid replacement given in ER -No rate controlling medications noted on prior home med list -Oral metoprolol ordered x1 for rate control with mild improvement -Blood pressure soft -Continue Eliquis Cardiology on board Diltiazem started also received digoxin 05/06/2025 and IV metoprolol 05/06/2025 Echo with mildly low ejection fraction is 45-50% % likely due to atrial fibrillation. Plan for HIEN cardioversion on Saturday (5) Chronic diastolic heart failure: Code(s): I50.32 - Chronic diastolic (congestive) heart failure Status: Acute Assessment and Plan: -Noted in history, no Echocardiogram on file -No hypoxia or major swelling -Does not appear fluid overloaded at this time On metolazone, Lasix on hold (6) Symptoms consistent with irritable bowel syndrome: Code(s): K58.9 - Irritable bowel syndrome, unspecified Status: Acute Assessment and Plan: -Chronic and recurrent symptoms of alternating constipation and diarrhea -Was on Linzess but this has been changed by GI to Amitiza -Patient reports prune juice with Miralax makes him go but several bouts of diarrhea follow -Simethicone and Bentyl have not helped pain -CT on 03/09/25 no acute abnormality -Patient wanted Maalox tonight and Miralax with prune juice in the morning (7) Lower abdominal pain: Code(s): R10.30 - Lower abdominal pain, unspecified Status: Acute Assessment and Plan: See IBS above X-ray abdomen with sclerotic lesions of the left S Latonya and right femoral head suspicious for metastatic disease. Bone scan: Prominent increased bone uptake at the left ischial yessica tuberosity consistent with metastatic prostate cancer. Second region of less intense uptake in the region of subtle sclerotic lesion in the T12 vertebral body also suspicious for metastatic disease He has a history of prostate cancer status post prostatectomy and followed by adjuvant radiation therapy more than 10 years ago. Repeat PSA came elevated at 44.4 He will need to follow up with Oncology as outpatient basis Plan patient with abdominal pain and off and on diarrhea, was very weak at his GI office was sent to the ER, he was found to have hypokalemia and hyponatremia most likely 2/2 diarrhea and not eating and taking supplemental potassium, Subjective Date/time seen: 05/08/25 14:27 Interval history: Overnight intermittent tachycardia and AFib with RVR noted. Telemetry reviewed. Continues to feel dizzy. Review of Systems Review of Systems: All systems reviewed & are unremarkable except as noted in HPI and below Exam Narrative: Patient is comfortable, NAD HEENT: eyes are clear and none icteric LUNGS:CTA HEART: Rate controlled irregular irregular S1S2 ABD: BS+, Soft and nontender Lower extremities: no edema SKIN: nonjaundiced Neuro: grossly intact. Objective Data Vital Signs Vital Signs: Vital Signs - 24 hr 05/07/25 15:52 05/07/25 16:00 05/07/25 16:00 Temperature 98.2 F Pulse Rate 78 95 95 Respiratory Rate 22 H 22 H Blood Pressure 92/60 L Pulse Oximetry 95 95 Oxygen Delivery Room Air 05/07/25 17:35 05/07/25 18:00 05/07/25 19:33 Temperature Pulse Rate 101 H 90 Respiratory Rate 20 Blood Pressure 135/97 H Pulse Oximetry 95 Oxygen Delivery Room Air 05/07/25 19:34 05/07/25 19:45 05/07/25 21:27 Temperature 98.5 F Pulse Rate 90 112 H 81 Respiratory Rate 20 Blood Pressure 107/69 Pulse Oximetry 97 Oxygen Delivery 05/07/25 23:47 05/07/25 23:49 05/07/25 23:51 Temperature 98.3 F Pulse Rate 103 H 102 H 102 H Respiratory Rate 17 17 Blood Pressure 115/72 Pulse Oximetry 100 100 Oxygen Delivery Room Air 05/08/25 03:38 05/08/25 04:00 05/08/25 04:00 Temperature 97.7 F Pulse Rate 98 79 79 Respiratory Rate 17 17 Blood Pressure 106/61 Pulse Oximetry 94 94 Oxygen Delivery Room Air 05/08/25 06:00 05/08/25 08:00 05/08/25 08:00 Temperature 98.0 F Pulse Rate 78 102 H 102 H Respiratory Rate 20 20 Blood Pressure 114/63 Pulse Oximetry 99 99 Oxygen Delivery Room Air 05/08/25 08:00 05/08/25 08:34 05/08/25 10:00 Temperature Pulse Rate 64 100 109 H Respiratory Rate Blood Pressure Pulse Oximetry Oxygen Delivery 05/08/25 11:35 05/08/25 11:57 05/08/25 12:00 Temperature 97.8 F Pulse Rate 131 H 131 H Respiratory Rate 20 20 Blood Pressure 122/89 Pulse Oximetry 99 99 Oxygen Delivery Room Air Room Air 05/08/25 12:00 Temperature Pulse Rate 129 H Respiratory Rate Blood Pressure Pulse Oximetry Oxygen Delivery Intake/Output Intake/Output: Intake & Output 05/05/25 05/06/25 05/07/25 05/08/25 23:59 23:59 23:59 23:59 Intake Total 1320 1270 2820 240 Output Total 300 1101 1101 400 Balance 0172 640 8006 -160 Meds/Results Medications: Active Medications Generic Name Dose Route Start Last Admin Trade Name Freq PRN Reason Stop Dose Admin Acetaminophen 650 mg 05/07/25 04:04 05/08/25 06:15 Acetaminophen 325 Mg Tablet PO 650 mg Q6H PRN Administration Mild Pain (1-3) or Fever Apixaban 5 mg 05/03/25 22:45 05/08/25 08:37 Apixaban 5 Mg Tablet PO 5 mg Q12HR ILENE Administration Cyanocobalamin 2,500 mcg 05/04/25 09:00 05/08/25 08:34 Cyanocobalamin 500 Mcg Tablet PO 2,500 mcg DAILY ILENE Administration Digoxin 125 mcg 05/08/25 09:00 05/08/25 08:34 Digoxin Tab 125 Mcg Tablet PO 125 mcg QAM ILENE Administration Diltiazem HCl 60 mg 05/08/25 12:00 05/08/25 12:08 Diltiazem Hcl 60 Mg Tablet PO 60 mg Q8HR ILENE Administration Furosemide 40 mg 05/04/25 09:00 05/04/25 08:32 Furosemide 40 Mg Tablet PO Not Given DAILY ILENE Lactulose 10 gm 05/03/25 22:43 05/05/25 08:33 Lactulose 20 Gm/30 Ml Udc PO 10 gm DAILY PRN Administration constipation Loteprednol Etabonate 1 drop 05/04/25 09:00 05/08/25 12:08 Loteprednol Etabonate 0.5% Oph 5 Ml Bottle EACH EYE 1 drop TID ILENE Administration Melatonin 5 mg 05/03/25 22:45 05/07/25 20:06 Melatonin 5 Mg Tablet PO 5 mg HS PRN Administration sleep Metolazone 5 mg 05/04/25 09:00 05/08/25 08:37 Metolazone 5 Mg Tablet PO 5 mg DAILY ILENE Administration Polyethylene Glycol 17 gm 05/03/25 22:43 05/05/25 08:31 Polyethylene Glycol 3350 17 Gm Powd.Pack PO 17 gm DAILY PRN Administration constipation Potassium Chloride 40 meq 05/04/25 08:00 05/08/25 08:34 Potassium Chloride 20 Meq Er Tablet PO 40 meq BIDWM ILENE Administration Simethicone 250 mg 05/04/25 08:00 05/08/25 12:08 Simethicone 125 Mg Chew Tab PO 250 mg 0800,1200,1700,2100 ILENE Administration Sodium Chloride 1 spray 05/03/25 22:43 05/04/25 16:36 Saline 0.65% Kenji Soln 44 Ml Btl NASAL 1 spray BID PRN Administration dry nasal passages Radiology Results: ITS Impressions Head CT 05/03/25 13:10 IMPRESSION: 1. No acute intracranial process. 2. Age-related changes including moderate diffuse volume loss and mild to moderate scattered white matter hypoattenuation consistent with chronic small vessel ischemic disease. Chest X-Ray 05/03/25 13:16 IMPRESSION: 1. No acute cardiopulmonary disease. Abdomen X-Ray 05/05/25 11:12 Impression: 1: Sclerotic lesions of the left ischium and right femoral head, suspicious for metastatic disease. Recommend correlation with nuclear bone scan. Further evaluation for possible prostate cancer recommended. Bone Scan Nuclear Medicine 05/06/25 16:31 IMPRESSION: 1. Prominent increased bone uptake at the left ischial tuberosity consistent with metastatic prostate cancer. 2. Second region of less intense uptake in the region of subtle sclerotic lesion in the T12 vertebral body, also suspicious for metastatic disease. Labs Labs: Laboratory Results - last 24 hr 05/08/25 04:31 WBC 7.8 RBC 3.89 L Hgb 12.3 L Hct 37.0 L MCV 95.1 MCH 31.6 MCHC 33.2 RDW 15.0 H Plt Count 254 MPV 9.6 Sodium 130 L Potassium 3.4 Chloride 100 Carbon Dioxide 22 Anion Gap 8 BUN 16 Creatinine 1.21 Estim Creat Clear Calc 47 Estimated GFR 57 L Glucose 111 H Calcium 8.5 Phosphorus 2.9 Magnesium 2.4 H Total Bilirubin 1.0 AST 35 ALT 15 Alkaline Phosphatase 84 Total Protein 6.5 Albumin 3.7
--- NOTE | 2025-05-08 14:31 | PCPTNOTE ---
Attempted to see patient at 1413, but asleep in bed after sitting up and working with OT
[2025-05-08] MEDS: MELATONIN 5 MG TABLET PO (22:12)
[2025-05-09] VITALS (19 sets, daily range): BP systolic 101–122; BP diastolic 54–72; PULSE 63–130; RESP 12–17; TEMP 36.8; O2SAT 94–100
[2025-05-09 04:36] LABS: Hematocrit 36.9 % (42.0-52.0); Hemoglobin 12.3 g/dL (14.0-18.0); Mean Corpuscular HGB Conc 33.3 g/dl (32-36); Mean Corpuscular Hemoglobin 31.9 pg (26-34); Mean Corpuscular Volume 95.8 fl (80-100); Mean Platelet Volume 9.3 fl (7.4-10.4); Platelet Count Result 244 k/mm3 (150-375); Red Blood Count 3.85 M/mm3 (4.6-6.20); Red Cell Distribution Width 14.9 % (11.5-14.5); White Blood Count 8.1 K/mm3 (4.5-10.0)
[2025-05-09 04:56] LABS: Alanine Aminotransferase 16 U/L (6-50); Albumin Level 3.5 g/dL (3.5-5.1); Alkaline Phosphatase 84 U/L (38-126); Anion Gap 6 mmol/L (4-12); Aspartate Amino Transferase 30 U/L (17-59); Bilirubin,Total 0.6 mg/dL (0.2-1.3); Blood Urea Nitrogen 13 mg/dL (9-20); Calcium 8.7 mg/dL (8.4-10.2); Carbon Dioxide 24 mmol/L (22-30); Chloride 102 mmol/L (98-107); Estimated CRCL calculation 45 ml/min; Estimated Glomerular Filt Rate 55; Glucose 106 mg/dL (65-110); Magnesium 2.3 mg/dL (1.6-2.3); Phosphorus 2.6 mg/dL (2.5-4.5); Potassium 3.7 mmol/L (3.4-5.0); Sodium 132 mmol/L (137-145); Total Protein 6.3 g/dL (6.3-8.2)
[2025-05-09] MEDS: dilTIAZem HCL 60 MG TABLET PO ×3 (06:14→21:50)
[2025-05-09] MEDS: ACETAMINOPHEN 325 MG TABLET 650 MG PO ×2 (06:14→20:12)
[2025-05-09] MEDS: polyethylene glycoL 3350 17 GM POWD.PACK PO (06:21)
[2025-05-09] MEDS: LACTULOSE 20 GM/30 ML UDC 10 GM PO (06:21)
[2025-05-09] MEDS: SIMETHICONE 125 MG CHEW TAB 250 MG PO ×4 (08:27→20:13)
[2025-05-09] MEDS: DIGOXIN TAB 125 MCG TABLET PO (08:27)
[2025-05-09] MEDS: CYANOCOBALAMIN 500 MCG TABLET 2500 MCG PO (08:27)
[2025-05-09] MEDS: APIXABAN 5 MG TABLET PO ×2 (08:28→20:12)
[2025-05-09] MEDS: POTASSIUM CHLORIDE 20 MEQ ER TABLET 40 MEQ PO ×3 (08:28→16:50)
[2025-05-09] MEDS: LOTEPREDNOL ETABONATE 0.5% OPH 5 ML BOTTLE 1 DROP EACH EYE ×3 (08:29→16:51)
--- NOTE | 2025-05-09 10:47 | P.PNCA_ITS ---
Progress Note: A&P Assessment and Plan (1) Atrial fibrillation with RVR: Code(s): I48.91 - Unspecified atrial fibrillation Status: Acute Assessment and Plan: He does have a history of atrial fibrillation which per patient report has been quiescent since cardioversion many years ago. Initial EKG here shows atrial fibrillation with rapid ventricular response. Heart rates somewhat improved with diltiazem but still in 120's - 130's. * Heart rates improved but still spike with activity. Continue diltiazem dosing to 60 mg p.o. Q 8 hours. Transition to long-acting oral diltiazem or transition to metoprolol given his mild cardiomyopathy upon discharge. He is on digoxin now but would not discharge with digoxin if he converts given his age * Could also start amiodarone, however, would need HIEN first to rule out thrombus because of unclear compliance with Eliquis. * * Continue eliquis 5mg p.o. b.i.d. * He has changed his mind about HIEN/DCCV, however, he already ate today. Plan is for HIEN guided cardioversion Saturday. NPO after midnight. Potassium 3.7. Will give 40 mg potassium chloride p.o. x1 (2) Chronic diastolic heart failure: Code(s): I50.32 - Chronic diastolic (congestive) heart failure Status: Acute Assessment and Plan: Does not appear to be in heart failure currently. EF mildly impaired at 45-50%. May be related age atrial fibrillation (3) Hypokalemia: Code(s): E87.6 - Hypokalemia Status: Acute Assessment and Plan: Another 40 mEq of oral potassium given today (4) Cardiomyopathy: Code(s): I42.9 - Cardiomyopathy, unspecified Status: Acute Assessment and Plan: Mildly reduced EF by echo. May be related to AFib with RVR. Subjective Date/time seen: 05/09/25 10:47 Interval history: 85-year-old with cardio is a consultation for atrial fibrillation. Date of service 05/08/2025: Heart rate is better but does spike up with activity. He now complains of some dizziness. Has no chest pain, shortness of breath Date of service 05/09/2025: Had a good bowel movement today. Still little dizzy. No chest pain or shortness of breath Review of Systems Review of Systems: All systems reviewed & are unremarkable except as noted in HPI and below Constitutional: Constitutional: Denies body ache(s) ENT: Reports Normal hearing present Cardiovascular: Cardiovascular: Denies chest pain and Reports lightheadedness Respiratory: Respiratory: Denies hemoptysis Neurologic: Reports Normal hearing present and Denies behavioral changes Psychiatric: Psychiatric: Denies behavioral changes Exam Narrative: Appears stated age Const: General: comfortable, no acute distress, alert and awake Orientation/consciousness: patient oriented x3 HENMT: Head: normal to inspection Face/Nose/Sinus: Normal nares present Eyes: General: appearance normal, both eyes and all related structures Sclera: sclerae normal Pupils: Equal, round and reactive pupils present Neck: Neck: normal visual inspection, supple and no JVD Resp: Effort & Inspection: normal respiratory effort Auscultation: clear to auscultation bilaterally Cardio: Rate: regular rate and tachycardic Rhythm: abnormal rhythm irregularly irregular Heart sounds: S1 normal heart sound present, S2 normal heart sound present and Murmur heart sound present systolic GI: Auscultation: normal bowel sounds Skin: General skin exam: normal color Neuro: General: patient oriented x3 Cranial nerves: Yes Equal, round and reactive pupils present and Yes Normal hearing present Speech: normal speech Other: Hard of hearing Extrem: General: normal to inspection Other: no edema Psych: Appearance: grossly normal Mental Status: mental status grossly n ormal Objective Data Vital Signs Vital Signs: Vital Signs - 24 hr 05/08/25 11:35 05/08/25 11:57 05/08/25 12:00 Temperature 36.6 C Pulse Rate 131 H 131 H Respiratory Rate 20 20 Blood Pressure 122/89 Pulse Oximetry 99 99 Oxygen Delivery Room Air Room Air 05/08/25 12:00 05/08/25 14:00 05/08/25 16:00 Temperature Pulse Rate 129 H 78 67 Respiratory Rate Blood Pressure Pulse Oximetry Oxygen Delivery 05/08/25 16:00 05/08/25 16:00 05/08/25 18:00 Temperature 36.8 C Pulse Rate 67 56 L 89 Respiratory Rate 20 24 H Blood Pressure 122/66 Pulse Oximetry 99 99 Oxygen Delivery Room Air 05/08/25 19:25 05/08/25 20:00 05/08/25 20:00 Temperature 36.7 C Pulse Rate 87 97 Respiratory Rate 17 Blood Pressure 101/54 L Pulse Oximetry 98 Oxygen Delivery Room Air 05/08/25 22:00 05/08/25 23:17 05/08/25 23:32 Temperature 36.8 C Pulse Rate 126 H 84 Respiratory Rate 17 Blood Pressure 122/73 Pulse Oximetry 100 Oxygen Delivery Room Air 05/09/25 00:00 05/09/25 02:00 05/09/25 03:23 Temperature 36.8 C Pulse Rate 82 98 130 H Respiratory Rate 17 Blood Pressure 122/54 L Pulse Oximetry 94 Oxygen Delivery 05/09/25 04:00 05/09/25 04:00 05/09/25 06:00 Temperature Pulse Rate 81 74 Respiratory Rate Blood Pressure Pulse Oximetry 94 Oxygen Delivery Room Air 05/09/25 07:41 05/09/25 08:00 05/09/25 08:27 Temperature Pulse Rate 73 94 119 H Respiratory Rate 12 Blood Pressure 106/72 Pulse Oximetry 99 Oxygen Delivery 05/09/25 09:00 Temperature Pulse Rate Respiratory Rate Blood Pressure Pulse Oximetry Oxygen Delivery Room Air Intake/Output Intake/Output: Intake & Output 05/06/25 05/07/25 05/08/25 05/09/25 23:59 23:59 23:59 23:59 Intake Total 1270 2820 680 250 Output Total 1101 1101 1550 250 Balance 169 1719 -870 0 Meds/Results Medications: Active Medications Generic Name Dose Route Start Last Admin Trade Name Freq PRN Reason Stop Dose Admin Acetaminophen 650 mg 05/07/25 04:04 05/09/25 06:14 Acetaminophen 325 Mg Tablet PO 650 mg Q6H PRN Administration Mild Pain (1-3) or Fever Apixaban 5 mg 05/03/25 22:45 05/09/25 08:28 Apixaban 5 Mg Tablet PO 5 mg Q12HR ILENE Administration Cyanocobalamin 2,500 mcg 05/04/25 09:00 05/09/25 08:27 Cyanocobalamin 500 Mcg Tablet PO 2,500 mcg DAILY ILENE Administration Digoxin 125 mcg 05/08/25 09:00 05/09/25 08:27 Digoxin Tab 125 Mcg Tablet PO 125 mcg QAM ILENE Administration Diltiazem HCl 60 mg 05/08/25 12:00 05/09/25 06:14 Diltiazem Hcl 60 Mg Tablet PO 60 mg Q8HR ILENE Administration Furosemide 40 mg 05/04/25 09:00 05/04/25 08:32 Furosemide 40 Mg Tablet PO Not Given DAILY ILENE Lactulose 10 gm 05/03/25 22:43 05/09/25 06:21 Lactulose 20 Gm/30 Ml Udc PO 10 gm DAILY PRN Administration constipation Loteprednol Etabonate 1 drop 05/04/25 09:00 05/09/25 08:29 Loteprednol Etabonate 0.5% Oph 5 Ml Bottle EACH EYE 1 drop TID ILENE Administration Melatonin 5 mg 05/03/25 22:45 05/08/25 22:12 Melatonin 5 Mg Tablet PO 5 mg HS PRN Administration sleep Metolazone 5 mg 05/04/25 09:00 05/08/25 08:37 Metolazone 5 Mg Tablet PO 5 mg DAILY ILENE Administration Polyethylene Glycol 17 gm 05/03/25 22:43 05/09/25 06:21 Polyethylene Glycol 3350 17 Gm Powd.Pack PO 17 gm DAILY PRN Administration constipation Potassium Chloride 40 meq 05/04/25 08:00 05/09/25 08:28 Potassium Chloride 20 Meq Er Tablet PO 40 meq BIDWM ILENE Administration Simethicone 250 mg 05/04/25 08:00 05/09/25 08:27 Simethicone 125 Mg Chew Tab PO 250 mg 0800,1200,1700,2100 ILENE Administration Sodium Chloride 1 spray 05/03/25 22:43 05/04/25 16:36 Saline 0.65% Kenji Soln 44 Ml Btl NASAL 1 spray BID PRN Administration dry nasal passages Radiology Results: ITS Impressions Head CT 05/03/25 13:10 IMPRESSION: 1. No acute intracranial process. 2. Age-related changes including moderate diffuse volume loss and mild to moderate scattered white matter hypoattenuation consistent with chronic small vessel ischemic disease. Chest X-Ray 05/03/25 13:16 IMPRESSION: 1. No acute cardiopulmonary disease. Abdomen X-Ray 05/05/25 11:12 Impression: 1: Sclerotic lesions of the left ischium and right femoral head, suspicious for metastatic disease. Recommend correlation with nuclear bone scan. Further evaluation for possible prostate cancer recommended. Bone Scan Nuclear Medicine 05/06/25 16:31 IMPRESSION: 1. Prominent increased bone uptake at the left ischial tuberosity consistent with metastatic prostate cancer. 2. Second region of less intense uptake in the region of subtle sclerotic lesion in the T12 vertebral body, also suspicious for metastatic disease. Labs Labs: Laboratory Results - last 24 hr 05/09/25 04:14 WBC 8.1 RBC 3.85 L Hgb 12.3 L Hct 36.9 L MCV 95.8 MCH 31.9 MCHC 33.3 RDW 14.9 H Plt Count 244 MPV 9.3 Sodium 132 L Potassium 3.7 Chloride 102 Carbon Dioxide 24 Anion Gap 6 BUN 13 Creatinine 1.26 Estim Creat Clear Calc 45 Estimated GFR 55 L Glucose 106 Calcium 8.7 Phosphorus 2.6 Magnesium 2.3 Total Bilirubin 0.6 AST 30 ALT 16 Alkaline Phosphatase 84 Total Protein 6.3 Albumin 3.5
--- NOTE | 2025-05-09 12:53 | PM.IMPN ---
Progress Note: A&P Assessment and Plan (1) Acute hypokalemia: Code(s): E87.6 - Hypokalemia Status: Acute Assessment and Plan: -Severe hypokalemia with K of 2.1 on ER visit -Prescribed potassium tablets but has not been taking them for unknown amount of time -Magnesium 2.9 -IV replacement 80 mEq total ordered in ER -Alternating constipation and diarrhea (IBS) undergoing treatment by GI Replace and monitor (2) Dizziness: Code(s): R42 - Dizziness and giddiness Status: Acute Assessment and Plan: -Presenting complaint was dizziness, near syncope at GI office -Found to be in A-fib with RVR and severely low potassium Unclear etiology for his dizziness. Will further evaluate with MRI brain and carotid ultrasound Carotid ultrasound unremarkable Brain MRI pending (3) Acute hyponatremia: Code(s): E87.1 - Hypo-osmolality and hyponatremia Status: Acute Assessment and Plan: -Na 126 on admission -May be dehydration related -Chronic kidney disease appears to be at baseline -May be SIADH due to persistent pain of chronic abdominal bloating/pain syndrome -Sodium improved with fluids (4) Atrial fibrillation with RVR: Code(s): I48.91 - Unspecified atrial fibrillation Status: Acute Assessment and Plan: -Afib with RVR with HR 110-145 in ER -Severely depleted potassium which has now been corrected -IV fluid replacement given in ER -No rate controlling medications noted on prior home med list -Oral metoprolol ordered x1 for rate control with mild improvement -Blood pressure soft -Continue Eliquis Cardiology on board Diltiazem started also received digoxin 05/06/2025 and IV metoprolol 05/06/2025 Echo with mildly low ejection fraction is 45-50% % likely due to atrial fibrillation. Plan for HIEN cardioversion on Saturday (5) Chronic diastolic heart failure: Code(s): I50.32 - Chronic diastolic (congestive) heart failure Status: Acute Assessment and Plan: -Noted in history, no Echocardiogram on file -No hypoxia or major swelling -Does not appear fluid overloaded at this time On metolazone, Lasix on hold (6) Symptoms consistent with irritable bowel syndrome: Code(s): K58.9 - Irritable bowel syndrome, unspecified Status: Acute Assessment and Plan: -Chronic and recurrent symptoms of alternating constipation and diarrhea -Was on Linzess but this has been changed by GI to Amitiza -Patient reports prune juice with Miralax makes him go but several bouts of diarrhea follow -Simethicone and Bentyl have not helped pain -CT on 03/09/25 no acute abnormality -Patient wanted Maalox tonight and Miralax with prune juice in the morning (7) Lower abdominal pain: Code(s): R10.30 - Lower abdominal pain, unspecified Status: Acute Assessment and Plan: See IBS above X-ray abdomen with sclerotic lesions of the left S Latonya and right femoral head suspicious for metastatic disease. Bone scan: Prominent increased bone uptake at the left ischial yessica tuberosity consistent with metastatic prostate cancer. Second region of less intense uptake in the region of subtle sclerotic lesion in the T12 vertebral body also suspicious for metastatic disease He has a history of prostate cancer status post prostatectomy and followed by adjuvant radiation therapy more than 10 years ago. Repeat PSA came elevated at 44.4 He will need to follow up with Oncology as outpatient basis Plan patient with abdominal pain and off and on diarrhea, was very weak at his GI office was sent to the ER, he was found to have hypokalemia and hyponatremia most likely 2/2 diarrhea and not eating and taking supplemental potassium, Subjective Date/time seen: 05/09/25 12:53 Interval history: Still feels dizzy. Intermittent AFib with RVR noted. Telemetry reviewed. Review of Systems Review of Systems: All systems reviewed & are unremarkable except as noted in HPI and below Exam Narrative: Patient is comfortable, NAD HEENT: eyes are clear and none icteric LUNGS:CTA HEART: Rate controlled irregular irregular S1S2 ABD: BS+, Soft and nontender Lower extremities: no edema SKIN: nonjaundiced Neuro: grossly intact. Objective Data Vital Signs Vital Signs: Vital Signs - 24 hr 05/08/25 14:00 05/08/25 16:00 05/08/25 16:00 Temperature Pulse Rate 78 67 67 Respiratory Rate 20 Blood Pressure Pulse Oximetry 99 Oxygen Delivery Room Air 05/08/25 16:00 05/08/25 18:00 05/08/25 19:25 Temperature 98.3 F 98.0 F Pulse Rate 56 L 89 87 Respiratory Rate 24 H 17 Blood Pressure 122/66 101/54 L Pulse Oximetry 99 98 Oxygen Delivery 05/08/25 20:00 05/08/25 20:00 05/08/25 22:00 Temperature Pulse Rate 97 126 H Respiratory Rate Blood Pressure Pulse Oximetry Oxygen Delivery Room Air 05/08/25 23:17 05/08/25 23:32 05/09/25 00:00 Temperature 98.2 F Pulse Rate 84 82 Respiratory Rate 17 Blood Pressure 122/73 Pulse Oximetry 100 Oxygen Delivery Room Air 05/09/25 02:00 05/09/25 03:23 05/09/25 04:00 Temperature 98.2 F Pulse Rate 98 130 H 81 Respiratory Rate 17 Blood Pressure 122/54 L Pulse Oximetry 94 Oxygen Delivery 05/09/25 04:00 05/09/25 06:00 05/09/25 07:41 Temperature Pulse Rate 74 73 Respiratory Rate 12 Blood Pressure 106/72 Pulse Oximetry 94 99 Oxygen Delivery Room Air 05/09/25 08:00 05/09/25 08:27 05/09/25 09:00 Temperature Pulse Rate 94 119 H Respiratory Rate Blood Pressure Pulse Oximetry Oxygen Delivery Room Air 05/09/25 10:00 05/09/25 11:42 Temperature 98.2 F Pulse Rate 90 78 Respiratory Rate 14 Blood Pressure 103/71 Pulse Oximetry 98 Oxygen Delivery Intake/Output Intake/Output: Intake & Output 05/06/25 05/07/25 05/08/25 05/09/25 23:59 23:59 23:59 23:59 Intake Total 1270 2820 680 250 Output Total 1101 1101 1550 325 Balance 169 1719 -870 -75 Meds/Results Medications: Active Medications Generic Name Dose Route Start Last Admin Trade Name Freq PRN Reason Stop Dose Admin Acetaminophen 650 mg 05/07/25 04:04 05/09/25 06:14 Acetaminophen 325 Mg Tablet PO 650 mg Q6H PRN Administration Mild Pain (1-3) or Fever Apixaban 5 mg 05/03/25 22:45 05/09/25 08:28 Apixaban 5 Mg Tablet PO 5 mg Q12HR ILENE Administration Cyanocobalamin 2,500 mcg 05/04/25 09:00 05/09/25 08:27 Cyanocobalamin 500 Mcg Tablet PO 2,500 mcg DAILY ILENE Administration Digoxin 125 mcg 05/08/25 09:00 05/09/25 08:27 Digoxin Tab 125 Mcg Tablet PO 125 mcg QAM ILENE Administration Diltiazem HCl 60 mg 05/08/25 12:00 05/09/25 06:14 Diltiazem Hcl 60 Mg Tablet PO 60 mg Q8HR ILENE Administration Furosemide 40 mg 05/04/25 09:00 05/04/25 08:32 Furosemide 40 Mg Tablet PO Not Given DAILY ILENE Lactulose 10 gm 05/03/25 22:43 05/09/25 06:21 Lactulose 20 Gm/30 Ml Udc PO 10 gm DAILY PRN Administration constipation Loteprednol Etabonate 1 drop 05/04/25 09:00 05/09/25 11:45 Loteprednol Etabonate 0.5% Oph 5 Ml Bottle EACH EYE 1 drop TID ILENE Administration Melatonin 5 mg 05/03/25 22:45 05/08/25 22:12 Melatonin 5 Mg Tablet PO 5 mg HS PRN Administration sleep Metolazone 5 mg 05/04/25 09:00 05/08/25 08:37 Metolazone 5 Mg Tablet PO 5 mg DAILY ILENE Administration Polyethylene Glycol 17 gm 05/03/25 22:43 05/09/25 06:21 Polyethylene Glycol 3350 17 Gm Powd.Pack PO 17 gm DAILY PRN Administration constipation Potassium Chloride 40 meq 05/04/25 08:00 05/09/25 08:28 Potassium Chloride 20 Meq Er Tablet PO 40 meq BIDWM ILENE Administration Simethicone 250 mg 05/04/25 08:00 05/09/25 11:43 Simethicone 125 Mg Chew Tab PO 250 mg 0800,1200,1700,2100 ILENE Administration Sodium Chloride 1 spray 05/03/25 22:43 05/04/25 16:36 Saline 0.65% Kenji Soln 44 Ml Btl NASAL 1 spray BID PRN Administration dry nasal passages Radiology Results: ITS Impressions Head CT 05/03/25 13:10 IMPRESSION: 1. No acute intracranial process. 2. Age-related changes including moderate diffuse volume loss and mild to moderate scattered white matter hypoattenuation consistent with chronic small vessel ischemic disease. Chest X-Ray 05/03/25 13:16 IMPRESSION: 1. No acute cardiopulmonary disease. Abdomen X-Ray 05/05/25 11:12 Impression: 1: Sclerotic lesions of the left ischium and right femoral head, suspicious for metastatic disease. Recommend correlation with nuclear bone scan. Further evaluation for possible prostate cancer recommended. Bone Scan Nuclear Medicine 05/06/25 16:31 IMPRESSION: 1. Prominent increased bone uptake at the left ischial tuberosity consistent with metastatic prostate cancer. 2. Second region of less intense uptake in the region of subtle sclerotic lesion in the T12 vertebral body, also suspicious for metastatic disease. Carotid Doppler Study 05/09/25 10:52 Impression: No hemodynamically significant stenosis of the bilateral internal carotid arteries. Antegrade flow in the bilateral vertebral arteries. Note: The methodology used is an indirect measurement validated against a direct method (such as the NASCET criteria) that compares diameters at the stenosis to the distal ICA. Labs Labs: Laboratory Results - last 24 hr 05/09/25 04:14 WBC 8.1 RBC 3.85 L Hgb 12.3 L Hct 36.9 L MCV 95.8 MCH 31.9 MCHC 33.3 RDW 14.9 H Plt Count 244 MPV 9.3 Sodium 132 L Potassium 3.7 Chloride 102 Carbon Dioxide 24 Anion Gap 6 BUN 13 Creatinine 1.26 Estim Creat Clear Calc 45 Estimated GFR 55 L Glucose 106 Calcium 8.7 Phosphorus 2.6 Magnesium 2.3 Total Bilirubin 0.6 AST 30 ALT 16 Alkaline Phosphatase 84 Total Protein 6.3 Albumin 3.5
[2025-05-09] MEDS: MELATONIN 5 MG TABLET PO (21:50)
[2025-05-10] VITALS (22 sets, daily range): BP systolic 94–143; BP diastolic 44–79; PULSE 61–119; RESP 13–22; TEMP 36.5–36.9; O2SAT 97–100
[2025-05-10 04:21] LABS: Hematocrit 36.9 % (42.0-52.0); Hemoglobin 12.3 g/dL (14.0-18.0); Mean Corpuscular HGB Conc 33.3 g/dl (32-36); Mean Corpuscular Hemoglobin 31.8 pg (26-34); Mean Corpuscular Volume 95.3 fl (80-100); Mean Platelet Volume 9.2 fl (7.4-10.4); Platelet Count Result 277 k/mm3 (150-375); Red Blood Count 3.87 M/mm3 (4.6-6.20); White Blood Count 6.6 K/mm3 (4.5-10.0)
[2025-05-10 05:01] LABS: Alanine Aminotransferase 16 U/L (6-50); Albumin Level 3.5 g/dL (3.5-5.1); Alkaline Phosphatase 80 U/L (38-126); Anion Gap 4 mmol/L (4-12); Aspartate Amino Transferase 32 U/L (17-59); Bilirubin,Total 0.6 mg/dL (0.2-1.3); Blood Urea Nitrogen 12 mg/dL (9-20); Calcium 8.6 mg/dL (8.4-10.2); Carbon Dioxide 26 mmol/L (22-30); Chloride 102 mmol/L (98-107); Estimated CRCL calculation 41 ml/min; Estimated Glomerular Filt Rate 49; Glucose 108 mg/dL (65-110); Magnesium 2.1 mg/dL (1.6-2.3); Phosphorus 2.9 mg/dL (2.5-4.5); Sodium 132 mmol/L (137-145); Total Protein 6.3 g/dL (6.3-8.2)
[2025-05-10] MEDS: fentaNYL CITRATE INJ (*CRX) 100 MCG/2 ML VIAL 25 MCG IV PUSH (05:43)
[2025-05-10] MEDS: dilTIAZem HCL 60 MG TABLET PO ×3 (05:44→22:39)
[2025-05-10 08:24] LABS: Cholesterol 240 mg/dL (0-200); HDL Direct 69 mg/dL; Triglycerides 89 mg/dL (<150)
[2025-05-10 08:35] LABS: LDL Cholesterol Direct 115 mg/dL
--- NOTE | 2025-05-10 08:35 | ECG_ITS ---
Test Date: 2025-05-10 09:19:57 Measurements Intervals [place] Rate: 93 P: 0 MT: 0 QRS: 16 QRSD: 104 T: 6 QT: 383 QTc: 478 Interpretive Statements ATRIAL FIBRILLATION NONSPECIFIC ST & T-WAVE ABNORMALITY- DIFFUSE LEADS BASELINE ARTIFACT- II, III, AVF ABNORMAL ECG Compared to ECG 05/05/2025 09:50:31 HEART RATE HAS DECREASED Electronically Signed On 05-10-2025 09:50:29 CDT by Tanvir Dumont D.O.
[2025-05-10] MEDS: SIMETHICONE 125 MG CHEW TAB 250 MG PO ×4 (08:45→20:11)
[2025-05-10] MEDS: POTASSIUM CHLORIDE 20 MEQ ER TABLET 40 MEQ PO ×2 (08:46→17:57)
[2025-05-10] MEDS: APIXABAN 5 MG TABLET PO ×2 (08:46→20:11)
[2025-05-10] MEDS: DIGOXIN TAB 125 MCG TABLET PO (08:46)
[2025-05-10] MEDS: SODIUM CHLORIDE 0.9% IV 500 ML 30 ML (09:30)
--- NOTE | 2025-05-10 09:30 | ECG_ITS ---
Test Date: 2025-05-10 09:57:40 Measurements Intervals [place] Rate: 87 P: 0 NM: 0 QRS: 10 QRSD: 97 T: -28 QT: 385 QTc: 464 Interpretive Statements ATRIAL FIBRILLATION BORDERLINE ST-T WAVE ABNORMALITY- ANT/INF LEADS BASELINE ARTIFACT- II, III, AVR, AVL, AVF, V2-V3, V6 ABNORMAL ECG Compared to ECG 05/10/2025 09:19:57 NO SIGNIFICANT CHANGE Electronically Signed On 05-10-2025 10:03:59 CDT by Tanvir Dumont D.O.
--- NOTE | 2025-05-10 09:42 | P.HPUP_ITS ---
History and Physical Update Update Date/Time: 05/10/25 09:42 History and Physical has been reviewed, including an updated exam of the patient. There are changes in the patient's condition as follows: Called [facility]- patient's assisted living facility and confirmed that they administered patient's medications while he was there prior to admission. It is confirmed that patient has been taking Eliquis for the past month without interruption. Plan to proceed with cardioversion. Risks, benefits, and alternatives have been discussed and questions answered. Patient agrees to proceed with procedure.
--- NOTE | 2025-05-10 09:42 | WPDMODSED ---
Moderate Sedation Note-Pt Data Patient Data Diagnosis: A fib with RVR Present Complaint: Palpitations Procedure to be performed/Plan: Cardioversion Allergies Allergy/AdvReac Type Severity Reaction Status Date / Time atorvastatin Allergy Unknown Verified 03/24/25 10:31 duloxetine Allergy Unknown Verified 03/24/25 10:31 Home Medications ?Medication ?Instructions ?Recorded ?Confirmed ?Type Acidophilus 1 cap PO DAILY 01/20/25 05/03/25 History acetaminophen 650 mg 650 mg PO Q12H PRN pain 01/20/25 05/03/25 History tablet,extended release apixaban 5 mg tablet (Eliquis) 5 mg PO Q12H 01/20/25 05/03/25 History cyanocobalamin (vitamin B-12) 2,500 mcg PO DAILY 01/20/25 05/03/25 History 2,500 mcg sublingual lozenge ergocalciferol (vitamin D2) 1,250 1,250 mcg PO WEEKLY 01/20/25 05/03/25 History mcg (50,000 unit) capsule furosemide 40 mg tablet 40 mg PO DAILY 01/20/25 05/03/25 History loteprednol etabonate 0.5 % eye 1 drp EACH EYE TID 01/20/25 05/03/25 History drops,suspension magnesium oxide 400 mg PO DAILY 01/20/25 05/03/25 History melatonin 5 mg tablet 5 mg PO HS PRN sleep 01/20/25 05/03/25 History meloxicam 7.5 mg tablet 7.5 mg PO DAILY PRN pain 01/20/25 05/03/25 History metolazone 5 mg tablet 5 mg PO DAILY 01/20/25 05/03/25 History potassium chloride 20 mEq 80 meq PO DAILY 01/20/25 05/03/25 History tablet,extended release(part/cryst) riboflavin (vitamin B2) 100 mg 300 mg PO DAILY 01/20/25 05/03/25 History tablet sodium chloride 0.65 % nasal spray 1 spray intranasal BID PRN dry 01/20/25 05/03/25 History aerosol (Deep Sea Nasal) nasal passages lactulose 10 gram/15 mL oral 10 g PO DAILY PRN constipation 05/03/25 05/03/25 History solution naproxen 500 mg tablet 500 mg PO BID PRN pain 05/03/25 05/03/25 History polyethylene glycol 3350 17 17 g PO DAILY PRN constipation 05/03/25 05/03/25 History gram/dose oral powder (Miralax) simethicone 125 mg chewable tablet 250 mg (2 x 125 mg) PO ACHS 05/03/25 05/03/25 Rx (Gas Relief (simethicone)) excessive bloating and gas 90 days #720 tabs Current Medications: Active Medications Acetaminophen (Acetaminophen 325 Mg Tablet) 650 mg PO Q6H PRN PRN Reason: Mild Pain (1-3) or Fever Last Admin: 05/09/25 20:12 Dose: 650 mg Apixaban (Apixaban 5 Mg Tablet) 5 mg PO Q12HR [facility] Last Admin: 05/10/25 08:46 Dose: 5 mg Cyanocobalamin (Cyanocobalamin 500 Mcg Tablet) 2,500 mcg PO DAILY [facility] Last Admin: 05/09/25 08:27 Dose: 2,500 mcg Digoxin (Digoxin Tab 125 Mcg Tablet) 125 mcg PO QAM [facility] Last Admin: 05/10/25 08:46 Dose: 125 mcg Diltiazem HCl (Diltiazem Hcl 60 Mg Tablet) 60 mg PO Q8HR [facility] Last Admin: 05/10/25 05:44 Dose: 60 mg Furosemide (Furosemide 40 Mg Tablet) 40 mg PO DAILY [facility] Last Admin: 05/04/25 08:32 Dose: Not Given Lactulose (Lactulose 20 Gm/30 Ml Udc) 10 gm PO DAILY PRN PRN Reason: constipation Last Admin: 05/09/25 06:21 Dose: 10 gm Loteprednol Etabonate (Loteprednol Etabonate 0.5% Oph 5 Ml Bottle) 1 drop EACH EYE TID [facility] Last Admin: 05/09/25 16:51 Dose: 1 drop Melatonin (Melatonin 5 Mg Tablet) 5 mg PO HS PRN PRN Reason: sleep Last Admin: 05/09/25 21:50 Dose: 5 mg Metolazone (Metolazone 5 Mg Tablet) 5 mg PO DAILY [facility] Last Admin: 05/08/25 08:37 Dose: 5 mg Polyethylene Glycol (Polyethylene Glycol 3350 17 Gm Powd.Pack) 17 gm PO DAILY PRN PRN Reason: constipation Last Admin: 05/09/25 06:21 Dose: 17 gm Potassium Chloride (Potassium Chloride 20 Meq Er Tablet) 40 meq PO BIDWM [facility] Last Admin: 05/10/25 08:46 Dose: 40 meq Simethicone (Simethicone 125 Mg Chew Tab) 250 mg PO 0800,1200,1700,2100 [facility] Last Admin: 05/10/25 08:45 Dose: 250 mg Sodium Chloride (Saline 0.65% Kenji Soln 44 Ml Btl) 1 spray NASAL BID PRN PRN Reason: dry nasal passages Last Admin: 05/04/25 16:36 Dose: 1 spray Sedation/Anesthesia: No previous sedation/anesthesia problems (including family history). [facility] Past Medical History Medical History (Updated 05/08/25 @ 11:38 by Blake Gusman MD) Cardiomyopathy Chronic diastolic heart failure Prostate cancer Hyperlipidemia Hypertension Paroxysmal A-fib Surgical History Surgical History History of hip replacement Social History Social History Smoking status: Former smoker Tobacco type: cigarettes Smoking end date: 11/25/99 Alcohol intake: former Substance use: never Do You Feel Safe in your Home?: Yes Lack of Transportation: No Lack of Food: Never True Current Housing: I Have Housing Concerned About Future Housing: No Difficulty Paying Gas/Electric Bills: No Difficulty Paying for Meds: No Currently Unemployed: No Education: Associate Degree Difficulty w/ Childcare or Family Care: No Living arrangements: assisted living Spiritual care concerns: No Mod Sed Physical Exam Physical Exam Pre Procedural Exam: Normal: Lungs, Heart Size, Heart Rate and Heart Rhythm Hours since solid foods: 12 Hours since liquid intake: 12 Mallampati Classification: class III Internal Medicine - PN: Obj Da Vital Signs Vital Signs: Vital Signs - 24 hr 05/09/25 10:00 05/09/25 11:42 05/09/25 12:00 Temperature 36.8 C Pulse Rate 90 78 93 Respiratory Rate 14 Blood Pressure 103/71 Pulse Oximetry 98 Oxygen Delivery Oxygen Flow Rate 05/09/25 14:00 05/09/25 15:24 05/09/25 16:00 Temperature 36.8 C Pulse Rate 86 94 125 H Respiratory Rate 12 Blood Pressure 121/66 Pulse Oximetry 100 Oxygen Delivery Oxygen Flow Rate 05/09/25 18:00 05/09/25 19:15 05/09/25 20:00 Temperature 36.8 C Pulse Rate 99 111 H Respiratory Rate 12 Blood Pressure 101/62 Pulse Oximetry 97 Oxygen Delivery Room Air Oxygen Flow Rate 05/09/25 20:00 05/09/25 20:15 05/09/25 22:00 Temperature Pulse Rate 109 H 116 H 63 Respiratory Rate Blood Pressure 112/65 Pulse Oximetry Oxygen Delivery Oxygen Flow Rate 05/09/25 23:50 05/10/25 00:00 05/10/25 00:00 Temperature 36.9 C Pulse Rate 99 92 Respiratory Rate 16 Blood Pressure 98/44 L Pulse Oximetry 100 Oxygen Delivery Room Air Oxygen Flow Rate 05/10/25 02:00 05/10/25 04:00 05/10/25 04:00 Temperature 36.6 C Pulse Rate 108 H 86 Respiratory Rate 16 Blood Pressure 132/74 Pulse Oximetry 97 Oxygen Delivery Room Air Oxygen Flow Rate 05/10/25 04:00 05/10/25 05:55 05/10/25 08:00 Temperature 36.7 C Pulse Rate 90 99 119 H Respiratory Rate 22 H Blood Pressure 126/65 Pulse Oximetry 100 Oxygen Delivery Oxygen Flow Rate 05/10/25 08:00 05/10/25 08:46 05/10/25 09:32 Temperature Pulse Rate 72 96 100 Respiratory Rate 19 Blood Pressure 105/67 Pulse Oximetry 99 Oxygen Delivery Nasal Cannula Oxygen Flow Rate 2 Intake/Output Intake/Output: Intake & Output 05/07/25 05/08/25 05/09/25 05/10/25 23:59 23:59 23:59 23:59 Intake Total 2820 680 1480 Output Total 1101 1550 923 848 Balance 0519 -169 120 -770 Meds/Results Medications: Active Medications Generic Name Dose Route Start Last Admin Trade Name Freq PRN Reason Stop Dose Admin Acetaminophen 650 mg 05/07/25 04:04 05/09/25 20:12 Acetaminophen 325 Mg Tablet PO 650 mg Q6H PRN Administration Mild Pain (1-3) or Fever Apixaban 5 mg 05/03/25 22:45 05/10/25 08:46 Apixaban 5 Mg Tablet PO 5 mg Q12HR [facility] Administration Cyanocobalamin 2,500 mcg 05/04/25 09:00 05/09/25 08:27 Cyanocobalamin 500 Mcg Tablet PO 2,500 mcg DAILY [facility] Administration Digoxin 125 mcg 05/08/25 09:00 05/10/25 08:46 Digoxin Tab 125 Mcg Tablet PO 125 mcg QAM [facility] Administration Diltiazem HCl 60 mg 05/08/25 12:00 05/10/25 05:44 Diltiazem Hcl 60 Mg Tablet PO 60 mg Q8HR [facility] Administration Furosemide 40 mg 05/04/25 09:00 05/04/25 08:32 Furosemide 40 Mg Tablet PO Not Given DAILY [facility] Lactulose 10 gm 05/03/25 22:43 05/09/25 06:21 Lactulose 20 Gm/30 Ml Udc PO 10 gm DAILY PRN Administration constipation Loteprednol Etabonate 1 drop 05/04/25 09:00 05/09/25 16:51 Loteprednol Etabonate 0.5% Oph 5 Ml Bottle EACH EYE 1 drop TID [facility] Administration Melatonin 5 mg 05/03/25 22:45 05/09/25 21:50 Melatonin 5 Mg Tablet PO 5 mg HS PRN Administration sleep Metolazone 5 mg 05/04/25 09:00 05/08/25 08:37 Metolazone 5 Mg Tablet PO 5 mg DAILY [facility] Administration Polyethylene Glycol 17 gm 05/03/25 22:43 05/09/25 06:21 Polyethylene Glycol 3350 17 Gm Powd.Pack PO 17 gm DAILY PRN Administration constipation Potassium Chloride 40 meq 05/04/25 08:00 05/10/25 08:46 Potassium Chloride 20 Meq Er Tablet PO 40 meq BIDWM ILENE Administration Simethicone 250 mg 05/04/25 08:00 05/10/25 08:45 Simethicone 125 Mg Chew Tab PO 250 mg 0800,1200,1700,2100 [facility] Administration Sodium Chloride 1 spray 05/03/25 22:43 05/04/25 16:36 Saline 0.65% Kenji Soln 44 Ml Btl NASAL 1 spray BID PRN Administration dry nasal passages Radiology Results: ITS Impressions Head CT 05/03/25 13:10 IMPRESSION: 1. No acute intracranial process. 2. Age-related changes including moderate diffuse volume loss and mild to moderate scattered white matter hypoattenuation consistent with chronic small vessel ischemic disease. Chest X-Ray 05/03/25 13:16 IMPRESSION: 1. No acute cardiopulmonary disease. Abdomen X-Ray 05/05/25 11:12 Impression: 1: Sclerotic lesions of the left ischium and right femoral head, suspicious for metastatic disease. Recommend correlation with nuclear bone scan. Further evaluation for possible prostate cancer recommended. Bone Scan Nuclear Medicine 05/06/25 16:31 IMPRESSION: 1. Prominent increased bone uptake at the left ischial tuberosity consistent with metastatic prostate cancer. 2. Second region of less intense uptake in the region of subtle sclerotic lesion in the T12 vertebral body, also suspicious for metastatic disease. Carotid Doppler Study 05/09/25 10:52 Impression: No hemodynamically significant stenosis of the bilateral internal carotid arteries. Antegrade flow in the bilateral vertebral arteries. Note: The methodology used is an indirect measurement validated against a direct method (such as the NASCET criteria) that compares diameters at the stenosis to the distal ICA. 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 No acute or subacute hemorrhage. Labs 05/10/25 04:06 05/10/25 04:06 Labs: Laboratory Results - last 24 hr 05/10/25 04:06 WBC 6.6 RBC 3.87 L Hgb 12.3 L Hct 36.9 L MCV 95.3 MCH 31.8 MCHC 33.3 RDW 15.0 H Plt Count 277 MPV 9.2 Sodium 132 L Potassium 4.0 Chloride 102 Carbon Dioxide 26 Anion Gap 4 BUN 12 Creatinine 1.39 H Estim Creat Clear Calc 41 Estimated GFR 49 L Glucose 108 Calcium 8.6 Phosphorus 2.9 Magnesium 2.1 Total Bilirubin 0.6 AST 32 ALT 16 Alkaline Phosphatase 80 Total Protein 6.3 Albumin 3.5 Triglycerides 89 Cholesterol 240 H LDL Cholesterol Direct 115 HDL Direct 69 ASA Classification/Sedation ASA Classification/Sedation ASA Class: III Emergent: No Risks: Risks, benefits and alternatives explained and patient/family accepted plan for sedation. Patient re-evaluated immediately prior to sedation.
[2025-05-10] MEDS: fentaNYL CITRATE INJ (*CRX) 100 MCG/2 ML VIAL 50 MCG IV PUSH (09:50)
[2025-05-10] MEDS: MIDAZOLAM HCL (*CRX) 2 MG/2 ML VIAL 0.5 MG IV PUSH (09:50)
[2025-05-10] MEDS: MIDAZOLAM HCL (*CRX) 10 MG/2 ML VIAL IV PUSH (09:51)
[2025-05-10] MEDS: MIDAZOLAM HCL (*CRX) 5 MG/ML VIAL IV PUSH (09:54)
--- NOTE | 2025-05-10 10:03 | ECG_ITS ---
Test Date: 2025-05-10 09:59:07 Measurements Intervals [place] Rate: 71 P: 0 [place]: 0 QRS: 11 QRSD: 96 T: 5 QT: 413 QTc: 450 Interpretive Statements SINUS RHYTHM WITH SINUS ARRHYTHMIA WITH ATRIAL AND VENTRICULAR PREMATURE COMPLEXES EARLY PRECORDIAL R/S TRANSITION NONSPECIFIC ST & T-WAVE ABNORMALITY- ANT/INF LEADS ABNORMAL ECG Compared to ECG 05/10/2025 09:57:40 ATRIAL FIBRILLATION NO LONGER PRESENT Ventricular premature complex(es) now present Electronically Signed On 05-10-2025 10:11:24 CDT by Tanvir Dumont D.O.
--- NOTE | 2025-05-10 10:24 | WPDCARDPROC ---
Cardiac Cath Procedure Note Date of procedure:: 05/10/25 Performing physician:: Keyla Gilmore MD Indication:: Symptomatic atrial fibrillation with RVR Brief clinical history:: Shane Mahoney is an 85 year old male with history of prostate cancer and paroxysmal atrial fibrillation. He comes to the hospital because of abdominal pain. Cardiology is consulted for atrial fibrillation with rapid ventricular response. Patient reports a 10-12 year history of atrial fibrillation initially treated with cardioversion and to his knowledge he has not had a recurrence since that time. He has been started on diltiazem but his heart rate remains above goal. He remains symptomatic from AFib with RVR with palpitations. Unable to increase rate control medications due to soft blood pressure with SBP in the 100s. Decision was made to proceed with cardioversion. It was confirmed with patient and also his assisted living facility that patient has been taking Eliquis 5 mg b.i.d. regularly without missing any doses over the past month. Procedure Procedure performed:: Synchronized cardioversion Sedation/Medication given:: Versed 1.5 mg Fentanyl 50 mcg Estimated blood loss:: None Procedure note:: All risks, benefits and alternatives to synchronized cardioversion was discussed at length with the patient. Risk of complications including but not limited to stroke, and even were discussed with the patient and all questions were answered. The patient understood and wished to proceed. Time out called, patient name, date of , medical record number, allergies, procedure performed, identify Histopathology Technician, patient and staff member concurred with accurate data, procedure carried on. Description of Procedure: Informed consent signed and placed in the chart. Patient transferred to [facility] room. Prepped and draped in usual fashion. Synchronized cardioversion was performed with 200 joules. Patient converted back to sinus rhythm. Telemetry shows sinus rhythm with PVCs and PACs. At one point it appeared to be 2:1 block. Rates in the 70s to 80s range. Repeat EKG on the floor. No complications identified. Assessment: AFib with RVR status post DCCV with 200 joules x1 shock with successful conversion to sinus rhythm with rates in the 70s to 80s range Post Operative Condition: Stable Disposition: Floor Plan: The patient will be monitored in the recovery area. Continue Cardizem EKG when transfer to the floor Continue monitoring on telemetry Eliquis 5 mg b.i.d. for it least 1 month post cardioversion and if no bleeding issues then continue beyond 1 month to reduce risk of stroke. 30 day event monitor at discharge Cardiology follow-up in 1 month
--- NOTE | 2025-05-10 10:35 | P.PNCA_ITS ---
Progress Note: A&P Assessment and Plan (1) Atrial fibrillation with RVR: Code(s): I48.91 - Unspecified atrial fibrillation Status: Acute Assessment and Plan: He has a history of paroxysmal atrial fibrillation which per patient report has been quiescent since cardioversion many years ago. Initial EKG here shows atrial fibrillation with rapid ventricular response. Heart rates somewhat improved with diltiazem but still in 120's - 130's. * DCCV cardioversion today status post successful conversion to sinus rhythm with heart rate in the 70s to 80s * Continue eliquis 5mg p.o. b.i.d. for at least 1 month and if no bleeding issues then continue Eliquis to reduce risk of stroke with AFib * Stop digoxin * Start metoprolol 12.5 mg p.o. b.i.d. given mildly depressed LVEF * Continue Cardizem at 60 mg q.8 hours. Can switch to long-acting form 180 mg q.day * 30 day event monitor at discharge * Cardiology follow-up in 1 month (2) Chronic diastolic heart failure: Code(s): I50.32 - Chronic diastolic (congestive) heart failure Status: Acute Assessment and Plan: Not in heart failure. EF mildly impaired at 45-50%. May be related to atrial fibrillation. (3) Hypokalemia: Code(s): E87.6 - Hypokalemia Status: Acute Assessment and Plan: Resolved (4) Cardiomyopathy: Code(s): I42.9 - Cardiomyopathy, unspecified Status: Acute Assessment and Plan: Mildly reduced EF by echo. May be related to AFib with RVR. Add metoprolol 12.5 mg p.o. b.i.d. Subjective Date/time seen: 05/10/25 10:35 Interval history: 85-year-old with cardio is a consultation for atrial fibrillation. Date of service 05/10/2025: Complains of dizziness and palpitations. No chest pain, shortness of breath. I confirmed with him that he has been taking Eliquis as prescribed without missing any doses in the past month. Review of Systems Cardiovascular: Comments: As per HPI Respiratory: Comments: As per HPI Exam Narrative: General: Alert oriented x3, no acute distress Neck: Supple, no JVD Chest: Bilaterally clear to auscultation, no rales or rhonchi Cardiac: S1, S2 +, irregularly irregular rhythm, no murmurs or rubs Extremities: No pedal edema, no skin rash Neurologic: Alert and oriented x3, no focal neurological deficits Objective Data Vital Signs Vital Signs: Vital Signs - 24 hr 05/09/25 11:42 05/09/25 12:00 05/09/25 14:00 Temperature 36.8 C Pulse Rate 78 93 86 Respiratory Rate 14 Blood Pressure 103/71 Pulse Oximetry 98 Oxygen Delivery Oxygen Flow Rate 05/09/25 15:24 05/09/25 16:00 05/09/25 18:00 Temperature 36.8 C Pulse Rate 94 125 H 99 Respiratory Rate 12 Blood Pressure 121/66 Pulse Oximetry 100 Oxygen Delivery Oxygen Flow Rate 05/09/25 19:15 05/09/25 20:00 05/09/25 20:00 Temperature 36.8 C Pulse Rate 111 H 109 H Respiratory Rate 12 Blood Pressure 101/62 Pulse Oximetry 97 Oxygen Delivery Room Air Oxygen Flow Rate 05/09/25 20:15 05/09/25 22:00 05/09/25 23:50 Temperature Pulse Rate 116 H 63 Respiratory Rate Blood Pressure 112/65 Pulse Oximetry Oxygen Delivery Room Air Oxygen Flow Rate 05/10/25 00:00 05/10/25 00:00 05/10/25 02:00 Temperature 36.9 C Pulse Rate 99 92 108 H Respiratory Rate 16 Blood Pressure 98/44 L Pulse Oximetry 100 Oxygen Delivery Oxygen Flow Rate 05/10/25 04:00 05/10/25 04:00 05/10/25 04:00 Temperature 36.6 C Pulse Rate 86 90 Respiratory Rate 16 Blood Pressure 132/74 Pulse Oximetry 97 Oxygen Delivery Room Air Oxygen Flow Rate 05/10/25 05:55 05/10/25 08:00 05/10/25 08:00 Temperature 36.7 C Pulse Rate 99 119 H 72 Respiratory Rate 22 H Blood Pressure 126/65 Pulse Oximetry 100 Oxygen Delivery Oxygen Flow Rate 05/10/25 08:46 05/10/25 09:32 05/10/25 09:50 Temperature Pulse Rate 96 100 85 Respiratory Rate 19 17 Blood Pressure 105/67 111/79 Pulse Oximetry 99 99 Oxygen Delivery Nasal Cannula Nasal Cannula Oxygen Flow Rate 2 2 05/10/25 09:55 05/10/25 10:00 05/10/25 10:15 Temperature 36.7 C Pulse Rate 73 74 84 Respiratory Rate 20 20 21 H Blood Pressure 94/59 L 97/53 L 101/57 L Pulse Oximetry 100 98 98 Oxygen Delivery Nasal Cannula Nasal Cannula Nasal Cannula Oxygen Flow Rate 2 2 2 05/10/25 10:30 Temperature Pulse Rate 61 Respiratory Rate 13 Blood Pressure 102/58 L Pulse Oximetry 98 Oxygen Delivery Room Air Oxygen Flow Rate Intake/Output Intake/Output: Intake & Output 05/07/25 05/08/25 05/09/25 05/10/25 23:59 23:59 23:59 23:59 Intake Total 2820 680 1480 Output Total 1101 1550 922 413 Balance 1182 -791 327 -682 Meds/Results Medications: Active Medications Generic Name Dose Route Start Last Admin Trade Name Freq PRN Reason Stop Dose Admin Acetaminophen 650 mg 05/07/25 04:04 05/09/25 20:12 Acetaminophen 325 Mg Tablet PO 650 mg Q6H PRN Administration Mild Pain (1-3) or Fever Apixaban 5 mg 05/03/25 22:45 05/10/25 08:46 Apixaban 5 Mg Tablet PO 5 mg Q12HR ILENE Administration Cyanocobalamin 2,500 mcg 05/04/25 09:00 05/09/25 08:27 Cyanocobalamin 500 Mcg Tablet PO 2,500 mcg DAILY [facility] Administration Digoxin 125 mcg 05/08/25 09:00 05/10/25 08:46 Digoxin Tab 125 Mcg Tablet PO 125 mcg QAM ILENE Administration Diltiazem HCl 60 mg 05/08/25 12:00 05/10/25 05:44 Diltiazem Hcl 60 Mg Tablet PO 60 mg Q8HR ILENE Administration Furosemide 40 mg 05/04/25 09:00 05/04/25 08:32 Furosemide 40 Mg Tablet PO Not Given DAILY [facility]ENE Lactulose 10 gm 05/03/25 22:43 05/09/25 06:21 Lactulose 20 Gm/30 Ml Udc PO 10 gm DAILY PRN Administration constipation Loteprednol Etabonate 1 drop 05/04/25 09:00 05/09/25 16:51 Loteprednol Etabonate 0.5% Oph 5 Ml Bottle EACH EYE 1 drop TID [facility] Administration Melatonin 5 mg 05/03/25 22:45 05/09/25 21:50 Melatonin 5 Mg Tablet PO 5 mg HS PRN Administration sleep Metolazone 5 mg 05/04/25 09:00 05/08/25 08:37 Metolazone 5 Mg Tablet PO 5 mg DAILY [facility] Administration Polyethylene Glycol 17 gm 05/03/25 22:43 05/09/25 06:21 Polyethylene Glycol 3350 17 Gm Powd.Pack PO 17 gm DAILY PRN Administration constipation Potassium Chloride 40 meq 05/04/25 08:00 05/10/25 08:46 Potassium Chloride 20 Meq Er Tablet PO 40 meq BIDWM [facility] Administration Simethicone 250 mg 05/04/25 08:00 05/10/25 08:45 Simethicone 125 Mg Chew Tab PO 250 mg 0800,1200,1700,2100 IL[facility] Administration Sodium Chloride 1 spray 05/03/25 22:43 05/04/25 16:36 Saline 0.65% Kenji Soln 44 Ml Btl NASAL 1 spray BID PRN Administration dry nasal passages Radiology Results: ITS Impressions Head CT 05/03/25 13:10 IMPRESSION: 1. No acute intracranial process. 2. Age-related changes including moderate diffuse volume loss and mild to moderate scattered white matter hypoattenuation consistent with chronic small vessel ischemic disease. Chest X-Ray 05/03/25 13:16 IMPRESSION: 1. No acute cardiopulmonary disease. Abdomen X-Ray 05/05/25 11:12 Impression: 1: Sclerotic lesions of the left ischium and right femoral head, suspicious for metastatic disease. Recommend correlation with nuclear bone scan. Further evaluation for possible prostate cancer recommended. Bone Scan Nuclear Medicine 05/06/25 16:31 IMPRESSION: 1. Prominent increased bone uptake at the left ischial tuberosity consistent with metastatic prostate cancer. 2. Second region of less intense uptake in the region of subtle sclerotic lesion in the T12 vertebral body, also suspicious for metastatic disease. Carotid Doppler Study 05/09/25 10:52 Impression: No hemodynamically significant stenosis of the bilateral internal carotid arteries. Antegrade flow in the bilateral vertebral arteries. Note: The methodology used is an indirect measurement validated against a direct method (such as the NASCET criteria) that compares diameters at the stenosis to the distal ICA. 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 No acute or subacute hemorrhage. Labs Labs: Laboratory Results - last 24 hr 05/10/25 04:06 WBC 6.6 RBC 3.87 L Hgb 12.3 L Hct 36.9 L MCV 95.3 MCH 31.8 MCHC 33.3 RDW 15.0 H Plt Count 277 MPV 9.2 Sodium 132 L Potassium 4.0 Chloride 102 Carbon Dioxide 26 Anion Gap 4 BUN 12 Creatinine 1.39 H Estim Creat Clear Calc 41 Estimated GFR 49 L Glucose 108 Calcium 8.6 Phosphorus 2.9 Magnesium 2.1 Total Bilirubin 0.6 AST 32 ALT 16 Alkaline Phosphatase 80 Total Protein 6.3 Albumin 3.5 Triglycerides 89 Cholesterol 240 H LDL Cholesterol Direct 115 HDL Direct 69
--- NOTE | 2025-05-10 11:11 | PCOTNOTE ---
The patient treatment was not able to be completed. Patient is out of the room for a treatment. Will plan to continue treatment per plan of care.
[2025-05-10] MEDS: CYANOCOBALAMIN 500 MCG TABLET 2500 MCG PO (11:59)
[2025-05-10] MEDS: LOTEPREDNOL ETABONATE 0.5% OPH 5 ML BOTTLE 1 DROP EACH EYE ×3 (11:59→17:57)
--- NOTE | 2025-05-10 13:05 | P.CONNEU_ITS ---
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 MRI of the brain was reviewed which shows small infarct in the left middle cerebral artery distribution however does not have any focal deficit for it. The dizziness in this age group with his medical background can result from number of factors. Orthostatic blood pressure should be checked. Other medical conditions and drugs can also contribute to that. Last but not the least vestibular problems also occur. Patient also very hard of hearing. I would suggest an outpatient evaluation for the dizziness upon stabilization with current medical problems and discharge after that. Also appreciate input from ENT physician. Consult date: 05/10/25 HPI: Shane Mahoney is a 85 year old male Being referred for evaluation of dizziness. Patient states that he has had dizziness for very long time. He also is hard of hearing and it was often difficult to have a detailed conversation with him. He also has been to cardiac dairy laboratory technician this morning for attempt to cardiovert him from atrial fibrillation however apparently this was not successful according to the patient. MRI of the brain does show a small infarct in the left middle cerebral artery distribution however patient does not have any symptoms. Carotid Doppler study was normal. CT scan of brain has shown some white matter changes. Bone scan has raise possibility of metastatic lesion in the left ischemia on probably from prostate. He has been here for about a week or so. The patient however states that he has had symptoms of dizziness for very long time and they occur frequently. He does have hearing aids. He denies any headache or any other symptoms however once again the history was somewhat compromised because of his lack of hearing well bite his hearing aids. 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 Cardiomyopathy Chronic diastolic heart failure Prostate cancer Hyperlipidemia Hypertension Paroxysmal A-fib Surgical History Surgical History History of hip replacement Social History Social History Smoking status: Former smoker Tobacco type: cigarettes Smoking end date: 11/25/99 Alcohol intake: former Substance use: never Do You Feel Safe in your Home?: Yes Lack of Transportation: No Lack of Food: Never True Current Housing: I Have Housing Concerned About Future Housing: No Difficulty Paying Gas/Electric Bills: No Difficulty Paying for Meds: No Currently Unemployed: No Education: Associate Degree Difficulty w/ Childcare or Family Care: No Living arrangements: assisted living Spiritual care concerns: No Meds Home Medications and Allergies Home Medications ?Medication ?Instructions ?Recorded ?Confirmed ?Type Acidophilus 1 cap PO DAILY 01/20/25 05/03/25 History acetaminophen 650 mg 650 mg PO Q12H PRN pain 01/20/25 05/03/25 History tablet,extended release apixaban 5 mg tablet (Eliquis) 5 mg PO Q12H 01/20/25 05/03/25 History cyanocobalamin (vitamin B-12) 2,500 mcg PO DAILY 01/20/25 05/03/25 History 2,500 mcg sublingual lozenge ergocalciferol (vitamin D2) 1,250 1,250 mcg PO WEEKLY 01/20/25 05/03/25 History mcg (50,000 unit) capsule furosemide 40 mg tablet 40 mg PO DAILY 01/20/25 05/03/25 History loteprednol etabonate 0.5 % eye 1 drp EACH EYE TID 01/20/25 05/03/25 History drops,suspension magnesium oxide 400 mg PO DAILY 01/20/25 05/03/25 History melatonin 5 mg tablet 5 mg PO HS PRN sleep 01/20/25 05/03/25 History meloxicam 7.5 mg tablet 7.5 mg PO DAILY PRN pain 01/20/25 05/03/25 History metolazone 5 mg tablet 5 mg PO DAILY 01/20/25 05/03/25 History potassium chloride 20 mEq 80 meq PO DAILY 01/20/25 05/03/25 History tablet,extended release(part/cryst) riboflavin (vitamin B2) 100 mg 300 mg PO DAILY 01/20/25 05/03/25 History tablet sodium chloride 0.65 % nasal spray 1 spray intranasal BID PRN dry 01/20/25 05/03/25 History aerosol (Deep Sea Nasal) nasal passages lactulose 10 gram/15 mL oral 10 g PO DAILY PRN constipation 05/03/25 05/03/25 History solution naproxen 500 mg tablet 500 mg PO BID PRN pain 05/03/25 05/03/25 History polyethylene glycol 3350 17 17 g PO DAILY PRN constipation 05/03/25 05/03/25 History gram/dose oral powder (Miralax) simethicone 125 mg chewable tablet 250 mg (2 x 125 mg) PO ACHS 05/03/25 05/03/25 Rx (Gas Relief (simethicone)) excessive bloating and gas 90 days #720 tabs Allergies Allergy/AdvReac Type Severity Reaction Status Date / Time atorvastatin Allergy Unknown Verified 03/24/25 10:31 duloxetine Allergy Unknown Verified 03/24/25 10:31 Vital Signs Vital Signs - 24 hr 05/09/25 14:00 05/09/25 15:24 05/09/25 16:00 Temperature 98.3 F Pulse Rate 86 94 125 H Respiratory Rate 12 Blood Pressure 121/66 Pulse Oximetry 100 Oxygen Delivery Oxygen Flow Rate 05/09/25 18:00 05/09/25 19:15 05/09/25 20:00 Temperature 98.3 F Pulse Rate 99 111 H Respiratory Rate 12 Blood Pressure 101/62 Pulse Oximetry 97 Oxygen Delivery Room Air Oxygen Flow Rate 05/09/25 20:00 05/09/25 20:15 05/09/25 22:00 Temperature Pulse Rate 109 H 116 H 63 Respiratory Rate Blood Pressure 112/65 Pulse Oximetry Oxygen Delivery Oxygen Flow Rate 05/09/25 23:50 05/10/25 00:00 05/10/25 00:00 Temperature 98.5 F Pulse Rate 99 92 Respiratory Rate 16 Blood Pressure 98/44 L Pulse Oximetry 100 Oxygen Delivery Room Air Oxygen Flow Rate 05/10/25 02:00 05/10/25 04:00 05/10/25 04:00 Temperature 97.9 F Pulse Rate 108 H 86 Respiratory Rate 16 Blood Pressure 132/74 Pulse Oximetry 97 Oxygen Delivery Room Air Oxygen Flow Rate 05/10/25 04:00 05/10/25 05:55 05/10/25 08:00 Temperature 98.1 F Pulse Rate 90 99 119 H Respiratory Rate 22 H Blood Pressure 126/65 Pulse Oximetry 100 Oxygen Delivery Oxygen Flow Rate 05/10/25 08:00 05/10/25 08:46 05/10/25 09:32 Temperature Pulse Rate 72 96 100 Respiratory Rate 19 Blood Pressure 105/67 Pulse Oximetry 99 Oxygen Delivery Nasal Cannula Oxygen Flow Rate 2 05/10/25 09:50 05/10/25 09:55 05/10/25 10:00 Temperature 98.1 F Pulse Rate 85 73 74 Respiratory Rate 17 20 20 Blood Pressure 111/79 94/59 L 97/53 L Pulse Oximetry 99 100 98 Oxygen Delivery Nasal Cannula Nasal Cannula Nasal Cannula Oxygen Flow Rate 2 2 2 05/10/25 10:15 05/10/25 10:30 05/10/25 10:45 Temperature Pulse Rate 84 61 70 Respiratory Rate 21 H 13 19 Blood Pressure 101/57 L 102/58 L 110/64 Pulse Oximetry 98 98 97 Oxygen Delivery Nasal Cannula Room Air Room Air Oxygen Flow Rate 2 05/10/25 11:00 05/10/25 12:00 05/10/25 12:00 Temperature 98.1 F Pulse Rate 70 86 61 Respiratory Rate 17 18 Blood Pressure 110/64 137/73 Pulse Oximetry 97 99 Oxygen Delivery Room Air Oxygen Flow Rate Exam 2 Const: General: cooperative, well developed and alert O rientation/consciousness: patient oriented x3 HENMT: Head: atraumatic Eyes: Alignment and Position: position normal Pupils: Equal, round and reactive pupils present EOM: EOMs intact bilaterally Resp: Effort & Inspection: normal respiratory effort Neuro: General: patient oriented x3 Cranial nerves: Yes CN's II-XII intact bilaterally, Yes facial sensation intact/muscles of mastication intact, Yes Equal, round and reactive pupils present, Yes facial symmetry and Yes Midline tongue present Cognition (Neuro): normal cognition Speech: normal speech Motor exam (neuro): 5/5 motor strength present throughout Sensory Exam: n ormal sensation Coordination: [id number] test normal and Normal rapid alternating movements of the distal upper extremity present (Neuro) Psych: Mental Status: mental status grossly normal Affect: normal affect Results Labs 05/10/25 04:06 05/10/25 04:06 Labs: Short CBC 05/10/25 Range/Units 04:06 WBC 6.6 (4.5-10.0) K/mm3 Hgb 12.3 L (14.0-18.0) g/dL Hct 36.9 L (42.0-52.0) % Plt Count 277 (150-375) k/mm3 BMP 05/10/25 04:06 Sodium 132 L Potassium 4.0 Chloride 102 Carbon Dioxide 26 BUN 12 Creatinine 1.39 H Glucose 108 Calcium 8.6 Liver Function 05/10/25 Range/Units 04:06 Total Bilirubin 0.6 (0.2-1.3) mg/dL AST 32 (17-59) U/L ALT 16 (6-50) U/L Alkaline Phosphatase 80 (38-126) U/L Albumin 3.5 (3.5-5.1) g/dL
--- NOTE | 2025-05-10 14:30 | PCOTNOTE ---
Attempted to see Patient at this time, Patient refused any activity, states he is having severe abdominal pain and can not stand it any longer. RN notified and aware, states she will call the doctor.
[2025-05-10] MEDS: MORPHINE SULFATE (*CRX) 2 MG/ML INJ IV PUSH (15:46)
--- NOTE | 2025-05-10 16:03 | PM.IMPN ---
Progress Note: A&P Assessment and Plan (1) Acute hypokalemia: Code(s): E87.6 - Hypokalemia Status: Acute Assessment and Plan: -Severe hypokalemia with K of 2.1 on ER visit -Prescribed potassium tablets but has not been taking them for unknown amount of time -Magnesium 2.9 -IV replacement 80 mEq total ordered in ER -Alternating constipation and diarrhea (IBS) undergoing treatment by GI Replace and monitor (2) Dizziness: Code(s): R42 - Dizziness and giddiness Status: Acute Assessment and Plan: -Presenting complaint was dizziness, near syncope at GI office -Found to be in A-fib with RVR and severely low potassium Unclear etiology for his dizziness. Will further evaluate with MRI brain and carotid ultrasound Carotid ultrasound unremarkable Brain MRI pending (3) Acute hyponatremia: Code(s): E87.1 - Hypo-osmolality and hyponatremia Status: Acute Assessment and Plan: -Na 126 on admission -May be dehydration related -Chronic kidney disease appears to be at baseline -May be SIADH due to persistent pain of chronic abdominal bloating/pain syndrome -Sodium improved with fluids (4) Atrial fibrillation with RVR: Code(s): I48.91 - Unspecified atrial fibrillation Status: Acute Assessment and Plan: -Afib with RVR with HR 110-145 in ER -Severely depleted potassium which has now been corrected -IV fluid replacement given in ER -No rate controlling medications noted on prior home med list -Oral metoprolol ordered x1 for rate control with mild improvement -Blood pressure soft -Continue Eliquis Cardiology on board Diltiazem started also received digoxin 05/06/2025 and IV metoprolol 05/06/2025 Echo with mildly low ejection fraction is 45-50% % likely due to atrial fibrillation. Status post HIEN cardioversion 05/10/2025 (5) Chronic diastolic heart failure: Code(s): I50.32 - Chronic diastolic (congestive) heart failure Status: Acute Assessment and Plan: -Noted in history, no Echocardiogram on file -No hypoxia or major swelling -Does not appear fluid overloaded at this time Metolazone and Lasix on hold (6) Symptoms consistent with irritable bowel syndrome: Code(s): K58.9 - Irritable bowel syndrome, unspecified Status: Acute Assessment and Plan: -Chronic and recurrent symptoms of alternating constipation and diarrhea -Was on Linzess but this has been changed by GI to Amitiza -Patient reports prune juice with Miralax makes him go but several bouts of diarrhea follow -Simethicone and Bentyl have not helped pain -CT on 03/09/25 no acute abnormality -Patient wanted Maalox tonight and Miralax with prune juice in the morning (7) Lower abdominal pain: Code(s): R10.30 - Lower abdominal pain, unspecified Status: Acute Assessment and Plan: See IBS above X-ray abdomen with sclerotic lesions of the left S Latonya and right femoral head suspicious for metastatic disease. Bone scan: Prominent increased bone uptake at the left ischial yessica tuberosity consistent with metastatic prostate cancer. Second region of less intense uptake in the region of subtle sclerotic lesion in the T12 vertebral body also suspicious for metastatic disease He has a history of prostate cancer status post prostatectomy and followed by adjuvant radiation therapy more than 10 years ago. Repeat PSA came elevated at 44.4 He will need to follow up with Oncology as outpatient basis Abdominal pain with get CT abdomen pelvis done. 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 Neurology consultation Plan patient with abdominal pain and off and on diarrhea, was very weak at his GI office was sent to the ER, he was found to have hypokalemia and hyponatremia most likely 2/2 diarrhea and not eating and taking supplemental potassium, Subjective Date/time seen: 05/10/25 16:03 Interval history: Patient underwent cardioversion this a.m.. Still continues to complain of various different things. Later this evening was having some abdominal pain. Review of Systems Review of Systems: All systems reviewed & are unremarkable except as noted in HPI and below Exam Narrative: Patient is comfortable, NAD HEENT: eyes are clear and none icteric LUNGS:CTA HEART: Rate controlled irregular irregular S1S2 ABD: BS+, Soft and nontender Lower extremities: no edema SKIN: nonjaundiced Neuro: grossly intact. Objective Data Vital Signs Vital Signs: Vital Signs - 24 hr 05/09/25 18:00 05/09/25 19:15 05/09/25 20:00 Temperature 98.3 F Pulse Rate 99 111 H Respiratory Rate 12 Blood Pressure 101/62 Pulse Oximetry 97 Oxygen Delivery Room Air Oxygen Flow Rate 05/09/25 20:00 05/09/25 20:15 05/09/25 22:00 Temperature Pulse Rate 109 H 116 H 63 Respiratory Rate Blood Pressure 112/65 Pulse Oximetry Oxygen Delivery Oxygen Flow Rate 05/09/25 23:50 05/10/25 00:00 05/10/25 00:00 Temperature 98.5 F Pulse Rate 99 92 Respiratory Rate 16 Blood Pressure 98/44 L Pulse Oximetry 100 Oxygen Delivery Room Air Oxygen Flow Rate 05/10/25 02:00 05/10/25 04:00 05/10/25 04:00 Temperature 97.9 F Pulse Rate 108 H 86 Respiratory Rate 16 Blood Pressure 132/74 Pulse Oximetry 97 Oxygen Delivery Room Air Oxygen Flow Rate 05/10/25 04:00 05/10/25 05:55 05/10/25 08:00 Temperature 98.1 F Pulse Rate 90 99 119 H Respiratory Rate 22 H Blood Pressure 126/65 Pulse Oximetry 100 Oxygen Delivery Oxygen Flow Rate 05/10/25 08:00 05/10/25 08:46 05/10/25 09:32 Temperature Pulse Rate 72 96 100 Respiratory Rate 19 Blood Pressure 105/67 Pulse Oximetry 99 Oxygen Delivery Nasal Cannula Oxygen Flow Rate 2 05/10/25 09:50 05/10/25 09:55 05/10/25 10:00 Temperature 98.1 F Pulse Rate 85 73 74 Respiratory Rate 17 20 20 Blood Pressure 111/79 94/59 L 97/53 L Pulse Oximetry 99 100 98 Oxygen Delivery Nasal Cannula Nasal Cannula Nasal Cannula Oxygen Flow Rate 2 2 2 05/10/25 10:15 05/10/25 10:30 05/10/25 10:45 Temperature Pulse Rate 84 61 70 Respiratory Rate 21 H 13 19 Blood Pressure 101/57 L 102/58 L 110/64 Pulse Oximetry 98 98 97 Oxygen Delivery Nasal Cannula Room Air Room Air Oxygen Flow Rate 2 05/10/25 11:00 05/10/25 12:00 05/10/25 12:00 Temperature 98.1 F Pulse Rate 70 86 61 Respiratory Rate 17 18 Blood Pressure 110/64 137/73 Pulse Oximetry 97 99 Oxygen Delivery Room Air Oxygen Flow Rate Intake/Output Intake/Output: Intake & Output 05/07/25 05/08/25 05/09/25 05/10/25 23:59 23:59 23:59 23:59 Intake Total 2820 680 1480 Output Total 1101 6275 852 680 Balance 1447 -362 670 -658 Meds/Results Medications: Active Medications Generic Name Dose Route Start Last Admin Trade Name Freq PRN Reason Stop Dose Admin Acetaminophen 650 mg 05/07/25 04:04 05/09/25 20:12 Acetaminophen 325 Mg Tablet PO 650 mg Q6H PRN Administration Mild Pain (1-3) or Fever Apixaban 5 mg 05/03/25 22:45 05/10/25 08:46 Apixaban 5 Mg Tablet PO 5 mg Q12HR ILENE Administration Cyanocobalamin 2,500 mcg 05/04/25 09:00 05/10/25 11:59 Cyanocobalamin 500 Mcg Tablet PO 2,500 mcg DAILY ILENE Administration Digoxin 125 mcg 05/08/25 09:00 05/10/25 08:46 Digoxin Tab 125 Mcg Tablet PO 125 mcg QAM ILENE Administration Diltiazem HCl 60 mg 05/08/25 12:00 05/10/25 14:31 Diltiazem Hcl 60 Mg Tablet PO 60 mg Q8HR ILENE Administration Furosemide 40 mg 05/04/25 09:00 05/04/25 08:32 Furosemide 40 Mg Tablet PO Not Given DAILY ILENE Lactulose 10 gm 05/03/25 22:43 05/09/25 06:21 Lactulose 20 Gm/30 Ml Udc PO 10 gm DAILY PRN Administration constipation Loteprednol Etabonate 1 drop 05/04/25 09:00 05/10/25 14:31 Loteprednol Etabonate 0.5% Oph 5 Ml Bottle EACH EYE 1 drop TID ILENE Administration Melatonin 5 mg 05/03/25 22:45 05/09/25 21:50 Melatonin 5 Mg Tablet PO 5 mg HS PRN Administration sleep Metolazone 5 mg 05/04/25 09:00 05/08/25 08:37 Metolazone 5 Mg Tablet PO 5 mg DAILY ILENE Administration Polyethylene Glycol 17 gm 05/03/25 22:43 05/09/25 06:21 Polyethylene Glycol 3350 17 Gm Powd.Pack PO 17 gm DAILY PRN Administration constipation Potassium Chloride 40 meq 05/04/25 08:00 05/10/25 08:46 Potassium Chloride 20 Meq Er Tablet PO 40 meq BIDWM ILENE Administration Simethicone 250 mg 05/04/25 08:00 05/10/25 11:58 Simethicone 125 Mg Chew Tab PO 250 mg 0800,1200,1700,2100 ILENE Administration Sodium Chloride 1 spray 05/03/25 22:43 05/04/25 16:36 Saline 0.65% Kenji Soln 44 Ml Btl NASAL 1 spray BID PRN Administration dry nasal passages Radiology Results: ITS Impressions Head CT 05/03/25 13:10 IMPRESSION: 1. No acute intracranial process. 2. Age-related changes including moderate diffuse volume loss and mild to moderate scattered white matter hypoattenuation consistent with chronic small vessel ischemic disease. Chest X-Ray 05/03/25 13:16 IMPRESSION: 1. No acute cardiopulmonary disease. Abdomen X-Ray 05/05/25 11:12 Impression: 1: Sclerotic lesions of the left ischium and right femoral head, suspicious for metastatic disease. Recommend correlation with nuclear bone scan. Further evaluation for possible prostate cancer recommended. Bone Scan Nuclear Medicine 05/06/25 16:31 IMPRESSION: 1. Prominent increased bone uptake at the left ischial tuberosity consistent with metastatic prostate cancer. 2. Second region of less intense uptake in the region of subtle sclerotic lesion in the T12 vertebral body, also suspicious for metastatic disease. Carotid Doppler Study 05/09/25 10:52 Impression: No hemodynamically significant stenosis of the bilateral internal carotid arteries. Antegrade flow in the bilateral vertebral arteries. Note: The methodology used is an indirect measurement validated against a direct method (such as the NASCET criteria) that compares diameters at the stenosis to the distal ICA. 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 No acute or subacute hemorrhage. Labs Labs: Laboratory Results - last 24 hr 05/10/25 04:06 WBC 6.6 RBC 3.87 L Hgb 12.3 L Hct 36.9 L MCV 95.3 MCH 31.8 MCHC 33.3 RDW 15.0 H Plt Count 277 MPV 9.2 Sodium 132 L Potassium 4.0 Chloride 102 Carbon Dioxide 26 Anion Gap 4 BUN 12 Creatinine 1.39 H Estim Creat Clear Calc 41 Estimated GFR 49 L Glucose 108 Calcium 8.6 Phosphorus 2.9 Magnesium 2.1 Total Bilirubin 0.6 AST 32 ALT 16 Alkaline Phosphatase 80 Total Protein 6.3 Albumin 3.5 Triglycerides 89 Cholesterol 240 H LDL Cholesterol Direct 115 HDL Direct 69
[2025-05-10] MEDS: ACETAMINOPHEN 325 MG TABLET 650 MG PO (18:01)
[2025-05-10] MEDS: MELATONIN 5 MG TABLET PO (22:49)
--- NOTE | 2025-05-10 23:50 | PC.NURSE ---
Pt refuses to go to [facility]
[2025-05-11] VITALS (12 sets, daily range): BP systolic 110–126; BP diastolic 50–59; PULSE 70–91; RESP 12–20; TEMP 36.5–36.9; O2SAT 95–99
[2025-05-11] MEDS: ACETAMINOPHEN 325 MG TABLET 650 MG PO ×2 (01:26→21:13)
[2025-05-11 04:27] LABS: Basophils Absolute Auto 0.1 K/mm3 (0.0-0.1); Basophils Percent Auto 0.6 % (0.2-1.2); Eosinophils Absolute Auto 0.1 K/mm3 (0-0.3); Eosinophils Percent Auto 1.4 % (0-4.4); Hematocrit 37.9 % (42.0-52.0); Hemoglobin 12.3 g/dL (14.0-18.0); Immature Granulocyte Absolute 0.05 K/mm3 (0.00-0.031); Immature Granulocyte Percent A 0.6 % (0-0.5); Lymphocytes Absolute Auto 0.74 K/mm3 (0.9-3.2); Lymphocytes Percent Auto 9.1 % (18.3-44.2); Mean Corpuscular HGB Conc 32.5 g/dl (32-36); Mean Corpuscular Hemoglobin 31.2 pg (26-34); Mean Corpuscular Volume 96.2 fl (80-100); Mean Platelet Volume 9.4 fl (7.4-10.4); Monocytes Absolute Auto 1.1 K/mm3 (0.1-0.6); Monocytes Percent Auto 13.8 % (2.6-8.5); Neutrophils Percent Auto 74.5 % (45.5-73.1); Platelet Count Result 306 k/mm3 (150-375); Red Blood Count 3.94 M/mm3 (4.6-6.20); Red Cell Distribution Width 14.9 % (11.5-14.5); White Blood Count 8.1 K/mm3 (4.5-10.0)
[2025-05-11 04:51] LABS: Alanine Aminotransferase 16 U/L (6-50); Albumin Level 3.8 g/dL (3.5-5.1); Alkaline Phosphatase 94 U/L (38-126); Anion Gap 7 mmol/L (4-12); Aspartate Amino Transferase 26 U/L (17-59); Bilirubin,Total 0.6 mg/dL (0.2-1.3); Blood Urea Nitrogen 12 mg/dL (9-20); Calcium 8.8 mg/dL (8.4-10.2); Carbon Dioxide 24 mmol/L (22-30); Chloride 101 mmol/L (98-107); Estimated CRCL calculation 42 ml/min; Estimated Glomerular Filt Rate 50; Glucose 108 mg/dL (65-110); Magnesium 2.1 mg/dL (1.6-2.3); Potassium 4.3 mmol/L (3.4-5.0); Sodium 132 mmol/L (137-145); Total Protein 6.8 g/dL (6.3-8.2)
[2025-05-11] MEDS: dilTIAZem HCL 60 MG TABLET PO ×3 (06:20→21:13)
[2025-05-11] MEDS: CYANOCOBALAMIN 500 MCG TABLET 2500 MCG PO (09:07)
[2025-05-11] MEDS: SIMETHICONE 125 MG CHEW TAB 250 MG PO ×4 (09:07→21:13)
[2025-05-11] MEDS: POTASSIUM CHLORIDE 20 MEQ ER TABLET 40 MEQ PO ×2 (09:07→17:22)
[2025-05-11] MEDS: APIXABAN 5 MG TABLET PO ×2 (09:08→21:13)
[2025-05-11] MEDS: DIGOXIN TAB 125 MCG TABLET PO (09:08)
[2025-05-11] MEDS: LACTULOSE 20 GM/30 ML UDC 10 GM PO (09:09)
[2025-05-11] MEDS: LOTEPREDNOL ETABONATE 0.5% OPH 5 ML BOTTLE 1 DROP EACH EYE ×3 (09:09→17:21)
[2025-05-11] MEDS: polyethylene glycoL 3350 17 GM POWD.PACK PO (11:52)
--- NOTE | 2025-05-11 14:49 | PM.IMPN ---
Progress Note: A&P Assessment and Plan (1) Acute hypokalemia: Code(s): E87.6 - Hypokalemia Status: Acute Assessment and Plan: -Severe hypokalemia with K of 2.1 on ER visit -Prescribed potassium tablets but has not been taking them for unknown amount of time -Magnesium 2.9 -IV replacement 80 mEq total ordered in ER -Alternating constipation and diarrhea (IBS) undergoing treatment by GI Replace and monitor (2) Dizziness: Code(s): R42 - Dizziness and giddiness Status: Acute Assessment and Plan: -Presenting complaint was dizziness, near syncope at GI office -Found to be in A-fib with RVR and severely low potassium Unclear etiology for his dizziness. Carotid ultrasound unremarkable Brain MRI with morning acute stroke small infarct in the left middle cerebral artery distribution Dizziness is chronic (3) Acute hyponatremia: Code(s): E87.1 - Hypo-osmolality and hyponatremia Status: Acute Assessment and Plan: -Na 126 on admission -May be dehydration related -Chronic kidney disease appears to be at baseline -May be SIADH due to persistent pain of chronic abdominal bloating/pain syndrome -Sodium improved with fluids (4) Atrial fibrillation with RVR: Code(s): I48.91 - Unspecified atrial fibrillation Status: Acute Assessment and Plan: -Afib with RVR with HR 110-145 in ER -Severely depleted potassium which has now been corrected -IV fluid replacement given in ER -No rate controlling medications noted on prior home med list -Oral metoprolol ordered x1 for rate control with mild improvement -Blood pressure soft -[facility] on [facility] Diltiazem started also received digoxin 05/06/2025 and IV metoprolol 05/06/2025 Echo with mildly low ejection fraction is 45-50% % likely due to atrial fibrillation. Status post HIEN cardioversion 05/10/2025 remains on sinus rhythm On beta-asim (5) Chronic diastolic heart failure: Code(s): I50.32 - Chronic diastolic (congestive) heart failure Status: Acute Assessment and Plan: -Noted in history, no Echocardiogram on file -No hypoxia or major swelling -Does not appear fluid overloaded at this time Metolazone and Lasix on hold (6) Symptoms consistent with irritable bowel syndrome: Code(s): K58.9 - Irritable bowel syndrome, unspecified Status: Acute Assessment and Plan: -Chronic and recurrent symptoms of alternating constipation and diarrhea -Was on Linzess but this has been changed by GI to Amitiza -Patient reports prune juice with Miralax makes him go but several bouts of diarrhea follow -Simethicone and Bentyl have not helped pain -CT on 03/09/[address] repeat 05/10/2025 with no acute abnormality. Will have GI see him again Dulcolax suppository Could be irritable bowel syndrome (7) Lower abdominal pain: Code(s): R10.30 - Lower abdominal pain, unspecified Status: Acute Assessment and Plan: See IBS above X-ray abdomen with sclerotic lesions of the left S Latony[place] and right femoral head suspicious for metastatic disease. Bone scan: Prominent increased bone uptake at the left ischial yessica tuberosity consistent with metastatic prostate cancer. Second region of less intense uptake in the region of subtle sclerotic lesion in the T12 vertebral body also suspicious for metastatic disease He has a history of prostate cancer status post prostatectomy and followed by adjuvant radiation therapy more than 10 years ago. 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 Neurology consultation appreciate their recommendations Plan patient with abdominal pain and off and on diarrhea, was very weak at his GI office was sent to the ER, he was found to have hypokalemia and hyponatremia most likely 2/2 diarrhea and not eating and taking supplemental potassium, Subjective Date/time seen: 05/11/25 14:49 Interval history: No overnight events. Still complains of lower abdominal discomfort. No nausea vomiting Review of Systems Review of Systems: All systems reviewed & are unremarkable except as noted in HPI and below Exam Narrative: Patient is comfortable, NAD HEENT: eyes are clear and none icteric LUNGS:CTA HEART: Rate controlled irregular irregular S1S2 ABD: BS+, Soft and hyperesthetic lower abdominal wall Lower extremities: no edema SKIN: nonjaundiced Neuro: grossly intact. Objective Data Vital Signs Vital Signs: Vital Signs - 24 hr 05/10/25 16:00 05/10/25 16:00 05/10/25 18:00 Temperature 98.4 F Pulse Rate 63 100 70 Respiratory Rate 22 H Blood Pressure 143/54 H Pulse Oximetry 99 05/10/25 19:39 05/10/25 20:00 05/10/25 22:00 Temperature 97.7 F Pulse Rate 82 77 76 Respiratory Rate 18 Blood Pressure 114/72 Pulse Oximetry 97 05/10/25 23:16 05/11/25 00:00 05/11/25 02:00 Temperature 97.8 F Pulse Rate 80 87 70 Respiratory Rate 20 Blood Pressure 115/60 Pulse Oximetry 97 05/11/25 04:00 05/11/25 04:00 05/11/25 06:00 Temperature 97.7 F Pulse Rate 77 83 77 Respiratory Rate 18 Blood Pressure 126/53 L Pulse Oximetry 99 05/11/25 07:58 05/11/25 08:00 05/11/25 09:08 Temperature 98.2 F Pulse Rate 84 82 91 Respiratory Rate 12 Blood Pressure 112/50 L Pulse Oximetry 95 05/11/25 10:00 05/11/25 12:00 05/11/25 12:00 Temperature 98.5 F Pulse Rate 74 77 71 Respiratory Rate 14 Blood Pressure 110/59 L Pulse Oximetry 96 Intake/Output Intake/Output: Intake & Output 05/08/25 05/09/25 05/10/25 05/11/25 23:59 23:59 23:59 23:59 Intake Total 680 1480 520 474 Output Total 1021 547 7404 700 [place] [id number] [phone] -226 Meds/Results Medications: Active Medications Generic Name Dose Route Start Last Admin Trade Name Freq PRN Reason Stop Dose Admin Acetaminophen 650 mg 05/07/25 04:04 05/11/25 01:26 Acetaminophen 325 Mg Tablet PO 650 mg Q6H PRN Administration Mild Pain (1-3) or Fever Apixaban 5 mg 05/03/25 22:45 05/11/25 09:08 Apixaban 5 Mg Tablet PO 5 mg Q12HR ILENE Administration Cyanocobalamin 2,500 mcg 05/04/25 09:00 05/11/25 09:07 Cyanocobalamin 500 Mcg Tablet PO 2,500 mcg DAILY ILENE Administration Digoxin 125 mcg 05/08/25 09:00 05/11/25 09:08 Digoxin Tab 125 Mcg Tablet PO 125 mcg QAM ILENE Administration Diltiazem HCl 60 mg 05/08/25 12:00 05/11/25 13:26 Diltiazem Hcl 60 Mg Tablet PO 60 mg Q8HR ILENE Administration Furosemide 40 mg 05/04/25 09:00 05/04/25 08:32 Furosemide 40 Mg Tablet PO Not Given DAILY LIENE Lactulose 10 gm 05/03/25 22:43 05/11/25 09:09 Lactulose 20 Gm/30 Ml Udc PO 10 gm DAILY PRN Administration constipation Loteprednol Etabonate 1 drop 05/04/25 09:00 05/11/25 13:26 Loteprednol Etabonate 0.5% Oph 5 Ml Bottle EACH EYE 1 drop TID ILENE Administration Melatonin 5 mg 05/03/25 22:45 05/10/25 22:49 Melatonin 5 Mg Tablet PO 5 mg HS PRN Administration sleep Metolazone 5 mg 05/04/25 09:00 05/08/25 08:37 Metolazone 5 Mg Tablet PO 5 mg DAILY ILENE Administration Polyethylene Glycol 17 gm 05/03/25 22:43 05/11/25 11:52 Polyethylene Glycol 3350 17 Gm Powd.Pack PO 17 gm DAILY PRN Administration constipation Potassium Chloride 40 meq 05/04/25 08:00 05/11/25 09:07 Potassium Chloride 20 Meq Er Tablet PO 40 meq BIDWM ILENE Administration Simethicone 250 mg 05/04/25 08:00 05/11/25 11:56 Simethicone 125 Mg Chew Tab PO 250 mg 0800,1200,1700,2100 ILENE Administration Sodium Chloride 1 spray 05/03/25 22:43 05/04/25 16:36 Saline 0.65% Kenji Soln 44 Ml Btl NASAL 1 spray BID PRN Administration dry nasal passages Radiology Results: ITS Impressions Head CT 05/03/25 13:10 IMPRESSION: 1. No acute intracranial process. 2. Age-related changes including moderate diffuse volume loss and mild to moderate scattered white matter hypoattenuation consistent with chronic small vessel ischemic disease. Chest X-Ray 05/03/25 13:16 IMPRESSION: 1. No acute cardiopulmonary disease. Abdomen X-Ray 05/05/25 11:12 Impression: 1: Sclerotic lesions of the left ischium and right femoral head, suspicious for metastatic disease. Recommend correlation with nuclear bone scan. Further evaluation for possible prostate cancer recommended. Bone Scan Nuclear Medicine 05/06/25 16:31 IMPRESSION: 1. Prominent increased bone uptake at the left ischial tuberosity consistent with metastatic prostate cancer. 2. Second region of less intense uptake in the region of subtle sclerotic lesion in the T12 vertebral body, also suspicious for metastatic disease. Carotid Doppler Study 05/09/25 10:52 Impression: No hemodynamically significant stenosis of the bilateral internal carotid arteries. Antegrade flow in the bilateral vertebral arteries. Note: The methodology used is an indirect measurement validated against a direct method (such as the NASCET criteria) that compares diameters at the stenosis to the distal ICA. 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 No acute or subacute hemorrhage. Abdomen/Pelvis CT 05/11/25 05:31 Impression: No acute abnormality in the abdomen or pelvis. Small bilateral pleural effusions, right greater than left. Labs Labs: Laboratory Results - last 24 hr 05/11/25 04:02 WBC 8.1 RBC 3.94 L Hgb 12.3 L Hct 37.9 L MCV 96.2 MCH 31.2 MCHC 32.5 RDW 14.9 H Plt Count 306 MPV 9.4 Immature Gran % (Auto) 0.6 H Neut % (Auto) 74.5 H Lymph % (Auto) 9.1 L [place] % (Auto) 13.8 H Eos % (Auto) 1.4 Baso % (Auto) 0.6 Lymph # (Auto) 0.74 L [place] # (Auto) 1.1 H Eos # (Auto) 0.1 Baso # (Auto) 0.1 Abs Immat Gran (auto) 0.05 H Absolute Neuts (auto) 6.0 Absolute Nucleated RBC 0.000 Nucleated RBC % 0.0 Sodium 132 L Potassium 4.3 Chloride 101 Carbon Dioxide 24 Anion Gap 7 BUN 12 Creatinine 1.36 H Estim Creat Clear Calc 42 Estimated GFR 50 L Glucose 108 Calcium 8.8 Magnesium 2.1 Total Bilirubin 0.6 AST 26 ALT 16 Alkaline Phosphatase 94 Total Protein 6.8 Albumin 3.8
--- NOTE | 2025-05-11 17:07 | P.PNGI_ITS ---
Progress Note: A&P Assessment and Plan (1) Symptoms consistent with irritable bowel syndrome: Code(s): K58.9 - Irritable bowel syndrome, unspecified Status: Acute Assessment and Plan: chronic symptoms will add bentyl to use as needed currently on miralax and simethicone no acute intervention otherwise here with other medical issues- just underwent cardioversion for A fib, also dizziness and neurology on board after abnormal findings MRI brain. Patient is worried about not able to live independently anymore and probably may need placement. 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 He has chronic IBS-mixed but mostly constipation for which he has used linzess in the past. Currently on miralax and simethicone. He says that if does not have a daily BM then will have more bloating, cramping and discomfort. He just underwent cardioversion because Afib with RVR, he was admitted to hospital because dizziness and failure to thrive. Review of Systems Review of Systems: All systems reviewed & are unremarkable except as noted in HPI and below Exam Narrative: Patient is comfortable, NAD HEENT: eyes are clear and none icteric Neck: supple LUNGS:CTA HEART: Rate controlled irregular irregular S1S2 ABD: BS+, Soft and no rebound Lower extremities: no edema SKIN: nonjaundiced Neuro: grossly intact psych: normal affect Objective Data Vital Signs Vital Signs: Vital Signs - 24 hr 05/10/25 18:00 05/10/25 19:39 05/10/25 20:00 Temperature 97.7 F Pulse Rate 70 82 77 Respiratory Rate 18 Blood Pressure 114/72 Pulse Oximetry 97 05/10/25 22:00 05/10/25 23:16 05/11/25 00:00 Temperature 97.8 F Pulse Rate 76 80 87 Respiratory Rate 20 Blood Pressure 115/60 Pulse Oximetry 97 05/11/25 02:00 05/11/25 04:00 05/11/25 04:00 Temperature 97.7 F Pulse Rate 70 77 83 Respiratory Rate 18 Blood Pressure 126/53 L Pulse Oximetry 99 05/11/25 06:00 05/11/25 07:58 05/11/25 08:00 Temperature 98.2 F Pulse Rate 77 84 82 Respiratory Rate 12 Blood Pressure 112/50 L Pulse Oximetry 95 05/11/25 09:08 05/11/25 10:00 05/11/25 12:00 Temperature 98.5 F Pulse Rate 91 74 77 Respiratory Rate 14 Blood Pressure 110/59 L Pulse Oximetry 96 05/11/25 12:00 05/11/25 16:00 05/11/25 16:00 Temperature 98.5 F Pulse Rate 71 87 77 Respiratory Rate 14 Blood Pressure 114/58 L Pulse Oximetry 96 Intake/Output Intake/Output: Intake & Output 05/08/25 05/09/25 05/10/25 05/11/25 23:59 23:59 23:59 23:59 Intake Total 680 1480 520 474 Output Total 3746 273 4803 700 Balance -870 555 -1260 -226 Meds/Results Medications: Active Medications Generic Name Dose Route Start Last Admin Trade Name Felizq PRN Reason Stop Dose Admin Acetaminophen 650 mg 05/07/25 04:04 05/11/25 01:26 Acetaminophen 325 Mg Tablet PO 650 mg Q6H PRN Administration Mild Pain (1-3) or Fever Apixaban 5 mg 05/03/25 22:45 05/11/25 09:08 Apixaban 5 Mg Tablet PO 5 mg Q12HR ILENE Administration Cyanocobalamin 2,500 mcg 05/04/25 09:00 05/11/25 09:07 Cyanocobalamin 500 Mcg Tablet PO 2,500 mcg DAILY ILENE Administration Dicyclomine HCl 10 mg 05/11/25 17:06 Dicyclomine Hcl 10 Mg Capsule PO BID PRN Abdominal Cramping Diltiazem HCl 60 mg 06/14/25 12:00 05/11/25 13:26 Diltiazem Hcl 60 Mg Tablet PO 60 mg Q8HR ILENE Administration Furosemide 40 mg 05/04/25 09:00 05/04/25 08:32 Furosemide 40 Mg Tablet PO Not Given DAILY ILENE Lactulose 10 gm 05/03/25 22:43 05/11/25 09:09 Lactulose 20 Gm/30 Ml Udc PO 10 gm DAILY PRN Administration constipation Loteprednol Etabonate 1 drop 05/04/25 09:00 05/11/25 13:26 Loteprednol Etabonate 0.5% Oph 5 Ml Bottle EACH EYE 1 drop TID ILENE Administration Melatonin 5 mg 05/03/25 22:45 05/10/25 22:49 Melatonin 5 Mg Tablet PO 5 mg HS PRN Administration sleep Metolazone 5 mg 05/04/25 09:00 05/08/25 08:37 Metolazone 5 Mg Tablet PO 5 mg DAILY ILENE Administration Metoprolol Tartrate 12.5 mg 05/12/25 09:00 Metoprolol Tartrate 12.5 Mg Tablet PO Q12HR ILENE Polyethylene Glycol 17 gm 05/03/25 22:43 05/11/25 11:52 Polyethylene Glycol 3350 17 Gm Powd.Pack PO 17 gm DAILY PRN Administration constipation Potassium Chloride 40 meq 05/04/25 08:00 05/11/25 09:07 Potassium Chloride 20 Meq Er Tablet PO 40 meq BIDWM ILENE Administration Simethicone 250 mg 05/04/25 08:00 05/11/25 11:56 Simethicone 125 Mg Chew Tab PO 250 mg 0800,1200,1700,2100 ILENE Administration Sodium Chloride 1 spray 05/03/25 22:43 05/04/25 16:36 Saline 0.65% Kenji Soln 44 Ml Btl NASAL 1 spray BID PRN Administration dry nasal passages Radiology Results: ITS Impressions Head CT 05/03/25 13:10 IMPRESSION: 1. No acute intracranial process. 2. Age-related changes including moderate diffuse volume loss and mild to moderate scattered white matter hypoattenuation consistent with chronic small vessel ischemic disease. Chest X-Ray 05/03/25 13:16 IMPRESSION: 1. No acute cardiopulmonary disease. Abdomen X-Ray 05/05/25 11:12 Impression: 1: Sclerotic lesions of the left ischium and right femoral head, suspicious for metastatic disease. Recommend correlation with nuclear bone scan. Further evaluation for possible prostate cancer recommended. Bone Scan Nuclear Medicine 05/06/25 16:31 IMPRESSION: 1. Prominent increased bone uptake at the left ischial tuberosity consistent with metastatic prostate cancer. 2. Second region of less intense uptake in the region of subtle sclerotic lesion in the T12 vertebral body, also suspicious for metastatic disease. Carotid Doppler Study 05/09/25 10:52 Impression: No hemodynamically significant stenosis of the bilateral internal carotid arteries. Antegrade flow in the bilateral vertebral arteries. Note: The methodology used is an indirect measurement validated against a direct method (such as the NASCET criteria) that compares diameters at the stenosis to the distal ICA. 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 No acute or subacute hemorrhage. Abdomen/Pelvis CT 05/11/25 05:31 Impression: No acute abnormality in the abdomen or pelvis. Small bilateral pleural effusions, right greater than left. Labs Labs: Laboratory Results - last 24 hr 05/11/25 04:02 WBC 8.1 RBC 3.94 L Hgb 12.3 L Hct 37.9 L MCV 96.2 MCH 31.2 MCHC 32.5 RDW 14.9 H Plt Count 306 MPV 9.4 Immature Gran % (Auto) 0.6 H Neut % (Auto) 74.5 H Lymph % (Auto) 9.1 L [place] % (Auto) 13.8 H Eos % (Auto) 1.4 Baso % (Auto) 0.6 Lymph # (Auto) 0.74 L [place] # (Auto) 1.1 H Eos # (Auto) 0.1 Baso # (Auto) 0.1 Abs Immat Gran (auto) 0.05 H Absolute Neuts (auto) 6.0 Absolute Nucleated RBC 0.000 Nucleated RBC % 0.0 Sodium 132 L Potassium 4.3 Chloride 101 Carbon Dioxide 24 Anion Gap 7 BUN 12 Creatinine 1.36 H Estim Creat Clear Calc 42 Estimated GFR 50 L Glucose 108 Calcium 8.8 Magnesium 2.1 Total Bilirubin 0.6 AST 26 ALT 16 Alkaline Phosphatase 94 Total Protein 6.8 Albumin 3.8
[2025-05-11 17:09] LABS: Digoxin 0.5 ng/mL (0.8-2.0)
[2025-05-11] MEDS: MELATONIN 5 MG TABLET PO (21:13)
[2025-05-12] VITALS (9 sets, daily range): BP systolic 112–133; BP diastolic 55–69; PULSE 60–81; RESP 16–20; TEMP 36.4–37; O2SAT 98–100; BMI 30.7
[2025-05-12 04:15] LABS: Basophils Absolute Auto 0.1 K/mm3 (0.0-0.1); Basophils Percent Auto 0.7 % (0.2-1.2); Eosinophils Absolute Auto 0.1 K/mm3 (0-0.3); Eosinophils Percent Auto 1.5 % (0-4.4); Hematocrit 33.8 % (42.0-52.0); Hemoglobin 11.2 g/dL (14.0-18.0); Immature Granulocyte Absolute 0.05 K/mm3 (0.00-0.031); Immature Granulocyte Percent A 0.7 % (0-0.5); Lymphocytes Absolute Auto 0.54 K/mm3 (0.9-3.2); Lymphocytes Percent Auto 7.9 % (18.3-44.2); Mean Corpuscular HGB Conc 33.1 g/dl (32-36); Mean Corpuscular Hemoglobin 31.5 pg (26-34); Mean Corpuscular Volume 95.2 fl (80-100); Mean Platelet Volume 9.4 fl (7.4-10.4); Monocytes Absolute Auto 1.1 K/mm3 (0.1-0.6); Monocytes Percent Auto 16.2 % (2.6-8.5); Platelet Count Result 281 k/mm3 (150-375); Red Blood Count 3.55 M/mm3 (4.6-6.20); Red Cell Distribution Width 14.9 % (11.5-14.5); White Blood Count 6.9 K/mm3 (4.5-10.0)
[2025-05-12 04:36] LABS: Alanine Aminotransferase 13 U/L (6-50); Albumin Level 3.3 g/dL (3.5-5.1); Alkaline Phosphatase 81 U/L (38-126); Anion Gap 7 mmol/L (4-12); Aspartate Amino Transferase 23 U/L (17-59); Bilirubin,Total 0.5 mg/dL (0.2-1.3); Blood Urea Nitrogen 11 mg/dL (9-20); Calcium 8.6 mg/dL (8.4-10.2); Carbon Dioxide 24 mmol/L (22-30); Chloride 102 mmol/L (98-107); Estimated CRCL calculation 53 ml/min; Estimated Glomerular Filt Rate 57; Glucose 101 mg/dL (65-110); Potassium 3.8 mmol/L (3.4-5.0); Sodium 133 mmol/L (137-145)
[2025-05-12] MEDS: dilTIAZem HCL 60 MG TABLET PO ×3 (05:58→21:40)
--- NOTE | 2025-05-12 08:23 | P.PNIM_ITS ---
Progress Note: A&P Assessment and Plan (1) Acute hypokalemia: Code(s): E87.6 - Hypokalemia Status: Acute Assessment and Plan: -Severe hypokalemia with K of 2.1 on ER visit -Prescribed potassium tablets but has not been taking them for unknown amount of time -Magnesium 2.9 -IV replacement 80 mEq total ordered in ER -Alternating constipation and diarrhea (IBS) undergoing treatment by GI Replace and monitor (2) Dizziness: Code(s): R42 - Dizziness and giddiness Status: Acute Assessment and Plan: -Presenting complaint was dizziness, near syncope at GI office -Found to be in A-fib with RVR and severely low potassium Unclear etiology for his dizziness. Carotid ultrasound unremarkable Brain MRI with morning acute stroke small infarct in the left middle cerebral artery distribution Dizziness is chronic (3) Acute hyponatremia: Code(s): E87.1 - Hypo-osmolality and hyponatremia Status: Acute Assessment and Plan: -Na 126 on admission -May be dehydration related -Chronic kidney disease appears to be at baseline -May be SIADH due to persistent pain of chronic abdominal bloating/pain syndrome -Sodium improved with fluids (4) Atrial fibrillation with RVR: Code(s): I48.91 - Unspecified atrial fibrillation Status: Acute Assessment and Plan: -Afib with RVR with HR 110-145 in ER -Severely depleted potassium which has now been corrected -IV fluid replacement given in ER -No rate controlling medications noted on prior home med list -Oral metoprolol ordered x1 for rate control with mild improvement -Blood pressure soft -Continue [facility] Cardiology on board Diltiazem started also received digoxin 05/06/2025 and IV metoprolol 05/06/2025 Echo with mildly low ejection fraction is 45-50% % likely due to atrial fibrillation. Status post HIEN cardioversion 05/10/2025 remains on sinus rhythm On beta-asim (5) Chronic diastolic heart failure: Code(s): I50.32 - Chronic diastolic (congestive) heart failure Status: Acute Assessment and Plan: -Noted in history, no Echocardiogram on file -No hypoxia or major swelling -Does not appear fluid overloaded at this time Metolazone and Lasix on hold (6) Symptoms consistent with irritable bowel syndrome: Code(s): K58.9 - Irritable bowel syndrome, unspecified Status: Acute Assessment and Plan: -Chronic and recurrent symptoms of alternating constipation and diarrhea -Was on Linzess but this has been changed by GI to Amitiza -Patient reports prune juice with Miralax makes him go but several bouts of al rrhea follow -Simethicone and Bentyl have not helped pain -CT on 03/09/[address] repeat 05/10/2025 with no acute abnormality. [facility] GI to see again. Added Bentyl as needed Dulcolax suppository Could be irritable bowel syndrome May add amitriptyline (7) Lower abdominal pain: Code(s): R10.30 - Lower abdominal pain, unspecified Status: Acute Assessment and Plan: See IBS above X-ray abdomen with sclerotic lesions of the left S [place]ony[place] and right femoral head suspicious for metastatic disease. Bone scan: Prominent increased bone uptake at the left ischial yessica tuberosity consistent with metastatic prostate cancer. Second region of less intense uptake in the region of subtle sclerotic lesion in the T12 vertebral body also suspicious for metastatic disease He has a history of prostate cancer status post prostatectomy and followed by adjuvant radiation therapy more than 10 years ago. Repeat PSA came elevated at 44.4 He will need to follow up with Oncology as outpatient basis Abdominal pain CT with no acute abnormality 05/10/2025 Continues to complain of lower abdominal pain Add tramadol p.r.n. 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 Neurology consultation appreciate their recommendations Plan patient with abdominal pain and off and on diarrhea, was very weak at his GI office was sent to the ER, he was found to have hypokalemia and hyponatremia most likely 2/2 diarrhea and not eating and taking supplemental potassium, Subjective Date/time seen: 05/12/25 08:23 Interval history: No overnight events. Telemetry reviewed. Continues to complain of lower abdominal discomfort. Reports pain all the time. Gets frustrated with this. Discussed with son over the phone 05/11/2025 Review of Systems Review of Systems: All systems reviewed & are unremarkable except as noted in HPI and below Exam Narrative: Patient is comfortable, NAD HEENT: eyes are clear and none icteric LUNGS:CTA HEART: Rate controlled irregular irregular S1S2 ABD: BS+, Soft and hyperesthetic lower abdominal wall Lower extremities: no edema SKIN: nonjaundiced Neuro: grossly intact. Objective Data Vital Signs Vital Signs: Vital Signs - 24 hr 05/11/25 09:08 05/11/25 10:00 05/11/25 12:00 Temperature 98.5 F Pulse Rate 91 74 77 Respiratory Rate 14 Blood Pressure 110/59 L Pulse Oximetry 96 Oxygen Delivery 05/11/25 12:00 05/11/25 16:00 05/11/25 16:00 Temperature 98.5 F Pulse Rate 71 87 77 Respiratory Rate 14 Blood Pressure 114/58 L Pulse Oximetry 96 Oxygen Delivery 05/11/25 19:35 05/11/25 20:00 05/11/25 20:00 Temperature 98.4 F Pulse Rate 86 71 Respiratory Rate 20 Blood Pressure 118/58 L Pulse Oximetry 99 Oxygen Delivery Room Air 05/12/25 00:00 05/12/25 00:04 05/12/25 04:00 Temperature 98.6 F Pulse Rate 71 81 78 Respiratory Rate 20 Blood Pressure 112/58 L Pulse Oximetry 100 Oxygen Delivery Intake/Output Intake/Output: Intake & Output 05/09/25 05/10/25 05/11/25 05/12/25 23:59 23:59 23:59 23:59 Intake Total 1480 520 794 200 Output Total 925 1780 900 Balance 858 -3800 -106 200 Meds/Results Medications: Active Medications Generic Name Dose Route Start Last Admin Trade Name Freq PRN Reason Stop Dose Admin Acetaminophen 650 mg 05/07/25 04:04 05/11/25 21:13 Acetaminophen 325 Mg Tablet PO 650 mg Q6H PRN Administration Mild Pain (1-3) or Fever Apixaban 5 mg 05/03/25 22:45 05/11/25 21:13 Apixaban 5 Mg Tablet PO 5 mg Q12HR ILENE Administration Cyanocobalamin 2,500 mcg 05/04/25 09:00 05/11/25 09:07 Cyanocobalamin 500 Mcg Tablet PO 2,500 mcg DAILY ILENE Administration Dicyclomine HCl 10 mg 05/11/25 17:06 Dicyclomine Hcl 10 Mg Capsule PO BID PRN Abdominal Cramping Diltiazem HCl 60 mg 05/08/25 12:00 05/12/25 05:58 Diltiazem Hcl 60 Mg Tablet PO 60 mg Q8HR ILENE Administration Furosemide 40 mg 05/04/25 09:00 05/04/25 08:32 Furosemide 40 Mg Tablet PO Not Given DAILY ILENE Lactulose 10 gm 05/03/25 22:43 05/11/25 09:09 Lactulose 20 Gm/30 Ml Udc PO 10 gm DAILY PRN Administration constipation Loteprednol Etabonate 1 drop 05/04/25 09:00 05/11/25 17:21 Loteprednol Etabonate 0.5% Oph 5 Ml Bottle EACH EYE 1 drop TID ILENE Administration Melatonin 5 mg 05/03/25 22:45 05/11/25 21:13 Melatonin 5 Mg Tablet PO 5 mg HS PRN Administration sleep Metolazone 5 mg 05/04/25 09:00 05/08/25 08:37 Metolazone 5 Mg Tablet PO 5 mg DAILY ILENE Administration Metoprolol Tartrate 12.5 mg 05/12/25 09:00 Metoprolol Tartrate 12.5 Mg Tablet PO Q12HR ILENE Polyethylene Glycol 17 gm 05/03/25 22:43 05/11/25 11:52 Polyethylene Glycol 3350 17 Gm Powd.Pack PO 17 gm DAILY PRN Administration constipation Potassium Chloride 40 meq 05/04/25 08:00 05/11/25 17:22 Potassium Chloride 20 Meq Er Tablet PO 40 meq BIDWM ILENE Administration Simethicone 250 mg 05/04/25 08:00 05/11/25 21:13 Simethicone 125 Mg Chew Tab PO 250 mg 0800,1200,1700,2100 ILENE Administration Sodium Chloride 1 spray 05/03/25 22:43 05/04/25 16:36 Saline 0.65% Kenji Soln 44 Ml Btl NASAL 1 spray BID PRN Administration dry nasal passages Radiology Results: ITS Impressions Head CT 05/03/25 13:10 IMPRESSION: 1. No acute intracranial process. 2. Age-related changes including moderate diffuse volume loss and mild to moderate scattered white matter hypoattenuation consistent with chronic small vessel ischemic disease. Chest X-Ray 05/03/25 13:16 IMPRESSION: 1. No acute cardiopulmonary disease. Abdomen X-Ray 05/05/25 11:12 Impression: 1: Sclerotic lesions of the left ischium and right femoral head, suspicious for metastatic disease. Recommend correlation with nuclear bone scan. Further evaluation for possible prostate cancer recommended. Bone Scan Nuclear Medicine 05/06/25 16:31 IMPRESSION: 1. Prominent increased bone uptake at the left ischial tuberosity consistent with metastatic prostate cancer. 2. Second region of less intense uptake in the region of subtle sclerotic lesion in the T12 vertebral body, also suspicious for metastatic disease. Carotid Doppler Study 05/09/25 10:52 Impression: No hemodynamically significant stenosis of the bilateral internal carotid arteries. Antegrade flow in the bilateral vertebral arteries. Note: The methodology used is an indirect measurement validated against a direct method (such as the NASCET criteria) that compares diameters at the stenosis to the distal ICA. 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 No acute or subacute hemorrhage. Abdomen/Pelvis CT 05/11/25 05:31 Impression: No acute abnormality in the abdomen or pelvis. Small bilateral pleural effusions, right greater than left. Labs Labs: Laboratory Results - last 24 hr 05/11/25 05/12/25 16:28 03:35 WBC 6.9 RBC 3.55 L Hgb 11.2 L Hct 33.8 L MCV 95.2 MCH 31.5 MCHC 33.1 RDW 14.9 H Plt Count 281 MPV 9.4 Immature Gran % (Auto) 0.7 H Neut % (Auto) 73.0 Lymph % (Auto) 7.[address] [place] % (Auto) 16.2 H Eos % (Auto) 1.5 Baso % (Auto) 0.7 Lymph # (Auto) 0.[address] [place] # (Auto) 1.1 H Eos # (Auto) 0.1 Baso # (Auto) 0.1 Abs Immat Gran (auto) 0.05 H Absolute Neuts (auto) 5.0 Absolute Nucleated RBC 0.000 Nucleated RBC % 0.0 Sodium 133 L Potassium 3.8 Chloride 102 Carbon Dioxide 24 Anion Gap 7 BUN 11 Creatinine 1.21 Estim Creat Clear Calc 53 Estimated GFR 57 L Glucose 101 Calcium 8.6 Magnesium 2.0 Total Bilirubin 0.5 AST 23 ALT 13 Alkaline Phosphatase 81 Total Protein 6.0 L Albumin 3.3 L Digoxin 0.5 L
[2025-05-12] MEDS: SIMETHICONE 125 MG CHEW TAB 250 MG PO ×4 (09:20→21:41)
[2025-05-12] MEDS: DICYCLOMINE HCL 10 MG CAPSULE PO (09:20)
[2025-05-12] MEDS: METOPROLOL TARTRATE 12.5 MG TABLET PO ×2 (09:20→21:41)
[2025-05-12] MEDS: polyethylene glycoL 3350 17 GM POWD.PACK PO (09:20)
[2025-05-12] MEDS: traMADol HCL (*CRX) 25 MG TABLET PO ×2 (09:20→15:19)
[2025-05-12] MEDS: POTASSIUM CHLORIDE 20 MEQ ER TABLET 40 MEQ PO ×2 (09:20→16:58)
[2025-05-12] MEDS: APIXABAN 5 MG TABLET PO ×2 (09:20→21:41)
[2025-05-12] MEDS: LOTEPREDNOL ETABONATE 0.5% OPH 5 ML BOTTLE 1 DROP EACH EYE ×3 (09:21→16:58)
[2025-05-12] MEDS: CYANOCOBALAMIN 500 MCG TABLET 2500 MCG PO (09:21)
--- NOTE | 2025-05-12 18:01 | PC.NURSE ---
This patient, Shane Mahoney, was transferred to [facility] on 05/12/25 at 1750. Personal belongings sent with patient. Report given to Jud. Appropriate documentation sent with patient.
--- NOTE | 2025-05-12 18:26 | P.PNGI_ITS ---
Progress Note: A&P Assessment and Plan (1) Symptoms consistent with irritable bowel syndrome: Code(s): K58.9 - Irritable bowel syndrome, unspecified Status: Acute Assessment and Plan: chronic symptoms, probably not much acutely that we can offer continue bentyl to use as needed currently on miralax and simethicone he is frustrated in general, on admission with hypokalemia and failure to thrive, also underwent cardioversion for A fib, dizziness and neurology on board after abnormal findings MRI brain. 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: Code(s): I63.512 - Cerebral infarction due to unspecified occlusion or stenosis of left m iddle cerebral artery Status: Acute Subjective Date/time seen: 05/12/25 18:26 Interval history: no new complaints but he is in general frustrated after learned that he will transfer to another room today had BM and currently no abdominal pain Review of Systems Review of Systems: All systems reviewed & are unremarkable except as noted in HPI and below Exam Narrative: Patient is comfortable, NAD HEENT: eyes are clear and none icteric Neck: supple LUNGS:CTA HEART: Rate controlled irregular irregular S1S2 ABD: BS+, Soft and no rebound Lower extremities: no edema SKIN: nonjaundiced Neuro: grossly intact psych: normal affect Objective Data Vital Signs Vital Signs: Vital Signs - 24 hr 05/11/25 19:35 05/11/25 20:00 05/11/25 20:00 Temperature 98.4 F Pulse Rate 86 71 Respiratory Rate 20 Blood Pressure 118/58 L Pulse Oximetry 99 Oxygen Delivery Room Air 05/12/25 00:00 05/12/25 00:04 05/12/25 04:00 Temperature 98.6 F Pulse Rate 71 81 78 Respiratory Rate 20 Blood Pressure 112/58 L Pulse Oximetry 100 Oxygen Delivery 05/12/25 08:00 05/12/25 08:00 05/12/25 08:00 Temperature 98.1 F Pulse Rate 76 77 Respiratory Rate 20 Blood Pressure 127/55 L Pulse Oximetry 99 Oxygen Delivery Room Air 05/12/25 12:00 05/12/25 16:00 05/12/25 16:00 Temperature 98.2 F Pulse Rate 71 62 63 Respiratory Rate 18 Blood Pressure 133/63 Pulse Oximetry 99 Oxygen Delivery 05/12/25 18:05 Temperature 97.5 F L Pulse Rate 60 Respiratory Rate 16 Blood Pressure 115/55 L Pulse Oximetry 98 Oxygen Delivery Intake/Output Intake/Output: Intake & Output 05/09/25 05/10/25 05/11/25 05/12/25 23:59 23:59 23:59 23:59 Intake Total 1480 823 714 4701 Output Total 925 1780 900 900 Balance 286 -5320 -106 400 Meds/Results Medications: Active Medications Generic Name Dose Route Start Last Admin Trade Name Felizq PRN Reason Stop Dose Admin Acetaminophen 650 mg 05/07/25 04:04 05/11/25 21:13 Acetaminophen 325 Mg Tablet PO 650 mg Q6H PRN Administration Mild Pain (1-3) or Fever Apixaban 5 mg 05/03/25 22:45 05/12/25 09:20 Apixaban 5 Mg Tablet PO 5 mg Q12HR ILENE Administration Cyanocobalamin 2,500 mcg 05/04/25 09:00 05/12/25 09:21 Cyanocobalamin 500 Mcg Tablet PO 2,500 mcg DAILY ILENE Administration Dicyclomine HCl 10 mg 05/11/25 17:06 05/12/25 09:20 Dicyclomine Hcl 10 Mg Capsule PO 10 mg BID PRN Administration Abdominal Cramping Diltiazem HCl 60 mg 05/08/25 12:00 05/12/25 12:16 Diltiazem Hcl 60 Mg Tablet PO 60 mg Q8HR ILENE Administration Furosemide 40 mg 05/04/25 09:00 05/04/25 08:32 Furosemide 40 Mg Tablet PO Not Given DAILY ILENE Lactulose 10 gm 05/03/25 22:43 05/11/25 09:09 Lactulose 20 Gm/30 Ml Udc PO 10 gm DAILY PRN Administration constipation Loteprednol Etabonate 1 drop 05/04/25 09:00 05/12/25 16:58 Loteprednol Etabonate 0.5% Oph 5 Ml Bottle EACH EYE 1 drop TID ILENE Administration Melatonin 5 mg 05/03/25 22:45 05/11/25 21:13 Melatonin 5 Mg Tablet PO 5 mg HS PRN Administration sleep Metolazone 5 mg 05/04/25 09:00 05/08/25 08:37 Metolazone 5 Mg Tablet PO 5 mg DAILY ILENE Administration Metoprolol Tartrate 12.5 mg 05/12/25 09:00 05/12/25 09:20 Metoprolol Tartrate 12.5 Mg Tablet PO 12.5 mg Q12HR ILENE Administration Polyethylene Glycol 17 gm 05/03/25 22:43 05/12/25 09:20 Polyethylene Glycol 3350 17 Gm Powd.Pack PO 17 gm DAILY PRN Administration constipation Potassium Chloride 40 meq 05/04/25 08:00 05/12/25 16:58 Potassium Chloride 20 Meq Er Tablet PO 40 meq BIDWM ILENE Administration Simethicone 250 mg 05/04/25 08:00 05/12/25 16:58 Simethicone 125 Mg Chew Tab PO 250 mg 0800,1200,1700,2100 ILENE Administration Sodium Chloride 1 spray 05/03/25 22:43 05/04/25 16:36 Saline 0.65% Kenji Soln 44 Ml Btl NASAL 1 spray BID PRN Administration dry nasal passages Tramadol HCl 25 mg 05/12/25 08:27 05/12/25 15:19 Tramadol Hcl (*Crx) 25 Mg Tablet PO 25 mg Q4H PRN Administration Pain Rated 4-6 Radiology Results: ITS Impressions Head CT 05/03/25 13:10 IMPRESSION: 1. No acute intracranial process. 2. Age-related changes including moderate diffuse volume loss and mild to moderate scattered white matter hypoattenuation consistent with chronic small vessel ischemic disease. Chest X-Ray 05/03/25 13:16 IMPRESSION: 1. No acute cardiopulmonary disease. Abdomen X-Ray 05/05/25 11:12 Impression: 1: Sclerotic lesions of the left ischium and right femoral head, suspicious for metastatic disease. Recommend correlation with nuclear bone scan. Further evaluation for possible prostate cancer recommended. Bone Scan Nuclear Medicine 05/06/25 16:31 IMPRESSION: 1. Prominent increased bone uptake at the left ischial tuberosity consistent with metastatic prostate cancer. 2. Second region of less intense uptake in the region of subtle sclerotic lesion in the T12 vertebral body, also suspicious for metastatic disease. Carotid Doppler Study 05/09/25 10:52 Impression: No hemodynamically significant stenosis of the bilateral internal carotid arteries. Antegrade flow in the bilateral vertebral arteries. Note: The methodology used is an indirect measurement validated against a direct method (such as the NASCET criteria) that compares diameters at the stenosis to the distal ICA. 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 No acute or subacute hemorrhage. Abdomen/Pelvis CT 05/11/25 05:31 Impression: No acute abnormality in the abdomen or pelvis. Small bilateral pleural effusions, right greater than left. Labs Labs: Laboratory Results - last 24 hr 05/12/25 03:35 WBC 6.9 RBC 3.55 L Hgb 11.2 L Hct 33.8 L MCV 95.2 MCH 31.5 MCHC 33.1 RDW 14.9 H Plt Count 281 MPV 9.4 Immature Gran % (Auto) 0.7 H Neut % (Auto) 73.0 Lymph % (Auto) 7.9 L [place] % (Auto) 16.2 H Eos % (Auto) 1.5 Baso % (Auto) 0.7 Lymph # (Auto) 0.54 L [place] # (Auto) 1.1 H Eos # (Auto) 0.1 Baso # (Auto) 0.1 Abs Immat Gran (auto) 0.05 H Absolute Neuts (auto) 5.0 Absolute Nucleated RBC 0.000 Nucleated RBC % 0.0 Sodium 133 L Potassium 3.8 Chloride 102 Carbon Dioxide 24 Anion Gap 7 BUN 11 Creatinine 1.21 Estim Creat Clear Calc 53 Estimated GFR 57 L Glucose 101 Calcium 8.6 Magnesium 2.0 Total Bilirubin 0.5 AST 23 ALT 13 Alkaline Phosphatase 81 Total Protein 6.0 L Albumin 3.3 L
[2025-05-12] MEDS: ACETAMINOPHEN 325 MG TABLET 650 MG PO (21:41)
[2025-05-12] MEDS: MELATONIN 5 MG TABLET PO (21:41)
[2025-05-13] VITALS (14 sets, daily range): BP systolic 104–121; BP diastolic 51–67; PULSE 51–80; RESP 18–20; TEMP 36.4–36.6; O2SAT 97–100
[2025-05-13 06:13] LABS: Hematocrit 36.5 % (42.0-52.0); Hemoglobin 11.9 g/dL (14.0-18.0); Mean Corpuscular HGB Conc 32.6 g/dl (32-36); Mean Corpuscular Hemoglobin 31.3 pg (26-34); Mean Corpuscular Volume 96.1 fl (80-100); Mean Platelet Volume 9.4 fl (7.4-10.4); Platelet Count Result 298 k/mm3 (150-375); Red Cell Distribution Width 14.7 % (11.5-14.5); White Blood Count 7.2 K/mm3 (4.5-10.0)
[2025-05-13] MEDS: dilTIAZem HCL 60 MG TABLET PO ×3 (06:33→22:36)
[2025-05-13] MEDS: LACTULOSE 20 GM/30 ML UDC 10 GM PO (08:06)
[2025-05-13] MEDS: CYANOCOBALAMIN 500 MCG TABLET 2500 MCG PO (08:09)
[2025-05-13] MEDS: SIMETHICONE 125 MG CHEW TAB 250 MG PO ×4 (08:10→20:53)
[2025-05-13] MEDS: POTASSIUM CHLORIDE 20 MEQ ER TABLET 40 MEQ PO ×2 (08:11→16:01)
[2025-05-13] MEDS: METOPROLOL TARTRATE 12.5 MG TABLET PO ×2 (08:13→20:50)
[2025-05-13] MEDS: APIXABAN 5 MG TABLET PO ×2 (08:13→20:51)
[2025-05-13] MEDS: LOTEPREDNOL ETABONATE 0.5% OPH 5 ML BOTTLE 1 DROP EACH EYE ×3 (08:14→15:59)
[2025-05-13] MEDS: ACETAMINOPHEN 325 MG TABLET 650 MG PO ×2 (08:32→17:54)
[2025-05-13] MEDS: ASPIRIN 81 MG ENTERIC TABLET PO (08:32)
--- NOTE | 2025-05-13 11:53 | PM.IMPN ---
Progress Note: A&P Assessment and Plan (1) Acute hypokalemia: Code(s): E87.6 - Hypokalemia Status: Acute Assessment and Plan: -Severe hypokalemia with K of 2.1 on ER visit -Prescribed potassium tablets but has not been taking them for unknown amount of time -Magnesium 2.9 replaced, K 3.8 patient has IBS with alternating diarrhea adn constipation (2) Dizziness: Code(s): R42 - Dizziness and giddiness Status: Acute Assessment and Plan: -Presenting complaint was dizziness, near syncope at GI office -Found to be in A-fib with RVR and severely low potassium Unclear etiology for his dizziness. Carotid ultrasound unremarkable Brain MRI with morning acute stroke small infarct in the left middle cerebral artery distribution Dizziness is chronic ENT consulted per Neuro recommendation (3) Acute hyponatremia: Code(s): E87.1 - Hypo-osmolality and hyponatremia Status: Acute Assessment and Plan: -Na 126 on admission -May be dehydration related -Chronic kidney disease appears to be at baseline -May be SIADH due to persistent pain of chronic abdominal bloating/pain syndrome Na 133 today (4) Atrial fibrillation with RVR: Code(s): I48.91 - Unspecified atrial fibrillation Status: Acute Assessment and Plan: -Afib with RVR with HR 110-145 in ER -Severely depleted potassium which has now been corrected -IV fluid replacement given in ER -No rate controlling medications noted on prior home med list -Oral metoprolol ordered x1 for rate control with mild improvement -Blood pressure soft -Continue Eliquis Cardiology on board Diltiazem started also received digoxin 05/06/2025 and IV metoprolol 05/06/2025 Echo with mildly low ejection fraction is 45-50% % likely due to atrial fibrillation. Status post HIEN cardioversion 05/10/2025 remains on sinus rhythm Continue Metoprolol 12.5mg bid and Cardizem 60 q8 per cardiology monitor (5) Chronic diastolic heart failure: Code(s): I50.32 - Chronic diastolic (congestive) heart failure Status: Acute Assessment and Plan: -Noted in history, no Echocardiogram on file -No hypoxia or major swelling -Does not appear fluid overloaded at this time -on Metolazone and Lasix monitor renal function (6) Symptoms consistent with irritable bowel syndrome: Code(s): K58.9 - Irritable bowel syndrome, unspecified Status: Acute Assessment and Plan: -Chronic and recurrent symptoms of alternating constipation and diarrhea -Was on Linzess but this has been changed by GI to Amitiza -Patient reports prune juice with Miralax makes him go but several bouts of diarrhea follow -Simethicone and Bentyl have not helped pain -CT on 03/09/[address] repeat 05/10/2025 with no acute abnormality. Hash GI to see again. Added Bentyl as needed Dulcolax suppository Likely IBS and follows GI (7) Lower abdominal pain: Code(s): R10.30 - Lower abdominal pain, unspecified Status: Acute Assessment and Plan: See IBS above X-ray abdomen with sclerotic lesions of the left S Latonya and right femoral head suspicious for metastatic disease. Bone scan: Prominent increased bone uptake at the left ischial yessica tuberosity consistent with metastatic prostate cancer. Second region of less intense uptake in the region of subtle sclerotic lesion in the T12 vertebral body also suspicious for metastatic disease He has a history of prostate cancer status post prostatectomy and followed by adjuvant radiation therapy more than 10 years ago. Repeat PSA came elevated at 44.4 He will need to follow up with Oncology as outpatient basis Abdominal pain CT with no acute abnormality 05/10/2025 Continues to complain of lower abdominal pain Add tramadol p.r.n. 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: Code(s): I63.512 - Cerebral infarction due to unspecified occlusion or stenosis of left middle cerebral artery Status: Acute Assessment and Plan: MRI brain came back positive for small infarct in the left middle cerebral artery distribution Does not have much deficit ECHO showed EF 45-50% and Carotid duplex no significant carotid artery stenosis Neurology consultation appreciate their recommendations Continue Aspirin, patient allergic to Lipitor Plan patient with abdominal pain and off and on diarrhea, was very weak at his GI office was sent to the ER, he was found to have hypokalemia and hyponatremia most likely 2/2 diarrhea and not eating and taking supplemental potassium, Dizziness Neurology evaluated and recommended ENT eval ENT consulted Hx of Prostate ca Bone scan now showed bone lesions Oncology consulted DVT prophylaxis on Sq Lovenox Subjective Date/time seen: 05/13/25 11:53 Interval history: Comfortable at bedside Oncology consulted for bone lesions ENT also consulted for vestibular dizziness eval Review of Systems Review of Systems: All systems reviewed & are unremarkable except as noted in HPI and below Exam Narrative: Patient is comfortable, NAD HEENT: eyes are clear and none icteric LUNGS:CTA HEART: Rate controlled irregular irregular S1S2 ABD: BS+, Soft and hyperesthetic lower abdominal wall Lower extremities: no edema SKIN: nonjaundiced Neuro: grossly intact. Objective Data Vital Signs Vital Signs: Vital Signs - 24 hr 05/12/25 12:00 05/12/25 16:00 05/12/25 16:00 Temperature 98.2 F Pulse Rate 71 62 63 Respiratory Rate 18 Blood Pressure 133/63 Pulse Oximetry 99 05/12/25 18:05 05/12/25 20:00 05/12/25 22:00 Temperature 97.5 F L 98 F Pulse Rate 60 71 77 Respiratory Rate 16 18 Blood Pressure 115/55 L 114/69 Pulse Oximetry 98 98 05/13/25 00:00 05/13/25 03:14 05/13/25 04:00 Temperature Pulse Rate 67 73 61 Respiratory Rate Blood Pressure Pulse Oximetry 05/13/25 04:46 05/13/25 06:00 05/13/25 08:00 Temperature 97.6 F Pulse Rate 68 75 51 L Respiratory Rate 18 Blood Pressure 121/67 Pulse Oximetry 99 05/13/25 08:07 05/13/25 08:07 05/13/25 08:07 Temperature Pulse Rate 58 L 62 80 Respiratory Rate Blood Pressure 111/52 L 111/64 112/56 L Pulse Oximetry 05/13/25 08:13 Temperature Pulse Rate 61 Respiratory Rate Blood Pressure Pulse Oximetry Intake/Output Intake/Output: Intake & Output 05/10/25 05/11/25 05/12/25 05/13/25 23:59 23:59 23:59 23:59 Intake Total 332 589 1477 395 Output Total 1780 900 900 Balance -1260 -106 400 395 Meds/Results Medications: Active Medications Generic Name Dose Route Start Last Admin Trade Name Freq PRN Reason Stop Dose Admin Acetaminophen 650 mg 05/07/25 04:04 05/13/25 08:32 Acetaminophen 325 Mg Tablet PO 650 mg Q6H PRN Administration Mild Pain (1-3) or Fever Apixaban 5 mg 05/03/25 22:45 05/13/25 08:13 Apixaban 5 Mg Tablet PO 5 mg Q12HR ILENE Administration Aspirin 81 mg 05/13/25 09:00 05/13/25 08:32 Aspirin 81 Mg Enteric Tablet PO 81 mg QAM ILENE Administration Cyanocobalamin 2,500 mcg 05/04/25 09:00 05/13/25 08:09 Cyanocobalamin 500 Mcg Tablet PO 2,500 mcg DAILY ILENE Administration Dicyclomine HCl 10 mg 05/11/25 17:06 05/12/25 09:20 Dicyclomine Hcl 10 Mg Capsule PO 10 mg BID PRN Administration Abdominal Cramping Diltiazem HCl 60 mg 05/08/25 12:00 05/13/25 06:33 Diltiazem Hcl 60 Mg Tablet PO 60 mg Q8HR ILENE Administration Furosemide 40 mg 05/04/25 09:00 05/04/25 08:32 Furosemide 40 Mg Tablet PO Not Given DAILY ILENE Lactulose 10 gm 05/03/25 22:43 05/13/25 08:06 Lactulose 20 Gm/30 Ml Udc PO 10 gm DAILY PRN Administration constipation Loteprednol Etabonate 1 drop 05/04/25 09:00 05/13/25 08:14 Loteprednol Etabonate 0.5% Oph 5 Ml Bottle EACH EYE 1 drop TID ILENE Administration Melatonin 5 mg 05/03/25 22:45 05/12/25 21:41 Melatonin 5 Mg Tablet PO 5 mg HS PRN Administration sleep Metolazone 5 mg 05/04/25 09:00 05/08/25 08:37 Metolazone 5 Mg Tablet PO 5 mg DAILY ILENE Administration Metoprolol Tartrate 12.5 mg 05/12/25 09:00 05/13/25 08:13 Metoprolol Tartrate 12.5 Mg Tablet PO 12.5 mg Q12HR ILENE Administration Polyethylene Glycol 17 gm 05/03/25 22:43 05/12/25 09:20 Polyethylene Glycol 3350 17 Gm Powd.Pack PO 17 gm DAILY PRN Administration constipation Potassium Chloride 40 meq 05/04/25 08:00 05/13/25 08:11 Potassium Chloride 20 Meq Er Tablet PO 40 meq BIDWM ILENE Administration Simethicone 250 mg 05/04/25 08:00 05/13/25 08:10 Simethicone 125 Mg Chew Tab PO 250 mg 0800,1200,1700,2100 ILENE Administration Sodium Chloride 1 spray 05/03/25 22:43 05/04/25 16:36 Saline 0.65% Kenji Soln 44 Ml Btl NASAL 1 spray BID PRN Administration dry nasal passages Tramadol HCl 25 mg 05/12/25 08:27 05/12/25 15:19 Tramadol Hcl (*Crx) 25 Mg Tablet PO 25 mg Q4H PRN Administration Pain Rated 4-6 Radiology Results: ITS Impressions Head CT 05/03/25 13:10 IMPRESSION: 1. No acute intracranial process. 2. Age-related changes including moderate diffuse volume loss and mild to moderate scattered white matter hypoattenuation consistent with chronic small vessel ischemic disease. Chest X-Ray 05/03/25 13:16 IMPRESSION: 1. No acute cardiopulmonary disease. Abdomen X-Ray 05/05/25 11:12 Impression: 1: Sclerotic lesions of the left ischium and right femoral head, suspicious for metastatic disease. Recommend correlation with nuclear bone scan. Further evaluation for possible prostate cancer recommended. Bone Scan Nuclear Medicine 05/06/25 16:31 IMPRESSION: 1. Prominent increased bone uptake at the left ischial tuberosity consistent with metastatic prostate cancer. 2. Second region of less intense uptake in the region of subtle sclerotic lesion in the T12 vertebral body, also suspicious for metastatic disease. Carotid Doppler Study 05/09/25 10:52 Impression: No hemodynamically significant stenosis of the bilateral internal carotid arteries. Antegrade flow in the bilateral vertebral arteries. Note: The methodology used is an indirect measurement validated against a direct method (such as the NASCET criteria) that compares diameters at the stenosis to the distal ICA. 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 No acute or subacute hemorrhage. Abdomen/Pelvis CT 05/11/25 05:31 Impression: No acute abnormality in the abdomen or pelvis. Small bilateral pleural effusions, right greater than left. Labs Labs: Laboratory Results - last 24 hr 05/13/25 05:49 WBC 7.2 RBC 3.80 L Hgb 11.9 L Hct 36.5 L MCV 96.1 MCH 31.3 MCHC 32.6 RDW 14.7 H Plt Count 298 MPV 9.4 Quality VTE Prophylaxis VTE prophylaxis: pharmacologic ordered (Eliquis)
--- NOTE | 2025-05-13 18:20 | WPDONCPN ---
Progress Note: A&P Assessment and Plan (1) Prostate cancer: Code(s): C61 - Malignant neoplasm of prostate Status: Acute Assessment and Plan: Metastatic prostate cancer status post prostatectomy and adjuvant radiation therapy treatment 10 years ago. Bone scan performed now showed metastatic bone involvement including left ischial tuberosity and T12 vertebral body. PSA came back elevated at 44.4. I will start androgen deprivation therapy with Firmagon injection in the hospital and then continue as an outpatient on a monthly basis. He will follow-up in the office. Subjective Date/time seen: 05/13/25 18:20 Interval history: Patient is resting comfortably. He has been complaining of some constipation and abdominal distension. Denies any bone pain. Complain of loss of appetite. Exam Narrative: Lungs are clear to auscultation bilaterally Cardiovascular regular rate rhythm no murmur Abdomen soft distended bowel sounds positive Extremities no edema Objective Data Vital Signs Vital Signs: Vital Signs - 24 hr 05/12/25 20:00 05/12/25 22:00 05/13/25 00:00 Temperature 36.6 C Pulse Rate 71 77 67 Respiratory Rate 18 Blood Pressure 114/69 Pulse Oximetry 98 05/13/25 03:14 05/13/25 04:00 05/13/25 04:46 Temperature Pulse Rate 73 61 68 Respiratory Rate Blood Pressure Pulse Oximetry 05/13/25 06:00 05/13/25 08:00 05/13/25 08:07 Temperature 36.4 C Pulse Rate 75 51 L 58 L Respiratory Rate 18 Blood Pressure 121/67 111/52 L Pulse Oximetry 99 05/13/25 08:07 05/13/25 08:07 05/13/25 08:13 Temperature Pulse Rate 62 80 61 Respiratory Rate Blood Pressure 111/64 112/56 L Pulse Oximetry 05/13/25 12:00 05/13/25 14:00 Temperature 36.6 C Pulse Rate 69 57 L Respiratory Rate 18 Blood Pressure 105/59 L Pulse Oximetry 100 Intake/Output Intake/Output: Intake & Output 05/10/25 05/11/25 05/12/25 05/13/25 23:59 23:59 23:59 23:59 Intake Total 731 546 7922 1185 Output Total 1780 900 900 400 Balance -1260 -106 400 785 Meds/Results Medications: Active Medications Generic Name Dose Route Start Last Admin Trade Name Freq PRN Reason Stop Dose Admin Acetaminophen 650 mg 05/07/25 04:04 05/13/25 17:54 Acetaminophen 325 Mg Tablet PO 650 mg Q6H PRN Administration Mild Pain (1-3) or Fever Apixaban 5 mg 05/03/25 22:45 05/13/25 08:13 Apixaban 5 Mg Tablet PO 5 mg Q12HR ILENE Administration Aspirin 81 mg 05/13/25 09:00 05/13/25 08:32 Aspirin 81 Mg Enteric Tablet PO 81 mg QAM ILENE Administration Cyanocobalamin 2,500 mcg 05/04/25 09:00 05/13/25 08:09 Cyanocobalamin 500 Mcg Tablet PO 2,500 mcg DAILY ILENE Administration Dicyclomine HCl 10 mg 05/11/25 17:06 05/12/25 09:20 Dicyclomine Hcl 10 Mg Capsule PO 10 mg BID PRN Administration Abdominal Cramping Diltiazem HCl 60 mg 05/08/25 12:00 05/13/25 14:29 Diltiazem Hcl 60 Mg Tablet PO 60 mg Q8HR ILENE Administration Furosemide 40 mg 05/04/25 09:00 05/04/25 08:32 Furosemide 40 Mg Tablet PO Not Given DAILY ILENE Lactulose 10 gm 05/03/25 22:43 05/13/25 08:06 Lactulose 20 Gm/30 Ml Udc PO 10 gm DAILY PRN Administration constipation Loteprednol Etabonate 1 drop 05/04/25 09:00 05/13/25 15:59 Loteprednol Etabonate 0.5% Oph 5 Ml Bottle EACH EYE 1 drop TID ILENE Administration Melatonin 5 mg 05/03/25 22:45 05/12/25 21:41 Melatonin 5 Mg Tablet PO 5 mg HS PRN Administration sleep Metolazone 5 mg 05/04/25 09:00 05/08/25 08:37 Metolazone 5 Mg Tablet PO 5 mg DAILY ILENE Administration Metoprolol Tartrate 12.5 mg 05/12/25 09:00 05/13/25 08:13 Metoprolol Tartrate 12.5 Mg Tablet PO 12.5 mg Q12HR ILENE Administration Polyethylene Glycol 17 gm 05/03/25 22:43 05/12/25 09:20 Polyethylene Glycol 3350 17 Gm Powd.Pack PO 17 gm DAILY PRN Administration constipation Potassium Chloride 40 meq 05/04/25 08:00 05/13/25 16:01 Potassium Chloride 20 Meq Er Tablet PO 40 meq BIDWM ILENE Administration Simethicone 250 mg 05/04/25 08:00 05/13/25 16:02 Simethicone 125 Mg Chew Tab PO 250 mg 0800,1200,1700,2100 ILENE Administration Sodium Chloride 1 spray 05/03/25 22:43 05/04/25 16:36 Saline 0.65% Kenji Soln 44 Ml Btl NASAL 1 spray BID PRN Administration dry nasal passages Tramadol HCl 25 mg 05/12/25 08:27 05/12/25 15:19 Tramadol Hcl (*Crx) 25 Mg Tablet PO 25 mg Q4H PRN Administration Pain Rated 4-6 Radiology Results: ITS Impressions Head CT 05/03/25 13:10 IMPRESSION: 1. No acute intracranial process. 2. Age-related changes including moderate diffuse volume loss and mild to moderate scattered white matter hypoattenuation consistent with chronic small vessel ischemic disease. Chest X-Ray 05/03/25 13:16 IMPRESSION: 1. No acute cardiopulmonary disease. Abdomen X-Ray 05/05/25 11:12 Impression: 1: Sclerotic lesions of the left ischium and right femoral head, suspicious for metastatic disease. Recommend correlation with nuclear bone scan. Further evaluation for possible prostate cancer recommended. Bone Scan Nuclear Medicine 05/06/25 16:31 IMPRESSION: 1. Prominent increased bone uptake at the left ischial tuberosity consistent with metastatic prostate cancer. 2. Second region of less intense uptake in the region of subtle sclerotic lesion in the T12 vertebral body, also suspicious for metastatic disease. Carotid Doppler Study 05/09/25 10:52 Impression: No hemodynamically significant stenosis of the bilateral internal carotid arteries. Antegrade flow in the bilateral vertebral arteries. Note: The methodology used is an indirect measurement validated against a direct method (such as the NASCET criteria) that compares diameters at the stenosis to the distal ICA. 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 No acute or subacute hemorrhage. Abdomen/Pelvis CT 05/11/25 05:31 Impression: No acute abnormality in the abdomen or pelvis. Small bilateral pleural effusions, right greater than left. Labs Labs: Laboratory Results - last 24 hr 05/13/25 05:49 WBC 7.2 RBC 3.80 L Hgb 11.9 L Hct 36.5 L MCV 96.1 MCH 31.3 MCHC 32.6 RDW 14.7 H Plt Count 298 MPV 9.4
[2025-05-13] MEDS: MELATONIN 5 MG TABLET PO (22:36)
[2025-05-14] VITALS (7 sets, daily range): BP systolic 102–116; BP diastolic 51–63; PULSE 58–70; RESP 16; TEMP 36.2–36.3; O2SAT 98–99
[2025-05-14 06:03] LABS: Basophils Percent Auto 0.5 % (0.2-1.2); Eosinophils Absolute Auto 0.1 K/mm3 (0-0.3); Hematocrit 36.2 % (42.0-52.0); Hemoglobin 11.8 g/dL (14.0-18.0); Immature Granulocyte Absolute 0.05 K/mm3 (0.00-0.031); Immature Granulocyte Percent A 0.6 % (0-0.5); Lymphocytes Absolute Auto 0.52 K/mm3 (0.9-3.2); Lymphocytes Percent Auto 6.3 % (18.3-44.2); Mean Corpuscular HGB Conc 32.6 g/dl (32-36); Mean Corpuscular Hemoglobin 31.2 pg (26-34); Mean Corpuscular Volume 95.8 fl (80-100); Mean Platelet Volume 9.5 fl (7.4-10.4); Monocytes Percent Auto 12.2 % (2.6-8.5); Neutrophils Absolute Auto 6.5 K/mm3 (1.3-6.7); Neutrophils Percent Auto 79.4 % (45.5-73.1); Platelet Count Result 316 k/mm3 (150-375); Red Blood Count 3.78 M/mm3 (4.6-6.20); Red Cell Distribution Width 14.6 % (11.5-14.5); White Blood Count 8.2 K/mm3 (4.5-10.0)
[2025-05-14] MEDS: dilTIAZem HCL 60 MG TABLET PO ×2 (06:07→13:13)
[2025-05-14 06:34] LABS: Alanine Aminotransferase 12 U/L (6-50); Albumin Level 3.4 g/dL (3.5-5.1); Alkaline Phosphatase 82 U/L (38-126); Anion Gap 8 mmol/L (4-12); Aspartate Amino Transferase 23 U/L (17-59); Bilirubin,Total 0.5 mg/dL (0.2-1.3); Blood Urea Nitrogen 13 mg/dL (9-20); Calcium 8.9 mg/dL (8.4-10.2); Carbon Dioxide 22 mmol/L (22-30); Chloride 101 mmol/L (98-107); Estimated CRCL calculation 48 ml/min; Estimated Glomerular Filt Rate 51; Glucose 113 mg/dL (65-110); Magnesium 1.7 mg/dL (1.6-2.3); Potassium 4.1 mmol/L (3.4-5.0); Sodium 131 mmol/L (137-145); Total Protein 6.1 g/dL (6.3-8.2)
[2025-05-14] MEDS: METOPROLOL TARTRATE 12.5 MG TABLET PO (08:21)
[2025-05-14] MEDS: BICALUTAMIDE (*CHEMO) 50 MG TABLET PO (08:21)
[2025-05-14] MEDS: SIMETHICONE 125 MG CHEW TAB 250 MG PO ×2 (08:21→13:13)
[2025-05-14] MEDS: POTASSIUM CHLORIDE 20 MEQ ER TABLET 40 MEQ PO (08:21)
[2025-05-14] MEDS: APIXABAN 5 MG TABLET PO (08:21)
[2025-05-14] MEDS: ASPIRIN 81 MG ENTERIC TABLET PO (08:21)
[2025-05-14] MEDS: LOTEPREDNOL ETABONATE 0.5% OPH 5 ML BOTTLE 1 DROP EACH EYE ×2 (08:26→13:13)
[2025-05-14] MEDS: CYANOCOBALAMIN 500 MCG TABLET 2500 MCG PO (08:26)
[2025-05-14] MEDS: DICYCLOMINE HCL 10 MG CAPSULE PO (08:26)
--- NOTE | 2025-05-14 10:53 | PCOTNOTE ---
Attempted to see Patient at this time. Patient very agitated and states I'm only comfortable in bed, I get very dizzy trying to move or get up, Nobody listens to me, I'm also very mad at the doctors. Just leave me alone, they say I'm leaving this place.
--- NOTE | 2025-05-14 12:24 | P.DS_ITS ---
DS: Admitting Diagnosis Discharge Date 05/14/25 Admitting Diagnosis hypokalemia, abd pain DS: Discharge Diagnosis Discharge Diagnosis (1) Acute hypokalemia: Code(s): E87.6 - Hypokalemia Status: Acute Assessment and Plan: -Severe hypokalemia with K of 2.1 on ER visit. improved to 4.1 -Prescribed potassium tablets but has not been taking them for unknown amount of time -Magnesium 2.9 replaced patient has IBS with alternating diarrhea adn constipation (2) Dizziness: Code(s): R42 - Dizziness and giddiness Status: Acute Assessment and Plan: -Presenting complaint was dizziness, near syncope at GI office -Found to be in A-fib with RVR and severely low potassium Unclear etiology for his dizziness. Carotid ultrasound unremarkable Brain MRI with morning acute stroke small infarct in the left middle cerebral artery distribution Dizziness is chronic (3) Acute hyponatremia: Code(s): E87.1 - Hypo-osmolality and hyponatremia Status: Acute Assessment and Plan: -Na 126 on admission improved to 131 -May be dehydration related -Chronic kidney disease appears to be at baseline -May be SIADH due to persistent pain of chronic abdominal bloating/pain syndrome (4) Atrial fibrillation with RVR: Code(s): I48.91 - Unspecified atrial fibrillation Status: Acute Assessment and Plan: -Afib with RVR with HR 110-145 in ER -Severely depleted potassium which has now been corrected -IV fluid replacement given in ER -No rate controlling medications noted on prior home med list -Oral metoprolol ordered x1 for rate control with mild improvement -Blood pressure soft -Continue Eliquis Cardiology on board Diltiazem started also received digoxin 05/06/2025 and IV metoprolol 05/06/2025 Echo with mildly low ejection fraction is 45-50% % likely due to atrial fibrillation. Status post HIEN cardioversion 05/10/2025 remains on sinus rhythm Continue Metoprolol 12.5mg bid and Cardizem 180 daily per cardiology monitor (5) Chronic diastolic heart failure: Code(s): I50.32 - Chronic diastolic (congestive) heart failure Status: Acute Assessment and Plan: -Noted in history, no Echocardiogram on file -No hypoxia or major swelling -Does not appear fluid overloaded at this time -on Metolazone and Lasix monitor renal function (6) Symptoms consistent with irritable bowel syndrome: Code(s): K58.9 - Irritable bowel syndrome, unspecified Status: Acute Assessment and Plan: -Chronic and recurrent symptoms of alternating constipation and diarrhea -Was on Linzess but this has been changed by GI to Amitiza -Patient reports prune juice with Miralax makes him go but several bouts of diarrhea follow -Simethicone and Bentyl as needed -CT on 03/09/[address] repeat 05/10/2025 with no acute abnormality. Hash GI to see again. Added Bentyl as needed Dulcolax suppository Likely IBS and follows GI (7) Lower abdominal pain: Code(s): R10.30 - Lower abdominal pain, unspecified Status: Acute Assessment and Plan: See IBS above X-ray abdomen with sclerotic lesions of the left S Latonya and right femoral head suspicious for metastatic disease. Bone scan: Prominent increased bone uptake at the left ischial yessica tuberosity consistent with metastatic prostate cancer. Second region of less intense uptake in the region of subtle sclerotic lesion in the T12 vertebral body also suspicious for metastatic disease He has a history of prostate cancer status post prostatectomy and followed by adjuvant radiation therapy more than 10 years ago. 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: Code(s): I63.512 - Cerebral infarction due to unspecified occlusion or stenosis of left middle cerebral artery Status: Acute Assessment and Plan: MRI brain came back positive for small infarct in the left middle cerebral artery distribution Does not have much deficit ECHO showed EF 45-50% and Carotid duplex no significant carotid artery stenosis Neurology consultation appreciate their recommendations Continue Aspirin, patient allergic to Lipitor Plan patient with abdominal pain and off and on diarrhea, was very weak at his GI office was sent to the ER, he was found to have hypokalemia and hyponatremia most likely 2/2 diarrhea and not eating and taking supplemental potassium, Dizziness Neurology evaluated Hx of Prostate ca Bone scan now showed bone lesions Oncology follow up DVT prophylaxis on Sq Lovenox DS: Summary Hospital Course Hospital Course: patient with abdominal pain and off and on diarrhea, was very weak at his GI office was sent to the ER, he was found to have hypokalemia and hyponatremia most likely 2/2 diarrhea and not eating and taking supplemental potassium. Potassium improved. Patient had AFib with RVR underwent HIEN cardioversion on 05/10/2025. Started on beta-asim per Cardiology team. Brain MRI showed acute stroke. Neurology was consulted continue with aspirin and Eliquis Chronic GI symptoms. GI team was consulted and added Bentyl as needed X-ray abdomen concerning for occult dictation on right femoral head. Bone scan showed possible prostate cancer with metastasis. Oncology was consulted and recommended Casodex and follow-up outpatient. Status at Discharge Overall status at discharge: patient is progressing back to baseline Time Spent with Patient Time attestation: Total time spent providing and/or coordinating discharge services: Time spent: Greater than 30 minutes Exam Narrative: Patient is comfortable, NAD HEENT: eyes are clear and none icteric LUNGS:CTA HEART: Rate controlled irregular irregular S1S2 ABD: BS+, Soft and hyperesthetic lower abdominal wall Lower extremities: no edema SKIN: nonjaundiced Neuro: grossly intact. DS: Data Data Completed and Pending Labs on day of discharge: Labs from last 24 hours 05/14/25 05:28 WBC 8.2 RBC 3.78 L Hgb 11.8 L Hct 36.2 L MCV 95.8 MCH 31.2 MCHC 32.6 RDW 14.6 H Plt Count 316 MPV 9.5 Immature Gran % (Auto) 0.6 H Neut % (Auto) 79.4 H Lymph % (Auto) 6.3 L [place] % (Auto) 12.2 H Eos % (Auto) 1.0 Baso % (Auto) 0.5 Lymph # (Auto) 0.52 L [place] # (Auto) 1.0 H Eos # (Auto) 0.1 Baso # (Auto) 0.0 Abs Immat Gran (auto) 0.05 H Absolute Neuts (auto) 6.5 Absolute Nucleated RBC 0.000 Nucleated RBC % 0.0 Sodium 131 L Potassium 4.1 Chloride 101 Carbon Dioxide 22 Anion Gap 8 BUN 13 Creatinine 1.34 H Estim Creat Clear Calc 48 Estimated GFR 51 L Glucose 113 H Calcium 8.9 Magnesium 1.7 Total Bilirubin 0.5 AST 23 ALT 12 Alkaline Phosphatase 82 Total Protein 6.1 L Albumin 3.4 L Discharge Plan Discharge Attending physician on discharge: Jade Heredia Consulting providers: Joey Patel; Swapna Wells; Srinivasan Lima; Brian Alvarez Discharging Clinician: Jade Heredia Patient Disposition: Inpatient Rehab Facility Activity: as tolerated Diet: as tolerated and heart healthy Discharge Instructions: Please take your blood pressure and heart rate regularly and report to pCP Follow-up with neurology clinic and oncology clinical impression Follow-up with ENT Clinic as outpatient for your chronic dizziness Continue Casodex daily Patient Language: Amharic Stand Alone Forms: General Discharge Information Follow-up/Referrals: Joey Patel MD [Physician] - Call for Appointment Maxwell Lucio MD [Primary Care Provider] - 1 Week Srinivasan Lima MD [Physician] - Call for Appointment Arnold Jacobsen MD [Physician] - Call for Appointment Discharge Medications: New bicalutamide 50 mg Tablet 50 mg PO QAM Qty: 30 0RF aspirin 81 mg Tablet,Delayed Release (Dr/Ec) 81 mg PO QAM Qty: 30 0RF metoprolol succinate 25 mg tablet extended release 24 hr 12.5 mg PO BID Qty: 30 0RF diltiazem HCl [Cardizem CD] 180 mg capsule,extended release 24hr 180 mg PO DAILY Qty: 30 0RF Continued simethicone [Gas Relief (simethicone)] 125 mg tablet,chewable 250 mg PO ACHS 90 Days Qty: 720 3RF cyanocobalamin (vitamin B-12) 2,500 mcg lozenge 2,500 mcg PO DAILY Eliquis 5 mg tablet 5 mg PO Q12H riboflavin (vitamin B2) 100 mg tablet 300 mg PO DAILY melatonin 5 mg tablet 5 mg PO HS PRN (Reason: sleep) [place] Nasal 0.65 % aerosol,spray 1 spray intranasal BID PRN (Reason: dry nasal passages) acetaminophen 650 mg tablet extended release 650 mg PO Q12H PRN (Reason: pain) furosemide 40 mg tablet 40 mg PO DAILY metolazone 5 mg tablet 5 mg PO DAILY meloxicam 7.5 mg tablet 7.5 mg PO DAILY PRN (Reason: pain) potassium chloride 20 mEq tablet,ER particles/crystals 80 meq PO DAILY Acidophilus 1 cap PO DAILY loteprednol etabonate 0.5 % drops,suspension 1 drp EACH EYE TID magnesium oxide 400 mg magnesium capsule 400 mg PO DAILY ergocalciferol (vitamin D2) 1,250 mcg (50,000 unit) capsule 1,250 mcg PO WEEKLY lactulose 10 gram/15 mL solution 10 g PO DAILY PRN (Reason: constipation) polyethylene glycol 3350 [Miralax] 17 gram/dose powder 17 g PO DAILY PRN (Reason: constipation) Discontinued naproxen 500 mg tablet 500 mg PO BID PRN (Reason: pain) Date of admission: 05/03/25 14:28 Primary Care Provider: Maxwell Lucio Admitting Provider: Nydia Helton Attending physician on admission: Jade Heredia Condition: Guarded Prognosis Quality VTE Prophylaxis VTE prophylaxis: pharmacologic ordered (Eliquis)
[2025-05-14] MEDS: traMADol HCL (*CRX) 25 MG TABLET PO (13:13)
== END 2025-05-14 17:30 | DRG 640 ==
LOC: ANHED 14:27 → ANHIMU 15:14 → ANH3MEDSUR 05-04 13:47 → ANHIMU 05-05 18:43 → ANH3MEDSUR 05-12 17:47
PROVIDERS: Internal Medicine; Internal Medicine Hematology & Oncology; Internal Medicine Interventional Cardiology; Nurse Practitioner; Admitting Provider Family Medicine; Emergency Provider Registered Nurse; PCP Family Medicine; Visit Provider Internal Medicine
PROC: 5A2204Z Restoration of Cardiac Rhythm, Single (ICD-10-PCS; principal; 2025-05-10 09:30)
DX: E87.6 Hypokalemia (principal); I63.512 Cerebral infarction due to unspecified occlusion or stenosis of left middle cerebral artery; I50.32 Chronic diastolic (congestive) heart failure; C79.51 Secondary malignant neoplasm of bone; I42.9 Cardiomyopathy, unspecified; I48.0 Paroxysmal atrial fibrillation; E87.1 Hypo-osmolality and hyponatremia; R42 Dizziness and giddiness; K58.9 Irritable bowel syndrome, unspecified; I11.0 Hypertensive heart disease with heart failure; K58.2 Mixed irritable bowel syndrome; E78.5 Hyperlipidemia, unspecified; E86.0 Dehydration; Z96.642 Presence of left artificial hip joint; Z85.46 Personal history of malignant neoplasm of prostate; Z87.891 Personal history of nicotine dependence; Z79.01 Long term (current) use of anticoagulants; R62.7 Adult failure to thrive; Z68.30 Body mass index [BMI] 30.0-30.9, adult
CPT/HCPCS: 36415; 70450; 70553; 71045; 74018; 74176; 78306; 80048; 80053; 80061; 80069; 80162; 81003; 82948; 83735; 84153; 84300; 84443; 84484; 85025; 85027; 85610; 85730; 92960; 93005; 93880; 96361; 96365; 96366; 96375; 97110; 97165; 99285; A9270; A9503; A9577; C8929; J1160; J2250; J2270; J3010; J3480; J7030; J7040; Q9957

== ENCOUNTER 2025-05-23 23:43 | Observation (INO) | payer MEDICARE, SELFPAY ==
--- NOTE | ~2025-05-23 | CT_ITS ---
CT of the Abdomen and Pelvis: Indication: Abdominal pain Technique: 2.5 mm axial scans were obtained through the abdomen and pelvis following intravenous adm inistration of 100 cc of Omnipaque 350. Dose reduction technique was used on this scan by utilizing a utomated exposure control and iterative reconstruction technique. The dose-length product (DLP) was 1 273.38 mGy-cm. COMPARISON: 05/11/2025 Findings: Scans through the lung bases are unremarkable. Cardiomegaly noted. The liver, spleen, pancreas, gallbladder, adrenals and kidneys are within normal limits. There are at herosclerotic calcifications of the aorta. No lymphadenopathy. There is probable extensive wall thickening of the distal descending colon and proximal image sequenc e colon, suggestive of infectious/inflammatory colitis. Prominent stool suggests constipation. Images through the pelvis are degraded by streak artifact from left hip arthroplasty. Urinary bladder appears unremarkable. Status post prostatectomy. No pelvic mass seen. No ascites. Impression: Suspected infectious/inflammatory colitis, as detailed above. Constipation. Reviewed, dictated and finalized at location . Impression: Suspected infectious/inflammatory colitis, as detailed above. Constipation.
[2025-05-23 23:39] VITALS: PULSE 91; RESP 16; TEMP 36.3; O2SAT 97
--- NOTE | 2025-05-23 23:54 | ECG_ITS ---
Test Date: 2025-05-23 23:55:27 Measurements Intervals Dorris Rate: 92 P: 0 SD: 0 QRS: 22 QRSD: 102 T: -37 QT: 368 QTc: 457 Interpretive Statements ATRIAL FIBRILLATION WITH ABERRANT CONDUCTION OR VENTRICULAR PREMATURE COMPLEXES ST-T WAVE ABNORMALITY IN ANTEROLATERAL LEADS- CONSIDER ISCHEMIA BASELINE ARTIFACT- I, II, III, AVR, AVL, V1, V4-V6 ABNORMAL ECG Compared to ECG 05/10/2025 09:59:07 SINUS RHYTHM NO LONGER PRESENT POSSIBLE ISCHEMIA NOW PRESENT Electronically Signed On 05-24-2025 06:26:49 CDT by Tanvir Dumont D.O.
--- NOTE | 2025-05-23 23:59 | ED.ABDPAIN ---
HPI - Abdominal Pain General Chief Complaint: Abdominal Pain <REBECCA Carter Last Filed: 05/24/25 01:49> Stated Complaint: abd pain <REBECCA Carter Last Filed: 05/24/25 01:49> Time Seen by Provider: 05/23/25 23:44 <Vanessa Knott PA-C - Last Filed: 05/24/25 01:49> Source: patient <REBECCA Carter Last Filed: 05/24/25 01:49> Mode of arrival: EMS <REBECCA Carter Last Filed: 05/24/25 01:49> Limitations: no limitations <REBECCA Carter Last Filed: 05/24/25 01:49> History of Present Illness HPI narrative: Patient is a 5-year-old male, with PMH of CHF, HTN, prostate CA, pAFIB on Eliquis, who presents the ED via EMS with report of abdominal pain/distension. Patient reports he has been constipated for the past 1 week. He has been having diffuse pain throughout his lower abdomen as well as abdominal distension. Lives at a local longterm facility and had outpatient abd XR performed which showed possible ileus. Sent here for further evaluation. Patient denies N/V, fevers, difficulty urinating, CP, SOB. <Vanessa Knott PA-C - Last Filed: 05/24/25 01:49> Related Data Home Medications: Home Medications ?Medication ?Instructions ?Recorded ?Confirmed ?Last Taken ?Type Acidophilus 1 cap PO DAILY 01/20/25 05/03/25 01/26/25 History acetaminophen 650 mg 650 mg PO Q12H PRN pain 01/20/25 05/03/25 Unknown History tablet,extended release apixaban 5 mg tablet (Eliquis) 5 mg PO Q12H 01/20/25 05/03/25 01/23/25 History cyanocobalamin (vitamin B-12) 2,500 mcg PO DAILY 01/20/25 05/03/25 01/26/25 History 2,500 mcg sublingual lozenge ergocalciferol (vitamin D2) 1,250 1,250 mcg PO WEEKLY 01/20/25 05/03/25 01/22/25 History mcg (50,000 unit) capsule furosemide 40 mg tablet 40 mg PO DAILY 01/20/25 05/03/25 01/26/25 History loteprednol etabonate 0.5 % eye 1 drp EACH EYE TID 01/20/25 05/03/25 01/26/25 History drops,suspension magnesium oxide 400 mg PO DAILY 01/20/25 05/03/25 01/26/25 History melatonin 5 mg tablet 5 mg PO HS PRN sleep 01/20/25 05/03/25 Unknown History meloxicam 7.5 mg tablet 7.5 mg PO DAILY PRN pain 01/20/25 05/03/25 Unknown History metolazone 5 mg tablet 5 mg PO DAILY 01/20/25 05/03/25 01/26/25 History potassium chloride 20 mEq 80 meq PO DAILY 01/20/25 05/03/25 01/26/25 History tablet,extended release(part/cryst) riboflavin (vitamin B2) 100 mg 300 mg PO DAILY 01/20/25 05/03/25 01/26/25 History tablet sodium chloride 0.65 % nasal spray 1 spray intranasal BID PRN dry 01/20/25 05/03/25 Unknown History aerosol (Deep Sea Nasal) nasal passages lactulose 10 gram/15 mL oral 10 g PO DAILY PRN constipation 05/03/25 05/03/25 Unknown History solution polyethylene glycol 3350 17 17 g PO DAILY PRN constipation 05/03/25 05/03/25 Unknown History gram/dose oral powder (Miralax) <Vanessa Knott PA-C - Last Filed: 05/24/25 01:49> Allergies/Adverse Reactions: Allergies Allergy/AdvReac Type Severity Reaction Status Date / Time atorvastatin Allergy Unknown Verified 05/24/25 00:13 duloxetine Allergy Unknown Verified 05/24/25 00:13 <Vanessa Knott PA-C - Last Filed: 05/24/25 01:49> Review of Systems Review of Systems: All systems reviewed & are unremarkable except as noted in HPI. 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 Code status: Full code. Smoking status: Former smoker Tobacco type: cigarettes Smoking end date: 11/25/99 Alcohol intake: former Substance use: never Do You Feel Safe in your Home?: Yes Lack of Transportation: No Lack of Food: Never True Current Housing: I Have Housing Concerned About Future Housing: No Difficulty Paying Gas/Electric Bills: No Difficulty Paying for Meds: No Currently Unemployed: No Education: Associate Degree Difficulty w/ Childcare or Family Care: No Living arrangements: assisted living Spiritual care concerns: No <Vanessa Knott PA-C - Last Filed: 05/24/25 01:49> Exam Narrative: GENERAL: Elderly but well appearing, well-nourished, non-toxic, in no acute distress. HEAD: Normocephalic, atraumatic. RESPIRATORY: Airway patent, respirations nonlabored. Clear to auscultation bilaterally, no rales, rhonchi, wheezing. CARDIOVASCULAR: Regular rate and rhythm without murmurs, rubs, or gallops. ABDOMINAL: Abdomen is somewhat distended, but still soft. Hyperactive BS. Diffuse tenderness in lower abdomen, worst in LLQ. MUSCULOSKELETAL: Moves all extremities. No gross deformities. SKIN: Warm, dry, normal color. NEURO: A&O X3. Speech clear. PSYCHIATRIC: Appropriate mood and affect. Normal interaction. <Vanessa Knott PA-C - Last Filed: 05/24/25 01:49> Procedures Rectal Disimpaction Rectal Disimpaction #1: Rectal Disimpaction Date: 05/24/25 <Natalee Brand MD - Last Filed: 05/24/25 07:51> Indication: fecal impaction <Natalee Brand MD - Last Filed: 05/24/25 07:51> Procedural Sedation: No <Natalee Brand MD - Last Filed: 05/24/25 07:51> Sedation/Analgesia: opioids <Natalee Brand MD - Last Filed: 05/24/25 07:51> Technique: manual disimpaction with gloved finger <Natalee Brand MD - Last Filed: 05/24/25 07:51> Patient Tolerated Procedure: well and no complications <Natalee Brand MD - Last Filed: 05/24/25 07:51> Additional Comments: Soft stool in rectal vault. <Natalee Brand MD - Last Filed: 05/24/25 07:51> Course Course Emergency Course: Patient signed out to me at [address] He is complaining of pain. Analgesic medication ordered. CT results from stat rad as below, concerning for impaction. Fecal disimpaction attempted but without firm stool in rectal vault. There is stool but it feels soft. Complaining of abdominal pain but not rectal pain. Attempted bowel regimen in the ED including PO and enema. [facility] as he hasn't been fixed yet. Another round of enema and medications ordered. Radiology in-house reads CT as below, now with possible colitis. Given this, Bentyl, ciprofloxacin and Flagyl are ordered and I did discuss patient with hospitalist again. Patient will now be admitted given this and his leukocytosis although he has successfully had 3 bowel movements. He states he is not feeling better. I suspect some of that to be baseline. <Natalee Brand MD - Last Filed: 05/24/25 07:51> Vital Signs Vital signs: Vital Signs Temperature 97.4 F L 05/23/25 23:39 Pulse Rate 91 05/23/25 23:39 Respiratory Rate 16 05/23/25 23:39 Pulse Oximetry 97 05/23/25 23:39 Oxygen Delivery Room Air 05/23/25 23:39 Temperature 97.4 F L 05/23/25 23:39 Pulse Rate 91 05/23/25 23:39 Respiratory Rate 16 05/23/25 23:39 Blood Pressure 102/69 05/24/25 00:05 Pulse Oximetry 97 05/23/25 23:39 Oxygen Delivery Room Air 05/23/25 23:39 <Vanessa Knott PA-C - Last Filed: 05/24/25 01:49> Vital Signs Temperature 97.4 F L 05/23/25 23:39 Pulse Rate 91 05/23/25 23:39 Respiratory Rate 16 05/23/25 23:39 Pulse Oximetry 97 05/23/25 23:39 Oxygen Delivery Room Air 05/23/25 23:39 Temperature 97.4 F L 05/23/25 23:39 Pulse Rate 91 05/23/25 23:39 Respiratory Rate 16 05/23/25 23:39 Blood Pressure 102/69 05/24/25 00:05 Pulse Oximetry 97 05/23/25 23:39 Oxygen Delivery Room Air 05/23/25 23:39 <Natalee Brand MD - Last Filed: 05/24/25 07:51> MDM - Abdominal Pain MDM Narrative Medical decision making narrative: Patient presented to ED from local longterm facility with report of abdominal pain, distention, constipation x1 week. Outpatient imaging showing possible ileus. Vital signs are stable upon arrival. BP borderline low 100s. Will initiate fluids. Patient in no acute distress. Laboratory studies with marked leukocytosis of 19.3. Neutrophil predominance. No bandemia. CMP with sodium 132. Potassium 3.1. Will replace. Creatinine slightly bumped from baseline. Today 1.79. Baseline around 1.3. Fluids are ongoing. Lactic acid within normal range at 1.9. Normal LFTs and lipase. UA clear. CT abd/pelvis obtained. Care signed out to Dr. Brand at shift change pending STAT RAD CT imaging/disposition. <Vanessa Knott PA-C - Last Filed: 05/24/25 01:49> Medical Records Attestation: I reviewed the patient's medical records. <Vanessa Knott PA-C - Last Filed: 05/24/25 01:49> Lab Data Attestation: I reviewed the patient's lab results. <Vanessa Knott PA-C - Last Filed: 05/24/25 01:49> Result diagrams: 05/23/25 23:56 05/23/25 23:56 <Vanessa Knott PA-C - Last Filed: 05/24/25 01:49> Labs: Lab Results 05/23/25 05/24/25 05/24/25 Range/Units 23:56 01:15 06:31 WBC 19.3 H (4.5-10.0) K/mm3 RBC 4.03 L (4.6-6.20) M/mm3 Hgb 12.5 L (14.0-18.0) g/dL Hct 36.7 L (42.0-52.0) % MCV 91.1 (80-100) fl MCH 31.0 (26-34) pg MCHC 34.1 (32-36) g/dl RDW 13.7 (11.5-14.5) % Plt Count 513 H D (150-375) k/mm3 MPV 8.6 (7.4-10.4) fl Immature Gran % (Auto) 1.2 H (0-0.5) % Neut % (Auto) 90.9 H (45.5-73.1) % Lymph % (Auto) 3.0 L (18.3-44.2) % [place] % (Auto) 4.7 (2.6-8.5) % Eos % (Auto) 0.0 (0-4.4) % Baso % (Auto) 0.2 (0.2-1.2) % Lymph # (Auto) 0.57 L (0.9-3.2) K/mm3 [place] # (Auto) 0.9 H (0.1-0.6) K/mm3 Eos # (Auto) 0.0 (0-0.3) K/mm3 Baso # (Auto) 0.0 (0.0-0.1) K/mm3 Abs Immat Gran (auto) 0.24 H (0.00-0.031) K/mm3 Absolute Neuts (auto) 17.5 H (1.3-6.7) K/mm3 Absolute Nucleated RBC 0.000 (0.0-0.012) K/mm3 Band Neutrophils % Not Reportable Nucleated RBC % 0.0 (0.0-0.2) % Platelet Estimate Increased (Adequate) Clumped Platelets Present Anisocytosis 1+ Schistocytes None seen Sodium 132 L (137-145) mmol/L Potassium 3.1 L (3.4-5.0) mmol/L Chloride 93 L (98-107) mmol/L Carbon Dioxide 27 (22-30) mmol/L Anion Gap 12 (4-12) mmol/L BUN 33 H D (9-20) mg/dL Creatinine 1.79 H (0.7-1.3) mg/dL Estim Creat Clear Calc 31 ml/min Estimated GFR 36 L (59 - ) Glucose 179 H (65-110) mg/dL Lactic Acid 1.9 (0.7-2.0) mmol/L Calcium 8.6 (8.4-10.2) mg/dL Total Bilirubin 0.3 (0.2-1.3) mg/dL AST 28 (17-59) U/L ALT 19 (6-50) U/L Alkaline Phosphatase 88 (38-126) U/L Total Protein 7.0 (6.3-8.2) g/dL Albumin 3.9 (3.5-5.1) g/dL Lipase 94 (23-300) U/L Urine Color Dark yellow (Yellow) Urine Appearance Clear (Clear) Urine pH 6.0 (5.0-9.0) Ur Specific [place] 1.028 (1.001-1.035) Urine Protein Negative (Negative) mg/dL Urine Glucose (UA) Negative (Negative) mg/dL Urine Ketones Negative (Negative) mg/dL Ur Blood (Man) Negative (Negative) Urine Nitrate Negative (Negative) Urine Bilirubin Negative (Negative) Urine Urobilinogen 0.2 (<2.0) mg/dL Leukocyte Esterase Rfl Negative (Negative) JULIO/UL Influenza A (RT-PCR) Negative (Negative) Influenza B (RT-PCR) Negative (Negative) SARS-CoV-2 RNA (RT-PCR) Negative (Negative) Group A Strep (PCR) Not detected (Negative) <Vanessa N. Gaudreault, PA-C - Last Filed: 05/24/25 01:49> Lab Results 05/23/25 05/24/25 05/24/25 Range/Units 23:56 01:15 06:31 WBC 19.3 H (4.5-10.0) K/mm3 RBC 4.03 L (4.6-6.20) M/mm3 Hgb 12.5 L (14.0-18.0) g/dL Hct 36.7 L (42.0-52.0) % MCV 91.1 (80-100) fl MCH 31.0 (26-34) pg MCHC 34.1 (32-36) g/dl RDW 13.7 (11.5-14.5) % Plt Count 513 H D (150-375) k/mm3 MPV 8.6 (7.4-10.4) fl Immature Gran % (Auto) 1.2 H (0-0.5) % Neut % (Auto) 90.9 H (45.5-73.1) % Lymph % (Auto) 3.0 L (18.3-44.2) % [place] % (Auto) 4.7 (2.6-8.5) % Eos % (Auto) 0.0 (0-4.4) % Baso % (Auto) 0.2 (0.2-1.2) % Lymph # (Auto) 0.57 L (0.9-3.2) K/mm3 [place] # (Auto) 0.9 H (0.1-0.6) K/mm3 Eos # (Auto) 0.0 (0-0.3) K/mm3 Baso # (Auto) 0.0 (0.0-0.1) K/mm3 Abs Immat Gran (auto) 0.24 H (0.00-0.031) K/mm3 Absolute Neuts (auto) 17.5 H (1.3-6.7) K/mm3 Absolute Nucleated RBC 0.000 (0.0-0.012) K/mm3 Band Neutrophils % Not Reportable Nucleated RBC % 0.0 (0.0-0.2) % Platelet Estimate Increased (Adequate) Clumped Platelets Present Anisocytosis 1+ Schistocytes None seen Sodium 132 L (137-145) mmol/L Potassium 3.1 L (3.4-5.0) mmol/L Chloride 93 L (98-107) mmol/L Carbon Dioxide 27 (22-30) mmol/L Anion Gap 12 (4-12) mmol/L BUN 33 H D (9-20) mg/dL Creatinine 1.79 H (0.7-1.3) mg/dL Estim Creat Clear Calc 31 ml/min Estimated GFR 36 L (59 - ) Glucose 179 H (65-110) mg/dL Lactic Acid 1.9 (0.7-2.0) mmol/L Calcium 8.6 (8.4-10.2) mg/dL Total Bilirubin 0.3 (0.2-1.3) mg/dL AST 28 (17-59) U/L ALT 19 (6-50) U/L Alkaline Phosphatase 88 (38-126) U/L Total Protein 7.0 (6.3-8.2) g/dL Albumin 3.9 (3.5-5.1) g/dL Lipase 94 (23-300) U/L Urine Color Dark yellow (Yellow) Urine Appearance Clear (Clear) Urine pH 6.0 (5.0-9.0) Ur Specific [place] 1.028 (1.001-1.035) Urine Protein Negative (Negative) mg/dL Urine Glucose (UA) Negative (Negative) mg/dL Urine Ketones Negative (Negative) mg/dL Ur Blood (Man) Negative (Negative) Urine Nitrate Negative (Negative) Urine Bilirubin Negative (Negative) Urine Urobilinogen 0.2 (<2.0) mg/dL Leukocyte Esterase Rfl Negative (Negative) JULIO/UL Influenza A (RT-PCR) Negative (Negative) Influenza B (RT-PCR) Negative (Negative) SARS-CoV-2 RNA (RT-PCR) Negative (Negative) Group A Strep (PCR) Not detected (Negative) <Natalee Brand MD - Last Filed: 05/24/25 07:51> Imaging Data Attestation: I personally reviewed and interpreted this imaging study as follows: <Vanessa Knott PA-C - Last Filed: 05/24/25 01:49> Radiologist's impression: ITS Impressions Abdomen/Pelvis CT 05/24/25 05:27 Impression: Suspected infectious/inflammatory colitis, as detailed above. Constipation. <Vanessa Knott PA-C - Last Filed: 05/24/25 01:49> ITS Impressions Abdomen/Pelvis CT 05/24/25 05:27 Impression: Suspected infectious/inflammatory colitis, as detailed above. Constipation. CT Abd & Pelvis with Contrast: The solid organs are within normal limits. No bowel obstruction. Mildly distended rectum all could relate to impaction. Diverticulosis. No fracture. Incidental findings cardiomegaly. <Natalee Brand MD - Last Filed: 05/24/25 07:51> ECG Data EKG #1: Attestation: I personally reviewed and interpreted this ECG as follows: <Vanessa Knott PA-C - Last Filed: 05/24/25 01:49> ECG completion date: 05/23/25 <Vanessa Knott PA-C - Last Filed: 05/24/25 01:49> ECG completion time: 23:55 <Vanessa Knott PA-C - Last Filed: 05/24/25 01:49> normal rate (92), atrial fibrillation, PVCs and non-specific ST changes <Vanessa nKott PA-C - Last Filed: 05/24/25 01:49> Discharge Plan Discharge Clinical Impression: DEREK (acute kidney injury), Constipation, Colitis, Leukocytosis <Vanessa Knott PA-C - Last Filed: 05/24/25 01:49> Patient Disposition: Still a Patient <REBECCA Carter Last Filed: 05/24/25 01:49> Condition: Stable <Vanessa Knott PA-C - Last Filed: 05/24/25 01:49> Instructions: Antibiotic Form, Constipation (ED), Acute Kidney Injury (DC), High Fiber Diet (ED) <Vanessa Knott PA-C - Last Filed: 05/24/25 01:49> Additional Instructions: You received 1 L IV fluids for your acute kidney injury which is sometimes due to dehydration. You are also constipated. Digital disimpaction was performed at bedside and other interventions/medications including: a colace enema, miralax, metamucil, and ducolax suppository. Maintain your hydration by drinking plenty of fluids and by eating foods high in fiber. Prune juice is also a smart choice. It is safe to take a daily bowel regimen that includes fiber supplementation (metamucil/psyllium) which is a stool softener that pulls water into the colon and makes it easier to go. MiraLax daily is also safe. If still not producing a stool, a laxative such as magnesium citrate oral liquid OR a suppository are fine. <Vanessa Knott PA-C - Last Filed: 05/24/25 01:49> Patient Language: Khmer <Vanessa Knott PA-C - Last Filed: 05/24/25 01:49> Prescriptions: New polyethylene glycol 3350 [Miralax] 17 gram/dose powder 17 g PO DAILY Qty: 119 0RF Metamucil 3.4 gram/5.4 gram powder 1 tbsp PO DAILY Qty: 660 0RF Rx Instructions: mix into at least 8 oz of water or juice before administering magnesium citrate Solution 150 ml PO DAILY PRN (Reason: constipation) Qty: 296 0RF bisacodyl 10 mg suppository 10 mg RECTAL DAILY PRN (Reason: constipation) Qty: 12 0RF No Action simethicone [Gas Relief (simethicone)] 125 mg tablet,chewable 250 mg PO ACHS 90 Days Qty: 720 3RF cyanocobalamin (vitamin B-12) 2,500 mcg lozenge 2,500 mcg PO DAILY Eliquis 5 mg tablet 5 mg PO Q12H riboflavin (vitamin B2) 100 mg tablet 300 mg PO DAILY melatonin 5 mg tablet 5 mg PO HS PRN (Reason: sleep) Deep Sea Nasal 0.65 % aerosol,spray 1 spray intranasal BID PRN (Reason: dry nasal passages) acetaminophen 650 mg tablet extended release 650 mg PO Q12H PRN (Reason: pain) furosemide 40 mg tablet 40 mg PO DAILY metolazone 5 mg tablet 5 mg PO DAILY meloxicam 7.5 mg tablet 7.5 mg PO DAILY PRN (Reason: pain) potassium chloride 20 mEq tablet,ER particles/crystals 80 meq PO DAILY Acidophilus 1 cap PO DAILY loteprednol etabonate 0.5 % drops,suspension 1 drp EACH EYE TID magnesium oxide 400 mg magnesium capsule 400 mg PO DAILY ergocalciferol (vitamin D2) 1,250 mcg (50,000 unit) capsule 1,250 mcg PO WEEKLY lactulose 10 gram/15 mL solution 10 g PO DAILY PRN (Reason: constipation) polyethylene glycol 3350 [Miralax] 17 gram/dose powder 17 g PO DAILY PRN (Reason: constipation) bicalutamide 50 mg Tablet 50 mg PO QAM Qty: 30 0RF aspirin 81 mg Tablet,Delayed Release (Dr/Ec) 81 mg PO QAM Qty: 30 0RF metoprolol succinate 25 mg tablet extended release 24 hr 12.5 mg PO BID Qty: 30 0RF diltiazem HCl [Cardizem CD] 180 mg capsule,extended release 24hr 180 mg PO DAILY Qty: 30 0RF <Vaenssa Knott PA-C - Last Filed: 05/24/25 01:49> Follow-up/Referrals: Maxwell Lucio MD [Primary Care Provider] - <Vanessa Knott PA-C - Last Filed: 05/24/25 01:49> Stand Alone Forms: Skilled Nursing Discharge <Vanessa Knott PA-C - Last Filed: 05/24/25 01:49> Time of Disposition: 05:02 <Vanessa Knott PA-C - Last Filed: 05/24/25 01:49> 05:02 <Natalee Brand MD - Last Filed: 05/24/25 07:51>
[2025-05-24] VITALS (22 sets, daily range): BP systolic 96–122; BP diastolic 57–93; PULSE 75–119; RESP 12–118; TEMP 36.1–36.6; O2SAT 93–100; BMI 25.3
[2025-05-24 00:03] LABS: Hematocrit 36.7 % (42.0-52.0); Hemoglobin 12.5 g/dL (14.0-18.0); Immature Granulocyte Percent A 1.2 % (0-0.5); Lymphocytes Absolute Auto 0.57 K/mm3 (0.9-3.2); Mean Corpuscular HGB Conc 34.1 g/dl (32-36); Mean Corpuscular Hemoglobin 31.0 pg (26-34); Mean Corpuscular Volume 91.1 fl (80-100); Nucleated Red Blood Cells Absolute Auto 0.000 K/mm3 (0.0-0.012); Nucleated Red Blood Cells Perc 0.0 % (0.0-0.2); Platelet Count Result 513 k/mm3 (150-375); Red Blood Count 4.03 M/mm3 (4.6-6.20); White Blood Count 19.3 K/mm3 (4.5-10.0)
[2025-05-24] MEDS: SODIUM CHLORIDE 0.9% IV 1,000 ML 999 ML IV CONT (00:12)
[2025-05-24 00:17] LABS: Alanine Aminotransferase 19 U/L (6-50); Albumin Level 3.9 g/dL (3.5-5.1); Alkaline Phosphatase 88 U/L (38-126); Anion Gap 12 mmol/L (4-12); Aspartate Amino Transferase 28 U/L (17-59); Bilirubin,Total 0.3 mg/dL (0.2-1.3); Blood Urea Nitrogen 33 mg/dL (9-20); Calcium 8.6 mg/dL (8.4-10.2); Carbon Dioxide 27 mmol/L (22-30); Chloride 93 mmol/L (98-107); Estimated CRCL calculation 31 ml/min; Estimated Glomerular Filt Rate 36; Glucose 179 mg/dL (65-110); Lipase 94 U/L (23-300); Potassium 3.1 mmol/L (3.4-5.0); Sodium 132 mmol/L (137-145); Total Protein 7.0 g/dL (6.3-8.2)
[2025-05-24 00:25] LABS: Anisocytosis 1+
[2025-05-24 00:30] LABS: Schistocytes None Seen
[2025-05-24] MEDS: KCL 20 MEQ/SW 100 ML 100 ML 50 MEQ IVPB (00:57)
[2025-05-24 01:22] LABS: Add Urine Microscopic? YES; Appearance Urine Clear (Clear); Glucose Urine UA Negative (Negative); Leukocyte Esterase Ur Negative LEU/UL (Negative); Nitrate Urine Negative (Negative); Specific Grav Ur 1.028 (1.001-1.035)
[2025-05-24] MEDS: HYDROmorphone HCL INJ (*CRX) 2 MG/ML VIAL 0.5 MG IV PUSH (03:05)
[2025-05-24] MEDS: DOCUSATE SODIUM 400 MG/400 ML ENEMA RECTAL (04:20)
[2025-05-24] MEDS: PSYLLIUM POWDER PACKET 1 PACKET PO (04:56)
--- NOTE | 2025-05-24 06:00 | PM.IMHP ---
H&P: HPI History of Present Illness Date/Time: 05/24/25 06:00 Chief Complaint: Abdominal pain. Narrative: This is an 85-year-old male with history of chronic constipation, prostate cancer, chronic kidney disease, anemia, hypertension, hyperlipidemia, chronic diastolic heart failure, and paroxysmal atrial fibrillation who presented to the emergency department via EMS from [place] with complaints of abdominal pain. He has chronic constipation and daily abdominal pain and bloating for which he is followed by Gastroenterology. Colonoscopies have been unrevealing, showing only diverticulosis and internal hemorrhoids. He takes a mixture of MiraLax and prune juice daily and typically achieves soft bowel movements every 2 to 3 days. He presents today with acute worsening of his abdominal pain and no bowel movement for about a week. A KUB done at his rehab facility showed possible ileus and he was sent to the ED last night. He describes the pain as severe gas pains with bloating. His appetite has not been great. He also complains of sore throat. He denies fever, chills, sweats, sinus congestion, cough, chest pain, shortness of breath, vomiting, and dysuria. In the ED: He was afebrile on arrival with stable vital signs. Labs are significant for WBC count of 19.3, hemoglobin 12.5, sodium 132, potassium 3.1, chloride 93, BUN 33, creatinine 1.79, lactic acid 1.9. Urinalysis was unremarkable. CT of the abdomen and pelvis show suspected infectious/inflammatory colitis and constipation. He was given a Colace enema without significant improvement. He also received a normal saline bolus, Metamucil, MiraLax, and he was started on ciprofloxacin and metronidazole. He is being admitted in this setting for further treatment. Review of Systems Review of Systems: 12 systems were reviewed and are negative except for as per HPI. 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 Code status: Full code. Smoking status: Former smoker Tobacco type: cigarettes Smoking end date: 11/25/99 Alcohol intake: former Substance use: never Do You Feel Safe in your Home?: Yes Lack of Transportation: No Lack of Food: Never True Current Housing: I Have Housing Concerned About Future Housing: No Difficulty Paying Gas/Electric Bills: No Difficulty Paying for Meds: No Currently Unemployed: No Education: Associate Degree Difficulty w/ Childcare or Family Care: No Living arrangements: assisted living Spiritual care concerns: No Meds Home Medications and Allergies Home Medications ?Medication ?Instructions ?Recorded ?Confirmed ?Type Acidophilus 1 cap PO DAILY 01/20/25 05/03/25 History acetaminophen 650 mg 650 mg PO Q12H PRN pain 01/20/25 05/03/25 History tablet,extended release apixaban 5 mg tablet (Eliquis) 5 mg PO Q12H 01/20/25 05/03/25 History cyanocobalamin (vitamin B-12) 2,500 mcg PO DAILY 01/20/25 05/03/25 History 2,500 mcg sublingual lozenge ergocalciferol (vitamin D2) 1,250 1,250 mcg PO WEEKLY 01/20/25 05/03/25 History mcg (50,000 unit) capsule furosemide 40 mg tablet 40 mg PO DAILY 01/20/25 05/03/25 History loteprednol etabonate 0.5 % eye 1 drp EACH EYE TID 01/20/25 05/03/25 History drops,suspension magnesium oxide 400 mg PO DAILY 01/20/25 05/03/25 History melatonin 5 mg tablet 5 mg PO HS PRN sleep 01/20/25 05/03/25 History meloxicam 7.5 mg tablet 7.5 mg PO DAILY PRN pain 01/20/25 05/03/25 History metolazone 5 mg tablet 5 mg PO DAILY 01/20/25 05/03/25 History potassium chloride 20 mEq 80 meq PO DAILY 01/20/25 05/03/25 History tablet,extended release(part/cryst) riboflavin (vitamin B2) 100 mg 300 mg PO DAILY 01/20/25 05/03/25 History tablet sodium chloride 0.65 % nasal spray 1 spray intranasal BID PRN dry 01/20/25 05/03/25 History aerosol (Deep Sea Nasal) nasal passages lactulose 10 gram/15 mL oral 10 g PO DAILY PRN constipation 05/03/25 05/03/25 History solution polyethylene glycol 3350 17 17 g PO DAILY PRN constipation 05/03/25 05/03/25 History gram/dose oral powder (Miralax) simethicone 125 mg chewable tablet 250 mg (2 x 125 mg) PO ACHS 05/03/25 05/03/25 Rx (Gas Relief (simethicone)) excessive bloating and gas 90 days #720 tabs aspirin 81 mg tablet,delayed 81 mg PO QAM #30 tabs 05/14/25 Rx release bicalutamide 50 mg tablet 50 mg PO QAM #30 tabs 05/14/25 Rx diltiazem HCl 180 mg 180 mg PO DAILY #30 caps 05/14/25 Rx capsule,extended release 24 hr (Cardizem CD) metoprolol succinate 25 mg 12.5 mg (1/2 x 25 mg) PO BID #30 05/14/25 Rx tablet,extended release 24 hr tabs bisacodyl 10 mg rectal suppository 10 mg RECTAL DAILY PRN 05/24/25 Rx constipation #12 ea magnesium citrate 150 ml PO DAILY PRN constipation 05/24/25 Rx #296 mL polyethylene glycol 3350 17 17 g PO DAILY #119 grams 05/24/25 Rx gram/dose oral powder (Miralax) psyllium husk 3.4 gram/5.4 gram 1 tbsp PO DAILY #660 grams 05/24/25 Rx oral powder (Metamucil) Allergies Allergy/AdvReac Type Severity Reaction Status Date / Time atorvastatin Allergy Unknown Verified 05/24/25 00:13 duloxetine Allergy Unknown Verified 05/24/25 00:13 Vital Signs Vital Signs - 24 hr 05/23/25 23:39 05/24/25 00:05 Temperature 97.4 F L Pulse Rate 91 Respiratory Rate 16 Blood Pressure 102/69 Pulse Oximetry 97 Oxygen Delivery Room Air Exam Narrative: General: Chronically ill-appearing male sitting up in bed in no acute distress. Weight: 95.25 kg. BMI: 20.5. HEENT: Extraocular motions intact. Sclera anicteric. Oropharynx is mildly erythematous. Tacky mucous membranes. He is hard of hearing. Neck: Supple. Respiratory: Lungs are clear to auscultation bilaterally. Cardiovascular: Irregularly irregular rate and rhythm. Gastrointestinal: Abdomen is mostly soft and distended with positive bowel sounds. Increased tympany noted. He seems to be tender to palpation throughout the abdomen without guarding or rebound tenderness. Skin: Warm and dry. Some excoriations on the legs. Extremities: No cyanosis, clubbing, or edema. Radial and pedal pulses intact. Neurological: Alert. Cranial nerves grossly intact. No gross focal deficits to casual conversation. Psychiatric: Cooperative with appropriate mood and affect. H&P: Results Labs Labs: Short CBC 05/23/25 Range/Units 23:56 WBC 19.3 H (4.5-10.0) K/mm3 Hgb 12.5 L (14.0-18.0) g/dL Hct 36.7 L (42.0-52.0) % Plt Count 513 H D (150-375) k/mm3 BMP 05/23/25 23:56 Sodium 132 L Potassium 3.1 L Chloride 93 L Carbon Dioxide 27 BUN 33 H D Creatinine 1.79 H Glucose 179 H Calcium 8.6 Liver Function 05/23/25 Range/Units 23:56 Total Bilirubin 0.3 (0.2-1.3) mg/dL AST 28 (17-59) U/L ALT 19 (6-50) U/L Alkaline Phosphatase 88 (38-126) U/L Albumin 3.9 (3.5-5.1) g/dL Urine 05/24/25 Range/Units 01:15 Urine Color Dark yellow (Yellow) Urine Appearance Clear (Clear) Urine pH 6.0 (5.0-9.0) Ur Specific [place] 1.028 (1.001-1.035) Urine Protein Negative (Negative) mg/dL Urine Glucose (UA) Negative (Negative) mg/dL Imaging Abdomen/Pelvis CT 05/24/25 05:27 Impression: 1. Suspected infectious/inflammatory colitis, as detailed above. 2. Constipation. Assessment and Plan Assessment and plan (1) Colitis: Code(s): K52.9 - Noninfective gastroenteritis and colitis, unspecified Status: Acute (2) Constipation: Code(s): K59.00 - Constipation, unspecified Status: Acute (3) Acute on chronic kidney failure: Code(s): N17.9 - Acute kidney failure, unspecified; N18.9 - Chronic kidney disease, unspecified Status: Acute (4) Hypokalemia: Code(s): E87.6 - Hypokalemia Status: Acute (5) Chronic diastolic heart failure: Code(s): I50.32 - Chronic diastolic (congestive) heart failure Status: Acute (6) Atrial fibrillation: Code(s): I48.91 - Unspecified atrial fibrillation Status: Acute Plan The patient presented to the emergency department with acute on chronic abdominal pain, distention, and bloating and no bowel movement for 1 week as detailed in HPI. Labs, imaging, EKG, and all reports were personally reviewed. The patient suffers from chronic constipation but has not had a bowel movement for over a week which is unusual for him. Imaging shows pretty significant constipation as well as findings suspicious for inflammatory or infectious colitis. He has been started on ceftriaxone and metronidazole. Continue aggressive bowel regimen. Avoid narcotics given his chronic constipation. His has acute on chronic kidney injury and we will continue with judicious IV fluid rehydration. Monitor volume status closely with strict I/O and daily weights given history of diastolic heart failure. Atrial fibrillation is rate controlled. Potassium was replaced and will be monitored. His home medications will be reviewed and resumed as appropriate. Findings and treatment plan were discussed with the patient. Questions were solicited and answered to satisfaction. The patient's medical management will be taken over by the hospitalist team in a.m. Quality VTE Prophylaxis VTE prophylaxis: pharmacologic ordered (on apixaban) The patient has been admitted under observation status. Hospitalist [facility] Advance Care Plan I have confirmed that the patient's Advanced Care Plan is present, code status is documented, or surrogate decision maker is listed in patient medical record.: Yes Medication Reconciliation I have utilized all available resources to obtain, update and review the patients current medications (includes all prescriptions, OTC, herbals, cannabis, and nutritional supplements).: Yes
[2025-05-24] MEDS: DICYCLOMINE HCL 10 MG CAPSULE 20 MG PO (06:19)
[2025-05-24] MEDS: CIPROFLOXACIN 500 MG TAB PO (06:19)
[2025-05-24] MEDS: SODIUM CHLORIDE 0.9% IV 1,000 ML 100 ML IV CONT (06:58)
[2025-05-24 07:03] LABS: Strep Group A RT-PCR NOT DETECTED (Negative)
[2025-05-24 07:15] LABS: Influenza A QL RT-PCR Negative (Negative); Influenza B QL RT-PCR Negative (Negative); SARS-CoV-2 RNA PCR Negative (Negative)
--- NOTE | 2025-05-24 09:24 | PC.NURSE ---
Pt had a large loose stool in depends at this time. Cleaned up, depends changed, linens changed. Pt reports feeling better at this time. NAD noted.
--- NOTE | 2025-05-24 10:00 | ADMGEN ---
This patient, Shane Mahoney, was admitted to Medical Room 251-. Patient/family oriented to hospital policies and general routines including ID bracelet, bed and alarms, visiting hours, pain management, procedures, bathroom and other care routines, personal items, smoking policy, room service/diet, and visiting hours. Information on how to activate the Rapid Response Team has been discussed. Patient/Family are encouraged to report perceived risks to care and to ask questions if they do not understand what they are told or what they should do.
--- NOTE | 2025-05-24 13:57 | P.PNIM_ITS ---
Progress Note: A&P Assessment and Plan (1) Colitis: Code(s): K52.9 - Noninfective gastroenteritis and colitis, unspecified Status: Acute (2) Constipation: Code(s): K59.00 - Constipation, unspecified Status: Acute (3) Acute on chronic kidney failure: Code(s): N17.9 - Acute kidney failure, unspecified; N18.9 - Chronic kidney disease, uns pecified Status: Acute (4) Hypokalemia: Code(s): E87.6 - Hypokalemia Status: Acute (5) Chronic diastolic heart failure: Code(s): I50.32 - Chronic diastolic (congestive) heart failure Status: Acute (6) Atrial fibrillation: Code(s): I48.91 - Unspecified atrial fibrillation Status: Acute Plan The patient presented to the emergency department with acute on chronic abdominal pain, distention, and bloating and no bowel movement for 1 week as detailed in HPI. Labs, imaging, EKG, and all reports were personally reviewed. The patient suffers from chronic constipation but has not had a bowel movement for over a week which is unusual for him. Imaging shows pretty significant constipation as well as findings suspicious for inflammatory or infectious colitis. He has been started on ceftriaxone and metronidazole. Continue aggressive bowel regimen. Avoid narcotics given his chronic constipation. His has acute on chronic kidney injury and we will continue with judicious IV fluid rehydration. Monitor volume status closely with strict I/O and daily weights given history of diastolic heart failure. Atrial fibrillation is rate controlled. Potassium was replaced and will be monitored. His home medications will be reviewed and resumed as appropriate. Findings and treatment plan were discussed with the patient. Questions were solicited and answered to satisfaction. The patient's medical management will be taken over by the hospitalist team in a.m. patient with history of chronic constipation presented with c/o abdominal pain, and found to have suspected infectious/inflammatory colitis and Constipation. patient was given Colace enema without significant improvement also received a normal saline bolus, Metamucil, MiraLax, which did help and patient has had several BM, for possible infectious colitis patient is given ceftriaxone and metronidazole. will consult GI for further recommendations. patient was able to tolerate his diet. Subjective Date/time seen: 05/24/25 13:57 Interval history: Chief Complaint: Abdominal pain. H&P-Narrative: This is an 85-year-old male with history of chronic constipation, prostate cancer, chronic kidney disease, anemia, hypertension, hyperlipidemia, chronic diastolic heart failure, and paroxysmal atrial fibrillation who presented to the emergency department via EMS from [place] with complaints of abdominal pain. He has chronic constipation and daily abdominal pain and bloating for which he is followed by Gastroenterology. Colonoscopies have been unrevealing, showing only diverticulosis and internal hemorrhoids. He takes a mixture of MiraLax and prune juice daily and typically achieves soft bowel movements every 2 to 3 days. He presents today with acute worsening of his abdominal pain and no bowel movement for about a week. A KUB done at his rehab facility showed possible ileus and he was sent to the ED last night. He describes the pain as severe gas pains with bloating. His appetite has not been great. He also complains of sore throat. He denies fever, chills, sweats, sinus congestion, cough, chest pain, shortness of breath, vomiting, and dysuria. In the ED: He was afebrile on arrival with stable vital signs. Labs are significant for WBC count of 19.3, hemoglobin 12.5, sodium 132, potassium 3.1, chloride 93, BUN 33, creatinine 1.79, lactic acid 1.9. Urinalysis was unremarkable. CT of the abdomen and pelvis show suspected infectious/inflammatory colitis and constipation. He was given a Colace enema without significant improvement. He also received a normal saline bolus, Metamucil, MiraLax, and he was started on ciprofloxacin and metronidazole. He is being admitted in this setting for further treatment. patient with history of chronic constipation presented with c/o abdominal pain, and found to have suspected infectious/inflammatory colitis and Constipation. patient was given Colace enema without significant improvement also received a normal saline bolus, Metamucil, MiraLax, which did help and patient has had se veral BM, for possible infectious colitis patient is given ceftriaxone and metronidazole. will consult GI for further recommendations. patient was able to tolerate his diet. Review of Systems Review of Systems: 12 systems were reviewed and are negativ e except for as per HPI. Exam Narrative: Patient is comfortable, NAD HEENT: eyes are clear and none icteric LUNGS:CTA HEART: RR S1S2 ABD: BS+, Soft and nontender Lower extremities: no edema SKIN: nonjaundiced Neuro: grossly intact. Objective Data Vital Signs Vital Signs: Vital Signs - 24 hr 05/23/25 23:39 05/24/25 00:05 05/24/25 01:00 Temperature 36.3 C L Pulse Rate 91 82 Respiratory Rate 16 15 Blood Pressure 102/69 116/60 Pulse Oximetry 97 96 Oxygen Delivery Room Air 05/24/25 01:02 05/24/25 01:17 05/24/25 01:32 Temperature Pulse Rate 106 H 87 115 H Respiratory Rate 17 19 18 Blood Pressure 109/75 113/88 112/67 Pulse Oximetry 96 96 96 Oxygen Delivery 05/24/25 01:46 05/24/25 02:02 05/24/25 03:31 Temperature Pulse Rate 113 H 84 83 Respiratory Rate 21 H 19 18 Blood Pressure 114/85 103/63 110/84 Pulse Oximetry 94 93 94 Oxygen Delivery 05/24/25 03:47 05/24/25 04:02 05/24/25 04:17 Temperature Pulse Rate 102 H 75 Respiratory Rate 15 12 20 Blood Pressure 106/78 102/64 107/79 Pulse Oximetry 95 95 97 Oxygen Delivery 05/24/25 04:31 05/24/25 04:48 05/24/25 05:00 Temperature Pulse Rate Respiratory Rate 21 H 18 19 Blood Pressure 121/92 H 122/93 H Pulse Oximetry 97 94 98 Oxygen Delivery 05/24/25 05:01 05/24/25 06:30 05/24/25 06:45 Temperature Pulse Rate 83 84 Respiratory Rate 22 H 18 21 H Blood Pressure 110/86 96/71 L 116/74 Pulse Oximetry 94 98 97 Oxygen Delivery 05/24/25 09:27 05/24/25 10:25 05/24/25 13:52 Temperature 36.6 C 36.3 C L 36.1 C L Pulse Rate 97 84 99 Respiratory Rate 17 118 H 16 Blood Pressure 114/79 120/58 L 103/57 L Pulse Oximetry 100 98 97 Oxygen Delivery Intake/Output Intake/Output: Intake & Output 05/21/25 05/22/25 05/23/25 05/24/25 23:59 23:59 23:59 23:59 Intake Total 1270 Balance 1270 Meds/Results Medications: Active Medications Generic Name Dose Route Start Last Admin Trade Name Freq PRN Reason Stop Dose Admin Acetaminophen 650 mg 05/24/25 05:50 Acetaminophen 325 Mg Tablet PO Q4H PRN Mild Pain (1-3) or Fever Apixaban 5 mg 05/24/25 21:00 Apixaban 5 Mg Tablet PO Q12HR [facility] Artificial Tears 2 drop 05/24/25 11:40 05/24/25 12:49 Artificial Tears Ophth Soln 15 Ml Bottle EACH EYE Not Given Q4H [facility] Aspirin 81 mg 05/25/25 09:00 Aspirin 81 Mg Enteric Tablet PO QAM [facility] Bicalutamide 50 mg 05/25/25 09:00 Bicalutamide (*Chemo) 50 Mg Tablet PO QAM [facility] Cyanocobalamin 250 mcg 05/25/25 09:00 Cyanocobalamin 250 Mcg Tablet PO DAILY [facility] Diltiazem HCl 180 mg 05/25/25 09:00 Diltiazem Hcl Cd 180 Mg Cap.24hr PO DAILY [facility] Ergocalciferol 1,250 mcg 05/28/25 09:00 Ergocalciferol (Vitamin D2) 1,250 Mcg (50,000 Units) Capsule PO Fr@0900 [facility]ENE Furosemide 40 mg 05/25/25 09:00 Furosemide 40 Mg Tablet PO DAILY [facility] Sodium Chloride 1,000 mls @ 100 mls/hr 05/24/25 06:04 05/24/25 06:58 Normal Saline Iv IV CONT 05/24/25 16:03 100 mls/hr .Q10H ONE Administration Ceftriaxone Sodium 1 gm in 50 mls @ 100 mls/hr 05/24/25 06:00 05/24/25 06:58 Rocephin 1 Gm/Ns 50 Ml IVPB Infused Q24H [facility] Infusion Metronidazole 500 mg in 100 mls @ 100 mls/hr 05/24/25 14:00 Flagyl 500 Mg/Iso Soln 100 Ml IVPB Q8HR [facility] Lactobacillus Acidophilus 1 tablet 05/25/25 09:00 Acidophilus/Bulgaricus Chewable Tablet BY MOUTH DAILY [facility] Lactulose 10 gm 05/24/25 11:37 Lactulose 20 Gm/30 Ml Udc PO DAILY PRN constipation Loratadine 10 mg 05/25/25 09:00 Loratadine 10 Mg Tablet PO QAM [facility] Loteprednol Etabonate 1 drop 05/24/25 13:00 05/24/25 12:49 Loteprednol Etabonate 0.5% Oph 5 Ml Bottle EACH EYE Not Given TID [facility] Magnesium Oxide 400 mg 05/25/25 09:00 Magnesium Oxide 400 Mg Tablet PO DAILY [facility] Meclizine HCl 25 mg 05/24/25 13:00 Meclizine Hcl 25 Mg Tablet PO TID [facility] Melatonin 5 mg 05/24/25 11:37 Melatonin 5 Mg Tablet PO HS PRN sleep Meloxicam 7.5 mg 05/24/25 11:37 Meloxicam 7.5 Mg Tablet PO DAILY PRN pain 4-5 Metolazone 5 mg 05/25/25 09:00 Metolazone 5 Mg Tablet PO DAILY [facility] Metoprolol Succinate 12.5 mg 05/24/25 21:00 Metoprolol Succinate Ext Rel 12.5 Mg Tabcr PO Q12HR [facility] Ondansetron HCl 4 mg 05/24/25 05:50 Ondansetron Inj 4 Mg/2 Ml Vial IV PUSH Q4H PRN Nausea Pantoprazole Sodium 40 mg 05/25/25 09:00 Pantoprazole 40 Mg Tablet PO QAM [facility] Polyethylene Glycol 17 gm 05/24/25 11:37 Polyethylene Glycol 3350 17 Gm Powd.Pack PO DAILY PRN constipation Potassium Chloride 80 meq 05/25/25 09:00 Potassium Chloride 20 Meq Er Tablet PO DAILY [facility] Prednisone 20 mg 05/24/25 17:00 Prednisone 20 Mg Tablet PO BID [facility] Simethicone 250 mg 05/24/25 16:30 Simethicone 125 Mg Chew Tab PO ACHS [facility] Sodium Chloride 1 spray 05/24/25 11:37 Saline 0.65% Kenji Soln 44 Ml Btl NASAL BID PRN dry nasal passages Triamcinolone Acetonide 1 applic 05/24/25 21:00 Triamcinolone Acet 0.1% Cream 15 Gm Tube TOPICAL 06/02/25 09:01 Q12HR [facility] Radiology Results: ITS Impressions Abdomen/Pelvis CT 05/24/25 05:27 Impression: Suspected infectious/inflammatory colitis, as detailed above. Constipation. Labs Labs: Laboratory Results - last 24 hr 05/23/25 05/24/25 05/24/25 23:56 01:15 06:31 WBC 19.3 H RBC 4.03 L Hgb 12.5 L Hct 36.7 L MCV 91.1 MCH 31.0 MCHC 34.1 RDW 13.7 Plt Count 513 H D MPV 8.6 Immature Gran % (Auto) 1.2 H Neut % (Auto) 90.9 H Lymph % (Auto) 3.0 L Payne % (Auto) 4.7 Eos % (Auto) 0.0 Baso % (Auto) 0.2 Lymph # (Auto) 0.57 L Payne # (Auto) 0.9 H Eos # (Auto) 0.0 Baso # (Auto) 0.0 Abs Immat Gran (auto) 0.24 H Absolute Neuts (auto) 17.5 H Absolute Nucleated RBC 0.000 Band Neutrophils % Not Reportable Nucleated RBC % 0.0 Platelet Estimate Increased Clumped Platelets Present Anisocytosis 1+ Schistocytes None seen Sodium 132 L Potassium 3.1 L Chloride 93 L Carbon Dioxide 27 Anion Gap 12 BUN 33 H D Creatinine 1.79 H Estim Creat Clear Calc 31 Estimated GFR 36 L Glucose 179 H Lactic Acid 1.9 Calcium 8.6 Total Bilirubin 0.3 AST 28 ALT 19 Alkaline Phosphatase 88 Total Protein 7.0 Albumin 3.9 Lipase 94 Urine Color Dark yellow Urine Appearance Clear Urine pH 6.0 Ur Specific [place] 1.028 Urine Protein Negative Urine Glucose (UA) Negative Urine Ketones Negative Ur Blood (Man) Negative Urine Nitrate Negative Urine Bilirubin Negative Urine Urobilinogen 0.2 Leukocyte Esterase Rfl Negative Influenza A (RT-PCR) Negative Influenza B (RT-PCR) Negative SARS-CoV-2 RNA (RT-PCR) Negative Group A Strep (PCR) Not detected Quality VTE Prophylaxis VTE prophylaxis: pharmacologic ordered (on apixaban)
--- NOTE | 2025-05-24 16:29 | P.CONGI_ITS ---
Assessment and Plan Assessment and plan (1) Constipation: Code(s): K59.00 - Constipation, unspecified Status: Acute Assessment and Plan: The patient's severe constipation has successfully resolved following treatment with appropriate doses of MiraLax. His elevated WBC is likely attributable to bacterial translocation, a complication of his prolonged constipation. Antibiotic therapy is currently indicated. Should his WBC count trend downward, he will be considered for discharge with a 2-3 day course of oral antibiotics. We reviewed the importance of proactive management for future constipation; he was advised to take up to 3-4 doses of MiraLax daily if he experiences more than 48 hours without a bowel movement. The rationale for this, specifically that retained colonic contents increase the difficulty of subsequent bowel movements, was discussed with the patient. He is afraid to go back to the same place because he feels there is no help for him. GI Consult Note Consult date/time: 05/24/25 16:29 Reason for consult: constipation HPI: Shane Mahoney is a 85 year old male who was admitted yesterday for for severe constipation. The patient has a history of CHF, hypertension, atrial fibrillation on [facility]. She is living in an assisted living facility, and spent 1 week without a bowel movement. His normal pattern is 1 bowel movement every 2-3 days, with significant straining. On admission he was found to have abdominal distension, and he was complaining of lower abdominal pain. He has had a colonoscopy in the past 2-3 years, showing only diverticulosis. His laboratory data on admission showed: White count 18.3, hemoglobin 12.5, hematocrit 36.7, platelet count 513, INR 1.3, sodium 132, potassium 3.1, creatinine 1.79, albumin 3.[address] scan showed mild thickening on a descending and sigmoid colon interpreted as colitis. 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 Code status: Full code. Smoking status: Former smoker Alcohol intake: former Substance use: never Do You Feel Safe in your Home?: Yes Lack of Transportation: No Lack of Food: Never True Current Housing: I Have Housing Concerned About Future Housing: No Difficulty Paying Gas/Electric Bills: No Difficulty Paying for Meds: No Currently Unemployed: No Education: Associate Degree Difficulty w/ Childcare or Family Care: No Living arrangements: assisted living Spiritual care concerns: No Meds Home Medications and Allergies Home Medications ?Medication ?Instructions ?Recorded ?Confirmed ?Type Acidophilus 1 cap PO DAILY 01/20/25 05/24/25 History acetaminophen 650 mg 650 mg PO Q12H PRN pain 01/20/25 05/24/25 History tablet,extended release apixaban 5 mg tablet (Eliquis) 5 mg PO Q12H 01/20/25 05/24/25 History cyanocobalamin (vitamin B-12) 2,500 mcg PO DAILY 01/20/25 05/24/25 History 2,500 mcg sublingual lozenge ergocalciferol (vitamin D2) 1,250 1,250 mcg PO WEEKLY 01/20/25 05/24/25 History mcg (50,000 unit) capsule furosemide 40 mg tablet 40 mg PO DAILY 01/20/25 05/24/25 History loteprednol etabonate 0.5 % eye 1 drp EACH EYE TID 01/20/25 05/24/25 History drops,suspension magnesium oxide 400 mg PO DAILY 01/20/25 05/24/25 History melatonin 5 mg tablet 5 mg PO HS PRN sleep 01/20/25 05/24/25 History meloxicam 7.5 mg tablet 7.5 mg PO DAILY PRN pain 01/20/25 05/24/25 History metolazone 5 mg tablet 5 mg PO DAILY 01/20/25 05/24/25 History potassium chloride 20 mEq 80 meq PO DAILY 01/20/25 05/24/25 History tablet,extended release(part/cryst) riboflavin (vitamin B2) 100 mg 300 mg PO DAILY 01/20/25 05/24/25 History tablet sodium chloride 0.65 % nasal spray 1 spray intranasal BID PRN dry 01/20/25 05/24/25 History aerosol (Deep Sea Nasal) nasal passages lactulose 10 gram/15 mL oral 10 g PO DAILY PRN constipation 05/03/25 05/24/25 History solution polyethylene glycol 3350 17 17 g PO DAILY PRN constipation 05/03/25 05/24/25 History gram/dose oral powder (Miralax) simethicone 125 mg chewable tablet 250 mg (2 x 125 mg) PO ACHS 05/03/25 05/24/25 Rx (Gas Relief (simethicone)) excessive bloating and gas 90 days #720 tabs aspirin 81 mg tablet,delayed 81 mg PO QAM #30 tabs 05/14/25 05/24/25 Rx release bicalutamide 50 mg tablet 50 mg PO QAM #30 tabs 05/14/25 05/24/25 Rx diltiazem HCl 180 mg 180 mg PO DAILY #30 caps 05/14/25 05/24/25 Rx capsule,extended release 24 hr (Cardizem CD) metoprolol succinate 25 mg 12.5 mg (1/2 x 25 mg) PO BID #30 05/14/25 05/24/25 Rx tablet,extended release 24 hr tabs bisacodyl 10 mg rectal suppository 10 mg RECTAL DAILY PRN 05/24/25 Rx constipation #12 ea cetirizine 10 mg tablet (All Day 10 mg PO DAILY 05/24/25 05/24/25 History Allergy (cetirizine)) cyanocobalamin (vitamin B-12) 100 300 mcg PO DAILY 05/24/25 05/24/25 History mcg tablet magnesium citrate 150 ml PO DAILY PRN constipation 05/24/25 Rx #296 mL meclizine 25 mg tablet 25 mg PO TID 05/24/25 05/24/25 History pantoprazole 40 mg tablet,delayed 40 mg PO QAM 05/24/25 05/24/25 History release polyethylene glycol 3350 17 17 g PO DAILY #119 grams 05/24/25 Rx gram/dose oral powder (Miralax) polyvinyl alcohol 1.4 % eye drops 2 drp EACH EYE Q4H 05/24/25 05/24/25 History (Artificial Tears (polyvinyl alcohol)) prednisone 20 mg tablet 20 mg PO BID 05/24/25 05/24/25 History psyllium husk 3.4 gram/5.4 gram 1 tbsp PO DAILY #660 grams 05/24/25 Rx oral powder (Metamucil) triamcinolone acetonide 0.1 % 1 applic topical BID 05/24/25 05/24/25 History topical cream Allergies Allergy/AdvReac Type Severity Reaction Status Date / Time atorvastatin Allergy Unknown Verified 05/24/25 00:13 duloxetine Allergy Unknown Verified 05/24/25 00:13 Vital Signs Vital Signs - 24 hr 05/23/25 23:39 05/24/25 00:05 05/24/25 01:00 Temperature 97.4 F L Pulse Rate 91 82 Respiratory Rate 16 15 Blood Pressure 102/69 116/60 Pulse Oximetry 97 96 Oxygen Delivery Room Air 05/24/25 01:02 05/24/25 01:17 05/24/25 01:32 Temperature Pulse Rate 106 H 87 115 H Respiratory Rate 17 19 18 Blood Pressure 109/75 113/88 112/67 Pulse Oximetry 96 96 96 Oxygen Delivery 05/24/25 01:46 05/24/25 02:02 05/24/25 03:31 Temperature Pulse Rate 113 H 84 83 Respiratory Rate 21 H 19 18 Blood Pressure 114/85 103/63 110/84 Pulse Oximetry 94 93 94 Oxygen Delivery 05/24/25 03:47 05/24/25 04:02 05/24/25 04:17 Temperature Pulse Rate 102 H 75 Respiratory Rate 15 12 20 Blood Pressure 106/78 102/64 107/79 Pulse Oximetry 95 95 97 Oxygen Delivery 05/24/25 04:31 05/24/25 04:48 05/24/25 05:00 Temperature Pulse Rate Respiratory Rate 21 H 18 19 Blood Pressure 121/92 H 122/93 H Pulse Oximetry 97 94 98 Oxygen Delivery 05/24/25 05:01 05/24/25 06:30 05/24/25 06:45 Temperature Pulse Rate 83 84 Respiratory Rate 22 H 18 21 H Blood Pressure 110/86 96/71 L 116/74 Pulse Oximetry 94 98 97 Oxygen Delivery 05/24/25 09:27 05/24/25 10:25 05/24/25 13:52 Temperature 97.8 F 97.4 F L 97.0 F L Pulse Rate 97 84 99 Respiratory Rate 17 118 H 16 Blood Pressure 114/79 120/58 L 103/57 L Pulse Oximetry 100 98 97 Oxygen Delivery Exam 2 Const: General: cooperative and healthy appearing Resp: Effort & Inspection: normal respiratory effort and able to speak in complete sentences Auscultation: clear to auscultation bilaterally Cardio: Rate: regular rate Rhythm: regular rhythm GI: Inspection: normal to inspection GI Palp: No No hepatosplenomegaly present Auscultation: normal bowel sounds Rectal Exam: deferred Skin: General skin exam: normal color Psych: Appearance: grossly normal Mental Status: mental status grossly normal Results Labs 05/23/25 23:56 05/23/25 23:56 Labs: Short CBC 05/23/25 Range/Units 23:56 WBC 19.3 H (4.5-10.0) K/mm3 Hgb 12.5 L (14.0-18.0) g/dL Hct 36.7 L (42.0-52.0) % Plt Count 513 H D (150-375) k/mm3 BMP 05/23/25 23:56 Sodium 132 L Potassium 3.1 L Chloride 93 L Carbon Dioxide 27 BUN 33 H D Creatinine 1.79 H Glucose 179 H Calcium 8.6 Liver Function 05/23/25 Range/Units 23:56 Total Bilirubin 0.3 (0.2-1.3) mg/dL AST 28 (17-59) U/L ALT 19 (6-50) U/L Alkaline Phosphatase 88 (38-126) U/L Albumin 3.9 (3.5-5.1) g/dL Urine 05/24/25 Range/Units 01:15 Urine Color Dark yellow (Yellow) Urine Appearance Clear (Clear) Urine pH 6.0 (5.0-9.0) Ur Specific [place] 1.028 (1.001-1.035) Urine Protein Negative (Negative) mg/dL Urine Glucose (UA) Negative (Negative) mg/dL
[2025-05-24] MEDS: SIMETHICONE 125 MG CHEW TAB 250 MG PO ×2 (16:56→20:14)
[2025-05-24] MEDS: metroNIDAZOLE 500 MG/ISO 100ML 500 MG/100 ML BAG 100 MG IVPB ×2 (16:57→21:11)
[2025-05-24] MEDS: MECLIZINE HCL 25 MG TABLET PO (16:57)
[2025-05-24] MEDS: TRIAMCINOLONE ACET 0.1% CREAM 15 GM TUBE 1 APPLIC TOPICAL (20:15)
[2025-05-24] MEDS: APIXABAN 5 MG TABLET PO (20:15)
[2025-05-24] MEDS: METOPROLOL SUCCINATE EXT REL 12.5 MG TABCR PO (20:18)
[2025-05-24] MEDS: MELATONIN 5 MG TABLET PO (20:22)
[2025-05-24] MEDS: diphenhydrAMINE HCl CAP 25 MG CAPSULE PO (21:11)
[2025-05-25 04:31] VITALS: BP 111/73; PULSE 65; RESP 18; TEMP 36.8; O2SAT 97
[2025-05-25] MEDS: metroNIDAZOLE 500 MG/ISO 100ML 500 MG/100 ML BAG 100 MG IVPB (05:35)
[2025-05-25] MEDS: SIMETHICONE 125 MG CHEW TAB 250 MG PO (05:36)
[2025-05-25 05:57] LABS: Hematocrit 37.4 % (42.0-52.0); Hemoglobin 12.6 g/dL (14.0-18.0); Mean Corpuscular HGB Conc 33.7 g/dl (32-36); Mean Corpuscular Hemoglobin 31.4 pg (26-34); Mean Corpuscular Volume 93.3 fl (80-100); Platelet Count Result 486 k/mm3 (150-375); Red Blood Count 4.01 M/mm3 (4.6-6.20); White Blood Count 13.5 K/mm3 (4.5-10.0)
[2025-05-25 06:12] LABS: Anion Gap 7 mmol/L (4-12); Blood Urea Nitrogen 28 mg/dL (9-20); Calcium 8.3 mg/dL (8.4-10.2); Carbon Dioxide 30 mmol/L (22-30); Chloride 96 mmol/L (98-107); Estimated CRCL calculation 42 ml/min; Estimated Glomerular Filt Rate 50; Glucose 150 mg/dL (65-110); Magnesium 2.3 mg/dL (1.6-2.3); Potassium 3.2 mmol/L (3.4-5.0); Sodium 133 mmol/L (137-145)
[2025-05-25] MEDS: POTASSIUM CHLORIDE 20 MEQ ER TABLET 80 MEQ PO (08:14)
[2025-05-25] MEDS: ASPIRIN 81 MG ENTERIC TABLET PO (08:14)
[2025-05-25] MEDS: CYANOCOBALAMIN 250 MCG TABLET PO (08:14)
[2025-05-25] MEDS: LORATADINE 10 MG TABLET PO (08:14)
[2025-05-25 08:15] VITALS: PULSE 70
[2025-05-25] MEDS: dilTIAZem HCL CD 180 MG CAP.24HR PO (08:15)
[2025-05-25] MEDS: BICALUTAMIDE (*CHEMO) 50 MG TABLET PO (08:15)
[2025-05-25] MEDS: MAGNESIUM OXIDE 400 MG TABLET PO (08:15)
[2025-05-25] MEDS: MECLIZINE HCL 25 MG TABLET PO (08:15)
[2025-05-25] MEDS: FUROSEMIDE 40 MG TABLET PO (08:15)
[2025-05-25] MEDS: APIXABAN 5 MG TABLET PO (08:15)
[2025-05-25] MEDS: ACIDOPHILUS/BULGARICUS CHEWABLE TABLET 1 TABLET BY MOUTH (08:15)
[2025-05-25] MEDS: PANTOPRAZOLE 40 MG TABLET PO (08:15)
[2025-05-25] MEDS: METOPROLOL SUCCINATE EXT REL 12.5 MG TABCR PO (08:15)
[2025-05-25] MEDS: TRIAMCINOLONE ACET 0.1% CREAM 15 GM TUBE 1 APPLIC TOPICAL (08:16)
[2025-05-25] MEDS: LOTEPREDNOL ETABONATE 0.5% OPH 5 ML BOTTLE 1 DROP EACH EYE (08:24)
[2025-05-25 11:36] VITALS: BMI 25.2
--- NOTE | 2025-05-25 13:47 | P.DS_ITS ---
DS: Admitting Diagnosis Discharge Date 05/25/25 Admitting Diagnosis Abdominal pain. DS: Discharge Diagnosis Discharge Diagnosis (1) Colitis: Code(s): K52.9 - Noninfective gastroenteritis and colitis, unspecified Status: Acute (2) Constipation: Code(s): K59.00 - Constipation, unspecified Status: Acute (3) Acute on chronic kidney failure: Code(s): N17.9 - Acute kidney failure, unspecified; N18.9 - Chronic kidney disease, unspecified Status: Acute (4) Hypokalemia: Code(s): E87.6 - Hypokalemia Status: Acute (5) Chronic diastolic heart failure: Code(s): I50.32 - Chronic diastolic (congestive) heart failure Status: Acute (6) Atrial fibrillation: Code(s): I48.91 - Unspecified atrial fibrillation Status: Acute Plan The patient presented to the emergency department with acute on chronic abdominal pain, distention, and bloating and no bowel movement for 1 week as detailed in HPI. Labs, imaging, EKG, and all reports were personally reviewed. The patient suffers from chronic constipation but has not had a bowel movement for over a week which is unusual for him. Imaging shows pretty significant constipation as well as findings suspicious for inflammatory or infectious colitis. He has been started on ceftriaxone and metronidazole. Continue aggressive bowel regimen. Avoid narcotics given his chronic constipation. His has acute on chronic kidney injury and we will continue with judicious IV fluid rehydration. Monitor volume status closely with strict I/O and daily weights given history of diastolic heart failure. Atrial fibrillation is rate controlled. Potassium was replaced and will be monitored. His home medications will be reviewed and resumed as appropriate. Findings and treatment plan were discussed with the patient. Questions were solicited and answered to satisfaction. The patient's medical management will be taken over by the hospitalist team in a.m. patient with history of chronic constipation presented with c/o abdominal pain, and found to have suspected infectious/inflammatory colitis and Constipation. patient was given Colace enema without significant improvement also received a normal saline bolus, Metamucil, MiraLax, which did help and patient has had several BM, for possible infectious colitis patient is given ceftriaxone and metronidazole. will consult GI for further recommendations. patient was able to tolerate his diet. DS: Summary Hospital Course Hospital Course: patient with history of chronic constipation presented with c/o abdominal pain, and found to have suspected infectious/inflammatory colitis and Constipation. patient was given Colace enema without significant improvement also received a normal saline bolus, Metamucil, MiraLax, which did help and patient has had several BM, for possible infectious colitis patient is given ceftriaxone and metronidazole. will consult GI for further recommendations. patient was able to tolerate his diet. patient did have BM with the regiment given and was seen by the GI and recommended if his white counts trending down and patient is clinically stable he can be discharged home. patient white counts are trending down, will discharge patient home on cefdinir and metronidazole. Time Spent with Patient Time attestation: Total time spent providing and/or coordinating discharge services: Exam Narrative: Patient is comfortable, NAD HEENT: eyes are clear and none icteric LUNGS:CTA HEART: RR S1S2 ABD: BS+, Soft and nontender Lower extremities: no edema SKIN: nonjaundiced Neuro: grossly intact. DS: Data Data Completed and Pending Labs on day of discharge: Labs from last 24 hours 05/25/25 05:28 WBC 13.5 H RBC 4.01 L Hgb 12.6 L Hct 37.4 L MCV 93.3 MCH 31.4 MCHC 33.7 RDW 13.9 Plt Count 486 H MPV 8.8 Sodium 133 L Potassium 3.2 L Chloride 96 L Carbon Dioxide 30 Anion Gap 7 BUN 28 H Creatinine 1.36 H Estim Creat Clear Calc 42 Estimated GFR 50 L Glucose 150 H Calcium 8.3 L Magnesium 2.3 Discharge Plan Discharge Attending physician on discharge: Johnny Burrell Consulting providers: Vanessa Knott; Iliana Ribera Francisco M.; Tanvir Dumont; Cyril Frias Discharging Clinician: Nydia Helton Patient Disposition: SNF Activity: as tolerated Diet: high fiber Discharge Instructions: patient to follow up with his primary care provider as soon as possible. Patient Instructions: Antibiotic Form, Apixaban (By mouth), Heart Failure (GEN), Suicide Prevention (GEN) Patient Language: Mohawk Stand Alone Forms: General Discharge Information Follow-up/Referrals: Maxwell Lucio MD [Primary Care Provider] - Discharge Medications: New polyethylene glycol 3350 [Miralax] 17 gram/dose powder 17 g PO DAILY Qty: 119 0RF Metamucil 3.4 gram/5.4 gram powder 1 tbsp PO DAILY Qty: 660 0RF Rx Instructions: mix into at least 8 oz of water or juice before administering magnesium citrate Solution 150 ml PO DAILY PRN (Reason: constipation) Qty: 296 0RF bisacodyl 10 mg suppository 10 mg RECTAL DAILY PRN (Reason: constipation) Qty: 12 0RF metronidazole 500 mg tablet 500 mg PO Q8H Qty: 12 0RF cefdinir 300 mg capsule 300 mg PO Q12H Qty: 8 0RF Continued simethicone [Gas Relief (simethicone)] 125 mg tablet,chewable 250 mg PO ACHS 90 Days Qty: 720 3RF cyanocobalamin (vitamin B-12) 2,500 mcg lozenge 2,500 mcg PO DAILY Eliquis 5 mg tablet 5 mg PO Q12H riboflavin (vitamin B2) 100 mg tablet 300 mg PO DAILY melatonin 5 mg tablet 5 mg PO HS PRN (Reason: sleep) Deep Sea Nasal 0.65 % aerosol,spray 1 spray intranasal BID PRN (Reason: dry nasal passages) acetaminophen 650 mg tablet extended release 650 mg PO Q12H PRN (Reason: pain) furosemide 40 mg tablet 40 mg PO DAILY metolazone 5 mg tablet 5 mg PO DAILY meloxicam 7.5 mg tablet 7.5 mg PO DAILY PRN (Reason: pain) potassium chloride 20 mEq tablet,ER particles/crystals 80 meq PO DAILY Acidophilus 1 cap PO DAILY loteprednol etabonate 0.5 % drops,suspension 1 drp EACH EYE TID magnesium oxide 400 mg magnesium capsule 400 mg PO DAILY ergocalciferol (vitamin D2) 1,250 mcg (50,000 unit) capsule 1,250 mcg PO WEEKLY cyanocobalamin (vitamin B-12) 100 mcg tablet 300 mcg PO DAILY pantoprazole 40 mg tablet,delayed release (DR/EC) 40 mg PO QAM meclizine 25 mg tablet 25 mg PO TID polyvinyl alcohol [Artificial Tears (polyvin alc)] 1.4 % drops 2 drp EACH EYE Q4H cetirizine [All Day Allergy (cetirizine)] 10 mg tablet 10 mg PO DAILY triamcinolone acetonide 0.1 % cream 1 applic TOPICAL BID Patient Comments: for fourteen days starting 05/19 prednisone 20 mg tablet 20 mg PO BID Patient Comments: for 5 days starting 05/22 lactulose 10 gram/15 mL solution 10 g PO DAILY PRN (Reason: constipation) polyethylene glycol 3350 [Miralax] 17 gram/dose powder 17 g PO DAILY PRN (Reason: constipation) bicalutamide 50 mg Tablet 50 mg PO QAM Qty: 30 0RF aspirin 81 mg Tablet,Delayed Release (Dr/Ec) 81 mg PO QAM Qty: 30 0RF metoprolol succinate 25 mg tablet extended release 24 hr 12.5 mg PO BID Qty: 30 0RF diltiazem HCl [Cardizem CD] 180 mg capsule,extended release 24hr 180 mg PO DAILY Qty: 30 0RF Date of admission: 05/24/25 05:51 Primary Care Provider: Maxwell Lucio Admitting Provider: Johnny Burrell Attending physician on admission: Nydia Helton Condition: Stable
== END 2025-05-25 14:36 ==
LOC: ANHED 05-24 05:54 → ANH2MED 05-24 10:40
PROVIDERS: Physician Assistant; Admitting Provider Internal Medicine; Emergency Provider Student in an Organized Health Care Education/Training Program; PCP Family Medicine; Visit Provider Family Medicine
DX: K52.9 Noninfective gastroenteritis and colitis, unspecified (principal); K59.09 Other constipation; I13.0 Hypertensive heart and chronic kidney disease with heart failure and stage 1 through stage 4 chronic kidney disease, or unspecified chronic kidney disease; I50.32 Chronic diastolic (congestive) heart failure; N18.9 Chronic kidney disease, unspecified; N17.9 Acute kidney failure, unspecified; E87.6 Hypokalemia; E78.5 Hyperlipidemia, unspecified; I42.9 Cardiomyopathy, unspecified; I48.91 Unspecified atrial fibrillation; D72.829 Elevated white blood cell count, unspecified; Z20.822 Contact with and (suspected) exposure to COVID-19; Z79.01 Long term (current) use of anticoagulants; Z79.899 Other long term (current) drug therapy; Z85.46 Personal history of malignant neoplasm of prostate; Z86.73 Personal history of transient ischemic attack (TIA), and cerebral infarction without residual deficits; Z87.891 Personal history of nicotine dependence
CPT/HCPCS: 36415; 74177; 80048; 80053; 81001; 83605; 83690; 83735; 85025; 85027; 87636; 87651; 93005; 96361; 96365; 96375; 99285; A9270; G0378; J0696; J1171; J1836; J3480; J7030; J7050; J7512; Q9967